=== PATIENT | male | born 1945 | race Caucasian/White ===

== ENCOUNTER 2016-08-14 18:35 | Inpatient (IN) | payer OTHER ==
[~2016-08-14] VITALS: Ht 182.9 cm; Wt 57.3 kg
[~2016-08-14 18:35] MED LIST: COLE1TAB5 PO; DORZ2SOL OPB; FURO20TA PO; LCTL45 PO; LSX20 PO; OMEP20CA9 PO; PROP10TA7 PO; SIMV10TA5 PO; SPR25 PO; SYN25 PO; XFX550 PO
[2016-08-14] MEDS ORDERED: SODIUM CHLORIDE 0.9% 1000ML 1,000 ML IV STA (18:55)
--- NOTE | 2016-08-14 19:46 | DIAGNOSTIC IMAGING REPORT ---
CHEST ONE VIEW PORTABLE CLINICAL HISTORY: Weakness COMPARISON STUDY: 09/29/2014 FINDINGS: The cardiac and mediastinal contours are normal. There is no evidence of focal pulmonary consolidation. There is no evidence of failure. No pleural effusions are visualized.[ IMPRESSION: No active disease in the chest. Electronically signed by: Tommy Hernandez M.D. 08/14/2016 7:45 PM Dictated Date/Time: 08/14/2016 7:45 PM
[2016-08-14 20:06] LABS: URINE APPEARANCE CLEAR (CLEAR); URINE BILIRUBIN NEG (NEG); URINE COLOR DK YELLOW; URINE NITRITE NEG (NEG); UROBILINOGEN NEG (NEG)
[2016-08-14 20:07] LABS: MEAN CORPUSCULAR HGB CONC 35.2 g/dl (32-36)
[2016-08-14 20:09] LABS: MANUAL MICROSCOPIC REQUIRED? NO; REVIEW REQ? NO
[2016-08-14 20:21] LABS: INR 1.3 (0.9-1.1); PARTIAL THROMBOPLASTIN RATIO 1.5; PROTHROMBIN TIME (PATIENT) 14.3 SECONDS (9.0-12.0)
--- NOTE | 2016-08-14 20:23 | DIAGNOSTIC IMAGING REPORT ---
CT HEAD WITHOUT CONTRAST (CT) CLINICAL HISTORY: Weakness DISORIENTATION COMPARISON STUDY: 09/28/2014 TECHNIQUE: Axial CT of the brain is performed from the vertex to the skull base. IV contrast was not administered for this examination. CT DOSE: 537.48 mGy.cm FINDINGS: No intra or extra-axial mass lesions are visualized. There is no CT evidence of acute cortical infarction. There is no evidence of midline shift. There is no acute hemorrhage. No calvarial fractures are visualized. There are minimal white matter hypodensities likely on a small vessel basis. There is no evidence of pathologic ventricular dilatation. There is no evidence of acute sinusitis IMPRESSION: No acute intracranial findings Electronically signed by: Tommy Hernandez M.D. 08/14/2016 8:21 PM Dictated Date/Time: 08/14/2016 8:20 PM
[2016-08-14 20:33] LABS: ACANTHOCYTES 1+; BASO % 1.3 %; COMPLETE YES; ECHINOCYTES 1+; EOS % 7.8 %; HEMATOCRIT 41.5 % (42-52); IG% 0.8 %; LYMPH % 13.7 %; LYMPH ABS # 1.09 K/uL (1.2-3.4); MEAN CELL VOLUME 87.2 fL (80-100); MEAN CORPUSCULAR HEMOGLOBIN 30.7 pg (25-34); MONO % 11.1 %; NEUT % 65.3 %; PLATELET COUNT 105 K/uL (130-400); PLT ESTIMATE DECREASED; RED BLOOD COUNT 4.76 M/uL (4.7-6.1); SCHISTOCYTES 1+; WHITE BLOOD COUNT 7.93 K/uL (4.8-10.8)
[2016-08-14] MEDS ORDERED: CRG40 PEG (20:49)
[2016-08-14 21:16] LABS: ALT/SGPT 30 U/L (12-78); AST/SGOT 28 U/L (15-37); BLOOD UREA NITROGEN 42 mg/dl (7-18); BUN/CREATININE RATIO 23.4 (10-20); CALCIUM 8.8 mg/dl (8.5-10.1); CARBON DIOXIDE 21 mmol/L (21-32); CHLORIDE 112 mmol/L (98-107); GLUCOSE 90 mg/dl (70-99); MAGNESIUM 2.3 mg/dl (1.8-2.4); SODIUM 144 mmol/L (136-145)
[2016-08-14 21:24] LABS: ALKALINE PHOSPHATASE 105 U/L (45-117); CKMB/CK RATIO 2.8 (0-3.0)
[2016-08-14] MEDS ORDERED: SODIUM CHLORIDE 0.9% 500ML 500 ML IV STA (22:14)
[2016-08-14] MEDS ORDERED: LACTULOSE SYRUP 20 GM/30 ML UDC PO STA (22:14)
[2016-08-14] MEDS ORDERED: ALUMINUM/MAGNESIUM/SIMETH (MAALOX MAX) 30 ML UDC PO PRN (23:30)
[2016-08-14] MEDS ORDERED: ONDANSETRON INJ 2 MG/ML 2 ML VIAL IV PRN (23:30)
[2016-08-14] MEDS ORDERED: MAGNESIUM HYDROXIDE SUSP 30 ML UDC PO PRN (23:30)
[2016-08-14] MEDS ORDERED: SIMV40TA4 PO (23:42)
[2016-08-14] MEDS ORDERED: LCTL30 PO (23:42)
[2016-08-15] MEDS ORDERED: SODIUM CHLORIDE 0.9% 1000ML 1,000 ML IV SCH
[2016-08-15] MEDS ORDERED: IV FLUIDS COMPLETED PRN (00:30)
--- NOTE | 2016-08-15 00:58 | EMERGENCY ROOM VISIT NOTE ---
History Report prepared by Adele: Richard Driscoll Under the Supervision of: Dr. Sai Bowens M.D. First contact with patient: 18:54 Chief Complaint: ALTERED MENTAL STATUS Stated Complaint: DISORIENTED,NOT TAKEN MEDS TODAY History of Present Illness The patient is a 71 year old male who presents to the Emergency Room with complaints of worsening alter mental status starting a last couple of days ago. The patient states that he has been nauseous and dry heaving for the last couple of days. The patient is accompanied by his daughter who states that he has not been himself starting yesterday. She states that she usually calls the patient three times a day. She reports that he is typically up at 715 but he was not answering the phone when she called. The patient's daughter reports that she called him around noon and 1615 yesterday, but he was not answering her calls. The patient's daughter states that she went to give him his lunch today at 1030, but he did not seem himself. She states that he has been unaware of time and has not been taking his medications. The patient's daughter reports that she does not believe he has eaten anything because he has not had dirty dishes in his sink. She states that he went on his tractor earlier tonight, but she was unaware of his location. His daughter reports that she had to call the police to find him. The patient states that he was unaware of the time when he went to ride on his tractor. She admits that he has been found unconscious two years ago with high ammonia levels. She also admits that he has non alcoholic cirrhosis of the liver and has been having varices done. The denies LOC, headache, fevers, chills, diaphoresis, visual changes, neck pain, chest pain, breathing difficulties, vomiting, abdominal pain, back pain, melena, hematochezia, urinary symptoms, numbness, weakness, lymphadenopathy, rash, or other complaints. Source of History: patient, family Onset: a couple of days ago Position: other (global) Quality: other (confusion) Timing: worsening Associated Symptoms: + nausea Review of Systems See HPI for pertinent positives and negatives. A total of ten systems were reviewed and were otherwise negative. Past Medical & Surgical Medical Problems: (1) Cirrhosis Of Liver Nos (2) Dehydration (3) Diverticulosis Colon (W/O Ment Of Hemorrhage) (4) Esophageal varices (5) Hepatic encephalopathy (6) Hypertension Nos (7) Hypothyroidism Nos Surgical Problems: (1) Cataract (2) History of hernia surgery Family History Cancer Unobtainable due to patient's condition Social History Smoking Status: Former Smoker Alcohol Use: none Marital Status: Housing Status: lives alone Occupation Status: employed Current/Historical Medications Scheduled Cholecalciferol (Vitamin D3), 2,000 UNITS PO DAILY Ferrous Sulfate (Ferrous Sulfate), 324 MG PO QPM Furosemide (Lasix), 20 MG PO QAM Lactulose (Lactulose), 20 GM PO DAILY Levothyroxine Sodium (Synthroid), 200 MCG PO QAM Nadolol (Nadolol), 40 MG PEG DAILY Rifaximin (Xifaxan), 550 MG PO BID Simvastatin (Zocor), 1 TAB PO HS Spironolactone (Spironolactone), 25 MG PO [id number] Allergies Coded Allergies: No Known Allergies (Verified , 02/08/10) Physical Exam Vital Signs Date Time Temp Pulse Resp B/P (MAP) Pulse Ox O2 Delivery O2 Flow Rate FiO2 08/15/16 00:28 72 16 104/59 99 Room Air 08/14/16 23:15 53 08/14/16 22:25 48 19 108/58 99 Room Air 08/14/16 20:49 57 17 108/58 100 Room Air 08/14/16 19:51 58 08/14/16 19:39 59 18 106/65 100 Room Air 08/14/16 19:38 99 Room Air 08/14/16 18:43 36.5 70 17 113/72 98 Room Air Physical Exam GENERAL: Awake, alert, well-appearing, in no distress HENT: Dry mucous membranes. Normocephalic, atraumatic. Oropharynx unremarkable. EYES: Normal conjunctiva. Sclera non-icteric. NECK: Supple. No nuchal rigidity. FROM. No JVD. RESPIRATORY: Clear to auscultation. CARDIAC: Regular rate, normal rhythm. Extremities warm and well perfused. Pulses equal. ABDOMEN: Reducible umbilical hernia. Liver palpable, 6cm below right costal margin. Soft, non-distended. No tenderness to palpation. No rebound or guarding. No masses. RECTAL: Deferred. MUSCULOSKELETAL: Chest examination reveals no tenderness. The back is symmetrical on inspection without obvious abnormality. There is no CVA tenderness to palpation. No joint edema. LOWER EXTREMITIES: Calves are equal size bilaterally and non-tender. No edema. No discoloration. NEURO: Normal sensorium. No sensory or motor deficits noted. SKIN: Chronic venous discoloration. Psoriasis. Skin Rash. No jaundice noted. Medical Decision & Procedures ER Provider Diagnostic Interpretation: Radiology results as stated below per my review and radiologist interpretation: CT HEAD WITHOUT CONTRAST (CT) CLINICAL HISTORY: Weakness DISORIENTATION COMPARISON STUDY: 09/28/2014 TECHNIQUE: Axial CT of the brain is performed from the vertex to the skull base. IV contrast was not administered for this examination. CT DOSE: 537.48 mGy.cm FINDINGS: No intra or extra-axial mass lesions are visualized. There is no CT evidence of acute cortical infarction. There is no evidence of midline shift. There is no acute hemorrhage. No calvarial fractures are visualized. There are minimal white matter hypodensities likely on a small vessel basis. There is no evidence of pathologic ventricular dilatation. There is no evidence of acute sinusitis IMPRESSION: No acute intracranial findings Electronically signed by: Tommy Hernandez M.D. 08/14/2016 8:21 PM Dictated Date/Time: 08/14/2016 8:20 PM CHEST ONE VIEW PORTABLE CLINICAL HISTORY: Weakness COMPARISON STUDY: 09/29/2014 FINDINGS: The cardiac and mediastinal contours are normal. There is no evidence of focal pulmonary consolidation. There is no evidence of failure. No pleural effusions are visualized.[ IMPRESSION: No active disease in the chest. Electronically signed by: Tommy Hernandez M.D. 08/14/2016 7:45 PM Dictated Date/Time: 08/14/2016 7:45 PM Laboratory Results 08/14/16 19:28 Red Blood Count 4.76, Mean Corpuscular Volume 87.2, Mean Corpuscular Hemoglobin 30.7, Mean Corpuscular Hemoglobin Concent 35.2, Neutrophils (%) (Auto) 65.3, Lymphocytes (%) (Auto) 13.7, Monocytes (%) (Auto) 11.1, Eosinophils (%) (Auto) 7.8, Basophils (%) (Auto) 1.3, Neutrophils # (Auto) 5.18, Lymphocytes # (Auto) 1.09, Monocytes # (Auto) 0.88, Eosinophils # (Auto) 0.62, Basophils # (Auto) 0.10 08/14/16 20:48 Test 08/14/16 19:20 08/14/16 19:28 08/14/16 20:48 Urine Color DK YELLOW Urine Appearance CLEAR (CLEAR) Urine pH 5.0 (4.5-7.5) Urine Specific [place] 1.020 (1.000-1.030) Urine Protein NEG (NEG) Urine Glucose (UA) NEG (NEG) Urine Ketones NEG (NEG) Urine Occult Blood NEG (NEG) Urine Nitrite NEG (NEG) Urine Bilirubin NEG (NEG) Urine Urobilinogen NEG (NEG) Urine Leukocyte Esterase NEG (NEG) White Blood Count 7.93 K/uL (4.8-10.8) Red Blood Count 4.76 M/uL (4.7-6.1) Hemoglobin 14.6 g/dL (14.0-18.0) Hematocrit 41.5 % (42-52) Mean Corpuscular Volume 87.2 fL (80-100) Mean Corpuscular Hemoglobin 30.7 pg (25-34) Mean Corpuscular Hemoglobin Concent 35.2 g/dl (32-36) Platelet Count 105 K/uL (130-400) Neutrophils (%) (Auto) 65.3 % Lymphocytes (%) (Auto) 13.7 % Monocytes (%) (Auto) 11.1 % Eosinophils (%) (Auto) 7.8 % Basophils (%) (Auto) 1.3 % Neutrophils # (Auto) 5.18 K/uL (1.4-6.5) Lymphocytes # (Auto) 1.09 K/uL (1.2-3.4) Monocytes # (Auto) 0.88 K/uL (0.11-0.59) Eosinophils # (Auto) 0.62 K/uL (0-0.5) Basophils # (Auto) 0.10 K/uL (0-0.2) RDW Standard Deviation 47.8 fL (36.4-46.3) RDW Coefficient of Variation 15.0 % (11.5-14.5) Immature Granulocyte % (Auto) 0.8 % Immature Granulocyte # (Auto) 0.06 K/uL (0.00-0.02) Platelet Estimate DECREASED Echinocytes 1+ Acanthocytes 1+ Schistocytes 1+ Prothrombin Time 14.3 SECONDS (9.0-12.0) Prothromb Time International Ratio 1.3 (0.9-1.1) Activated Partial Thromboplast Time 38.3 SECONDS (21.0-31.0) Partial Thromboplastin Ratio 1.5 Anion Gap 11.0 mmol/L (3-11) Est Creatinine Clear Calc Drug Dose 31.8 ml/min Estimated GFR () 43.2 Estimated GFR (Non- 37.3 BUN/Creatinine Ratio 23.4 (10-20) Calcium Level 8.8 mg/dl (8.5-10.1) Magnesium Level 2.3 mg/dl (1.8-2.4) Total Bilirubin 1.8 mg/dl (0.2-1) Direct Bilirubin 0.6 mg/dl (0-0.2) Aspartate Amino Transf (AST/SGOT) 28 U/L (15-37) Alanine Aminotransferase (ALT/SGPT) 30 U/L (12-78) Alkaline Phosphatase 105 U/L (45-117) Ammonia 67.0 umol/L (11-32) Total Creatine Kinase 54 U/L (39-308) Creatine Kinase MB 1.5 ng/ml (0.5-3.6) Creatine Kinase MB Ratio 2.8 (0-3.0) Troponin I < 0.015 ng/ml (0-0.045) Pro-B-Type Natriuretic Peptide 244 pg/ml (0-900) Total Protein 6.6 gm/dl (6.4-8.2) Albumin 3.3 gm/dl (3.4-5.0) Lipase 722 U/L (73-393) Thyroid Stimulating Hormone (TSH) 1.100 uIu/ml (0.300-4.500) Laboratory results reviewed by me Medications Administered Medications (Trade) Dose Ordered Sig/Elias Route Start Time Stop Time Status Last Admin Dose Admin Sodium Chloride 1,000 ml @ 125 mls/hr Q8H STAT IV 08/14/16 18:55 08/14/16 23:50 DC 08/14/16 20:25 125 MLS/HR Sodium Chloride 500 ml @ 999 mls/hr Q31M STAT IV 08/14/16 22:14 08/14/16 22:44 DC 08/14/16 22:24 999 MLS/HR Lactulose (Chronulac Syrup) 30 gm NOW STAT PO 08/14/16 22:14 08/14/16 22:15 DC 08/14/16 22:47 30 GM ECG Indication: altered mental status Rate (beats per minute): 57 Rhythm: sinus bradycardia Findings: no acute ischemic change, no ectopy ED Course Blood pressure screening: Patient was found to have normal blood pressure on screening and does not require follow-up. Medication Reconciliation: I attest that I have personally reviewed the patient' s current medication list 1855: Sodium chloride 1000 ml @ 125 mls/hr IV. 1858: The patient was evaluated in room C07. A complete history and physical exam was performed. 2213: Lactulose 30 gm PO, Sodium Chloride 500 ml @ 999 mls/hr. 2218: I reevaluated the patient. He is doing well. 2225: I discussed the patient's case with Dr. Fontana, [facility] Hospitalist. He understands the patient's condition and agrees to accept the patient. He will be further evaluated. Medical Decision Prior records/ancillary studies reviewed and summarized above. Nursing notes reviewed and agree them. Additional history obtained from family. The patient's history was concerning for altered mental status. Differential diagnosis: Etiologies such as hyperammonemia, dehydration, infection, hypoglycemia, electrolyte abnormalities, cardiac sources, intracerebral event, toxicologic, neurologic, as well as others were entertained. Physical examination: Patient appeared to be dehydrated. Mental status was relatively normal. ER treatment provided: IV Lock Normal saline hydration Oral lactulose On reassessment the patient felt better. Diagnostics interpretation by me: ECG: No ischemia. Normal. The labs revealed an unremarkable CBC. Chemistry panel revealed acute kidney injury. The patient's lipase is moderately elevated. He has a moderate elevation of his ammonia level as well. Cardiac markers unremarkable. LFTs revealed a mild elevation of his bilirubin function. His INR is slightly elevated at 1.3. Imaging studies: As above. It appears the patient has some dehydration with acute kidney injury as well as hyperammonemia. He is not currently taking lactulose. He was hydrated. Lactulose was initiated. I discussed further evaluation and management in the hospital. Family was definitely in agreement. The patient agreed for further management in the hospital as well. Consultation: A consultation was placed with the hospitalist. The case was discussed and diagnostics were reviewed. The patient was evaluated in the ER for further treatment. Consults Time Called: Consulting Physician: Mendy Villagomez Hospitalist Returned Call: I discussed the patient's case with Mendy Villagomez Hospitalist. He understands the patient's condition and agrees to accept the patient. He will be further evaluated. Impression Primary Impression: Metabolic encephalopathy Additional Impressions: Hyperammonemia Acute kidney injury Scribe Attestation The scribe's documentation has been prepared under my direction and personally reviewed by me in its entirety. I confirm that the note above accurately reflects all work, treatment, procedures, and medical decision making performed by me. Departure Information Dispostion Being Evaluated By Hospitalist (Dr. Fontana) Prescriptions Lactulose (Lactulose) 20 Gm/30 Ml Syrp 20 GM PO DAILY for 30 Days Prov: Viviana Fontana, 08/14/16 Simvastatin (ZOCOR) 40 Mg Tab 1 TAB PO HS for 30 Days, #30 TAB 5 Refills Prov: Viviana Fontana, 08/14/16 Referrals Gildardo Casiano D.O. (PCP) Patient Instructions My [facility] Problem Qualifiers
--- NOTE | 2016-08-15 01:24 | History and Physical ---
History & Physical Date & Time of Service: Aug 15, 2016 at 01:05 Chief Complaint: Disoriented,Not Taken Meds Today Primary Care Physician: Gildardo Casiano D.O. History of Present Illness Source: patient, family This is a 71 year old male with a PMH of MUNGUIA cirrhosis with complications including hepatic encephalopathy, ascites, esophageal varices presents with weakness, fatigue, confusion. As per his daughter, she states that he was riding his tractor today, working, etc. but he stayed out all day, did not eat or drink anything after breakfast - he seemed "off" and just did not realize what he was doing. He has had this episode a few years back when his ammonia level was high. He presented here, received some lactulose and IVFs and he is doing better. During my exam, no confusion, +weakness, denies fevers/chills, denies nausea/vomiting/diarrhea. Past Medical/Surgical History Medical Problems: (1) Cirrhosis Of Liver Nos Status: Chronic (2) Diverticulosis Colon (W/O Ment Of Hemorrhage) Status: Chronic (3) Esophageal varices Status: Chronic (4) Hepatic encephalopathy Status: Resolved (5) Hypertension Nos Status: Chronic (6) Hypothyroidism Nos Status: Chronic Surgical Problems: (1) Cataract Status: Resolved (2) History of hernia surgery Status: Resolved Family History Cancer Unobtainable due to patient's condition Social History Smoking Status: Former Smoker Marital Status: Occupational Status: employed Immunizations History of Influenza Vaccine: No History of Tetanus Vaccine?: 30 YRS AGO History of Pneumococcal: No History of Hepatitis B Vaccine: No Allergies Coded Allergies: No Known Allergies (Verified , 02/08/10) Home Medications Scheduled Cholecalciferol (Vitamin D3), 2,000 UNITS PO DAILY Ferrous Sulfate (Ferrous Sulfate), 324 MG PO QPM Furosemide (Lasix), 20 MG PO QAM Lactulose (Lactulose), 20 GM PO DAILY Levothyroxine Sodium (Synthroid), 200 MCG PO QAM Nadolol (Nadolol), 40 MG PEG DAILY Rifaximin (Xifaxan), 550 MG PO BID Simvastatin (Zocor), 1 TAB PO HS Spironolactone (Spironolactone), 25 MG PO BID17 Review of Systems Constitutional: + weakness, + fatigue, No fever, No chills, No sweats Respiratory: No cough, No sputum, No wheezing, No shortness of breath, No dyspnea on exertion, No dyspnea at rest, No hemoptysis Cardiovascular: No chest pain, No edema, No palpitations Abdomen: No pain, No nausea, No vomiting, No diarrhea, No constipation, No GI bleeding Musculoskeletal: No joint pain Genitourinary - Male: No hematuria, No dysuria, No urinary frequency, No urinary urgency, No urinary hesitancy, No urinary retention, No urinary incontinence Neurologic: + memory loss, + weakness, No paralysis, No numbness/tingling, No vertigo, No balance problems Psychiatric: No depression symptoms, No anhedonism, No anxiety, No insomnia, No substance abuse Endocrine: + fatigue, No excessive thirst Hematologic / Lymphatic: No abnormal bleeding/bruising Integumentary: No rash Allergic / Immunologic: No environmental allergies, No seasonal allergies Physical Exam Vital Signs Date Time Temp Pulse Resp B/P (MAP) Pulse Ox O2 Delivery O2 Flow Rate FiO2 08/15/16 00:28 72 16 104/59 99 Room Air 08/14/16 23:15 53 08/14/16 22:25 48 19 108/58 99 Room Air 08/14/16 20:49 57 17 108/58 100 Room Air 08/14/16 19:51 58 08/14/16 19:39 59 18 106/65 100 Room Air 08/14/16 19:38 99 Room Air 08/14/16 18:43 36.5 70 17 113/72 98 Room Air General Appearance: no apparent distress, + cachetic, + thin Head: normocephalic, atraumatic Eyes: normal inspection ENT: hearing grossly normal Respiratory/Chest: chest non-tender, lungs clear, normal breath sounds, no respiratory distress, no accessory muscle use Cardiovascular: regular rate, rhythm, no edema, no gallop, no murmur Abdomen/GI: normal bowel sounds, non tender, soft, + hepatomegaly Extremities/Musculoskelatal: no calf tenderness, normal capillary refill, no pedal edema Neurologic/Psych: no motor/sensory deficits, alert, normal mood/affect Diagnostics Laboratory Results Results Past 24 Hours Test 08/14/16 18:55 08/14/16 19:20 08/14/16 19:28 08/14/16 20:48 Range/Units Creatine Kinase MB Ratio 2.8 0-3.0 Urine Color DK YELLOW Urine Appearance CLEAR CLEAR Urine pH 5.0 4.5-7.5 Urine Specific [place] 1.020 1.000-1.030 Urine Protein NEG NEG Urine Glucose (UA) NEG NEG Urine Ketones NEG NEG Urine Occult Blood NEG NEG Urine Nitrite NEG NEG Urine Bilirubin NEG NEG Urine Urobilinogen NEG NEG Urine Leukocyte Esterase NEG NEG White Blood Count 7.93 4.8-10.8 K/uL Red Blood Count 4.76 4.7-6.1 M/uL Hemoglobin 14.6 14.0-18.0 g/dL Hematocrit 41.5 42-52 % Mean Corpuscular Volume 87.2 80-100 fL Mean Corpuscular Hemoglobin 30.7 25-34 pg Mean Corpuscular Hemoglobin Concent 35.2 32-36 g/dl Platelet Count 105 130-400 K/uL Neutrophils (%) (Auto) 65.3 % Lymphocytes (%) (Auto) 13.7 % Monocytes (%) (Auto) 11.1 % Eosinophils (%) (Auto) 7.8 % Basophils (%) (Auto) 1.3 % Neutrophils # (Auto) 5.18 1.4-6.5 K/uL Lymphocytes # (Auto) 1.09 1.2-3.4 K/uL Monocytes # (Auto) 0.88 0.11-0.59 K/uL Eosinophils # (Auto) 0.62 0-0.5 K/uL Basophils # (Auto) 0.10 0-0.2 K/uL RDW Standard Deviation 47.8 36.4-46.3 fL RDW Coefficient of Variation 15.0 11.5-14.5 % Immature Granulocyte % (Auto) 0.8 % Immature Granulocyte # (Auto) 0.06 0.00-0.02 K/uL Platelet Estimate DECREASED Echinocytes 1+ Acanthocytes 1+ Schistocytes 1+ Prothrombin Time 14.3 9.0-12.0 SECONDS Prothromb Time International Ratio 1.3 0.9-1.1 Activated Partial Thromboplast Time 38.3 21.0-31.0 SECONDS Partial Thromboplastin Ratio 1.5 Sodium Level 144 136-145 mmol/L Potassium Level 4.0 3.5-5.1 mmol/L Chloride Level 112 98-107 mmol/L Carbon Dioxide Level 21 21-32 mmol/L Anion Gap 11.0 3-11 mmol/L Blood Urea Nitrogen 42 7-18 mg/dl Creatinine 1.80 0.60-1.40 mg/dl Est Creatinine Clear Calc Drug Dose 31.8 ml/min Estimated GFR () 43.2 Estimated GFR (Non- 37.3 BUN/Creatinine Ratio 23.4 10-20 Random Glucose 90 70-99 mg/dl Calcium Level 8.8 8.5-10.1 mg/dl Magnesium Level 2.3 1.8-2.4 mg/dl Total Bilirubin 1.8 0.2-1 mg/dl Direct Bilirubin 0.6 0-0.2 mg/dl Aspartate Amino Transf (AST/SGOT) 28 15-37 U/L Alanine Aminotransferase (ALT/SGPT) 30 12-78 U/L Alkaline Phosphatase 105 45-117 U/L Ammonia 67.0 11-32 umol/L Total Creatine Kinase 54 39-308 U/L Creatine Kinase MB 1.5 0.5-3.6 ng/ml Troponin I < 0.015 0-0.045 ng/ml Pro-B-Type Natriuretic Peptide 244 0-900 pg/ml Total Protein 6.6 6.4-8.2 gm/dl Albumin 3.3 3.4-5.0 gm/dl Lipase 722 73-393 U/L Thyroid Stimulating Hormone (TSH) 1.100 0.300-4.500 uIu/ml Microbiology Results 08/14/16 Urine Culture, Received Pending Diagnostic Radiology CT HEAD WITHOUT CONTRAST (CT) CLINICAL HISTORY: Weakness DISORIENTATION COMPARISON STUDY: 09/28/2014 TECHNIQUE: Axial CT of the brain is performed from the vertex to the skull base. IV contrast was not administered for this examination. CT DOSE: 537.48 mGy.cm FINDINGS: No intra or extra-axial mass lesions are visualized. There is no CT evidence of acute cortical infarction. There is no evidence of midline shift. There is no acute hemorrhage. No calvarial fractures are visualized. There are minimal white matter hypodensities likely on a small vessel basis. There is no evidence of pathologic ventricular dilatation. There is no evidence of acute sinusitis IMPRESSION: No acute intracranial findings CHEST ONE VIEW PORTABLE CLINICAL HISTORY: Weakness COMPARISON STUDY: 09/29/2014 FINDINGS: The cardiac and mediastinal contours are normal. There is no evidence of focal pulmonary consolidation. There is no evidence of failure. No pleural effusions are visualized.[ IMPRESSION: No active disease in the chest. Normal EKG Impression Assessment and Plan This is a 71 year old male with a PMH of MUNGUIA cirrhosis with complications including hepatic encephalopathy, ascites, esophageal varices presents with weakness, fatigue, confusion. Metabolic Encephalopathy possibly secondary to dehydration decreased PO intake today, excessive sweating due to being outside in the heat for the majority of the day will hold Lasix/Aldactone received bolus in the ED; continue gentle hydration monitor for electrolyte abnormality Acute Kidney Injury as above, due to dehydration hold Lasix/Aldactone continue IVFs recheck creat in AM; avoid nephrotoxic agents when able Hepatic Encephalopathy? in the setting of MUNGUIA cirrhosis patient with MUNGUIA cirrhosis; follows with corporate learning consultant; next appoint on August 17 he takes Lactulose once daily; states he had 15 BMs with twice daily dosing ammonia level today is slightly high at ~ 70; will increase to twice daily for now, and possible once daily for discharge with outpatient f/u with hepatology for dose adjustments continue Rifaximin, Nadolol; hold Lasix/Aldactone DVT ppx no heparin due to esophageal varices SCDs DNR VTE Prophylaxis VTE Risk Assessment Done? Y/N: Yes Risk Level: Moderate
[2016-08-15 01:32] VITALS: BP 102/62; PULSE 50; TEMP 36.4; Ht 182.9 cm; Wt 57.3 kg
[2016-08-15 07:31] VITALS: BP 94/56; PULSE 58; TEMP 36.4; O2SAT 100
[2016-08-15 08:05] LABS: BUN/CREATININE RATIO 27.1 (10-20); CALCIUM 8.4 mg/dl (8.5-10.1); CREATININE 1.4 mg/dl (0.60-1.40); MAGNESIUM 2.4 mg/dl (1.8-2.4); POTASSIUM 3.8 mmol/L (3.5-5.1)
[2016-08-15 08:06] LABS: HEMATOCRIT 39.3 % (42-52); MEAN CELL VOLUME 88.9 fL (80-100); MEAN CORPUSCULAR HEMOGLOBIN 30.1 pg (25-34); MEAN CORPUSCULAR HGB CONC 33.8 g/dl (32-36); MEAN PLATELET VOLUME 12.4 fL (7.4-10.4); PLATELET COUNT 66 K/uL (130-400); PLT ESTIMATE DECREASED; RED BLOOD COUNT 4.42 M/uL (4.7-6.1); WHITE BLOOD COUNT 6.45 K/uL (4.8-10.8)
[2016-08-15] MEDS: LEVOTHYROXINE 200 MCG TAB PO SCH (08:07)
--- NOTE | 2016-08-15 08:59 | Progress Note ---
Medicine Progress Note Date & Time of Visit: Aug 15, 2016 at 08:49. Subjective patient seen resting in bed, comfortable states he feels fine overall oriented x 3, answers all questions appropriately had 5 BMs so far since admitted no melena/hematochezia, abdominal pain ,nausea, fever/chills denies increase in abdominal girth no other symptoms Objective Last 8 Hrs Date Time Temp Pulse Resp B/P (MAP) Pulse Ox O2 Delivery O2 Flow Rate FiO2 08/15/16 07:31 36.4 58 18 94/56 (69) 100 Room Air 08/15/16 05:15 Room Air 08/15/16 01:32 36.4 50 20 102/62 Room Air Physical Exam: General- oriented x 3, not in distress, speaks in sentences with no effort Head- atraumatic Eyes- EOMI, anicteric ENT- oropharynx clear Neck- supple, no JVD, no adenopathy, no thyromegaly Lungs- clear to auscultation bilaterally Heart- regular rhythm; no murmur, normal rate Abdomen- normal bowel sounds, moderate distention (chronic per patient), soft, nontender, Extremities- no pretibial edema, no calf tenderness; peripheral pulses intact Neuro- alert, oriented x 3; no gross focal deficits Skin- warm & dry Laboratory Results: Last 24 Hours Test 08/14/16 18:55 08/14/16 19:20 08/14/16 19:28 08/14/16 20:48 Creatine Kinase MB Ratio 2.8 Urine Color DK YELLOW Urine Appearance CLEAR Urine pH 5.0 Urine Specific [place] 1.020 Urine Protein NEG Urine Glucose (UA) NEG Urine Ketones NEG Urine Occult Blood NEG Urine Nitrite NEG Urine Bilirubin NEG Urine Urobilinogen NEG Urine Leukocyte Esterase NEG White Blood Count 7.93 K/uL Red Blood Count 4.76 M/uL Hemoglobin 14.6 g/dL Hematocrit 41.5 % Mean Corpuscular Volume 87.2 fL Mean Corpuscular Hemoglobin 30.7 pg Mean Corpuscular Hemoglobin Concent 35.2 g/dl Platelet Count 105 K/uL Neutrophils (%) (Auto) 65.3 % Lymphocytes (%) (Auto) 13.7 % Monocytes (%) (Auto) 11.1 % Eosinophils (%) (Auto) 7.8 % Basophils (%) (Auto) 1.3 % Neutrophils # (Auto) 5.18 K/uL Lymphocytes # (Auto) 1.09 K/uL Monocytes # (Auto) 0.88 K/uL Eosinophils # (Auto) 0.62 K/uL Basophils # (Auto) 0.10 K/uL RDW Standard Deviation 47.8 fL RDW Coefficient of Variation 15.0 % Immature Granulocyte % (Auto) 0.8 % Immature Granulocyte # (Auto) 0.06 K/uL Platelet Estimate DECREASED Echinocytes 1+ Acanthocytes 1+ Schistocytes 1+ Prothrombin Time 14.3 SECONDS Prothromb Time International Ratio 1.3 Activated Partial Thromboplast Time 38.3 SECONDS Partial Thromboplastin Ratio 1.5 Sodium Level 144 mmol/L Potassium Level 4.0 mmol/L Chloride Level 112 mmol/L Carbon Dioxide Level 21 mmol/L Anion Gap 11.0 mmol/L Blood Urea Nitrogen 42 mg/dl Creatinine 1.80 mg/dl Est Creatinine Clear Calc Drug Dose 31.8 ml/min Estimated GFR () 43.2 Estimated GFR (Non- 37.3 BUN/Creatinine Ratio 23.4 Random Glucose 90 mg/dl Calcium Level 8.8 mg/dl Magnesium Level 2.3 mg/dl Total Bilirubin 1.8 mg/dl Direct Bilirubin 0.6 mg/dl Aspartate Amino Transf (AST/SGOT) 28 U/L Alanine Aminotransferase (ALT/SGPT) 30 U/L Alkaline Phosphatase 105 U/L Ammonia 67.0 umol/L Total Creatine Kinase 54 U/L Creatine Kinase MB 1.5 ng/ml Troponin I < 0.015 ng/ml Pro-B-Type Natriuretic Peptide 244 pg/ml Total Protein 6.6 gm/dl Albumin 3.3 gm/dl Lipase 722 U/L Thyroid Stimulating Hormone (TSH) 1.100 uIu/ml Test 08/15/16 07:20 White Blood Count 6.45 K/uL Red Blood Count 4.42 M/uL Hemoglobin 13.3 g/dL Hematocrit 39.3 % Mean Corpuscular Volume 88.9 fL Mean Corpuscular Hemoglobin 30.1 pg Mean Corpuscular Hemoglobin Concent 33.8 g/dl RDW Standard Deviation 50.6 fL RDW Coefficient of Variation 15.4 % Platelet Count 66 K/uL Mean Platelet Volume 12.4 fL Platelet Estimate DECREASED Sodium Level 146 mmol/L Potassium Level 3.8 mmol/L Chloride Level 116 mmol/L Carbon Dioxide Level 18 mmol/L Anion Gap 12.0 mmol/L Blood Urea Nitrogen 38 mg/dl Creatinine 1.40 mg/dl Est Creatinine Clear Calc Drug Dose 39.8 ml/min Estimated GFR () 58.6 Estimated GFR (Non- 50.5 BUN/Creatinine Ratio 27.1 Random Glucose 91 mg/dl Calcium Level 8.4 mg/dl Magnesium Level 2.4 mg/dl Ammonia 95.0 umol/L Lipase 683 U/L Date/Time Source Procedure Growth Status 08/14/16 19:20 Urine , Clean Catch Urine Culture Pending Received Assessment & Plan This is a 71 year old male with a PMH of MUNGUIA cirrhosis with complications including hepatic encephalopathy, ascites, esophageal varices presents with weakness, fatigue, confusion. TOXIC METABOLIC ENCEPHALOPATHY - presented to ER as patient's family noticed that patient was somewhat confused , apparently rode tractor all day in the sun - likely from hyper-ammonemia, dehydration - NH4 increased from 67 to 95 clinically, oriented x 3 today - Lactulose increased from 20mg daily to 30mg BID Rifaximin continued - Lasix and Aldactone held for now was given IV NSS crea improved from 1.8 to 1.4 hold fluids for now encouraged fluid intake - GI consulted Acute Kidney Injury resolved secondary to dehydration - Lasix and Aldactone held for now was given IV NSS crea improved from 1.8 to 1.4 hold fluids for now encouraged fluid intake Hepatic Encephalopathy in the setting of MUNGUIA cirrhosis patient with MUNGUIA cirrhosis; 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 Casiano Current Inpatient Medications: Current Inpatient Medications Medications (Trade) Dose Ordered Sig/Elias Route Start Time Stop Time Status Last Admin Dose Admin Al Hydrox/Mg Hydrox/Simethicone (Maalox Max Susp) 15 ml Q4H PRN PO 08/14/16 23:30 09/13/16 23:29 Magnesium Hydroxide (Milk Of Magnesia Susp) 30 ml Q6H PRN PO 6/11/17 23:30 09/13/16 23:29 Ondansetron HCl (Zofran Inj) 4 mg Q6H PRN IV 08/14/16 23:30 09/13/16 23:29 Levothyroxine Sodium (Synthroid Tab) 200 mcg DAILYBB PO 08/15/16 06:30 09/14/16 06:59 08/15/16 08:07 200 MCG Rifaximin (Xifaxan Tab) 550 mg BID PO 08/15/16 09:00 09/14/16 08:59 Ferrous Sulfate (Feosol Tab) 325 mg QPM PO 08/15/16 21:00 09/14/16 20:59 Nadolol (Corgard Tab) 40 mg DAILY PO 08/15/16 09:00 09/14/16 08:59 Sodium Chloride 1,000 ml @ 80 mls/hr [id number] IV 08/15/16 00:00 09/14/16 00:00 08/15/16 00:00 80 MLS/HR Lactulose (Chronulac Syrup) 30 gm BID PO 08/15/16 09:00 09/14/16 08:59 Miscellaneous (Iv Fluids Completed) 1 ea PRN PRN N/A 08/15/16 00:30 08/15/17 00:29
[2016-08-15] MEDS: LACTULOSE SYRUP 30 GM/45 ML UDP PO SCH (09:00)
[2016-08-15] MEDS ORDERED: NADOLOL 40 MG TAB PEG SCH (09:00)
[2016-08-15] MEDS: NADOLOL 40 MG TAB PO SCH (09:00)
[2016-08-15 09:05] VITALS: BP 102/62; PULSE 57
[2016-08-15] MEDS: RIFAXIMIN TAB 550 MG TAB PO SCH ×2 (09:08→21:14)
[2016-08-15 15:25] VITALS: BP 109/65; PULSE 63; TEMP 36.4; O2SAT 100
--- NOTE | 2016-08-15 15:34 | Gastrointestinal Consultation ---
Gastrointestinal Consultation Date of Consultation: Aug 15, 2016 Attending Physician: Dr. Taylor Consulting Physician: Dr. Felicia Myers Reason for Consultation: Dehydration, hepatic encephalopathy History of Present Illness Patient is a 71 year old male patient of Dr Craft with a hx of Cirrhosis ( presumably MUNGUIA cirrhosis as he does not have a hx of increased alcohol intake) . He also carries a hx of varices, hepatic encephalopathy, ascites. He is followed by hepatology at [facility] in [place]. He has an appt there on Monday. He was brought to the ED yesterday for confusion. His daughter is in the room and she tells me that the pt had mild confusion for about 2 days. He is maintained on lactulose once daily and Xifaxin 550mg BID. The pt denies any fevers, chills, sweats, melena, hematochezia, abdominal pain, nausea or vomiting. He tells me that he doesn't recall being confused but understands that his family thinks he was mildly confused. Today, he completely oriented to person, place, time and able to give details about his medical hx. His daughter tells me that she thinks his mentation is "back to normal," today compared to yesterday. Past Medical/Surgical History Medical Problems: (1) Acute kidney injury Status: Acute (2) Hyperammonemia Status: Acute (3) Metabolic encephalopathy Status: Acute Past Medical History: 1. Cirrhosis 2. Diverticulosis 3. Esophageal varices 4. Prior hepatic encephalopathy 5. HTN 6. Hypothyroidism Past Surgical History: 1. Caytaracts 2. Rt inguinal hernia repair Family History Cancer Unobtainable due to patient's condition Social History Smoking Status: Never Smoker Alcohol Use: none Marital Status: Housing Status: lives alone Occupation Status: employed Allergies Coded Allergies: No Known Allergies (Verified , 02/08/10) Current Medications Home Meds and Scripts Medications Dose Route/Sig Max Daily Dose Days Date Category Lactulose 20 Gm/30 Ml Syrp 20 Gm PO DAILY 30 08/14/16 Rx Zocor (Simvastatin) 40 Mg Tab 1 Tab PO HS 30 08/14/16 Rx Nadolol 40 Mg Tab 40 Mg PEG DAILY 08/14/16 Reported Vitamin D3 (Cholecalciferol) 1,000 Unit Tab 2,000 Units PO DAILY 08/14/16 Reported Ferrous Sulfate 324 Mg Tab 324 Mg PO QPM 08/14/16 Reported Synthroid (Levothyroxine Sodium) 200 Mcg Tab 200 Mcg PO QAM 08/14/16 Reported Spironolactone 25 Mg Tab 25 Mg PO BID17 10/06/14 Rx Xifaxan (Rifaximin) 550 Mg Tab 550 Mg PO BID 10/06/14 Rx Lasix (Furosemide) 20 Mg Tab 20 Mg PO QAM 09/28/14 Reported Review of Systems Constitutional: No fever, No chills, No sweats, No weight loss, No weakness Eyes: No eye pain, No redness ENT: No sore throat, No trouble swallowing, No pain on swallowing Respiratory: No cough, No wheezing, No shortness of breath, No dyspnea on exertion Cardiac: No chest pain, No edema, No palpitations Abdomen: + see HPI Neuro: + problem reported (confusion), No memory loss, No weakness, No numbness /tingling, No vertigo, No balance problems Psych: No depression symptoms, No anxiety, No insomnia Heme: No abnormal bleeding/bruising, No night sweats Endo: No excessive thirst, No excessive urination Skin: No rash, No itch, No new/changing skin lesions, No jaundice Physical Exam Date Time Temp Pulse Resp B/P (MAP) Pulse Ox O2 Delivery O2 Flow Rate FiO2 08/15/16 09:05 57 102/62 (75) 08/15/16 07:40 Room Air 08/15/16 07:31 36.4 58 18 94/56 (69) 100 Room Air 08/15/16 05:15 Room Air 08/15/16 01:32 36.4 50 20 102/62 Room Air 08/15/16 00:28 72 16 104/59 99 Room Air 08/14/16 23:15 53 08/14/16 22:25 48 19 108/58 99 Room Air 08/14/16 20:49 57 17 108/58 100 Room Air 08/14/16 19:51 58 08/14/16 19:39 59 18 106/65 100 Room Air 08/14/16 19:38 99 Room Air 08/14/16 18:43 36.5 70 17 113/72 98 Room Air General Appearance: no apparent distress Eyes: normal inspection, EOMI Neck: supple, no adenopathy, thyroid normal Respiratory/Chest: chest non-tender, lungs clear, normal breath sounds, no accessory muscle use Cardiovascular: regular rate, rhythm, no JVD, no murmur Abdomen: normal bowel sounds, non tender, soft, no organomegaly, + pertinent finding (minimal ascites) Extremities: normal inspection, no pedal edema, normal capillary refill Neurologic/Psych: alert, normal mood/affect, oriented x 3 Skin: normal color, no jaundice, warm/dry, no rash Laboratory Results Last 24 Hours Test 08/14/16 18:55 08/14/16 19:20 08/14/16 19:28 08/14/16 20:48 Creatine Kinase MB Ratio 2.8 Urine Color DK YELLOW Urine Appearance CLEAR Urine pH 5.0 Urine Specific [place] 1.020 Urine Protein NEG Urine Glucose (UA) NEG Urine Ketones NEG Urine Occult Blood NEG Urine Nitrite NEG Urine Bilirubin NEG Urine Urobilinogen NEG Urine Leukocyte Esterase NEG White Blood Count 7.93 K/uL Red Blood Count 4.76 M/uL Hemoglobin 14.6 g/dL Hematocrit 41.5 % Mean Corpuscular Volume 87.2 fL Mean Corpuscular Hemoglobin 30.7 pg Mean Corpuscular Hemoglobin Concent 35.2 g/dl Platelet Count 105 K/uL Neutrophils (%) (Auto) 65.3 % Lymphocytes (%) (Auto) 13.7 % Monocytes (%) (Auto) 11.1 % Eosinophils (%) (Auto) 7.8 % Basophils (%) (Auto) 1.3 % Neutrophils # (Auto) 5.18 K/uL Lymphocytes # (Auto) 1.09 K/uL Monocytes # (Auto) 0.88 K/uL Eosinophils # (Auto) 0.62 K/uL Basophils # (Auto) 0.10 K/uL RDW Standard Deviation 47.8 fL RDW Coefficient of Variation 15.0 % Immature Granulocyte % (Auto) 0.8 % Immature Granulocyte # (Auto) 0.06 K/uL Platelet Estimate DECREASED Echinocytes 1+ Acanthocytes 1+ Schistocytes 1+ Prothrombin Time 14.3 SECONDS Prothromb Time International Ratio 1.3 Activated Partial Thromboplast Time 38.3 SECONDS Partial Thromboplastin Ratio 1.5 Sodium Level 144 mmol/L Potassium Level 4.0 mmol/L Chloride Level 112 mmol/L Carbon Dioxide Level 21 mmol/L Anion Gap 11.0 mmol/L Blood Urea Nitrogen 42 mg/dl Creatinine 1.80 mg/dl Est Creatinine Clear Calc Drug Dose 31.8 ml/min Estimated GFR () 43.2 Estimated GFR (Non- 37.3 BUN/Creatinine Ratio 23.4 Random Glucose 90 mg/dl Calcium Level 8.8 mg/dl Magnesium Level 2.3 mg/dl Total Bilirubin 1.8 mg/dl Direct Bilirubin 0.6 mg/dl Aspartate Amino Transf (AST/SGOT) 28 U/L Alanine Aminotransferase (ALT/SGPT) 30 U/L Alkaline Phosphatase 105 U/L Ammonia 67.0 umol/L Total Creatine Kinase 54 U/L Creatine Kinase MB 1.5 ng/ml Troponin I < 0.015 ng/ml Pro-B-Type Natriuretic Peptide 244 pg/ml Total Protein 6.6 gm/dl Albumin 3.3 gm/dl Lipase 722 U/L Thyroid Stimulating Hormone (TSH) 1.100 uIu/ml Test 08/15/16 07:20 White Blood Count 6.45 K/uL Red Blood Count 4.42 M/uL Hemoglobin 13.3 g/dL Hematocrit 39.3 % Mean Corpuscular Volume 88.9 fL Mean Corpuscular Hemoglobin 30.1 pg Mean Corpuscular Hemoglobin Concent 33.8 g/dl RDW Standard Deviation 50.6 fL RDW Coefficient of Variation 15.4 % Platelet Count 66 K/uL Mean Platelet Volume 12.4 fL Platelet Estimate DECREASED Sodium Level 146 mmol/L Potassium Level 3.8 mmol/L Chloride Level 116 mmol/L Carbon Dioxide Level 18 mmol/L Anion Gap 12.0 mmol/L Blood Urea Nitrogen 38 mg/dl Creatinine 1.40 mg/dl Est Creatinine Clear Calc Drug Dose 39.8 ml/min Estimated GFR () 58.6 Estimated GFR (Non- 50.5 BUN/Creatinine Ratio 27.1 Random Glucose 91 mg/dl Calcium Level 8.4 mg/dl Magnesium Level 2.4 mg/dl Ammonia 95.0 umol/L Lipase 683 U/L Impression Patient is a 71 year old male with MUNGUIA cirrhosis who is admitted with mild hepatic encephalopathy that appears to have cleared. The trigger for this episode was most likely dehydration. Plan 1. Titrate lactulose, increasing to 2-3 times/day if mild confusion. Seek ED care if marked confusion. 2. Continue all OP meds. 3. 2 gram NA diet. 4. GI will sign off. Pt to f/u with hepatology at the [facility] in [place]. I saw and evalauted the patient. He presented with an excerbation of HE and is now improved PE: nad / no asterixis Impression: Patient admitted with HE recovered with increased Lactulose and use of rifaximin Recomendation: advance diet as tolerated consder early d/c
[2016-08-15 16:41] LABS: BUN/CREATININE RATIO 21.1 (10-20); CALCIUM 8.3 mg/dl (8.5-10.1); CREATININE 1.7 mg/dl (0.60-1.40); POTASSIUM 3.7 mmol/L (3.5-5.1)
[2016-08-15] MEDS: SODIUM CHLORIDE 0.9% 1000ML 1,000 ML IV SCH (18:51)
[2016-08-15] MEDS: LACTULOSE SYRUP 20 GM/30 ML UDC PO SCH (19:33)
[2016-08-15] MEDS ORDERED: FERROUS SULFATE 325 MG TAB PO SCH (21:00)
[2016-08-15 23:39] VITALS: BP 104/68; PULSE 55; TEMP 36.7; O2SAT 99
[2016-08-16 05:29] LABS: HEMATOCRIT 37.1 % (42-52); MEAN CELL VOLUME 89.6 fL (80-100); MEAN CORPUSCULAR HEMOGLOBIN 30.2 pg (25-34); MEAN CORPUSCULAR HGB CONC 33.7 g/dl (32-36); RED BLOOD COUNT 4.14 M/uL (4.7-6.1)
[2016-08-16 05:30] LABS: BASO % 0.8 %; BASO ABS # 0.05 K/uL (0-0.2); COMPLETE YES; EOS % 6.4 %; IG% 0.5 %; LYMPH % 10.5 %; LYMPH ABS # 0.69 K/uL (1.2-3.4); MEAN PLATELET VOLUME 10.9 fL (7.4-10.4); MONO % 14.5 %; NEUT % 67.3 %; PLATELET COUNT 55 K/uL (130-400)
[2016-08-16 05:51] LABS: BUN/CREATININE RATIO 22.3 (10-20); CALCIUM 7.7 mg/dl (8.5-10.1); CREATININE 1.4 mg/dl (0.60-1.40)
[2016-08-16] MEDS: LEVOTHYROXINE 200 MCG TAB PO SCH (06:11)
[2016-08-16] MEDS: SODIUM CHLORIDE 0.9% 1000ML 1,000 ML IV SCH (07:05)
[2016-08-16 07:09] VITALS: BP 93/58; PULSE 57; TEMP 36.4; O2SAT 98
[2016-08-16 08:00] VITALS: O2SAT 98
[2016-08-16] MEDS: NADOLOL 40 MG TAB PO SCH (08:32)
[2016-08-16] MEDS: LACTULOSE SYRUP 20 GM/30 ML UDC PO SCH (08:33)
[2016-08-16] MEDS: RIFAXIMIN TAB 550 MG TAB PO SCH (08:33)
--- NOTE | 2016-08-16 10:55 | Progress Note ---
Medicine Progress Note Date & Time of Visit: Aug 16, 2016 at 10:42. Subjective patient seen resting in bed, comfortable oriented x 3 daughter at bedside, agrees he looks better states he feels fine overall had 3 bms last night, no confusion/dizziness/weakness states he is ready and would like to be discharged today no other symptoms Objective Last 8 Hrs Date Time Temp Pulse Resp B/P (MAP) Pulse Ox O2 Delivery O2 Flow Rate FiO2 08/16/16 08:00 98 Room Air 08/16/16 07:09 36.4 57 18 93/58 (70) 98 Room Air Physical Exam: General- oriented x 3, not in distress Eyes- anicteric Neck- no JVD Lungs- clear breath sounds bilaterally, no rales/wheezes Heart- regular rhythm; no murmur, normal rate Abdomen- normal bowel sounds, moderate distention (chronic per patient), soft, nontender Extremities- no pretibial edema, no calf tenderness; peripheral pulses intact Neuro- alert, oriented x 3; no gross focal deficits Skin- warm & dry Laboratory Results: Last 24 Hours Test 08/15/16 15:50 08/16/16 05:15 Sodium Level 145 mmol/L 144 mmol/L Potassium Level 3.7 mmol/L 4.0 mmol/L Chloride Level 113 mmol/L 116 mmol/L Carbon Dioxide Level 20 mmol/L 18 mmol/L Anion Gap 12.0 mmol/L 10.0 mmol/L Blood Urea Nitrogen 36 mg/dl 31 mg/dl Creatinine 1.70 mg/dl 1.40 mg/dl Est Creatinine Clear Calc Drug Dose 32.8 ml/min 39.8 ml/min Estimated GFR () 46.3 58.6 Estimated GFR (Non- 40.0 50.5 BUN/Creatinine Ratio 21.1 22.3 Random Glucose 92 mg/dl 84 mg/dl Calcium Level 8.3 mg/dl 7.7 mg/dl White Blood Count 6.60 K/uL Red Blood Count 4.14 M/uL Hemoglobin 12.5 g/dL Hematocrit 37.1 % Mean Corpuscular Volume 89.6 fL Mean Corpuscular Hemoglobin 30.2 pg Mean Corpuscular Hemoglobin Concent 33.7 g/dl Platelet Count 55 K/uL Mean Platelet Volume 10.9 fL Neutrophils (%) (Auto) 67.3 % Lymphocytes (%) (Auto) 10.5 % Monocytes (%) (Auto) 14.5 % Eosinophils (%) (Auto) 6.4 % Basophils (%) (Auto) 0.8 % Neutrophils # (Auto) 4.45 K/uL Lymphocytes # (Auto) 0.69 K/uL Monocytes # (Auto) 0.96 K/uL Eosinophils # (Auto) 0.42 K/uL Basophils # (Auto) 0.05 K/uL RDW Standard Deviation 50.1 fL RDW Coefficient of Variation 15.2 % Immature Granulocyte % (Auto) 0.5 % Immature Granulocyte # (Auto) 0.03 K/uL Ammonia 62.0 umol/L Assessment & Plan This is a 71 year old male with a PMH of MUNGUIA cirrhosis with complications including hepatic encephalopathy, ascites, esophageal varices presents with weakness, fatigue, confusion. TOXIC METABOLIC ENCEPHALOPATHY - presented to ER as patient's family noticed that patient was somewhat confused , apparently rode tractor all day in the sun - likely from hyper-ammonemia, dehydration - given additional lactulose, Rifaximin continued gentle IV fluids ammonia decreased from 90 to 60 improved clinically, oriented x 3 - GI consulted- Dr. Myers recommend to give additional lactulose up to TID if with confusion - follow up with GI in [facility] Acute Kidney Injury resolved - secondary to dehydration - Lasix and Aldactone held was given IV NSS crea improved from 1.8 to 1.4 - encourage to maintain adequate daily fluid intake Hepatic Encephalopathy in the setting of MUNGUIA cirrhosis patient admits he missed dose of Lactulose prior to admission no symptoms/ signs of active GI bleed management per #1 Thrombocytopenia Chronic Plt level similar to previous admission no signs of bleeding monitor Mild Lipase Elevation no abdominal pain monitor DVT ppx no heparin due to esophageal varices SCDs given Disposition d/c home follow up with Hepatology at [facility] (appointment 08/17/16) follow up with PCP as scheduled Current Inpatient Medications: Current Inpatient Medications Medications (Trade) Dose Ordered Sig/Elias Route Start Time Stop Time Status Last Admin Dose Admin Al Hydrox/Mg Hydrox/Simethicone (Maalox Max Susp) 15 ml Q4H PRN PO 08/14/16 23:30 09/13/16 23:29 Magnesium Hydroxide (Milk Of Magnesia Susp) 30 ml Q6H PRN PO 08/14/16 23:30 09/13/16 23:29 Ondansetron HCl (Zofran Inj) 4 mg Q6H PRN IV 08/14/16 23:30 09/13/16 23:29 Levothyroxine Sodium (Synthroid Tab) 200 mcg DAILYBB PO 08/15/16 06:30 09/14/16 06:59 08/16/16 06:11 200 MCG Rifaximin (Xifaxan Tab) 550 mg BID PO 08/15/16 09:00 09/14/16 08:59 08/16/16 08:33 550 MG Ferrous Sulfate (Feosol Tab) 325 mg QPM PO 08/15/16 21:00 09/14/16 20:59 08/15/16 21:14 325 MG Nadolol (Corgard Tab) 40 mg DAILY PO 08/15/16 09:00 09/14/16 08:59 08/16/16 08:32 40 MG Miscellaneous (Iv Fluids Completed) 1 ea PRN PRN N/A 08/15/16 00:30 08/15/17 00:29 Lactulose (Chronulac Syrup) 20 gm DAILY PO 08/15/16 20:00 09/14/16 08:59 08/16/16 08:33 20 GM Sodium Chloride 1,000 ml @ 75 mls/hr [id number] IV 08/15/16 17:45 09/14/16 17:44 08/15/16 18:51 75 MLS/HR
--- NOTE | 2016-08-16 11:02 | Discharge Instructions ---
Discharge Instructions Date of Service Aug 16, 2016. Admission Reason for Admission: Dehydration,Hepatic Encephalopathy Discharge Discharge Diagnosis / Problem: DEHYDRATION, HEPATIC ENCEPHALOPATHY Discharge Goals Goal(s): Diagnostic testing, Therapeutic intervention Activity Recommendations Activity Limitations: as noted below (INCREASE ACTIVITY GRADUALLY TOLERATED) Driving or Machine Use: NO DRIVING UNTIL RE-EVALUATED BY PHYSICIAN . Instructions / Follow-Up Instructions / Follow-Up RESUME TAKING LASIX AND ALDACTONE TOMORROW. IF WITH MILD SIGNS OF CONFUSION, MAY GIVE ADDITIONAL DOSE OF LACTULOSE, AND CALL PRIMARY CARE PHYSICIAN/[facility]. IF WITH MARKED CONFUSION, RETURN TO ER IMMEDIATELY. ALSO CALL PRIMARY CARE PHYSICIAN/[facility] IMMEDIATELY IF WITH WEAKNESS, POOR ORAL INTAKE, FEVER/CHILLS, INCREASE IN ABDOMINAL GIRTH, YELLOWING OF EYES OR SKIN. FOLLOW UP WITH [facility] TOMORROW SCHEDULED. FOLLOW UP WITH PRIMARY CARE PHYSICIAN SCHEDULED. Current Hospital Diet Patient's current hospital diet: Regular Diet Discharge Diet Recommended Diet: Low Sodium Diet (2gm Na) Pending Studies Studies pending at discharge: no Medical Emergencies . Who to Call and When: Medical Emergencies: If at any time you feel your situation is an emergency, please call 911 immediately. . Non-Emergent Contact Non-Emergency issues call your: Primary Care Provider, Specialist ([facility] ) Call Non-Emergent contact if: you have a fever, you have any medication questions . Past History Medical & Surgical History: (1) Dehydration (2) Hyperammonemia (3) Metabolic encephalopathy (4) Acute kidney injury (5) Cirrhosis Of Liver Nos (6) Diverticulosis Colon (W/O Ment Of Hemorrhage) (7) Hypertension Nos (8) Hypothyroidism Nos (9) Esophageal varices (10) Encephalopathy (11) Hepatic encephalopathy . "Provider Documentation" section prepared by Juan Taylor. . VTE Core Measure Inpt VTE Proph given/why not?: SCD's
--- NOTE | 2016-08-16 11:07 | Discharge Summary ---
Discharge Summary Date of Service Aug 16, 2016. Discharge Summary Admission Date: Aug 14, 2016 at 23:58 Discharge Date: Aug 16, 2016 Discharge Disposition: Home Principal Diagnosis: TOXIC METABOLIC ENCEPHALOPATHY - likely from hyper-ammonemia, dehydration Secondary Diagnoses/Problems: Please refer to hospital course below. Procedures: CT HEAD WITHOUT CONTRAST (CT) CLINICAL HISTORY: Weakness DISORIENTATION COMPARISON STUDY: 09/28/2014 TECHNIQUE: Axial CT of the brain is performed from the vertex to the skull base. IV contrast was not administered for this examination. CT DOSE: 537.48 mGy.cm FINDINGS: No intra or extra-axial mass lesions are visualized. There is no CT evidence of acute cortical infarction. There is no evidence of midline shift. There is no acute hemorrhage. No calvarial fractures are visualized. There are minimal white matter hypodensities likely on a small vessel basis. There is no evidence of pathologic ventricular dilatation. There is no evidence of acute sinusitis IMPRESSION: No acute intracranial findings CHEST ONE VIEW PORTABLE CLINICAL HISTORY: Weakness COMPARISON STUDY: 09/29/2014 FINDINGS: The cardiac and mediastinal contours are normal. There is no evidence of focal pulmonary consolidation. There is no evidence of failure. No pleural effusions are visualized.[ IMPRESSION: No active disease in the chest. Consultations: Picker Feeder Dr. Myers Pending Studies/Follow-Up: Please refer to hospital course below. Medication Reconciliation Continued Medications: Cholecalciferol (Vitamin D3) 1,000 Unit Tab 2000 UNITS PO DAILY Ferrous Sulfate (Ferrous Sulfate) 324 Mg Tab 324 MG PO QPM Furosemide (Lasix) 20 Mg Tab 20 MG PO QAM Lactulose (Lactulose) 20 Gm/30 Ml Syrp 20 GM PO DAILY for 30 Days Levothyroxine Sodium (Synthroid) 200 Mcg Tab 200 MCG PO QAM Nadolol (Nadolol) 40 Mg Tab 40 MG PEG DAILY Rifaximin (Xifaxan) 550 Mg Tab 550 MG PO BID, #60 TAB Simvastatin (Zocor) 40 Mg Tab 1 TAB PO HS for 30 Days, #30 TAB 5 Refills Spironolactone (Spironolactone) 25 Mg Tab 25 MG PO BID17, #60 TAB Admission Information HPI (per Admitting provider): This is a 71 year old male with a PMH of MUNGUIA cirrhosis with complications including hepatic encephalopathy, ascites, esophageal varices presents with weakness, fatigue, confusion. As per his daughter, she states that he was riding his tractor today, working, etc. but he stayed out all day, did not eat or drink anything after breakfast - he seemed "off" and just did not realize what he was doing. He has had this episode a few years back when his ammonia level was high. He presented here, received some lactulose and IVFs and he is doing better. During my exam, no confusion, +weakness, denies fevers/chills, denies nausea/vomiting/diarrhea. Physical Exam (per Admitting): General Appearance: no apparent distress, + cachetic, + thin Head: normocephalic, atraumatic Eyes: normal inspection ENT: hearing grossly normal Respiratory/Chest: chest non-tender, lungs clear, normal breath sounds, no respiratory distress, no accessory muscle use Cardiovascular: regular rate, rhythm, no edema, no gallop, no murmur Abdomen/GI: normal bowel sounds, non tender, soft, + hepatomegaly Extremities/Musculoskelatal: no calf tenderness, normal capillary refill, no pedal edema Neurologic/Psych: no motor/sensory deficits, alert, normal mood/affect Hospital Course This is a 71 year old male with a PMH of MUNGUIA cirrhosis with complications including hepatic encephalopathy, ascites, esophageal varices presents with weakness, fatigue, confusion. TOXIC METABOLIC ENCEPHALOPATHY - presented to ER as patient's family noticed that patient was somewhat confused , apparently rode tractor all day in the sun - likely from hyper-ammonemia, dehydration - CT head: no acute process - given additional lactulose, Rifaximin continued gentle IV fluids ammonia decreased from 90 to 60 no signs/symptoms of infection, GI bleed improved clinically, oriented x 3 - GI consulted- Dr. Myers recommend to give additional lactulose up to TID if with confusion - follow up with GI in [facility] tomorrow as scheduled Acute Kidney Injury resolved - secondary to dehydration - Lasix and Aldactone held was given IV NSS crea improved from 1.8 to 1.4 - encourage to maintain adequate daily fluid intake Hepatic Encephalopathy in the setting of MUNGUIA cirrhosis patient admits he missed dose of Lactulose prior to admission no symptoms/ signs of active GI bleed management per #1 Thrombocytopenia Chronic Plt level similar to previous admission no signs of bleeding monitor Mild Lipase Elevation no abdominal pain monitor DVT ppx no heparin due to esophageal varices SCDs given Disposition d/c home follow up with Hepatology at [facility] (appointment 08/17/16) follow up with PCP as scheduled Total time spent on discharge = 35 minutes This includes examination of the patient, discharge planning, medication reconciliation, and communication with other providers. Discharge Instructions Discharge Instructions Date of Service Aug 16, 2016. Admission Reason for Admission: Dehydration,Hepatic Encephalopathy Discharge Discharge Diagnosis / Problem: DEHYDRATION, HEPATIC ENCEPHALOPATHY Discharge Goals Goal(s): Diagnostic testing, Therapeutic intervention Activity Recommendations Activity Limitations: as noted below (INCREASE ACTIVITY GRADUALLY TOLERATED) Driving or Machine Use: NO DRIVING UNTIL RE-EVALUATED BY PHYSICIAN . Instructions / Follow-Up Instructions / Follow-Up RESUME TAKING LASIX AND ALDACTONE TOMORROW. IF WITH MILD SIGNS OF CONFUSION, MAY GIVE ADDITIONAL DOSE OF LACTULOSE, AND CALL PRIMARY CARE PHYSICIAN/BODY AND FENDER WORKER. IF WITH MARKED CONFUSION, RETURN TO ER IMMEDIATELY. ALSO CALL PRIMARY CARE PHYSICIAN/BODY AND FENDER WORKER IMMEDIATELY IF WITH WEAKNESS, POOR ORAL INTAKE, FEVER/CHILLS, INCREASE IN ABDOMINAL GIRTH, YELLOWING OF EYES OR SKIN. FOLLOW UP WITH BODY AND FENDER WORKER TOMORROW SCHEDULED. FOLLOW UP WITH PRIMARY CARE PHYSICIAN SCHEDULED. Current Hospital Diet Patient's current hospital diet: Regular Diet Discharge Diet Recommended Diet: Low Sodium Diet (2gm Na) Pending Studies Studies pending at discharge: no Medical Emergencies . Who to Call and When: Medical Emergencies: If at any time you feel your situation is an emergency, please call 911 immediately. . Non-Emergent Contact Non-Emergency issues call your: Primary Care Provider, Specialist (BODY AND FENDER WORKER ) Call Non-Emergent contact if: you have a fever, you have any medication questions . Past History Medical & Surgical History: (1) Dehydration (2) Hyperammonemia (3) Metabolic encephalopathy (4) Acute kidney injury (5) Cirrhosis Of Liver Nos (6) Diverticulosis Colon (W/O Ment Of Hemorrhage) (7) Hypertension Nos (8) Hypothyroidism Nos (9) Esophageal varices (10) Encephalopathy (11) Hepatic encephalopathy . "Provider Documentation" section prepared by Juan Taylor. . VTE Core Measure Inpt VTE Proph given/why not?: SCD's
[2016-08-16 11:22] VITALS: BP 93/58; PULSE 57; TEMP 36.4; O2SAT 98
[2016-09-05] MEDS ORDERED: MAGN1TAB19 PO (13:33)
[2016-09-20] MEDS ORDERED: LSX20 PO (11:44)
[2016-09-20] MEDS ORDERED: SPR25 PO (11:44)
[2016-11-25] MEDS ORDERED: RIFA550T2 PO (10:37)
[2016-11-25] MEDS ORDERED: SIMV40TA2 PO (10:37)
[2016-11-25] MEDS ORDERED: FURO-85 PO (11:45)
== END 2016-08-16 11:30 | disposition home or self-care (01) | DRG 441 ==
LOC: C.EDB 18:37 → C.MS2W 23:58
PROVIDERS: ADMIT Family Medicine; ATTEND Internal Medicine
DX: K72.90 Hepatic failure, unspecified without coma (principal); G93.41 Metabolic encephalopathy; N17.9 Acute kidney failure, unspecified; I85.10 Secondary esophageal varices without bleeding; R18.8 Other ascites; R64 Cachexia; Z68.1 Body mass index [BMI] 19.9 or less, adult; E86.0 Dehydration; K74.60 Unspecified cirrhosis of liver; K75.81 Nonalcoholic steatohepatitis (NASH); D69.59 Other secondary thrombocytopenia; I10 Essential (primary) hypertension; E03.9 Hypothyroidism, unspecified; Z79.899 Other long term (current) drug therapy; Z66 Do not resuscitate; Z87.891 Personal history of nicotine dependence

== ENCOUNTER 2016-09-01 09:30 | Inpatient (IN) | payer OTHER ==
[2016-09-01] VITALS (7 sets, daily range): BP systolic 92–110; BP diastolic 52–68; PULSE 41–53; TEMP 35.5–36.6; O2SAT 96–100; Ht 182.9 cm; Wt 61.0 kg
[~2016-09-01] VITALS: Ht 182.9 cm; Wt 61.0 kg
[~2016-09-01 09:30] MED LIST changes: -COLE1TAB5 PO; +CRG40 PEG; -DORZ2SOL OPB; +LCTL30 PO; -LCTL45 PO; -LSX20 PO; -OMEP20CA9 PO; -PROP10TA7 PO; -SIMV10TA5 PO; +SIMV40TA4 PO; -SYN25 PO
[2016-09-01] MEDS ORDERED: LACTULOSE SYRUP 20 GM/30 ML UDC PO STA (09:38)
[2016-09-01] MEDS ORDERED: SODIUM CHLORIDE 0.9% 1000ML 1,000 ML IV STA ×2 (09:38→10:45)
[2016-09-01 10:12] LABS: HEMATOCRIT 36.2 % (42-52); MEAN CELL VOLUME 86.8 fL (80-100); MEAN CORPUSCULAR HGB CONC 34.5 g/dl (32-36); RED BLOOD COUNT 4.17 M/uL (4.7-6.1); WHITE BLOOD COUNT 6.42 K/uL (4.8-10.8)
[2016-09-01 10:15] LABS: VEN BLOOD GAS BASE EXCESS -7.5 mmol/L; VENOUS BLOOD GAS PCO2 23 mmHg (38.0-50.0); VENOUS BLOOD GAS PO2 29 mmHg
[2016-09-01 10:16] LABS: VEN BLD GAS O2 SATURATION < 60.0 %
[2016-09-01 10:18] LABS: MEAN PLATELET VOLUME 11.7 fL (7.4-10.4); PLATELET COUNT 76 K/uL (130-400)
[2016-09-01 10:27] LABS: INR 1.3 (0.9-1.1); PARTIAL THROMBOPLASTIN RATIO 1.5; PROTHROMBIN TIME (PATIENT) 14.5 SECONDS (9.0-12.0)
[2016-09-01] MEDS ORDERED: NADO20TA PO (10:37)
[2016-09-01] MEDS ORDERED: SPIR25TA PO (10:37)
[2016-09-01 10:43] LABS: ALKALINE PHOSPHATASE 104 U/L (45-117); ALT/SGPT 33 U/L (12-78); AST/SGOT 24 U/L (15-37); BLOOD UREA NITROGEN 81 mg/dl (7-18); BUN/CREATININE RATIO 10.8 (10-20); CALCIUM 8.7 mg/dl (8.5-10.1); CARBON DIOXIDE 15 mmol/L (21-32); CHLORIDE 115 mmol/L (98-107); CKMB/CK RATIO 4.3 (0-3.0); GLUCOSE 91 mg/dl (70-99); MAGNESIUM 2.2 mg/dl (1.8-2.4); PHOSPHORUS 4.8 mg/dl (2.5-4.9); POTASSIUM 4.7 mmol/L (3.5-5.1); SODIUM 143 mmol/L (136-145)
--- NOTE | 2016-09-01 10:50 | DIAGNOSTIC IMAGING REPORT ---
CT SCAN OF THE BRAIN WITHOUT IV CONTRAST CLINICAL HISTORY: Weakness. Change in mental status. COMPARISON STUDY: CT of the brain dated 09/28/2014. TECHNIQUE: Unenhanced axial CT scan of the brain is performed from the vertex to the skull base. CT DOSE: 537.48 mGy.cm FINDINGS: Brain parenchyma: There are age-related involutional changes noting mild subcortical and periventricular microangiopathic change. There is no hemorrhage, mass effect, or evidence of acute territorial ischemia by CT criteria. Vazquez-white matter is preserved. No extra-axial fluid collection is seen. Ventricles, sulci, cisterns: Prominent secondary to involutional change. Intracranial vasculature: There is atherosclerotic calcification of the cavernous carotid and vertebral arteries. Calvarium: Unremarkable. Sinuses and mastoids: The visualized paranasal sinuses are clear. The mastoid air cells are well pneumatized. Orbits: The bony orbits are grossly intact. IMPRESSION: There is no hemorrhage, mass effect, or evidence of acute territorial ischemia by CT criteria. Electronically signed by: Justin German M.D. 09/01/2016 10:49 AM Dictated Date/Time: 09/01/2016 10:45 AM
--- NOTE | 2016-09-01 10:59 | DIAGNOSTIC IMAGING REPORT ---
CHEST ONE VIEW PORTABLE CLINICAL HISTORY: EVALUATE ALTERED MENTAL STATUS/WEAKNESS COMPARISON STUDY: 08/14/2016 FINDINGS: The bones soft tissues and hemidiaphragms are normal. The cardiomediastinal silhouette is normal. The lungs are clear. The pulmonary vasculature is normal. IMPRESSION: Negative chest. Electronically signed by: Matt Trejo M.D. 09/01/2016 10:57 AM Dictated Date/Time: 09/01/2016 10:56 AM
[2016-09-01 11:08] LABS: BASO % 0.3 %; BASO ABS # 0.02 K/uL (0-0.2); COMPLETE YES; ECHINOCYTES 1+; EOS % 6.9 %; IG% 0.3 %; LYMPH % 14.6 %; LYMPH ABS # 0.94 K/uL (1.2-3.4); MONO % 7.3 %; NEUT % 70.6 %; OVALOCYTES 1+
[2016-09-01] MEDS ORDERED: ACETAMINOPHEN 325 MG TAB PO PRN (11:30)
[2016-09-01] MEDS ORDERED: ONDANSETRON INJ 2 MG/ML 2 ML VIAL IV PRN (11:30)
--- NOTE | 2016-09-01 11:38 | Gastrointestinal Consultation ---
Gastrointestinal Consultation Date of Consultation: Sep 01, 2016 Attending Physician: Jessica Consulting Physician: Mayra Reason for Consultation: cirrhosis, hepatic encephalopathy History of Present Illness Patient is a 71 year old male w/ PMH significant for MUNGUIA Cirrhosis decompensated varices, hepatic encephalopathy and ascites and others listed below who presented through the ED for evaluation of AMS. Pt was seen and evaluated in B7. His daughter is at bedside and aiding in history. He does not follow with our group as [facility] [place] He was recently admitted to [facility] and discharged on 08/16/16 for hepatic encephalopathy. He had followed up after discharge with his guest services director who maintained his dosing of outpatient diuretics but decreased his nadolol as he was bradycardiac i the office. EGD on 08/26/16 at which time he was encouraged to follow up in 1 week for a repeat EGD for banding. His daughter tells me she does not see him daily but calls him 6-7 times a day to check up. On Monday she began to note change in his baseline mentation. She became quite concerned today and took him here for evaluation. He is a poor historian but denies any fever, chills, chest pain, SOB, abdominal pain, black/ bloody stools. He is not sure if he has been taking his lactulose. He is oriented to himself. No history of SBP per daughter. On arrival VSS with a pulse of 45. WBC 6, H&H 12.5/36.2, PLT 76, INR 1.3, BUN 81, WATCH ASSEMBLY INSTRUCTOR 7.5, GFR 6, TB 1.2, DB 0.5, AST 24, ALT 33, ALKP 104, NH3 203 Chest XR 09/01/16: The bones soft tissues and hemidiaphragms are normal. The cardiomediastinal silhouette is normal. The lungs are clear. The pulmonary vasculature is normal. Head CT 09/01/16: There is no hemorrhage, mass effect, or evidence of acute territorial ischemia by CT criteria. Past Medical/Surgical History Medical Problems: (1) Acute kidney injury Status: Acute (2) Hyperammonemia Status: Acute (3) Metabolic encephalopathy Status: Acute Past Medical History: Cirrhosis, Diverticulosis, Esophageal varices, hepatic encephalopathy, HTN, Hypothyroidism Past Surgical History: EGD, cataracts, inguinal hernia repair Family History Cancer Unobtainable due to patient's condition Social History Smoking Status: Former Smoker Alcohol Use: none Marital Status: Housing Status: lives alone Occupation Status: employed Allergies Coded Allergies: No Known Allergies (Verified , 09/01/16) Current Medications Home Meds and Scripts Medications Dose Route/Sig Max Daily Dose Days Date Category Zocor (Simvastatin) 40 Mg Tab 40 Mg PO QPM 09/01/16 Reported Aldactone (Spironolactone) 25 Mg Tab 25 Mg PO HS 09/01/16 Reported Xifaxan (Rifaximin) 550 Mg Tab 550 Mg PO BID 09/01/16 Reported Corgard (Nadolol) 20 Mg Tab 20 Mg PO QAM 09/01/16 Reported Lactulose 20 Gm/30 Ml Syrp 20 Gm PO DAILY 30 08/14/16 Rx Vitamin D3 (Cholecalciferol) 1,000 Unit Tab 2,000 Units PO DAILY 08/14/16 Reported Ferrous Sulfate 324 Mg Tab 324 Mg PO QPM 08/14/16 Reported Synthroid (Levothyroxine Sodium) 200 Mcg Tab 200 Mcg PO QAM 08/14/16 Reported Lasix (Furosemide) 20 Mg Tab 20 Mg PO QAM 09/28/14 Reported Review of Systems Constitutional: No fever, No chills Respiratory: No shortness of breath Cardiac: No chest pain Abdomen: No pain Physical Exam Date Time Temp Pulse Resp B/P (MAP) Pulse Ox O2 Delivery O2 Flow Rate FiO2 09/01/16 10:44 44 14 98/58 100 Room Air 09/01/16 09:47 36.5 45 17 117/73 100 Room Air 09/01/16 09:45 97 Room Air 09/01/16 09:37 47 General Appearance: no apparent distress (he is sitting upright in bed, daughter at bedside), + thin (appears chronically ill) Eyes: PERRL ENT: hearing grossly normal Neck: supple Respiratory/Chest: lungs clear, no respiratory distress, no accessory muscle use Cardiovascular: regular rate, rhythm, no murmur Abdomen: normal bowel sounds, non tender, no organomegaly, + distended (non- tense ascites) Neurologic/Psych: alert, + pertinent finding (oriented to self) Skin: normal color, warm/dry, no rash, + pertinent finding (psoriasis like plaques on bilateral shins) Laboratory Results Last 24 Hours Test 09/01/16 10:00 09/01/16 10:24 White Blood Count 6.42 K/uL Red Blood Count 4.17 M/uL Hemoglobin 12.5 g/dL Hematocrit 36.2 % Mean Corpuscular Volume 86.8 fL Mean Corpuscular Hemoglobin 30.0 pg Mean Corpuscular Hemoglobin Concent 34.5 g/dl Platelet Count 76 K/uL Mean Platelet Volume 11.7 fL Neutrophils (%) (Auto) 70.6 % Lymphocytes (%) (Auto) 14.6 % Monocytes (%) (Auto) 7.3 % Eosinophils (%) (Auto) 6.9 % Basophils (%) (Auto) 0.3 % Neutrophils # (Auto) 4.53 K/uL Lymphocytes # (Auto) 0.94 K/uL Monocytes # (Auto) 0.47 K/uL Eosinophils # (Auto) 0.44 K/uL Basophils # (Auto) 0.02 K/uL RDW Standard Deviation 51.4 fL RDW Coefficient of Variation 16.3 % Immature Granulocyte % (Auto) 0.3 % Immature Granulocyte # (Auto) 0.02 K/uL Ovalocytes 1+ Echinocytes 1+ Prothrombin Time 14.5 SECONDS Prothromb Time International Ratio 1.3 Activated Partial Thromboplast Time 39.9 SECONDS Partial Thromboplastin Ratio 1.5 Venous Blood pH 7.44 Venous Blood Partial Pressure CO2 23 mmHg Venous Blood Partial Pressure O2 29 mmHg Venous Blood HCO3 15 mmol/L Venous Blood Oxygen Saturation < 60.0 % Venous Blood Base Excess -7.5 mmol/L Sodium Level 143 mmol/L Potassium Level 4.7 mmol/L Chloride Level 115 mmol/L Carbon Dioxide Level 15 mmol/L Anion Gap 13.0 mmol/L Blood Urea Nitrogen 81 mg/dl Creatinine 7.50 mg/dl Est Creatinine Clear Calc Drug Dose 8.8 ml/min Estimated GFR () 7.7 Estimated GFR (Non- 6.6 BUN/Creatinine Ratio 10.8 Random Glucose 91 mg/dl Calcium Level 8.7 mg/dl Phosphorus Level 4.8 mg/dl Magnesium Level 2.2 mg/dl Total Bilirubin 1.2 mg/dl Direct Bilirubin 0.5 mg/dl Aspartate Amino Transf (AST/SGOT) 24 U/L Alanine Aminotransferase (ALT/SGPT) 33 U/L Alkaline Phosphatase 104 U/L Ammonia 203.0 umol/L Total Creatine Kinase 44 U/L Creatine Kinase MB 1.9 ng/ml Creatine Kinase MB Ratio 4.3 Troponin I < 0.015 ng/ml Total Protein 6.1 gm/dl Albumin 2.9 gm/dl Lipase 563 U/L Thyroid Stimulating Hormone (TSH) 1.880 uIu/ml Bedside Glucose 81 mg/dl Impression Patient is a 71 year old male with decompensated MUNGUIA cirrhosis who presented with AMS changes found to be in acute renal failure with BUN 81 WATCH ASSEMBLY INSTRUCTOR 7.5 and encephalopathic with NH3 of 203. Only recent medication change has been a decrease in nadolol for bradycardia. He is unsure if he is taking his medications as prescribed as an outpatient. Source of hepatic encephalopathy unknown - SBP vs dehydration vs noncompliance. Will need to rule out SBP if ascites is present. Clinical concern for HRS. Plan NPO ABD US for ascites Will need diagnostic paracentesis to rule out SBP if fluid present Lactulose enema TID Switch to PO lactulose when Mr. Perdue is less lethargic Hold all diuretics Urine NA to rule out HRS Will likely need to be started on albumin, midodrine and octreotide Please consult nephrology MELD labs daily MELD 23 ATTESTATION: I have performed a history and physical examination of this patient and reviewed the electronic record. Specifically, on physical examination patient is somnolent and minimally responsive at present. I have discussed the case with LEILA Mabry. The above note reflects my findings, conclusions, and recommendations. Mick Nunez MD
[2016-09-01] MEDS: SODIUM CHLORIDE 0.9% 1000ML 1,000 ML IV SCH ×2 (11:45→19:56)
--- NOTE | 2016-09-01 11:56 | Progress Note ---
Progress Note Date of Service Sep 01, 2016. Progress Note ATTENDING ADDENDUM care coordinated with LEILA Lopez please refer to her notes for full details, I agree with her notes patient seen and examined, records reviewed by myself as well on exam, patient seen with daughter at bedside lethargic, opens eyes to sternal rub, says "ok, ok" no other symptoms VS noted and reviewed lethargic, not in distress bradycardic, regular rhythm, no murmurs clear breath sounds bilaterally non distended, soft, nontender no bipedal edema, (+) psoriatic rash on bilateral loomis- does not look infected no neuro deficits Crea 7.5 ammonia 203 EKG: sinus pablo ASSESSMENT/PLAN> 71 year old male with MUNGUIA cirrhosis, [facility] [place] presenting with confusion and lethargy. HEPATIC ENCEPHALOPATHY MUNGUIA CIRRHOSIS -- noted to be somewhat confused on Monday daughter suspects because of confusion, patient was not able to take his medications properly like he normally would no signs of recent illness, GI bleed per daughter -- Lactulose enema NPO for now GI consulted ACUTE RENAL FAILURE ON CKD 3 -- likely Pre Renal r/o Hepato renal syndrome -- check Urine Na, Renal US -- hold Lasix, Aldactone -- IV NSS, albumin q6h discussed with Dr. Lyles PSORIASIS -- left lower leg plaque beginning to open, does not look infected -- will consult wound care other diagnoses and plan of care as per LEILA Taylor MD
[2016-09-01 12:07] LABS: MANUAL MICROSCOPIC REQUIRED? NO; REVIEW REQ? NO; URINE APPEARANCE CLEAR (CLEAR); URINE BILIRUBIN NEG (NEG); URINE COLOR DK YELLOW; URINE EPITHELIAL CELL AUTO 0-5 /lpf (0-5); URINE NITRITE NEG (NEG); URINE SPECIFIC GRAVITY 1.015 (1.000-1.030); UROBILINOGEN NEG (NEG)
[2016-09-01 12:26] LABS: LYME DISEASE AB IGG NEG (NEG); LYME DISEASE AB IGM NEG (NEG)
[2016-09-01 12:35] LABS: BENZODIAZEPINE, URINE NEG (NEG); COCAINE,URINE NEG (NEG); PHENCYCLIDINE, URINE NEG (NEG)
[2016-09-01] MEDS ORDERED: LACTULOSE 200GM/700ML WTR ENEMA PR SCH (13:00)
[2016-09-01] MEDS: LACTULOSE SYRUP 200 GM, WATER, STERILE IRRIG 700 ML, BARCODE IDENTIFIER 1 EA PR SCH ×2 (13:16)
[2016-09-01] MEDS: UNIT DOSE COMPOUND PO SCH (13:16)
[2016-09-01] MEDS: CEFTRIAXONE SOD INJ 2,000 MG in DEXTROSE 5% 50ML 50 ML IV SCH (13:16)
[2016-09-01] MEDS: ALBUMIN HUMAN 25% 12.5 GM/50 ML VIAL IV SCH ×2 (13:26→19:38)
--- NOTE | 2016-09-01 14:02 | History and Physical ---
History & Physical Date & Time of Service: Sep 01, 2016 ~ 11:15 Chief Complaint: Altered Mental Status Primary Care Physician: Gildardo Casiano D.O. History of Present Illness Patient seen with Dr. Taylor 71 year old male who presents to the ER with altered mental status. Patient was recently admitted to [facility] 08/14 - 08/16 for hepatic encephalopathy. Patient has history of MUNGUIA and follows with hepatology with the [facility] in [place]. Daughter is at the bedside who provides information. She reports that the patient had an appointment with hepatology immediately following his last hospital stay. She reports no medication changes were made. He was recently seen there again about 1 week ago fir an EGD. She reports no banding was required of his varices. She does reports that he was bradycardic and his Nadolol dose was decreased. She notes mild confusion that started a few days ago. Yesterday she reports patient had returned to his baseline and was actually cutting his grass. Today she called the patient and he did not answer the phone. When she went to check on him he was severely confused and lethargic. She is unsure if he has been taking his medications properly. In the ER, patient remains extremely lethargic, only minimally responsive to sternal rub. Creat is found to be 7.5 (was 1.4 on 08/16) . Ammonia level is 203. He is afebrile without leukocytosis. He is also bradycardic, other vitals are stable. He was ordered lactulose however he is took lethargic to take PO. Past Medical/Surgical History Medical Problems: (1) Cirrhosis Of Liver Nos Status: Chronic (2) Diverticulosis Colon (W/O Ment Of Hemorrhage) Status: Chronic (3) Esophageal varices Status: Chronic (4) HLD (hyperlipidemia) Status: Chronic (5) Hypertension Nos Status: Chronic (6) Hypothyroidism Nos Status: Chronic Surgical Problems: (1) Cataract Status: Resolved (2) History of hernia surgery Status: Resolved Family History Unobtainable due to patient's condition Social History Smoking Status: Former Smoker Alcohol Use: none Housing status: lives alone Allergies Coded Allergies: No Known Allergies (Verified , 09/01/16) Home Medications Scheduled Cholecalciferol (Vitamin D3), 2,000 UNITS PO DAILY Ferrous Sulfate (Ferrous Sulfate), 324 MG PO QPM Furosemide (Lasix), 20 MG PO QAM Lactulose (Lactulose), 20 GM PO DAILY Levothyroxine Sodium (Synthroid), 200 MCG PO QAM Nadolol (Corgard), 20 MG PO QAM Rifaximin (Xifaxan), 550 MG PO BID Simvastatin (Zocor), 40 MG PO QPM Spironolactone (Aldactone), 25 MG PO HS Review of Systems per daughter: Constitutional- no fever; no weight loss Eyes- no acute visual changes ENT- no sinus drainage; no pharyngitis Pulmonary- no cough, no wheezing, no shortness of breath Cardiac- no chest pain, no palpitations, no orthopnea, no dependent edema GI- no nausea, no vomiting, no diarrhea, no melena, no hematochezia - no dysuria, no hematuria Musculoskeletal- no arthralgias, no myalgias Derm- no rashes, no new skin lesions, no changing skin lesions Hematologic- no unusual bruising, no unusual bleeding Lymphatics- no adenopathy Endocrine- no polyuria or polydipsia; no heat or cold intolerance Neuro- (+) as noted above Psych- no anxiety, no depression Physical Exam Vital Signs Date Time Temp Pulse Resp B/P (MAP) Pulse Ox O2 Delivery O2 Flow Rate FiO2 09/01/16 10:44 44 14 98/58 100 Room Air 09/01/16 09:47 36.5 45 17 117/73 100 Room Air 09/01/16 09:45 97 Room Air 09/01/16 09:37 47 General Appearance: no apparent distress, + pertinent finding (lethargic) Head: normocephalic, atraumatic Eyes: normal inspection, sclerae normal ENT: + pertinent finding (dry oral mucosa) Neck: no adenopathy, thyroid normal, no JVD, trachea midline Respiratory/Chest: lungs clear, normal breath sounds, no respiratory distress, no accessory muscle use Cardiovascular: regular rate, rhythm, no edema, no JVD, no murmur Abdomen/GI: normal bowel sounds, non tender, soft, no organomegaly Back: normal inspection Extremities/Musculoskelatal: normal inspection, no calf tenderness, no pedal edema Neurologic/Psych: + pertinent finding (very lethargic, tries to move extremities) Skin: normal color, warm/dry, no rash Lymphatic: no adenopathy please refer to Dr. Taylor's note for physical exam Diagnostics Laboratory Results Results Past 24 Hours Test 09/01/16 10:00 09/01/16 10:24 Range/Units White Blood Count 6.42 4.8-10.8 K/uL Red Blood Count 4.17 4.7-6.1 M/uL Hemoglobin 12.5 14.0-18.0 g/dL Hematocrit 36.2 42-52 % Mean Corpuscular Volume 86.8 80-100 fL Mean Corpuscular Hemoglobin 30.0 25-34 pg Mean Corpuscular Hemoglobin Concent 34.5 32-36 g/dl Platelet Count 76 130-400 K/uL Mean Platelet Volume 11.7 7.4-10.4 fL Neutrophils (%) (Auto) 70.6 % Lymphocytes (%) (Auto) 14.6 % Monocytes (%) (Auto) 7.3 % Eosinophils (%) (Auto) 6.9 % Basophils (%) (Auto) 0.3 % Neutrophils # (Auto) 4.53 1.4-6.5 K/uL Lymphocytes # (Auto) 0.94 1.2-3.4 K/uL Monocytes # (Auto) 0.47 0.11-0.59 K/uL Eosinophils # (Auto) 0.44 0-0.5 K/uL Basophils # (Auto) 0.02 0-0.2 K/uL RDW Standard Deviation 51.4 36.4-46.3 fL RDW Coefficient of Variation 16.3 11.5-14.5 % Immature Granulocyte % (Auto) 0.3 % Immature Granulocyte # (Auto) 0.02 0.00-0.02 K/uL Ovalocytes 1+ Echinocytes 1+ Prothrombin Time 14.5 9.0-12.0 SECONDS Prothromb Time International Ratio 1.3 0.9-1.1 Activated Partial Thromboplast Time 39.9 21.0-31.0 SECONDS Partial Thromboplastin Ratio 1.5 Venous Blood pH 7.44 7.36-7.41 Venous Blood Partial Pressure CO2 23 38.0-50.0 mmHg Venous Blood Partial Pressure O2 29 mmHg Venous Blood HCO3 15 mmol/L Venous Blood Oxygen Saturation < 60.0 % Venous Blood Base Excess -7.5 mmol/L Sodium Level 143 136-145 mmol/L Potassium Level 4.7 3.5-5.1 mmol/L Chloride Level 115 98-107 mmol/L Carbon Dioxide Level 15 21-32 mmol/L Anion Gap 13.0 3-11 mmol/L Blood Urea Nitrogen 81 7-18 mg/dl Creatinine 7.50 0.60-1.40 mg/dl Est Creatinine Clear Calc Drug Dose 8.8 ml/min Estimated GFR () 7.7 Estimated GFR (Non- 6.6 BUN/Creatinine Ratio 10.8 10-20 Random Glucose 91 70-99 mg/dl Calcium Level 8.7 8.5-10.1 mg/dl Phosphorus Level 4.8 2.5-4.9 mg/dl Magnesium Level 2.2 1.8-2.4 mg/dl Total Bilirubin 1.2 0.2-1 mg/dl Direct Bilirubin 0.5 0-0.2 mg/dl Aspartate Amino Transf (AST/SGOT) 24 15-37 U/L Alanine Aminotransferase (ALT/SGPT) 33 12-78 U/L Alkaline Phosphatase 104 45-117 U/L Ammonia 203.0 11-32 umol/L Total Creatine Kinase 44 39-308 U/L Creatine Kinase MB 1.9 0.5-3.6 ng/ml Creatine Kinase MB Ratio 4.3 0-3.0 Troponin I < 0.015 0-0.045 ng/ml Total Protein 6.1 6.4-8.2 gm/dl Albumin 2.9 3.4-5.0 gm/dl Lipase 563 73-393 U/L Thyroid Stimulating Hormone (TSH) 1.880 0.300-4.500 uIu/ml Bedside Glucose 81 70-99 mg/dl Microbiology Results 09/01/16 Blood Culture, Received Pending 09/01/16 Blood Culture, Received Pending Diagnostic Radiology HEAD CT IMPRESSION: There is no hemorrhage, mass effect, or evidence of acute territorial ischemia by CT criteria. CXR IMPRESSION: Negative chest. Impression Assessment and Plan HEPATIC ENCEPHALOPATHY, MUNGUIA - admit to tele - patient presenting with worsening mental status x 4 days; had recent admission for hepatic encephalopathy 08/14 - 08/16, follows with [facility]ology in [place], no medication changes made and had a recent EGD and per daughter's report varices were not banded - daughter unsure if patient has been taking medicines as prescribed - altered mental status likely combination of hepatic encephalopathy and uremia from FARRUKH - due to inability to take PO will need lactulose enemas - no leukocytosis or fever but will start empiric Rocephin for SBP - check abd US for ascites - case discussed with LEILA Mabry FARRUKH ON AKD STAGE III - likely prerenal - presenting with creat 7.5 (1.4 on 08/16) - Dr. Taylor discussed with Dr. Lyles - NSS @ 125ml/hr, albumin 25gm q6h - renal US, urine random sodium BRADYCARDIA - likely due to inability to metabolize Nadolol with FARRUKH - BP stable - hold beta gino - check echo and Lyme titer THROMBOCYTOPENIA - due to underlying liver disease - no signs of bleeding, platelets at baseline CODE STATUS - Patient is a DNR as per Dr. Taylor's discussion with patient's daughter DVT PROPHYLAXIS - SCDs due to thrombocytopenia DISPO - In my clinical judgment this beneficiary meets acute admission criteria, established by [facility], that includes being hospitalized through two midnights. VTE Prophylaxis VTE Risk Assessment Done? Y/N: Yes Risk Level: Moderate Given or contraindicated: Contraindicated (thrombocytopenia)
--- NOTE | 2016-09-01 14:10 | EMERGENCY ROOM VISIT NOTE ---
History Report prepared by Adele: Litzy Peralta Under the Supervision of: Dr. Mick Pepper D.O. First contact with patient: 09:31 Stated Complaint: AMS History of Present Illness The patient is a 71 year old male who presents to the Emergency Room with complaints of an episode of altered mental status starting this morning. Per EMS , the patient's sent him here because he wasn't acting normally. They state that the patient's reported that he was mowing the grass yesterday and thinks that maybe he overdid it. EMS notes that he did not have a fever. The patient denies any pain, melena, hematochezia, hitting his head recently, shortness of breath, and abdominal pain. Source of History: patient, EMS Onset: this morning Position: other (global) Quality: other (global) Timing: other (episode) Associated Symptoms: No SOB, No abdominal pain, No melena, No hematochezia Note: The patient denies any pain and hitting his head recently. Review of Systems See HPI for pertinent positives & negatives. A total of 10 systems reviewed and were otherwise negative. Past Medical & Surgical Medical Problems: (1) Cirrhosis Of Liver Nos (2) Diverticulosis Colon (W/O Ment Of Hemorrhage) (3) Esophageal varices (4) HLD (hyperlipidemia) (5) Hypertension Nos (6) Hypothyroidism Nos Surgical Problems: (1) Cataract (2) History of hernia surgery Family History Cancer Unobtainable due to patient's condition Social History Smoking Status: Never Smoker Alcohol Use: none Marital Status: Housing Status: lives with significant other Occupation Status: employed Current/Historical Medications Scheduled Cholecalciferol (Vitamin D3), 2,000 UNITS PO DAILY Ferrous Sulfate (Ferrous Sulfate), 324 MG PO QPM Furosemide (Lasix), 20 MG PO QAM Lactulose (Lactulose), 20 GM PO DAILY Levothyroxine Sodium (Synthroid), 200 MCG PO QAM Nadolol (Corgard), 20 MG PO QAM Rifaximin (Xifaxan), 550 MG PO BID Simvastatin (Zocor), 40 MG PO QPM Spironolactone (Aldactone), 25 MG PO HS Allergies Coded Allergies: No Known Allergies (Verified , 09/01/16) Physical Exam Vital Signs Date Time Temp Pulse Resp B/P (MAP) Pulse Ox O2 Delivery O2 Flow Rate FiO2 09/01/16 11:15 49 14 100 09/01/16 11:10 48 14 100 09/01/16 11:05 46 14 100 09/01/16 11:01 114/66 09/01/16 11:00 45 17 100 09/01/16 10:44 44 14 98/58 100 Room Air 09/01/16 09:47 36.5 45 17 117/73 100 Room Air 09/01/16 09:45 97 Room Air 09/01/16 09:37 47 Physical Exam GENERAL: Patient is awake, listless appearing, and slow to answer questions. Follows commands intermittently. EYES: The conjunctivae are pale. The pupils are equal, round, and reactive. EARS, NOSE, MOUTH AND THROAT: The nose is without any evidence of any deformity. Mucous membranes are dry, tongue is midline NECK: The neck is nontender and supple. RESPIRATORY: Normal respiratory effort is noted there is no evidence of wheezing rhonchi or rales CARDIOVASCULAR: Regular rate and rhythm noted there no murmurs rubs or gallops normal S1 normal S2 GASTROINTESTINAL: The abdomen is soft and mildly distended with significant ascites appreciated. No tenderness, guarding, or rigidity. Bowel sounds are present in all quadrants. Abdomen is nontender MUSCULOSKELETAL/EXTREMITIES: There is no evidence of gross deformity full range of motion is noted in the hips and shoulders SKIN: There is no obvious evidence of any rash. There are no petechiae, pallor or cyanosis noted. Pedal edema bilaterally. NEUROLOGIC: Patient is awake alert and oriented to person, buit not place, time or situation. strength is symmetric patellar reflexes are 2+ bilaterally, muscles appear rigid. Medical Decision & Procedures ER Provider Diagnostic Interpretation: Radiology results as stated below per my review and radiologist interpretation: CT SCAN OF THE BRAIN WITHOUT IV CONTRAST CLINICAL HISTORY: Weakness. Change in mental status. COMPARISON STUDY: CT of the brain dated 09/28/2014. TECHNIQUE: Unenhanced axial CT scan of the brain is performed from the vertex to the skull base. CT DOSE: 537.48 mGy.cm FINDINGS: Brain parenchyma: There are age-related involutional changes noting mild subcortical and periventricular microangiopathic change. There is no hemorrhage, mass effect, or evidence of acute territorial ischemia by CT criteria. Vazquez-white matter is preserved. No extra-axial fluid collection is seen. Ventricles, sulci, cisterns: Prominent secondary to involutional change. Intracranial vasculature: There is atherosclerotic calcification of the cavernous carotid and vertebral arteries. Calvarium: Unremarkable. Sinuses and mastoids: The visualized paranasal sinuses are clear. The mastoid air cells are well pneumatized. Orbits: The bony orbits are grossly intact. IMPRESSION: There is no hemorrhage, mass effect, or evidence of acute territorial ischemia by CT criteria. Electronically signed by: Justin German M.D. 09/01/2016 10:49 AM Dictated Date/Time: 09/01/2016 10:45 AM CHEST ONE VIEW PORTABLE CLINICAL HISTORY: EVALUATE ALTERED MENTAL STATUS/WEAKNESS COMPARISON STUDY: 08/14/2016 FINDINGS: The bones soft tissues and hemidiaphragms are normal. The cardiomediastinal silhouette is normal. The lungs are clear. The pulmonary vasculature is normal. IMPRESSION: Negative chest. Electronically signed by: Matt Trejo M.D. 09/01/2016 10:57 AM Dictated Date/Time: 09/01/2016 10:56 AM Laboratory Results 09/01/16 10:00 Red Blood Count 4.17, Mean Corpuscular Volume 86.8, Mean Corpuscular Hemoglobin 30.0, Mean Corpuscular Hemoglobin Concent 34.5, Mean Platelet Volume 11.7, Neutrophils (%) (Auto) 70.6, Lymphocytes (%) (Auto) 14.6, Monocytes (%) (Auto) 7.3, Eosinophils (%) (Auto) 6.9, Basophils (%) (Auto) 0.3, Neutrophils # (Auto) 4.53, Lymphocytes # (Auto) 0.94, Monocytes # (Auto) 0.47, Eosinophils # (Auto) 0.44, Basophils # (Auto) 0.02 09/01/16 10:00 Test 09/01/16 10:00 09/01/16 10:24 White Blood Count 6.42 K/uL (4.8-10.8) Red Blood Count 4.17 M/uL (4.7-6.1) Hemoglobin 12.5 g/dL (14.0-18.0) Hematocrit 36.2 % (42-52) Mean Corpuscular Volume 86.8 fL (80-100) Mean Corpuscular Hemoglobin 30.0 pg (25-34) Mean Corpuscular Hemoglobin Concent 34.5 g/dl (32-36) Platelet Count 76 K/uL (130-400) Mean Platelet Volume 11.7 fL (7.4-10.4) Neutrophils (%) (Auto) 70.6 % Lymphocytes (%) (Auto) 14.6 % Monocytes (%) (Auto) 7.3 % Eosinophils (%) (Auto) 6.9 % Basophils (%) (Auto) 0.3 % Neutrophils # (Auto) 4.53 K/uL (1.4-6.5) Lymphocytes # (Auto) 0.94 K/uL (1.2-3.4) Monocytes # (Auto) 0.47 K/uL (0.11-0.59) Eosinophils # (Auto) 0.44 K/uL (0-0.5) Basophils # (Auto) 0.02 K/uL (0-0.2) RDW Standard Deviation 51.4 fL (36.4-46.3) RDW Coefficient of Variation 16.3 % (11.5-14.5) Immature Granulocyte % (Auto) 0.3 % Immature Granulocyte # (Auto) 0.02 K/uL (0.00-0.02) Ovalocytes 1+ Echinocytes 1+ Prothrombin Time 14.5 SECONDS (9.0-12.0) Prothromb Time International Ratio 1.3 (0.9-1.1) Activated Partial Thromboplast Time 39.9 SECONDS (21.0-31.0) Partial Thromboplastin Ratio 1.5 Venous Blood pH 7.44 (7.36-7.41) Venous Blood Partial Pressure CO2 23 mmHg (38.0-50.0) Venous Blood Partial Pressure O2 29 mmHg Venous Blood HCO3 15 mmol/L Venous Blood Oxygen Saturation < 60.0 % Venous Blood Base Excess -7.5 mmol/L Anion Gap 13.0 mmol/L (3-11) Est Creatinine Clear Calc Drug Dose 8.8 ml/min Estimated GFR () 7.7 Estimated GFR (Non- 6.6 BUN/Creatinine Ratio 10.8 (10-20) Calcium Level 8.7 mg/dl (8.5-10.1) Phosphorus Level 4.8 mg/dl (2.5-4.9) Magnesium Level 2.2 mg/dl (1.8-2.4) Total Bilirubin 1.2 mg/dl (0.2-1) Direct Bilirubin 0.5 mg/dl (0-0.2) Aspartate Amino Transf (AST/SGOT) 24 U/L (15-37) Alanine Aminotransferase (ALT/SGPT) 33 U/L (12-78) Alkaline Phosphatase 104 U/L (45-117) Ammonia 203.0 umol/L (11-32) Total Creatine Kinase 44 U/L (39-308) Creatine Kinase MB 1.9 ng/ml (0.5-3.6) Creatine Kinase MB Ratio 4.3 (0-3.0) Troponin I < 0.015 ng/ml (0-0.045) Total Protein 6.1 gm/dl (6.4-8.2) Albumin 2.9 gm/dl (3.4-5.0) Lipase 563 U/L (73-393) Thyroid Stimulating Hormone (TSH) 1.880 uIu/ml (0.300-4.500) Lyme Disease IgG Antibody NEG (NEG) Lyme Disease IgM Antibody NEG (NEG) Bedside Glucose 81 mg/dl (70-99) Laboratory results per my review. Medications Administered Medications (Trade) Dose Ordered Sig/Elias Route Start Time Stop Time Status Last Admin Dose Admin Sodium Chloride 1,000 ml @ 999 mls/hr Q1H1M STAT IV 09/01/16 09:38 09/01/16 10:38 DC 09/01/16 10:46 999 MLS/HR Sodium Chloride 1,000 ml @ 999 mls/hr Q1H1M STAT IV 09/01/16 10:45 09/01/16 11:45 DC 09/01/16 10:47 999 MLS/HR ECG Indication: altered mental status Rate (beats per minute): 45 Rhythm: sinus bradycardia Findings: no acute ischemic change, no ectopy Comparison ECG Date: August 14, 2016 Change: no significant change ED Course 0931: The patient was evaluated in room B7. A complete history and physical examination were performed. 0938: Ordered Lactulose 30 gm PO, NSS 1000 ml @ 999 mls/hr IV. 1045: Ordered NSS 1000 ml @ 999 mls/hr IV. 1102: I discussed the patient's case with Dr. Lopez. The patient will be evaluated for further management. 1104: I revaluated the patient and he resting comfortably. Medical Decision Medication Reconciliation: I attest that I have personally reviewed the patient' s current medications list. Blood pressure screening: Patient was found to have normal blood pressure on screening and does not require follow-up. Differential diagnosis: Etiologies such as metabolic, infection, hypoglycemia, electrolyte abnormalities , cardiac sources, intracerebral event, toxicologic, neurologic, as well as others were entertained. The patient is a 71-year-old male who presented to emergency department for evaluation of altered mental status as well as dehydration. The patient presented to the emergency department for similar complaints earlier in the month. The patient was very confused and was found have a very elevated ammonia level as well as renal failure on laboratory studies. The patient was treated with IV fluids. Oral lactulose was ordered however he was unable to take medication at this time. I discussed the patient's laboratory and radiographic studies with him as well as his family member. I also discussed his case with the on-call [facility] hospitalist group. They've agreed to evaluate the patient in emergency apartment for further management and disposition. Consults Time Called: [phone] Consulting Physician: Dr. Lopez Returned Call: [phone] I discussed the patient's case with Dr. Lopez. The patient will be evaluated for further management. Impression Primary Impression: Acute renal failure Additional Impressions: Altered mental status Hepatic encephalopathy Scribe Attestation The scribe's documentation has been prepared under my direction and personally reviewed by me in its entirety. I confirm that the note above accurately reflects all work, treatment, procedures, and medical decision making performed by me. Departure Information Dispostion Being Evaluated By Hospitalist Referrals Gildardo Casiano D.O. (PCP) Problem Qualifiers Primary Impression: Acute renal failure Acute renal failure type: unspecified Qualified Codes: N17.9 - Acute kidney failure, unspecified Additional Impressions: Altered mental status Altered mental status type: unspecified Qualified Codes: R41.82 - Altered mental status, unspecified
--- NOTE | 2016-09-01 15:22 | DIAGNOSTIC IMAGING REPORT ---
RENAL ULTRASOUND HISTORY: Renal insufficiency RAFA COMPARISON: None FINDINGS: Right kidney: Maximum dimension 11.7 cm. 2 cm exophytic cyst laterally. Mild hydronephrosis. Normal corticomedullary differentiation and cortical thickness. Left kidney: Maximum dimension 11.6 cm. 1.7 cm renal cortical cyst. No evidence for hydronephrosis. Normal corticomedullary differentiation and cortical thickness. Bladder: Poorly seen due to Amaro catheter position. Small amount of abdominal and pelvic ascites. IMPRESSION: Mild hydronephrosis right kidney. 2. Small bilateral renal cysts. 3. Otherwise negative study Electronically signed by: Matt Trejo M.D. 09/01/2016 3:21 PM Dictated Date/Time: 09/01/2016 3:18 PM
--- NOTE | 2016-09-01 15:22 | DIAGNOSTIC IMAGING REPORT ---
ULTRASOUND ASCITES CHECK CLINICAL HISTORY: Abdominal ascites. COMPARISON STUDY: Abdominal CT dated 10/02/2014. FINDINGS: Real-time grayscale sonography of all 4 quadrants of the abdomen was performed to assess for abdominal ascites. There is a moderate volume of abdominal ascites. The largest pocket is seen in the left lower quadrant. Cirrhotic liver morphology is incidentally noted. IMPRESSION: Moderate volume of abdominopelvic ascites. Electronically signed by: Justin German M.D. 09/01/2016 3:20 PM Dictated Date/Time: 09/01/2016 3:19 PM
--- NOTE | 2016-09-01 15:29 | Nephrology Consultation ---
Nephrology Consultation Date of Consultation: Sep 01, 2016. 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 pt started to become more confused on monday and continued to worsen throughout the week. pt is lethargic and minimally responsive. just came back from ultrasound. on iv fluids and albumin and lactulose. has ventura catheter in place and has about 500cc of dark urine. creatinine was elevated at 7.5 and ammonia levels were above 200. question if he was taking his medications appropriately or not. Past Medical/Surgical History Medical Problems: (1) Acute kidney injury Status: Acute (2) Acute renal failure Status: Acute (3) Altered mental status Status: Acute (4) Hepatic encephalopathy Status: Acute (5) Hyperammonemia Status: Acute (6) Metabolic encephalopathy Status: Acute Cirrhosis/MUNGUIA hypertension esophageal varices hyperlipidemia cataract surgery hernia repair ckd stage 3 with baseline creatinine of 1.4 Family History Unobtainable due to patient's condition Social History Smoking Status: Former Smoker Alcohol Use: none Drug Use: none Housing Status: lives alone daughter calls him several times a day Allergies Coded Allergies: No Known Allergies (Verified , 09/01/16) Medications Current Inpatient Medications Medications (Trade) Dose Ordered Sig/Elisa Route Start Time Stop Time Status Last Admin Dose Admin Acetaminophen (Tylenol Tab) 650 mg Q4H PRN PO 09/01/16 11:30 10/01/16 11:29 Ondansetron HCl (Zofran Inj) 4 mg Q6H PRN IV 09/01/16 11:30 10/01/16 11:29 Sodium Chloride 1,000 ml @ 125 mls/hr Q8H IV 09/01/16 11:45 10/01/16 11:44 09/01/16 11:45 125 MLS/HR Albumin Human (Albumin 25%) 25 gm Q6H IV 09/01/16 13:00 09/04/16 12:59 09/01/16 13:26 25 GM Ceftriaxone Sodium 2000 mg/ Dextrose 70 ml @ 100 mls/hr Q24H IV 09/01/16 13:00 09/11/16 12:59 09/01/16 13:16 100 MLS/HR Lactulose/Sterile Water/Barcode TID IL 09/01/16 13:00 10/01/16 12:59 09/01/16 13:16 200 GM Miscellaneous (Unit Dose Compound) 1 ea TID PO 09/01/16 13:00 10/01/16 12:59 09/01/16 13:16 1 EA Home Meds and Scripts Medications Dose Route/Sig Max Daily Dose Days Date Category Zocor (Simvastatin) 40 Mg Tab 40 Mg PO QPM 09/01/16 Reported Aldactone (Spironolactone) 25 Mg Tab 25 Mg PO HS 09/01/16 Reported Xifaxan (Rifaximin) 550 Mg Tab 550 Mg PO BID 09/01/16 Reported Corgard (Nadolol) 20 Mg Tab 20 Mg PO QAM 09/01/16 Reported Lactulose 20 Gm/30 Ml Syrp 20 Gm PO DAILY 30 08/14/16 Rx Vitamin D3 (Cholecalciferol) 1,000 Unit Tab 2,000 Units PO DAILY 08/14/16 Reported Ferrous Sulfate 324 Mg Tab 324 Mg PO QPM 08/14/16 Reported Synthroid (Levothyroxine Sodium) 200 Mcg Tab 200 Mcg PO QAM 08/14/16 Reported Lasix (Furosemide) 20 Mg Tab 20 Mg PO QAM 09/28/14 Reported Review of Systems review of systems unable to obtain secondary to obtunded state Physical Exam Date Time Temp Pulse Resp B/P (MAP) Pulse Ox O2 Delivery O2 Flow Rate FiO2 09/01/16 12:29 36.0 44 24 108/67 (81) 100 Room Air 09/01/16 12:04 36.5 48 23 108/61 100 09/01/16 11:55 48 23 100 09/01/16 11:50 49 23 100 09/01/16 11:49 100 Room Air 09/01/16 11:45 53 19 100 09/01/16 11:32 108/61 09/01/16 11:30 48 15 100 09/01/16 11:25 48 21 100 09/01/16 11:20 51 14 100 09/01/16 11:15 49 14 100 09/01/16 11:10 48 14 100 09/01/16 11:05 46 14 100 09/01/16 11:01 114/66 09/01/16 11:00 45 17 100 09/01/16 10:44 44 14 98/58 100 Room Air 09/01/16 09:47 36.5 45 17 117/73 100 Room Air 09/01/16 09:45 97 Room Air 09/01/16 09:37 47 24-Hour Column 09/02/16 08:00 Intake Total 510 ml Output Total 450 ml Balance 60 ml General Appearance: + pertinent finding (obtunded and difficult to arouse) Eyes: + pertinent finding (no scleral icterus) ENT: + pertinent finding (mmm) Neck: supple Respiratory/Chest: lungs clear Cardiovascular: + bradycardia Abdomen: normal bowel sounds, soft Extremities: normal inspection, no pedal edema Neurologic/Psych: + pertinent finding (obtunded, difficult to arouse) Skin: + jaundice Diagnostics Last 24 Hours Test 09/01/16 10:00 09/01/16 10:24 09/01/16 11:40 09/01/16 14:52 White Blood Count 6.42 K/uL Red Blood Count 4.17 M/uL Hemoglobin 12.5 g/dL Hematocrit 36.2 % Mean Corpuscular Volume 86.8 fL Mean Corpuscular Hemoglobin 30.0 pg Mean Corpuscular Hemoglobin Concent 34.5 g/dl Platelet Count 76 K/uL Mean Platelet Volume 11.7 fL Neutrophils (%) (Auto) 70.6 % Lymphocytes (%) (Auto) 14.6 % Monocytes (%) (Auto) 7.3 % Eosinophils (%) (Auto) 6.9 % Basophils (%) (Auto) 0.3 % Neutrophils # (Auto) 4.53 K/uL Lymphocytes # (Auto) 0.94 K/uL Monocytes # (Auto) 0.47 K/uL Eosinophils # (Auto) 0.44 K/uL Basophils # (Auto) 0.02 K/uL RDW Standard Deviation 51.4 fL RDW Coefficient of Variation 16.3 % Immature Granulocyte % (Auto) 0.3 % Immature Granulocyte # (Auto) 0.02 K/uL Ovalocytes 1+ Echinocytes 1+ Prothrombin Time 14.5 SECONDS Prothromb Time International Ratio 1.3 Activated Partial Thromboplast Time 39.9 SECONDS Partial Thromboplastin Ratio 1.5 Venous Blood pH 7.44 Venous Blood Partial Pressure CO2 23 mmHg Venous Blood Partial Pressure O2 29 mmHg Venous Blood HCO3 15 mmol/L Venous Blood Oxygen Saturation < 60.0 % Venous Blood Base Excess -7.5 mmol/L Sodium Level 143 mmol/L Potassium Level 4.7 mmol/L Chloride Level 115 mmol/L Carbon Dioxide Level 15 mmol/L Anion Gap 13.0 mmol/L Blood Urea Nitrogen 81 mg/dl Creatinine 7.50 mg/dl Est Creatinine Clear Calc Drug Dose 8.8 ml/min Estimated GFR () 7.7 Estimated GFR (Non- 6.6 BUN/Creatinine Ratio 10.8 Random Glucose 91 mg/dl Calcium Level 8.7 mg/dl Phosphorus Level 4.8 mg/dl Magnesium Level 2.2 mg/dl Total Bilirubin 1.2 mg/dl Direct Bilirubin 0.5 mg/dl Aspartate Amino Transf (AST/SGOT) 24 U/L Alanine Aminotransferase (ALT/SGPT) 33 U/L Alkaline Phosphatase 104 U/L Ammonia 203.0 umol/L Total Creatine Kinase 44 U/L Creatine Kinase MB 1.9 ng/ml Creatine Kinase MB Ratio 4.3 Troponin I < 0.015 ng/ml Total Protein 6.1 gm/dl Albumin 2.9 gm/dl Lipase 563 U/L Thyroid Stimulating Hormone (TSH) 1.880 uIu/ml Lyme Disease IgG Antibody NEG Lyme Disease IgM Antibody NEG Bedside Glucose 81 mg/dl Urine Color DK YELLOW Urine Appearance CLEAR Urine pH 5.0 Urine Specific [place] 1.015 Urine Protein NEG Urine Glucose (UA) NEG Urine Ketones NEG Urine Occult Blood 1+ Urine Nitrite NEG Urine Bilirubin NEG Urine Urobilinogen NEG Urine Leukocyte Esterase NEG Urine WBC (Auto) 1-5 /hpf Urine RBC (Auto) 10-30 /hpf Urine Hyaline Casts (Auto) 1-5 /lpf Urine Epithelial Cells (Auto) 0-5 /lpf Urine Bacteria (Auto) NEG Urine Random Sodium 58 mEq/L Urine Opiates Screen NEG Urine Methadone, Qualitative NEG Urine Barbiturates NEG Urine Phencyclidine (PCP) Level NEG Ur Amphetamine/Methamphetamine NEG MDMA (Ecstasy) Screen NEG Urine Benzodiazepines Screen NEG Urine Cocaine Metabolite NEG Urine Marijuana (THC) NEG Assessment & Plan FARRUKH-pt with underlying munguia/cirrhosis who appears significantly volume depleted. currently on albumin and iv fluids and pt is urinating. would like to repeat bmp again later tonight. may have element of hepatorenal syndrome as well although by clinical exam appears more volume depleted. renal us is pending. random urine sodium is elevated. metabolic acidosis-holding on bicarb drip for now since appears to have acidosis from the renal failure and should improve with hydration and improvement in kidney function. hyperammonemia-appreciate GI input, on lactulose. if does not clinically improve, may need dialysis. currently on albumin and iv fluids and following labs. if does not improve, will add octreotide and midodrine as well.
[2016-09-01 17:30] LABS: BUN/CREATININE RATIO 11.9 (10-20); CALCIUM 8.7 mg/dl (8.5-10.1); CREATININE 6.4 mg/dl (0.60-1.40); POTASSIUM 4.4 mmol/L (3.5-5.1)
[2016-09-02] MEDS: ALBUMIN HUMAN 25% 12.5 GM/50 ML VIAL IV SCH ×4 (01:06→20:01)
[2016-09-02] MEDS: SODIUM BICARBONATE 8.4% INJ 150 MEQ in DEXTROSE 5% 1000ML 1,000 ML IV SCH ×3 (01:10→20:01)
[2016-09-02 03:54] VITALS: BP 94/48; PULSE 46; TEMP 36.1; O2SAT 100
[2016-09-02 05:28] LABS: HEMATOCRIT 35.5 % (42-52); MEAN CORPUSCULAR HEMOGLOBIN 29.8 pg (25-34); MEAN CORPUSCULAR HGB CONC 33.5 g/dl (32-36); RED BLOOD COUNT 3.99 M/uL (4.7-6.1); WHITE BLOOD COUNT 5.09 K/uL (4.8-10.8)
[2016-09-02 05:34] LABS: MEAN PLATELET VOLUME 10.7 fL (7.4-10.4); PLATELET COUNT 46 K/uL (130-400)
[2016-09-02 06:38] LABS: ALB/GLOB RATIO 1.2 (0.9-2); BUN/CREATININE RATIO 15.2 (10-20); CALCIUM 8.7 mg/dl (8.5-10.1); CREATININE 4.2 mg/dl (0.60-1.40); POTASSIUM 3.7 mmol/L (3.5-5.1)
[2016-09-02 07:32] VITALS: BP 109/62; PULSE 44; TEMP 36.7; O2SAT 100
--- NOTE | 2016-09-02 08:27 | Nephrology Progress Note ---
Nephrology Progress Note Date of Service: Sep 02, 2016. Subjective 71 yo male with hx of wen who presented with volume depletion/farrukh/acidosis/ hyperammonia/confusion. This morning, pt urinating much better and is much more awake and conversant. able to tell me about his day from monday and that he mowed the lawn and had sherbert on monday. pt is hungry this morning. no sob. Objective Date Time Temp Pulse Resp B/P (MAP) Pulse Ox O2 Delivery O2 Flow Rate FiO2 09/02/16 07:32 36.7 44 20 109/62 (78) 100 09/02/16 04:00 Room Air 09/02/16 03:54 36.1 46 16 94/48 (63) 100 Room Air 09/01/16 23:59 Room Air 09/01/16 23:05 36.5 53 18 107/65 (79) 100 Room Air 09/01/16 19:45 35.5 48 14 110/68 (82) 99 Room Air 09/01/16 19:45 99 Room Air 09/01/16 19:02 36.4 50 16 110/64 (79) 100 Room Air 09/01/16 16:00 Room Air 09/01/16 16:00 36.6 41 18 96/52 (67) 96 Room Air 09/01/16 15:28 36.3 41 16 92/52 (65) 100 Room Air 09/01/16 12:29 36.0 44 24 108/67 (81) 100 Room Air 09/01/16 12:04 36.5 48 23 108/61 100 09/01/16 11:55 48 23 100 09/01/16 11:50 49 23 100 09/01/16 11:49 100 Room Air 09/01/16 11:45 53 19 100 09/01/16 11:32 108/61 09/01/16 11:30 48 15 100 09/01/16 11:25 48 21 100 09/01/16 11:20 51 14 100 09/01/16 11:15 49 14 100 09/01/16 11:10 48 14 100 09/01/16 11:05 46 14 100 09/01/16 11:01 114/66 09/01/16 11:00 45 17 100 09/01/16 10:44 44 14 98/58 100 Room Air 09/01/16 09:47 36.5 45 17 117/73 100 Room Air 09/01/16 09:45 97 Room Air 09/01/16 09:37 47 Physical Exam: General-aaox3, cachectic Eyes-no scleral icterus ENT-mm dry Neck-supple Lungs-cta Heart-bradycardia Abdomen-bs+/+umbilical hernia Extremities-no c/c/e Neuro-nonfocal Current Inpatient Medications Medications (Trade) Dose Ordered Sig/Elias Route Start Time Stop Time Status Last Admin Dose Admin Acetaminophen (Tylenol Tab) 650 mg Q4H PRN PO 09/01/16 11:30 10/01/16 11:29 Ondansetron HCl (Zofran Inj) 4 mg Q6H PRN IV 09/01/16 11:30 10/01/16 11:29 Albumin Human (Albumin 25%) 25 gm Q6H IV 09/01/16 13:00 09/04/16 12:59 09/02/16 01:06 25 GM Ceftriaxone Sodium 2000 mg/ Dextrose 70 ml @ 100 mls/hr Q24H IV 09/01/16 13:00 09/11/16 12:59 09/01/16 13:16 100 MLS/HR Lactulose/Sterile Water/Barcode TID DE 09/01/16 13:00 10/01/16 12:59 09/01/16 13:16 200 GM Miscellaneous (Unit Dose Compound) 1 ea TID PO 09/01/16 13:00 10/01/16 12:59 09/01/16 13:16 1 EA Sodium Bicarbonate 150 meq/Dextrose 1,150 ml @ 125 mls/hr Q9H12M IV 09/02/16 00:35 10/02/16 00:34 09/02/16 01:10 125 MLS/HR Last 24 Hours Test 09/01/16 10:00 09/01/16 10:24 09/01/16 11:40 09/01/16 15:58 White Blood Count 6.42 K/uL Red Blood Count 4.17 M/uL Hemoglobin 12.5 g/dL Hematocrit 36.2 % Mean Corpuscular Volume 86.8 fL Mean Corpuscular Hemoglobin 30.0 pg Mean Corpuscular Hemoglobin Concent 34.5 g/dl Platelet Count 76 K/uL Mean Platelet Volume 11.7 fL Neutrophils (%) (Auto) 70.6 % Lymphocytes (%) (Auto) 14.6 % Monocytes (%) (Auto) 7.3 % Eosinophils (%) (Auto) 6.9 % Basophils (%) (Auto) 0.3 % Neutrophils # (Auto) 4.53 K/uL Lymphocytes # (Auto) 0.94 K/uL Monocytes # (Auto) 0.47 K/uL Eosinophils # (Auto) 0.44 K/uL Basophils # (Auto) 0.02 K/uL RDW Standard Deviation 51.4 fL RDW Coefficient of Variation 16.3 % Immature Granulocyte % (Auto) 0.3 % Immature Granulocyte # (Auto) 0.02 K/uL Ovalocytes 1+ Echinocytes 1+ Prothrombin Time 14.5 SECONDS Prothromb Time International Ratio 1.3 Activated Partial Thromboplast Time 39.9 SECONDS Partial Thromboplastin Ratio 1.5 Venous Blood pH 7.44 Venous Blood Partial Pressure CO2 23 mmHg Venous Blood Partial Pressure O2 29 mmHg Venous Blood HCO3 15 mmol/L Venous Blood Oxygen Saturation < 60.0 % Venous Blood Base Excess -7.5 mmol/L Sodium Level 143 mmol/L 145 mmol/L Potassium Level 4.7 mmol/L 4.4 mmol/L Chloride Level 115 mmol/L 118 mmol/L Carbon Dioxide Level 15 mmol/L 13 mmol/L Anion Gap 13.0 mmol/L 14.0 mmol/L Blood Urea Nitrogen 81 mg/dl 76 mg/dl Creatinine 7.50 mg/dl 6.40 mg/dl Est Creatinine Clear Calc Drug Dose 8.8 ml/min 10.3 ml/min Estimated GFR () 7.7 9.3 Estimated GFR (Non- 6.6 8.0 BUN/Creatinine Ratio 10.8 11.9 Random Glucose 91 mg/dl 93 mg/dl Calcium Level 8.7 mg/dl 8.7 mg/dl Phosphorus Level 4.8 mg/dl Magnesium Level 2.2 mg/dl Total Bilirubin 1.2 mg/dl Direct Bilirubin 0.5 mg/dl Aspartate Amino Transf (AST/SGOT) 24 U/L Alanine Aminotransferase (ALT/SGPT) 33 U/L Alkaline Phosphatase 104 U/L Ammonia 203.0 umol/L Total Creatine Kinase 44 U/L Creatine Kinase MB 1.9 ng/ml Creatine Kinase MB Ratio 4.3 Troponin I < 0.015 ng/ml Total Protein 6.1 gm/dl Albumin 2.9 gm/dl Lipase 563 U/L Thyroid Stimulating Hormone (TSH) 1.880 uIu/ml Lyme Disease IgG Antibody NEG Lyme Disease IgM Antibody NEG Bedside Glucose 81 mg/dl Urine Color DK YELLOW Urine Appearance CLEAR Urine pH 5.0 Urine Specific [place] 1.015 Urine Protein NEG Urine Glucose (UA) NEG Urine Ketones NEG Urine Occult Blood 1+ Urine Nitrite NEG Urine Bilirubin NEG Urine Urobilinogen NEG Urine Leukocyte Esterase NEG Urine WBC (Auto) 1-5 /hpf Urine RBC (Auto) 10-30 /hpf Urine Hyaline Casts (Auto) 1-5 /lpf Urine Epithelial Cells (Auto) 0-5 /lpf Urine Bacteria (Auto) NEG Urine Random Sodium 58 mEq/L Urine Opiates Screen NEG Urine Methadone, Qualitative NEG Urine Barbiturates NEG Urine Phencyclidine (PCP) Level NEG Ur Amphetamine/Methamphetamine NEG MDMA (Ecstasy) Screen NEG Urine Benzodiazepines Screen NEG Urine Cocaine Metabolite NEG Urine Marijuana (THC) NEG Test 09/02/16 05:12 White Blood Count 5.09 K/uL Red Blood Count 3.99 M/uL Hemoglobin 11.9 g/dL Hematocrit 35.5 % Mean Corpuscular Volume 89.0 fL Mean Corpuscular Hemoglobin 29.8 pg Mean Corpuscular Hemoglobin Concent 33.5 g/dl RDW Standard Deviation 53.7 fL RDW Coefficient of Variation 16.5 % Platelet Count 46 K/uL Mean Platelet Volume 10.7 fL Sodium Level 148 mmol/L Potassium Level 3.7 mmol/L Chloride Level 121 mmol/L Carbon Dioxide Level 16 mmol/L Anion Gap 11.0 mmol/L Blood Urea Nitrogen 64 mg/dl Creatinine 4.20 mg/dl Est Creatinine Clear Calc Drug Dose 14.1 ml/min Estimated GFR () 15.5 Estimated GFR (Non- 13.4 BUN/Creatinine Ratio 15.2 Random Glucose 103 mg/dl Calcium Level 8.7 mg/dl Total Bilirubin 1.1 mg/dl Aspartate Amino Transf (AST/SGOT) 16 U/L Alanine Aminotransferase (ALT/SGPT) 24 U/L Alkaline Phosphatase 69 U/L Ammonia 49.0 umol/L Total Protein 5.4 gm/dl Albumin 3.0 gm/dl Globulin 2.4 gm/dl Albumin/Globulin Ratio 1.2 Date/Time Source Procedure Growth Status 09/01/16 10:00 Blood Blood Culture Pending Received 09/01/16 09:48 Blood Blood Culture Pending Received Assessment & Plan FARRUKH-pt with underlying wen/cirrhosis who presented significantly volume depleted. currently on albumin and iv fluids and pt is urinating much better. creatinine has improved and will continue iv fluids and albumin. metabolic acidosis-currently on d5w with 150 of bicarb and bicarb will slowly trend up. unfortunately now with hypernatremia developing however feel he would still benefit from bicarb. will plan to switch to 1/2ns tomorrow. hypokalemia-expect potassium levels to trend down as bicarb improves. if able to swallow, will give 40meq of kdur today. bradycardia-pt continues to have low heart rate.had similar issues last admission and meds were adjusted. perhaps may improve as kidney function improves since there was a possibility of noncompliance with medications at home. may benefit from cardiology evaluation.
[2016-09-02] MEDS: UNIT DOSE COMPOUND PO SCH (08:48)
[2016-09-02] MEDS: LACTULOSE SYRUP 200 GM, WATER, STERILE IRRIG 700 ML, BARCODE IDENTIFIER 1 EA PR SCH ×2 (08:48)
--- NOTE | 2016-09-02 09:56 | ECHOCARDIOGRAM REPORT ---
*NOTICE TO RECEIVING DEMOCRAT AGENCY This information is strictly Confidential and protected under [place] law. [place] law prohibits you from making any further disclosure of this information unless further disclosure is expressly permitted by the written consent of the person to whom it pertains or is authorized by law. A general authorization for the release of medical or other information is not sufficient for this purpose. Hospital accepts no responsibility if the information is made available to any other person, INCLUDING THE PATIENT. Interpretation Summary * Name: JOSE CRUZ Study Date: 09/02/2016 06:50 AM BP: 109/62 mmHg * Patient Location: C.2T\S\E220\S\1 HR: 44 * : 1945 (M/d/yyyy) Gender: Male Height: 72 in * Age: 71 yrs Ethnicity: CA Weight: 149 lb * Ordering Physician: Ryann Lopez * Referring Physician: Self, Referred * Performed By: Carmen Jerez RDCS * * Reason For Study: BRADYCARDIA * BSA: 1.9 m2 * -- Conclusions -- * The left ventricular cavity is small. * There is normal left ventricular wall thickness. * Ejection Fraction = >70 %. * The right ventricular systolic function is normal. * The left atrial size is normal. * Right atrial size is normal. * No significant valvular pathology. Procedure Details * A complete two-dimensional transthoracic echocardiogram was performed (2D, M-mode, Doppler and color flow Doppler). Left Ventricle * The left ventricular cavity is small. * There is normal left ventricular wall thickness. * Ejection Fraction = >70 %. * Left ventricular systolic function is normal. * The left ventricular wall motion is normal. Right Ventricle * The right ventricle is normal size. * The right ventricular systolic function is normal. Atria * The left atrial size is normal. * Right atrial size is normal. * No ASD detected; PFO is not assessed. Mitral Valve * The mitral valve leaflets appear thickened, but open well. * There is trace mitral regurgitation. Tricuspid Valve * Tricuspid leaflets are thickened. * Significant tricuspid regurgitation is absent. Aortic Valve * Aortic valve sclerosis mild, without significant aortic valvular stenosis. * There is no significant aortic regurgitation. Pulmonic Valve * The pulmonic valve is not well visualized. Great Vessels * The aortic root and proximal ascending aorta are normal sized. Pericardium/Pleural * There is no pericardial effusion. MMode 2D Measurements and Calculations IVSd 1.1 cm IVSs 1.4 cm LVIDd 4.0 cm LVIDs 2.3 cm LVPWd 1.1 cm LVPWs 1.6 cm IVS/LVPW 1.0 FS 43.2 % EDV(Teich) 68.6 ml ESV(Teich) 17.2 ml EF(Teich) 74.9 % EDV(cubed) 62.4 ml ESV(cubed) 11.5 ml EF(cubed) 81.6 % % IVS thick 29.3 % % LVPW thick 46.1 % LV mass(C)d 144.5 grams LV mass(C)dI 76.9 grams/m\S\2 LV mass(C)s 114.4 grams LV mass(C)sI 60.9 grams/m\S\2 SV(Teich) 51.4 ml SI(Teich) 27.3 ml/m\S\2 SV(cubed) 51.0 ml SI(cubed) 27.1 ml/m\S\2 Ao root diam 3.2 cm Ao root area 7.8 cm\S\2 LA dimension 3.9 cm LA/Ao 1.2 LVAd ap4 34.0 cm\S\2 LVLd ap4 9.3 cm EDV(MOD-sp4) 103.0 ml LVAs ap4 15.7 cm\S\2 LVLs ap4 7.2 cm ESV(MOD-sp4) 31.3 ml EF(MOD-sp4) 69.6 % LVAd ap2 31.9 cm\S\2 LVLd ap2 9.6 cm EDV(MOD-sp2) 90.4 ml LVAs ap2 14.0 cm\S\2 LVLs ap2 6.9 cm ESV(MOD-sp2) 26.3 ml EF(MOD-sp2) 70.9 % SV(MOD-sp4) 71.7 ml SI(MOD-sp4) 38.1 ml/m\S\2 SV(MOD-sp2) 64.1 ml SI(MOD-sp2) 34.1 ml/m\S\2 Doppler Measurements and Calculations MV E max mehul 98.5 cm/sec MV A max mehul 57.2 cm/sec MV E/A 1.7 MV dec time 0.31 sec Ao V2 max 117.3 cm/sec Ao max PG 5.5 mmHg Ao max PG (full) 2.3 mmHg LV V1 max PG 3.2 mmHg LV V1 max 88.8 cm/sec TR max mehul 207.7 cm/sec
--- NOTE | 2016-09-02 10:00 | Clinical Documentation Query ---
CLINICAL DOCUMENTATION QUERY Dr. VANEGAS, In your clinical opinion is this patient being managed for: ( x ) Metabolic encephalopathy in addition to acute hepatic encephalopathy in the setting of FARRUKH ( ) Other explanation of clinical findings (Please Explain) ( ) Unable to determine (Please Define) ( ) Need to Discuss ( ) Not Agree The medical record reflects the following clinical findings, treatment, and risk factors. Clinical Indicators: 71 yo male presenting with altered mental status. Cr 7.50 upon arrival in ER. Comparative result of 1.40 16 days earlier. Nephrology progress note on 09/02 indicates pt now more awake and conversant. Treatment: IV fluids, nephrology and GI consults, 1:1 sitter, tele, lactulose, IV bicarb, IV albumin, IV rocephin, serial PRP's Risk Factors:FARRUKH, metabolic acidosis, dehydration Please clarify and document your clinical opinion in the progress notes and discharge summary. Terms such as "probable", "suspected", "likely", "questionable", "possible", or "still to be ruled out" are acceptable. IF IN AGREEMENT, YOU MUST DOCUMENT ABOVE DIAGNOSTIC STATEMENT IN DAILY PROGRESS NOTES AND DISCHARGE SUMMARY. This document is not part of the patient's record. Thank You, Lashae Eid, RN [phone]
--- NOTE | 2016-09-02 10:04 | Gastroenterology Progress Note ---
Progress Note Date of Service: Sep 02, 2016 Subjective Pt evaluation today including: conversation w/ patient, physical exam, chart review, lab review Pt was seen and evaluated this AM. No acute events overnight. 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 Was started on lactulose enemas, IV fluids and albumin. This morning labs greatly improved. NH3 49 BUN 64 PROTECTION ENGINEER 4.2. Pt is mentating well. He is alert and oriented and is providing an accurate history. He tells me he thinks he takes his medications as prescribed, however, he cannot recall any events of Monday or . He denies any fever, chills, chest pain, SOB, abdominal pain, black/bloody stools. 09/01/16: There is a moderate volume of abdominal ascites. The largest pocket is seen in the left lower quadrant. Cirrhotic liver morphology is incidentally noted. Review of Systems Constitutional: No fever, No chills Respiratory: No cough Cardiac: No chest pain Abdomen: No pain, No nausea, No vomiting, No diarrhea, No constipation, No GI bleeding Medications Current Inpatient Medications Medications (Trade) Dose Ordered Sig/Elias Route Start Time Stop Time Status Last Admin Dose Admin Acetaminophen (Tylenol Tab) 650 mg Q4H PRN PO 09/01/16 11:30 10/01/16 11:29 Ondansetron HCl (Zofran Inj) 4 mg Q6H PRN IV 09/01/16 11:30 10/01/16 11:29 Albumin Human (Albumin 25%) 25 gm Q6H IV 09/01/16 13:00 09/04/16 12:59 09/02/16 08:47 25 GM Ceftriaxone Sodium 2000 mg/ Dextrose 70 ml @ 100 mls/hr Q24H IV 09/01/16 13:00 09/11/16 12:59 09/01/16 13:16 100 MLS/HR Lactulose/Sterile Water/Barcode TID [place] 09/01/16 13:00 10/01/16 12:59 09/02/16 08:48 200 GM Miscellaneous (Unit Dose Compound) 1 ea TID PO 09/01/16 13:00 10/01/16 12:59 09/02/16 08:48 1 EA Sodium Bicarbonate 150 meq/Dextrose 1,150 ml @ 125 mls/hr Q9H12M IV 09/02/16 00:35 10/02/16 00:34 09/02/16 01:10 125 MLS/HR Objective Vital Signs Date Time Temp Pulse Resp B/P (MAP) Pulse Ox O2 Delivery O2 Flow Rate FiO2 09/02/16 07:32 36.7 44 20 109/62 (78) 100 09/02/16 04:00 Room Air 09/02/16 03:54 36.1 46 16 94/48 (63) 100 Room Air 09/01/16 23:59 Room Air 09/01/16 23:05 36.5 53 18 107/65 (79) 100 Room Air 09/01/16 19:45 35.5 48 14 110/68 (82) 99 Room Air 09/01/16 19:45 99 Room Air 09/01/16 19:02 36.4 50 16 110/64 (79) 100 Room Air 09/01/16 16:00 Room Air 09/01/16 16:00 36.6 41 18 96/52 (67) 96 Room Air 09/01/16 15:28 36.3 41 16 92/52 (65) 100 Room Air 09/01/16 12:29 36.0 44 24 108/67 (81) 100 Room Air 09/01/16 12:04 36.5 48 23 108/61 100 09/01/16 11:55 48 23 100 09/01/16 11:50 49 23 100 09/01/16 11:49 100 Room Air 09/01/16 11:45 53 19 100 09/01/16 11:32 108/61 09/01/16 11:30 48 15 100 09/01/16 11:25 48 21 100 09/01/16 11:20 51 14 100 09/01/16 11:15 49 14 100 09/01/16 11:10 48 14 100 09/01/16 11:05 46 14 100 09/01/16 11:01 114/66 09/01/16 11:00 45 17 100 09/01/16 10:44 44 14 98/58 100 Room Air Physical Exam General Appearance: no apparent distress Eyes: PERRL ENT: hearing grossly normal Neck: supple Respiratory/Chest: lungs clear, normal breath sounds Cardiovascular: regular rate, rhythm Abdomen: normal bowel sounds, non tender, soft Neurologic/Psych: alert, normal mood/affect, oriented x 3 Skin: normal color Laboratory Results Last 24 Hours Test 09/01/16 10:00 09/01/16 10:24 09/01/16 11:40 09/01/16 15:58 White Blood Count 6.42 K/uL Red Blood Count 4.17 M/uL Hemoglobin 12.5 g/dL Hematocrit 36.2 % Mean Corpuscular Volume 86.8 fL Mean Corpuscular Hemoglobin 30.0 pg Mean Corpuscular Hemoglobin Concent 34.5 g/dl Platelet Count 76 K/uL Mean Platelet Volume 11.7 fL Neutrophils (%) (Auto) 70.6 % Lymphocytes (%) (Auto) 14.6 % Monocytes (%) (Auto) 7.3 % Eosinophils (%) (Auto) 6.9 % Basophils (%) (Auto) 0.3 % Neutrophils # (Auto) 4.53 K/uL Lymphocytes # (Auto) 0.94 K/uL Monocytes # (Auto) 0.47 K/uL Eosinophils # (Auto) 0.44 K/uL Basophils # (Auto) 0.02 K/uL RDW Standard Deviation 51.4 fL RDW Coefficient of Variation 16.3 % Immature Granulocyte % (Auto) 0.3 % Immature Granulocyte # (Auto) 0.02 K/uL Ovalocytes 1+ Echinocytes 1+ Prothrombin Time 14.5 SECONDS Prothromb Time International Ratio 1.3 Activated Partial Thromboplast Time 39.9 SECONDS Partial Thromboplastin Ratio 1.5 Venous Blood pH 7.44 Venous Blood Partial Pressure CO2 23 mmHg Venous Blood Partial Pressure O2 29 mmHg Venous Blood HCO3 15 mmol/L Venous Blood Oxygen Saturation < 60.0 % Venous Blood Base Excess -7.5 mmol/L Sodium Level 143 mmol/L 145 mmol/L Potassium Level 4.7 mmol/L 4.4 mmol/L Chloride Level 115 mmol/L 118 mmol/L Carbon Dioxide Level 15 mmol/L 13 mmol/L Anion Gap 13.0 mmol/L 14.0 mmol/L Blood Urea Nitrogen 81 mg/dl 76 mg/dl Creatinine 7.50 mg/dl 6.40 mg/dl Est Creatinine Clear Calc Drug Dose 8.8 ml/min 10.3 ml/min Estimated GFR () 7.7 9.3 Estimated GFR (Non- 6.6 8.0 BUN/Creatinine Ratio 10.8 11.9 Random Glucose 91 mg/dl 93 mg/dl Calcium Level 8.7 mg/dl 8.7 mg/dl Phosphorus Level 4.8 mg/dl Magnesium Level 2.2 mg/dl Total Bilirubin 1.2 mg/dl Direct Bilirubin 0.5 mg/dl Aspartate Amino Transf (AST/SGOT) 24 U/L Alanine Aminotransferase (ALT/SGPT) 33 U/L Alkaline Phosphatase 104 U/L Ammonia 203.0 umol/L Total Creatine Kinase 44 U/L Creatine Kinase MB 1.9 ng/ml Creatine Kinase MB Ratio 4.3 Troponin I < 0.015 ng/ml Total Protein 6.1 gm/dl Albumin 2.9 gm/dl Lipase 563 U/L Thyroid Stimulating Hormone (TSH) 1.880 uIu/ml Lyme Disease IgG Antibody NEG Lyme Disease IgM Antibody NEG Bedside Glucose 81 mg/dl Urine Color DK YELLOW Urine Appearance CLEAR Urine pH 5.0 Urine Specific [place] 1.015 Urine Protein NEG Urine Glucose (UA) NEG Urine Ketones NEG Urine Occult Blood 1+ Urine Nitrite NEG Urine Bilirubin NEG Urine Urobilinogen NEG Urine Leukocyte Esterase NEG Urine WBC (Auto) 1-5 /hpf Urine RBC (Auto) 10-30 /hpf Urine Hyaline Casts (Auto) 1-5 /lpf Urine Epithelial Cells (Auto) 0-5 /lpf Urine Bacteria (Auto) NEG Urine Random Sodium 58 mEq/L Urine Opiates Screen NEG Urine Methadone, Qualitative NEG Urine Barbiturates NEG Urine Phencyclidine (PCP) Level NEG Ur Amphetamine/Methamphetamine NEG MDMA (Ecstasy) Screen NEG Urine Benzodiazepines Screen NEG Urine Cocaine Metabolite NEG Urine Marijuana (THC) NEG Test 09/02/16 05:12 White Blood Count 5.09 K/uL Red Blood Count 3.99 M/uL Hemoglobin 11.9 g/dL Hematocrit 35.5 % Mean Corpuscular Volume 89.0 fL Mean Corpuscular Hemoglobin 29.8 pg Mean Corpuscular Hemoglobin Concent 33.5 g/dl RDW Standard Deviation 53.7 fL RDW Coefficient of Variation 16.5 % Platelet Count 46 K/uL Mean Platelet Volume 10.7 fL Sodium Level 148 mmol/L Potassium Level 3.7 mmol/L Chloride Level 121 mmol/L Carbon Dioxide Level 16 mmol/L Anion Gap 11.0 mmol/L Blood Urea Nitrogen 64 mg/dl Creatinine 4.20 mg/dl Est Creatinine Clear Calc Drug Dose 14.1 ml/min Estimated GFR () 15.5 Estimated GFR (Non- 13.4 BUN/Creatinine Ratio 15.2 Random Glucose 103 mg/dl Calcium Level 8.7 mg/dl Total Bilirubin 1.1 mg/dl Aspartate Amino Transf (AST/SGOT) 16 U/L Alanine Aminotransferase (ALT/SGPT) 24 U/L Alkaline Phosphatase 69 U/L Ammonia 49.0 umol/L Total Protein 5.4 gm/dl Albumin 3.0 gm/dl Globulin 2.4 gm/dl Albumin/Globulin Ratio 1.2 Assessment and Plan Patient is a 71 year old male with decompensated MUNGUIA cirrhosis who presented with AMS changes found to be in acute renal failure with BUN 81 PROTECTION ENGINEER 7.5 and encephalopathic with NH3 of 203. Started on lactulose enemas, IVF and albumin with much clinical improvement. Source of hepatic encephalopathy unknown - SBP vs dehydration vs noncompliance. Will need to rule out SBP if ascites is present. He is currently not agreeable to a paracentesis. 2g NA diet + ascites ?SBP not agreeable to paracentesis Continue Rocephin for 5 total days PO Lactulose TID Titrate to BM 3-4 stools daily Xifaxan 550 BID Hold all diuretics Appreciate nephrology input Continue albumin and IVF MELD labs daily MELD 23 Please call with any questions or concerns. ATTESTATION: I have performed a history and physical examination of this patient and reviewed the electronic record. Specifically, on physical examination patient is much improved without overt signs of encephalopathy. I have discussed the case with LEILA Mabry. The above note reflects my findings, conclusions, and recommendations. Mick Nunez MD
[2016-09-02 11:24] VITALS: BP 117/65; PULSE 45; TEMP 36.3; O2SAT 100
[2016-09-02] MEDS: CEFTRIAXONE SOD INJ 2,000 MG in DEXTROSE 5% 50ML 50 ML IV SCH (12:55)
[2016-09-02 15:32] VITALS: BP 106/63; PULSE 46; TEMP 36.3; O2SAT 100
[2016-09-02 18:50] VITALS: BP 108/63; PULSE 52; TEMP 36.3; O2SAT 100
--- NOTE | 2016-09-02 19:38 | Progress Note ---
Internal Med Progress Note Date of Service: Sep 02, 2016. Provider Documentation: SUBJECTIVE: awake and alert today ambulated in brady way earlier no confusion no fever or chills OBJECTIVE: Vital Signs-as noted below Exam: General-chronically ill appearing , bitemporal wasting noted Eyes-sclera mildly icteric Neck-no JVD Lungs-diminished Heart-regular , bradycardic Abdomen-distended , + ascites Extremities-+ 1-2 bilat lower ext edema Neuro-no focal neurological deficit Lab data as noted below. ASSESSMENT & PLAN: HEPATIC ENCEPHALOPATHY, MUNGUIA - - patient presented with worsening mental status x 4 days; had recent admission for hepatic encephalopathy 08/14 - 08/16, [facility] [place] , no medication changes made and had a recent EGD and per daughter's report varices were not banded - altered mental status likely combination of hepatic encephalopathy and uremia from FARRUKH ; Ammonia level > 200 - pt ordered for lactulose enema -mental status improved today , awake and alert Ammonia level improved to 49 pt started on empiric Abx with Rocephin for possible SBP cont Rifaximin - abd US shows moderate ascites ; pt refused to have paracentesis done appreciate GI input form LEILA Mabry FARRUKH ON AKD STAGE III - likely prerenal - presenting with creat 7.5 (1.4 on 08/16) improved to ~ 4 hco3 gtt ordered for [employer] improved with IV fluid and albumin 25gm q6h - appreciate input form Nephrology Oncu -cont to hold Lasix -follow PRP closely BRADYCARDIA - likely due to inability to metabolize Nadolol with FARRUKH - BP stable - cont to hold beta gino - monitor in tele -pt remains asymptomatic THROMBOCYTOPENIA - due to underlying liver disease - no signs of bleeding, platelets at baseline avoid antiplatelets CODE STATUS - Patient is a DNR DVT PROPHYLAXIS - SCDs due to thrombocytopenia DISPOSITION PT/OT eval requested pt may benefit form rehab Vital Signs: Date Time Temp Pulse Resp B/P (MAP) Pulse Ox O2 Delivery O2 Flow Rate FiO2 09/02/16 18:50 36.3 52 18 108/63 (78) 100 Room Air 09/02/16 16:06 Room Air 09/02/16 15:32 36.3 46 22 106/63 (77) 100 Room Air 09/02/16 12:02 Room Air 09/02/16 11:24 36.3 45 18 117/65 (82) 100 09/02/16 08:00 Room Air 09/02/16 07:32 36.7 44 20 109/62 (78) 100 09/02/16 04:00 Room Air 09/02/16 03:54 36.1 46 16 94/48 (63) 100 Room Air 09/01/16 23:59 Room Air 09/01/16 23:05 36.5 53 18 107/65 (79) 100 Room Air 09/01/16 19:45 35.5 48 14 110/68 (82) 99 Room Air 09/01/16 19:45 99 Room Air Lab Results: Results Past 24 Hours Test 09/02/16 05:12 Range/Units White Blood Count 5.09 4.8-10.8 K/uL Red Blood Count 3.99 4.7-6.1 M/uL Hemoglobin 11.9 14.0-18.0 g/dL Hematocrit 35.5 42-52 % Mean Corpuscular Volume 89.0 80-100 fL Mean Corpuscular Hemoglobin 29.8 25-34 pg Mean Corpuscular Hemoglobin Concent 33.5 32-36 g/dl RDW Standard Deviation 53.7 36.4-46.3 fL RDW Coefficient of Variation 16.5 11.5-14.5 % Platelet Count 46 130-400 K/uL Mean Platelet Volume 10.7 7.4-10.4 fL Sodium Level 148 136-145 mmol/L Potassium Level 3.7 3.5-5.1 mmol/L Chloride Level 121 98-107 mmol/L Carbon Dioxide Level 16 21-32 mmol/L Anion Gap 11.0 3-11 mmol/L Blood Urea Nitrogen 64 7-18 mg/dl Creatinine 4.20 0.60-1.40 mg/dl Est Creatinine Clear Calc Drug Dose 14.1 ml/min Estimated GFR () 15.5 Estimated GFR (Non- 13.4 BUN/Creatinine Ratio 15.2 10-20 Random Glucose 103 70-99 mg/dl Calcium Level 8.7 8.5-10.1 mg/dl Total Bilirubin 1.1 0.2-1 mg/dl Aspartate Amino Transf (AST/SGOT) 16 15-37 U/L Alanine Aminotransferase (ALT/SGPT) 24 12-78 U/L Alkaline Phosphatase 69 45-117 U/L Ammonia 49.0 11-32 umol/L Total Protein 5.4 6.4-8.2 gm/dl Albumin 3.0 3.4-5.0 gm/dl Globulin 2.4 2.5-4.0 gm/dl Albumin/Globulin Ratio 1.2 0.9-2
[2016-09-02] MEDS: RIFAXIMIN TAB 550 MG TAB PO SCH (20:02)
[2016-09-02] MEDS: LACTULOSE SYRUP 30 GM/45 ML UDP PO SCH ×2 (20:02→20:54)
[2016-09-03] VITALS (9 sets, daily range): BP systolic 95–127; BP diastolic 50–71; PULSE 50–60; TEMP 36.3–36.6; O2SAT 98–100
[2016-09-03] MEDS: ALBUMIN HUMAN 25% 12.5 GM/50 ML VIAL IV SCH ×4 (01:12→19:38)
[2016-09-03 05:46] LABS: HEMATOCRIT 30.3 % (42-52); MEAN CELL VOLUME 87.3 fL (80-100); MEAN CORPUSCULAR HEMOGLOBIN 30.8 pg (25-34); MEAN CORPUSCULAR HGB CONC 35.3 g/dl (32-36); RED BLOOD COUNT 3.47 M/uL (4.7-6.1); WHITE BLOOD COUNT 4.41 K/uL (4.8-10.8)
[2016-09-03 05:53] LABS: PLATELET COUNT 52 K/uL (130-400)
[2016-09-03 06:31] LABS: BUN/CREATININE RATIO 22.2 (10-20); CALCIUM 8.3 mg/dl (8.5-10.1); CREATININE 1.9 mg/dl (0.60-1.40); MAGNESIUM 1.8 mg/dl (1.8-2.4); POTASSIUM 3.1 mmol/L (3.5-5.1)
[2016-09-03] MEDS: SODIUM BICARBONATE 8.4% INJ 150 MEQ in DEXTROSE 5% 1000ML 1,000 ML IV SCH (06:33)
[2016-09-03] MEDS ORDERED: POTASSIUM CHLORIDE 10 MEQ TABCR PO STA (07:23)
[2016-09-03] MEDS: LACTULOSE SYRUP 30 GM/45 ML UDP PO SCH ×3 (07:45→19:37)
[2016-09-03] MEDS: RIFAXIMIN TAB 550 MG TAB PO SCH ×2 (07:45→19:39)
[2016-09-03] MEDS: CEFTRIAXONE SOD INJ 2,000 MG in DEXTROSE 5% 50ML 50 ML IV SCH (13:11)
[2016-09-03] MEDS: D5W AND 1/2NSS 1,000 ML IV SCH ×2 (13:13→19:48)
--- NOTE | 2016-09-03 17:17 | Progress Note ---
Internal Med Progress Note Date of Service: Sep 03, 2016. Provider Documentation: SUBJECTIVE: awake and alert denies of any SOB or discomfort appetite has improved no fever or chills OBJECTIVE: Vital Signs-as noted below Exam: General-chronically ill appearing , cachectic bitemporal wasting noted Eyes-sclera mildly icteric Neck-no JVD Lungs-diminished Heart-regular , bradycardic Abdomen-distended , + ascites Extremities-+ 1-2 bilat lower ext edema Neuro-no focal neurological deficit Lab data as noted below. ASSESSMENT & PLAN: HEPATIC ENCEPHALOPATHY, MUNGUIA - patient presented with worsening mental status x 4 days; had recent admission for hepatic encephalopathy 08/14 - 08/16, follows with [facility] in [place] , no medication changes made and had a recent EGD and per daughter's report varices were not banded - altered mental status likely due to metabolic encephalopathy ; due to uremia from FARRUKH ; Ammonia level > 200 -mental status improved awake and alert Ammonia level improved to 49 -> 25 hold Lactulose for continued diarrhea cont on empiric Abx with Rocephin for possible SBP cont Rifaximin - abd US shows moderate ascites ; pt refused to have paracentesis done appreciate GI input form LEILA Mabry FARRUKH ON AKD STAGE III - likely prerenal - presenting with creat 7.5 (1.4 on 08/16) improved to ~ 4 -> 1.9 hco3 gtt D/john after correction of acidemia - appreciate input form Nephrology Oncu -cont to hold Lasix -follow PRP closely BRADYCARDIA HR remains in low 50-40;s pt denies of any symptom of dizzy spell or weakness - likely due to inability to metabolize Nadolol with FARRUKH - BP stable - cont to hold beta gino - monitor in tele -pt remains asymptomatic THROMBOCYTOPENIA - due to underlying liver disease - no signs of bleeding, platelets at baseline avoid antiplatelets CODE STATUS - Patient is a DNR DVT PROPHYLAXIS - SCDs due to thrombocytopenia DISPOSITION PT/OT eval requested d/w pt does not want to go to rehab wants to return home with home health visiting nurse worried the service may not be approved by [facility] social service consulted for discharge planning Vital Signs: Date Time Temp Pulse Resp B/P (MAP) Pulse Ox O2 Delivery O2 Flow Rate FiO2 09/03/16 16:00 Room Air 09/03/16 15:34 36.3 52 20 108/66 (80) 100 Room Air 09/03/16 12:00 36.3 51 18 95/60 (72) 100 Room Air 09/03/16 12:00 Room Air 09/03/16 08:00 Room Air 09/03/16 07:38 36.5 50 18 101/66 (78) 100 Room Air 09/03/16 04:00 Room Air 09/03/16 03:50 36.3 54 20 99/56 (70) 100 Room Air 09/03/16 01:23 52 102/63 (76) 09/03/16 01:13 105/50 (68) 09/03/16 00:11 36.3 59 18 109/65 (80) 100 Room Air 09/02/16 23:59 Room Air 09/02/16 20:00 Room Air 09/02/16 18:50 36.3 52 18 108/63 (78) 100 Room Air Lab Results: Results Past 24 Hours Test 09/03/16 05:31 Range/Units White Blood Count 4.41 4.8-10.8 K/uL Red Blood Count 3.47 4.7-6.1 M/uL Hemoglobin 10.7 14.0-18.0 g/dL Hematocrit 30.3 42-52 % Mean Corpuscular Volume 87.3 80-100 fL Mean Corpuscular Hemoglobin 30.8 25-34 pg Mean Corpuscular Hemoglobin Concent 35.3 32-36 g/dl RDW Standard Deviation 51.3 36.4-46.3 fL RDW Coefficient of Variation 16.1 11.5-14.5 % Platelet Count 52 130-400 K/uL Mean Platelet Volume 11.0 7.4-10.4 fL Sodium Level 147 136-145 mmol/L Potassium Level 3.1 3.5-5.1 mmol/L Chloride Level 115 98-107 mmol/L Carbon Dioxide Level 27 21-32 mmol/L Anion Gap 5.0 3-11 mmol/L Blood Urea Nitrogen 42 7-18 mg/dl Creatinine 1.90 0.60-1.40 mg/dl Est Creatinine Clear Calc Drug Dose 31.2 ml/min Estimated GFR () 40.5 Estimated GFR (Non- 34.9 BUN/Creatinine Ratio 22.2 10-20 Random Glucose 99 70-99 mg/dl Calcium Level 8.3 8.5-10.1 mg/dl Magnesium Level 1.8 1.8-2.4 mg/dl Total Bilirubin 0.9 0.2-1 mg/dl Direct Bilirubin 0.4 0-0.2 mg/dl Aspartate Amino Transf (AST/SGOT) 41 15-37 U/L Alanine Aminotransferase (ALT/SGPT) 33 12-78 U/L Alkaline Phosphatase 69 45-117 U/L Ammonia 25.0 11-32 umol/L Total Protein 5.3 6.4-8.2 gm/dl Albumin 3.1 3.4-5.0 gm/dl
[2016-09-04] VITALS (9 sets, daily range): BP systolic 92–107; BP diastolic 55–65; PULSE 53–87; TEMP 36.4–36.6; O2SAT 97–100
[2016-09-04] MEDS: ALBUMIN HUMAN 25% 12.5 GM/50 ML VIAL IV SCH ×2 (01:38→07:49)
[2016-09-04] MEDS ORDERED: POTASSIUM CHLORIDE 20 MEQ TABCR PO STA (03:49)
[2016-09-04] MEDS ORDERED: DIGOXIN IV 250 MCG in SYRINGE 9 ML IV ONE (04:00)
[2016-09-04 04:42] LABS: BUN/CREATININE RATIO 26.5 (10-20); CALCIUM 7.8 mg/dl (8.5-10.1); CREATININE 1.2 mg/dl (0.60-1.40); MAGNESIUM 1.5 mg/dl (1.8-2.4); POTASSIUM 3.1 mmol/L (3.5-5.1)
[2016-09-04] MEDS: D5W AND 1/2NSS 1,000 ML IV SCH (05:01)
[2016-09-04] MEDS ORDERED: NADOLOL 40 MG TAB PO ONE (05:15)
[2016-09-04 05:17] LABS: HEMATOCRIT 29.9 % (42-52); MEAN CELL VOLUME 90.3 fL (80-100); MEAN CORPUSCULAR HEMOGLOBIN 30.2 pg (25-34); MEAN CORPUSCULAR HGB CONC 33.4 g/dl (32-36); PLATELET COUNT 56 K/uL (130-400); RED BLOOD COUNT 3.31 M/uL (4.7-6.1); WHITE BLOOD COUNT 4.22 K/uL (4.8-10.8)
--- NOTE | 2016-09-04 05:17 | Progress Note ---
Internal Med Progress Note Date of Service: Sep 04, 2016. Provider Documentation: Made aware by RN of CR 180s, SBP 90s. SVT on the monitor. unresponsive to vagal maneuvers CR 120s after 1 dose digoxin K 3.1, Mg 1.5 AP SVT multifactorial : abn electrolytes ? BB withdrawal replace lytes resume Nadolol (kidney function now improved) Will relay developments to AM provider. Vital Signs: Date Time Temp Pulse Resp B/P (MAP) Pulse Ox O2 Delivery O2 Flow Rate FiO2 09/04/16 07:59 Room Air 09/04/16 07:19 36.4 57 18 100/63 (75) 97 Room Air 09/04/16 06:23 96/62 (73) 09/04/16 04:25 92/56 (68) 09/04/16 04:08 155 09/04/16 04:00 Room Air 09/04/16 03:29 36.6 87 18 94/57 (69) 98 Room Air 09/04/16 00:00 Room Air 09/03/16 23:47 36.6 60 16 98/52 (67) 98 Room Air 09/03/16 20:00 Room Air 09/03/16 18:46 36.4 54 18 127/71 (89) 100 Room Air 09/03/16 16:00 Room Air 09/03/16 15:34 36.3 52 20 108/66 (80) 100 Room Air 09/03/16 12:00 36.3 51 18 95/60 (72) 100 Room Air 09/03/16 12:00 Room Air Lab Results: Results Past 24 Hours Test 09/04/16 04:10 Range/Units White Blood Count 4.22 4.8-10.8 K/uL Red Blood Count 3.31 4.7-6.1 M/uL Hemoglobin 10.0 14.0-18.0 g/dL Hematocrit 29.9 42-52 % Mean Corpuscular Volume 90.3 80-100 fL Mean Corpuscular Hemoglobin 30.2 25-34 pg Mean Corpuscular Hemoglobin Concent 33.4 32-36 g/dl Platelet Count 56 130-400 K/uL Mean Platelet Volume 12.0 7.4-10.4 fL Neutrophils (%) (Auto) 65.2 % Lymphocytes (%) (Auto) 14.2 % Monocytes (%) (Auto) 13.0 % Eosinophils (%) (Auto) 6.2 % Basophils (%) (Auto) 0.9 % Neutrophils # (Auto) 2.75 1.4-6.5 K/uL Lymphocytes # (Auto) 0.60 1.2-3.4 K/uL Monocytes # (Auto) 0.55 0.11-0.59 K/uL Eosinophils # (Auto) 0.26 0-0.5 K/uL Basophils # (Auto) 0.04 0-0.2 K/uL RDW Standard Deviation 54.1 36.4-46.3 fL RDW Coefficient of Variation 16.3 11.5-14.5 % Immature Granulocyte % (Auto) 0.5 % Immature Granulocyte # (Auto) 0.02 0.00-0.02 K/uL Platelet Estimate DECREASED Ovalocytes 1+ Sodium Level 144 136-145 mmol/L Potassium Level 3.1 3.5-5.1 mmol/L Chloride Level 112 98-107 mmol/L Carbon Dioxide Level 24 21-32 mmol/L Anion Gap 8.0 3-11 mmol/L Blood Urea Nitrogen 32 7-18 mg/dl Creatinine 1.20 0.60-1.40 mg/dl Est Creatinine Clear Calc Drug Dose 49.4 ml/min Estimated GFR () 70.6 Estimated GFR (Non- 60.9 BUN/Creatinine Ratio 26.5 10-20 Random Glucose 92 70-99 mg/dl Lactic Acid Level 1.5 0.4-2.0 mmol/L Calcium Level 7.8 8.5-10.1 mg/dl Magnesium Level 1.5 1.8-2.4 mg/dl Ammonia 40.0 11-32 umol/L
[2016-09-04 05:18] LABS: BASO % 0.9 %; BASO ABS # 0.04 K/uL (0-0.2); COMPLETE YES; EOS % 6.2 %; IG% 0.5 %; LYMPH % 14.2 %; NEUT % 65.2 %; OVALOCYTES 1+; PLT ESTIMATE DECREASED
[2016-09-04] MEDS ORDERED: POTASSIUM CHLORIDE 10 MEQ TABCR PO ONE (06:00)
[2016-09-04] MEDS: MAGNESIUM SULFATE 1GM / D5W 1 GM in PREMIXED IN D5W 100 ML IV SCH ×2 (06:01→07:49)
[2016-09-04] MEDS: RIFAXIMIN TAB 550 MG TAB PO SCH ×2 (07:51→19:58)
[2016-09-04] MEDS: LACTULOSE SYRUP 30 GM/45 ML UDP PO SCH ×2 (07:51→13:33)
--- NOTE | 2016-09-04 10:55 | Nephrology Progress Note ---
Nephrology Progress Note Date of Service: Sep 04, 2016. Subjective 71 yo male with hx of wen who presented with volume depletion/farrukh/acidosis/ hyperammonia/confusion. pt overall doing much better. oob to chair. eating and drinking well. interested in going home. potassium and mag were low this morning and repleted prn. son in law visiting him. answered their questions. Objective Date Time Temp Pulse Resp B/P (MAP) Pulse Ox O2 Delivery O2 Flow Rate FiO2 09/04/16 07:59 Room Air 09/04/16 07:19 36.4 57 18 100/63 (75) 97 Room Air 09/04/16 06:23 96/62 (73) 09/04/16 04:25 92/56 (68) 09/04/16 04:08 155 09/04/16 04:00 Room Air 09/04/16 03:29 36.6 87 18 94/57 (69) 98 Room Air 09/04/16 00:00 Room Air 09/03/16 23:47 36.6 60 16 98/52 (67) 98 Room Air 09/03/16 20:00 Room Air 09/03/16 18:46 36.4 54 18 127/71 (89) 100 Room Air 09/03/16 16:00 Room Air 09/03/16 15:34 36.3 52 20 108/66 (80) 100 Room Air 09/03/16 12:00 36.3 51 18 95/60 (72) 100 Room Air 09/03/16 12:00 Room Air Physical Exam: General-aaox3, cachectic Eyes-no scleral icterus ENT-mmm Neck-supple Lungs-clear Heart-bradycardia Abdomen-bs+/+umbilical hernia/+mildly distended Extremities-no c/c, +1 edema Neuro-nonfocal Current Inpatient Medications Medications (Trade) Dose Ordered Sig/Elias Route Start Time Stop Time Status Last Admin Dose Admin Acetaminophen (Tylenol Tab) 650 mg Q4H PRN PO 09/01/16 11:30 10/01/16 11:29 Ondansetron HCl (Zofran Inj) 4 mg Q6H PRN IV 09/01/16 11:30 10/01/16 11:29 Albumin Human (Albumin 25%) 25 gm Q6H IV 09/01/16 13:00 09/04/16 12:59 09/04/16 07:49 25 GM Ceftriaxone Sodium 2000 mg/ Dextrose 70 ml @ 100 mls/hr Q24H IV 09/01/16 13:00 09/11/16 12:59 09/03/16 13:11 100 MLS/HR Lactulose (Chronulac Syrup) 30 gm TID PO 09/02/16 14:00 10/02/16 13:59 09/04/16 07:51 30 GM Rifaximin (Xifaxan Tab) 550 mg BID PO 09/02/16 21:00 10/02/16 20:59 09/04/16 07:51 550 MG Dextrose/Sodium Chloride 1,000 ml @ 125 mls/hr Q8H IV 09/03/16 13:00 10/03/16 12:59 09/04/16 05:01 125 MLS/HR Nadolol (Corgard Tab) 20 mg QAM PO 09/05/16 09:00 10/05/16 08:59 Last 24 Hours Test 09/04/16 04:10 White Blood Count 4.22 K/uL Red Blood Count 3.31 M/uL Hemoglobin 10.0 g/dL Hematocrit 29.9 % Mean Corpuscular Volume 90.3 fL Mean Corpuscular Hemoglobin 30.2 pg Mean Corpuscular Hemoglobin Concent 33.4 g/dl Platelet Count 56 K/uL Mean Platelet Volume 12.0 fL Neutrophils (%) (Auto) 65.2 % Lymphocytes (%) (Auto) 14.2 % Monocytes (%) (Auto) 13.0 % Eosinophils (%) (Auto) 6.2 % Basophils (%) (Auto) 0.9 % Neutrophils # (Auto) 2.75 K/uL Lymphocytes # (Auto) 0.60 K/uL Monocytes # (Auto) 0.55 K/uL Eosinophils # (Auto) 0.26 K/uL Basophils # (Auto) 0.04 K/uL RDW Standard Deviation 54.1 fL RDW Coefficient of Variation 16.3 % Immature Granulocyte % (Auto) 0.5 % Immature Granulocyte # (Auto) 0.02 K/uL Platelet Estimate DECREASED Ovalocytes 1+ Sodium Level 144 mmol/L Potassium Level 3.1 mmol/L Chloride Level 112 mmol/L Carbon Dioxide Level 24 mmol/L Anion Gap 8.0 mmol/L Blood Urea Nitrogen 32 mg/dl Creatinine 1.20 mg/dl Est Creatinine Clear Calc Drug Dose 49.4 ml/min Estimated GFR () 70.6 Estimated GFR (Non- 60.9 BUN/Creatinine Ratio 26.5 Random Glucose 92 mg/dl Lactic Acid Level 1.5 mmol/L Calcium Level 7.8 mg/dl Magnesium Level 1.5 mg/dl Ammonia 40.0 umol/L Assessment & Plan FARRUKH-pt with underlying wen/cirrhosis who presented significantly volume depleted. on albumin and iv fluids. will stop both and remove ventura catheter as well. pt doing much better. metabolic acidosis-corrected with bicarb drip and then switched to 1/2ns yesterday secondary to the hypernatremia. bicarb good. hypokalemia-repleting prn hypomag-repleting prn hypernatremia-sodium levels improved with 1/2ns. encourage free water.
[2016-09-04] MEDS: CEFTRIAXONE SOD INJ 2,000 MG in DEXTROSE 5% 50ML 50 ML IV SCH (13:27)
[2016-09-04] MEDS ORDERED: NURSING VERBAL MED ORDER ONE (14:15)
--- NOTE | 2016-09-04 17:38 | Discharge Instructions ---
Discharge Instructions Date of Service Sep 04, 2016. Admission Reason for Admission: Altered Mental Status Discharge Discharge Diagnosis / Problem: CONFUSION /HEPATIC ENCEPHALOPAHTY /ACUTE RENAL FAILURE Discharge Goals Goal(s): Decrease discomfort, Diagnostic testing, Therapeutic intervention Activity Recommendations Activity Limitations: as noted below ( TOLERATED ) . Instructions / Follow-Up Instructions / Follow-Up FOLLOW UP WITH PHYSICIAN IN [facility] IN A WEEK BASIC METABOLIC PANEL IN A WEEK WITH PHYSICIAN VISIT PLEASE DO NOT SKIP /STOP TAKING ANY MEDICATION WITH OUT DISCUSSING WITH YOUR PHYSICIAN DO NOT TAKE ASPIRIN , ADVIL , MOTRIN , ALEVE , IBUPROFEN -NO NSAID'S WILL CAUSE WORSENING OF YOUR KIDNEY FUNCTION LAB WORK : BASIC METABOLIC PANEL IN A WEEK Current Hospital Diet Patient's current hospital diet: Low Sodium Diet (2gm Na) Discharge Diet Recommended Diet: Low Sodium Diet (2gm Na) Pending Studies Studies pending at discharge: yes List of pending studies: LAB WORK : BASIC METABOLIC PANEL IN A WEEK Medical Emergencies . Who to Call and When: Medical Emergencies: If at any time you feel your situation is an emergency, please call 911 immediately. . Non-Emergent Contact Non-Emergency issues call your: Primary Care Provider . . "Provider Documentation" section prepared by Hilda Akhtar. . VTE Core Measure Inpt VTE Proph given/why not?: Contraindicated (thrombocytopenia)
--- NOTE | 2016-09-04 17:47 | Progress Note ---
Internal Med Progress Note Date of Service: Sep 04, 2016. Provider Documentation: SUBJECTIVE: awake and alert denies of any SOB or discomfort developed episode of SVT last night , pt remembers of having palpitation briefly HR improved to 80' s after home medication -Beta gino -Nadolol restarted feels like his baseline eager to be discharged home tomorrow did well with PT does not need SNF wants to have home health visiting nurse concerned regarding coverage from [place] for home health pt is assured -Social service will contact [place] to make appropriate referral no fever or chills noted OBJECTIVE: Vital Signs-as noted below Exam: General-chronically ill appearing , cachectic bitemporal wasting noted Eyes-sclera mildly icteric Neck-no JVD Lungs-diminished Heart-regular , bradycardic Abdomen-distended , + ascites Extremities-+ 1-2 bilat lower ext edema Neuro-no focal neurological deficit Lab data as noted below. ASSESSMENT & PLAN: HEPATIC ENCEPHALOPATHY, MUNGUIA resolved ,awake and alert now , function status at baseline - patient presented with worsening mental status x 4 days; had recent admission for hepatic encephalopathy 08/14 - 08/16, follows with [facility] hepatology in [place] , no medication changes made and had a recent EGD and per daughter's report varices were not banded - altered mental status likely due to metabolic encephalopathy ; due to uremia from FARRUKH ; Ammonia level > 200 -mental status improved awake and alert Ammonia level improved to 49 -> 25 Lactulose dose reduced out pt regimen on empiric Abx with Rocephin for possible SBP cont Rifaximin no evidence of sepsis on discharge Rocephin can be d/c pt should cont with Rifaximin follows with GI at [facility] - abd US shows moderate ascites ; pt refused to have paracentesis done [facility] consulted appreciate GI input form LEILA Mabry FARRUKH ON AKD STAGE III resolved with IVF - likely prerenal - presenting with creat 7.5 (1.4 on 08/16) improved to ~ 4 -> 1.9 -> 1.2 - appreciate input form Nephrology Onccarolina -IVF D.john diuretics for chronic liver disease can be resumed on discharge ( Lasix / Aldactone ) -follow [facility] in out pt physician visit at [facility] SVT : was bradycardic earlier -due o Uremia - likely due to inability to metabolize Nadolol with FARRUKH HR was in low 50-40;s Beta gino was kept on hold developed paroxysmal SVT last night not responding to vagal stimulus -as per suction plate carrier cleaner Physician given X1 dose IV Digoxin Nadolol resumed HR remains stable in 80's - monitor in tele -pt remains asymptomatic THROMBOCYTOPENIA - due to underlying liver disease - no signs of bleeding, platelets at baseline avoid antiplatelets pt is asked to avoid NSAID"s CODE STATUS - Patient is a DNR DVT PROPHYLAXIS - SCDs due to thrombocytopenia DISPOSITION PT/OT eval requested appreciate input -ambulated well -discharged form PT/OT pt melissa like to have home health visiting nurse worried the service may not be approved by [place] social service consulted for discharge planning possible discharge home tomorrow 08/06/16 Vital Signs: Date Time Temp Pulse Resp B/P (MAP) Pulse Ox O2 Delivery O2 Flow Rate FiO2 09/04/16 16:00 Room Air 09/04/16 15:35 36.5 58 107/65 (79) 100 Room Air 09/04/16 12:00 Room Air 09/04/16 11:27 36.4 53 18 96/58 (71) 100 Room Air 09/04/16 07:59 Room Air 09/04/16 07:19 36.4 57 18 100/63 (75) 97 Room Air 09/04/16 06:23 96/62 (73) 09/04/16 04:25 92/56 (68) 09/04/16 04:08 155 09/04/16 04:00 Room Air 09/04/16 03:29 36.6 87 18 94/57 (69) 98 Room Air 09/04/16 00:00 Room Air 09/03/16 23:47 36.6 60 16 98/52 (67) 98 Room Air 09/03/16 20:00 Room Air 09/03/16 18:46 36.4 54 18 127/71 (89) 100 Room Air Lab Results: Results Past 24 Hours Test 09/04/16 04:10 Range/Units White Blood Count 4.22 4.8-10.8 K/uL Red Blood Count 3.31 4.7-6.1 M/uL Hemoglobin 10.0 14.0-18.0 g/dL Hematocrit 29.9 42-52 % Mean Corpuscular Volume 90.3 80-100 fL Mean Corpuscular Hemoglobin 30.2 25-34 pg Mean Corpuscular Hemoglobin Concent 33.4 32-36 g/dl Platelet Count 56 130-400 K/uL Mean Platelet Volume 12.0 7.4-10.4 fL Neutrophils (%) (Auto) 65.2 % Lymphocytes (%) (Auto) 14.2 % Monocytes (%) (Auto) 13.0 % Eosinophils (%) (Auto) 6.2 % Basophils (%) (Auto) 0.9 % Neutrophils # (Auto) 2.75 1.4-6.5 K/uL Lymphocytes # (Auto) 0.60 1.2-3.4 K/uL Monocytes # (Auto) 0.55 0.11-0.59 K/uL Eosinophils # (Auto) 0.26 0-0.5 K/uL Basophils # (Auto) 0.04 0-0.2 K/uL RDW Standard Deviation 54.1 36.4-46.3 fL RDW Coefficient of Variation 16.3 11.5-14.5 % Immature Granulocyte % (Auto) 0.5 % Immature Granulocyte # (Auto) 0.02 0.00-0.02 K/uL Platelet Estimate DECREASED Ovalocytes 1+ Sodium Level 144 136-145 mmol/L Potassium Level 3.1 3.5-5.1 mmol/L Chloride Level 112 98-107 mmol/L Carbon Dioxide Level 24 21-32 mmol/L Anion Gap 8.0 3-11 mmol/L Blood Urea Nitrogen 32 7-18 mg/dl Creatinine 1.20 0.60-1.40 mg/dl Est Creatinine Clear Calc Drug Dose 49.4 ml/min Estimated GFR () 70.6 Estimated GFR (Non- 60.9 BUN/Creatinine Ratio 26.5 10-20 Random Glucose 92 70-99 mg/dl Lactic Acid Level 1.5 0.4-2.0 mmol/L Calcium Level 7.8 8.5-10.1 mg/dl Magnesium Level 1.5 1.8-2.4 mg/dl Ammonia 40.0 11-32 umol/L
[2016-09-05] VITALS (8 sets, daily range): BP systolic 97–119; BP diastolic 60–70; PULSE 60–67; TEMP 36.4–36.8; O2SAT 96–100
[2016-09-05 06:21] LABS: BUN/CREATININE RATIO 28.6 (10-20); CALCIUM 8.3 mg/dl (8.5-10.1); CREATININE 1.1 mg/dl (0.60-1.40); MAGNESIUM 1.6 mg/dl (1.8-2.4); POTASSIUM 4.1 mmol/L (3.5-5.1)
--- NOTE | 2016-09-05 07:53 | Nephrology Progress Note ---
Nephrology Progress Note Date of Service: Sep 05, 2016. Subjective 71 yo male with hx of wen who presented with volume depletion/farrukh/acidosis/ hyperammonia/confusion. pt urinating on his own. feels good. appetite is good. Objective Date Time Temp Pulse Resp B/P (MAP) Pulse Ox O2 Delivery O2 Flow Rate FiO2 09/05/16 04:20 96 Room Air 09/05/16 04:12 36.8 67 18 98/60 (73) 96 Room Air 09/05/16 00:19 36.6 62 16 102/63 (76) 98 Room Air 09/05/16 00:15 98 Room Air 09/04/16 20:15 99 Room Air 09/04/16 19:23 36.4 64 20 106/65 (79) 99 Room Air 09/04/16 16:00 Room Air 09/04/16 15:35 36.5 58 107/65 (79) 100 Room Air 09/04/16 12:00 Room Air 09/04/16 11:27 36.4 53 18 96/58 (71) 100 Room Air 09/04/16 07:59 Room Air Physical Exam: General-aaox3, cachectic Eyes-no scleral icterus ENT-mmm Neck-supple Lungs-clear Heart-rrr Abdomen-bs+/+umbilical hernia/+mildly distended Extremities-no c/c/edema Neuro-nonfocal Current Inpatient Medications Medications (Trade) Dose Ordered Sig/Elias Route Start Time Stop Time Status Last Admin Dose Admin Acetaminophen (Tylenol Tab) 650 mg Q4H PRN PO 09/01/16 11:30 10/01/16 11:29 Ondansetron HCl (Zofran Inj) 4 mg Q6H PRN IV 09/01/16 11:30 10/01/16 11:29 Ceftriaxone Sodium 2000 mg/ Dextrose 70 ml @ 100 mls/hr Q24H IV 09/01/16 13:00 09/11/16 12:59 09/04/16 13:27 100 MLS/HR Rifaximin (Xifaxan Tab) 550 mg BID PO 09/02/16 21:00 10/02/16 20:59 09/04/16 19:58 550 MG Nadolol (Corgard Tab) 20 mg QAM PO 09/05/16 09:00 10/05/16 08:59 Lactulose (Chronulac Syrup) 30 gm DAILY PO 09/05/16 09:00 10/05/16 08:59 Magnesium Sulfate 1 gm/Prmx 100 ml @ 100 mls/hr Q1H IV 09/05/16 08:00 09/05/16 09:59 Last 24 Hours Test 09/05/16 05:16 Sodium Level 142 mmol/L Potassium Level 4.1 mmol/L Chloride Level 111 mmol/L Carbon Dioxide Level 24 mmol/L Anion Gap 7.0 mmol/L Blood Urea Nitrogen 32 mg/dl Creatinine 1.10 mg/dl Est Creatinine Clear Calc Drug Dose 53.9 ml/min Estimated GFR () 78.4 Estimated GFR (Non- 67.7 BUN/Creatinine Ratio 28.6 Random Glucose 83 mg/dl Calcium Level 8.3 mg/dl Magnesium Level 1.6 mg/dl Assessment & Plan FARRUKH-pt with underlying wen/cirrhosis who presented significantly volume depleted. improved back to baseline. hypomag-repleting prn. giving 2 grams now of magnesium with hx of svt during this admission. pulse better on the nadolol. will give mag 400mg po bid as well. Volume-pt was on lasix 20 and spironolactone 25 as outpt. unclear if he was taking the medications appropriately. was volume depleted on admission. resume outpt diuretics upon discharge but will need outpt bmp and mag on monday and monday and monday to follow levels closely if possible. .
[2016-09-05] MEDS: RIFAXIMIN TAB 550 MG TAB PO SCH (08:05)
[2016-09-05] MEDS: MAGNESIUM SULFATE 1GM / D5W 1 GM in PREMIXED IN D5W 100 ML IV SCH ×2 (08:14→09:17)
[2016-09-05] MEDS ORDERED: MAGNESIUM SULFATE 1GM / D5W 1 GM in PREMIXED IN D5W 100 ML IV SCH (08:30)
[2016-09-05] MEDS ORDERED: NADOLOL 40 MG TAB PO SCH (09:00)
[2016-09-05] MEDS ORDERED: MAGNESIUM OXIDE 400 MG TAB PO SCH (09:00)
[2016-09-05] MEDS ORDERED: LACTULOSE SYRUP 30 GM/45 ML UDP PO SCH (09:00)
--- NOTE | 2016-09-05 11:10 | Progress Note ---
Medicine Progress Note Date & Time of Visit: Sep 05, 2016 at 10:46. Subjective Pt was seen and examined Sitting in bed comfortable with daughter at bed side Pt said that he feels fine He said that he is back to baseline He denies any chest pain, palpitation, dizziness and SOB Objective Last 8 Hrs Date Time Temp Pulse Resp B/P (MAP) Pulse Ox O2 Delivery O2 Flow Rate FiO2 09/05/16 08:07 65 111/70 (84) 09/05/16 08:00 Room Air 09/05/16 07:03 36.4 62 20 97/63 (74) 100 Room Air 09/05/16 04:20 96 Room Air 09/05/16 04:12 36.8 67 18 98/60 (73) 96 Room Air Physical Exam: General-No acute distress Head- atraumatic Eyes- PERRL, EOMI ENT- oropharynx clear Neck- supple, no JVD Lungs- No wheezing, No crackles, poor air entry Heart- regular rhythm Abdomen- normal bowel sounds, distended, ascites Extremities- no pretibial edema, no calf tenderness Neuro- alert, oriented x 3; PERRL, EOMI; no facial palsy Skin- warm & dry Laboratory Results: Last 24 Hours Test 09/05/16 05:16 Sodium Level 142 mmol/L Potassium Level 4.1 mmol/L Chloride Level 111 mmol/L Carbon Dioxide Level 24 mmol/L Anion Gap 7.0 mmol/L Blood Urea Nitrogen 32 mg/dl Creatinine 1.10 mg/dl Est Creatinine Clear Calc Drug Dose 53.9 ml/min Estimated GFR () 78.4 Estimated GFR (Non- 67.7 BUN/Creatinine Ratio 28.6 Random Glucose 83 mg/dl Calcium Level 8.3 mg/dl Magnesium Level 1.6 mg/dl Assessment & Plan HEPATIC ENCEPHALOPATHY, MUNGUIA - patient presented with worsening mental status x 4 days; had recent admission for hepatic encephalopathy 08/14 - 08/16, follows with [facility] in [place] , no medication changes made and had a recent EGD and per daughter's report varices were not banded - altered mental status likely due to metabolic encephalopathy ; due to uremia from FARRUKH ; Ammonia level > 200 -mental status improved awake and alert -Ammonia level improved to 49 - Lactulose dose reduced out pt regimen - on empiric Abx with Rocephin for possible SBP - cont Rifaximin, continue nadolol and lasix - no evidence of sepsis, Rocephin can be d/c - Abd US showed moderate ascites; Pt refused to have paracentesis done - [facility] on board - Pt has an upcoming appointment on 09/14 with hepatology with the [facility] [place] - back to baseline -- Resolved FARRUKH ON AKD STAGE III - likely prerenal - presenting with creat 7.5 (1.4 on 08/16) - improved to ~ 4 -> 1.9 -> 1.2 --> 1.1 today - appreciate input form Nephrology Oncu -IVF D/C -diuretics for chronic liver disease can be resumed on discharge ( Lasix / Aldactone ) -follow BMP -Resolved SVT -was bradycardic earlier -due o Uremia -likely due to inability to metabolize nadolol with FARRUKH -HR was in low 50-40;s -Beta gino was kept on hold , developed paroxysmal SVT during this admission -not responding to vagal stimulus -as per transportation director Physician -given X1 dose IV Digoxin -Nadolol resumed -HR remains stable in 80's -Remains asymptomatic LOW MAGNESIUM LEVEL Mg today 1.6 Mg replaced continue monitor mg level THROMBOCYTOPENIA -Due to underlying liver disease -No signs of bleeding, platelets at baseline -avoid antiplatelets -pt is asked to avoid NSAID"s CODE STATUS - Patient is a DNR DVT PROPHYLAXIS - SCDs due to thrombocytopenia DISPOSITION Discharge home today with home health nursing Check BMP and Mg next Mon, Monday and Monday Consultants: Gastro Current Inpatient Medications: Current Inpatient Medications Medications (Trade) Dose Ordered Sig/Elias Route Start Time Stop Time Status Last Admin Dose Admin Acetaminophen (Tylenol Tab) 650 mg Q4H PRN PO 09/01/16 11:30 10/01/16 11:29 Ondansetron HCl (Zofran Inj) 4 mg Q6H PRN IV 09/01/16 11:30 10/01/16 11:29 Ceftriaxone Sodium 2000 mg/ Dextrose 70 ml @ 100 mls/hr Q24H IV 09/01/16 13:00 09/11/16 12:59 09/04/16 13:27 100 MLS/HR Rifaximin (Xifaxan Tab) 550 mg BID PO 09/02/16 21:00 10/02/16 20:59 09/05/16 08:05 550 MG Nadolol (Corgard Tab) 20 mg QAM PO 09/05/16 09:00 10/05/16 08:59 09/05/16 08:05 20 MG Lactulose (Chronulac Syrup) 30 gm DAILY PO 09/05/16 09:00 10/05/16 08:59 09/05/16 08:04 30 GM Magnesium Oxide (Mag-Ox Tab) 400 mg BID PO 09/05/16 09:00 10/05/16 08:59 09/05/16 09:18 400 MG
--- NOTE | 2016-09-05 11:23 | Progress Note ---
Progress Note Date of Service Sep 05, 2016. Progress Note Patient is a 71 year old male with decompensated MUNGUIA cirrhosis who presented with AMS changes consistent w encephalopathy, found to be in acute renal failure. These have resolved w Lactulose enemas, Rifaximin, IVF, Albumin. CT head, CXR, blood, urine cx negative. Unclear source of hepatic encephalopathy ( SBP vs med non compliance). Pt would like to defer paracentesis. He is desiring to be discharged. He follows w [facility] at [place] for cirrhosis care, in fact just recently had EGD for varices check, and will see Hepatology soon. He was offered liver transplant eval and refused in the past. He appears AAOx3, in NAD. Lung exam w overall clear sounds, HR regular, no murmur or gallops. Abd distended but pt refused diagnostic/therapeutic paracentesis when offered today. No asterixis. No edema on legs. He ate breakfast well w/o n/v. Ok for DC from GI standpoint. No new med changes today. Per Nephrology, ok to restart diuretics on DC w repeat labs.
[2016-09-05] MEDS: CEFTRIAXONE SOD INJ 2,000 MG in DEXTROSE 5% 50ML 50 ML IV SCH (13:01)
[2016-09-05] MEDS ORDERED: MAGN1TAB19 PO (13:33)
--- NOTE | 2016-09-06 16:25 | Discharge Summary ---
Discharge Summary Date of Service Sep 06, 2016. Discharge Summary Admission Date: Sep 01, 2016 at 11:18 Discharge Date: Sep 05, 2016 Discharge Disposition: Home with services Principal Diagnosis: HEPATIC ENCEPHALOPATHY, MUNGUIA Secondary Diagnoses/Problems: FARRUKH ON AKD STAGE III SVT LOW MAGNESIUM LEVEL THROMBOCYTOPENIA Procedures: ULTRASOUND ASCITES CHECK CLINICAL HISTORY: Abdominal ascites. COMPARISON STUDY: Abdominal CT dated 10/02/2014. FINDINGS: Real-time grayscale sonography of all 4 quadrants of the abdomen was performed to assess for abdominal ascites. There is a moderate volume of abdominal ascites. The largest pocket is seen in the left lower quadrant. Cirrhotic liver morphology is incidentally noted. IMPRESSION: Moderate volume of abdominopelvic ascites. Electronically signed by: Justin German M.D. 09/01/2016 3:20 PM Dictated Date/Time: 09/01/2016 3:19 PM RENAL ULTRASOUND HISTORY: Renal insufficiency RAFA COMPARISON: None FINDINGS: Right kidney: Maximum dimension 11.7 cm. 2 cm exophytic cyst laterally. Mild hydronephrosis. Normal corticomedullary differentiation and cortical thickness. Left kidney: Maximum dimension 11.6 cm. 1.7 cm renal cortical cyst. No evidence for hydronephrosis. Normal corticomedullary differentiation and cortical thickness. Bladder: Poorly seen due to Amaro catheter position. Small amount of abdominal and pelvic ascites. IMPRESSION: Mild hydronephrosis right kidney. 2. Small bilateral renal cysts. 3. Otherwise negative study Electronically signed by: Matt Trejo M.D. 09/01/2016 3:21 PM Dictated Date/Time: 09/01/2016 3:[address] SCAN OF THE BRAIN WITHOUT IV CONTRAST CLINICAL HISTORY: Weakness. Change in mental status. COMPARISON STUDY: CT of the brain dated 09/28/2014. TECHNIQUE: Unenhanced axial CT scan of the brain is performed from the vertex to the skull base. CT DOSE: 537.48 mGy.cm FINDINGS: Brain parenchyma: There are age-related involutional changes noting mild subcortical and periventricular microangiopathic change. There is no hemorrhage, mass effect, or evidence of acute territorial ischemia by CT criteria. Vazquez-white matter is preserved. No extra-axial fluid collection is seen. Ventricles, sulci, cisterns: Prominent secondary to involutional change. Intracranial vasculature: There is atherosclerotic calcification of the cavernous carotid and vertebral arteries. Calvarium: Unremarkable. Sinuses and mastoids: The visualized paranasal sinuses are clear. The mastoid air cells are well pneumatized. Orbits: The bony orbits are grossly intact. IMPRESSION: There is no hemorrhage, mass effect, or evidence of acute territorial ischemia by CT criteria. Electronically signed by: Justin German M.D. 09/01/2016 10:49 AM Dictated Date/Time: 09/01/2016 10:45 AM CHEST ONE VIEW PORTABLE CLINICAL HISTORY: EVALUATE ALTERED MENTAL STATUS/WEAKNESS COMPARISON STUDY: 08/14/2016 FINDINGS: The bones soft tissues and hemidiaphragms are normal. The cardiomediastinal silhouette is normal. The lungs are clear. The pulmonary vasculature is normal. IMPRESSION: Negative chest. Consultations: Gastro Medication Reconciliation New Medications: Magnesium Oxide (Mg Supplement (Magnesium Oxide) 400 Mg Tab 400 MG PO BID for 7 Days, #14 TAB Continued Medications: Cholecalciferol (Vitamin D3) 1,000 Unit Tab 2000 UNITS PO DAILY Ferrous Sulfate (Ferrous Sulfate) 324 Mg Tab 324 MG PO QPM Furosemide (Lasix) 20 Mg Tab 20 MG PO QAM Lactulose (Lactulose) 20 Gm/30 Ml Syrp 20 GM PO DAILY for 30 Days Levothyroxine Sodium (Synthroid) 200 Mcg Tab 200 MCG PO QAM Nadolol (Corgard) 20 Mg Tab 20 MG PO QAM, TAB Rifaximin (Xifaxan) 550 Mg Tab 550 MG PO BID, TAB Simvastatin (Zocor) 40 Mg Tab 40 MG PO QPM, TAB Spironolactone (Aldactone) 25 Mg Tab 25 MG PO HS, TAB Admission Information HPI (per Admitting provider): Patient seen with Dr. Taylor 71 year old male who presents to the ER with altered mental status. Patient was recently admitted to [facility] 08/14 - 08/16 for hepatic encephalopathy. Patient has history of MUNGUIA and [facility] [place] Daughter is at the bedside who provides information. She reports that the patient had an appointment with hepatology immediately following his last hospital stay. She reports no medication changes were made. He was recently seen there again about 1 week ago fir an EGD. She reports no banding was required of his varices. She does reports that he was bradycardic and his Nadolol dose was decreased. She notes mild confusion that started a few days ago. Yesterday she reports patient had returned to his baseline and was actually cutting his grass. Today she called the patient and he did not answer the phone. When she went to check on him he was severely confused and lethargic. She is unsure if he has been taking his medications properly. In the ER, patient remains extremely lethargic, only minimally responsive to sternal rub. Creat is found to be 7.5 (was 1.4 on 08/16) . Ammonia level is 203. He is afebrile without leukocytosis. He is also bradycardic, other vitals are stable. He was ordered lactulose however he is took lethargic to take PO. Physical Exam (per Admitting): General Appearance: no apparent distress, + pertinent finding (lethargic) Head: normocephalic, atraumatic Eyes: normal inspection, sclerae normal ENT: + pertinent finding (dry oral mucosa) Neck: no adenopathy, thyroid normal, no JVD, trachea midline Respiratory/Chest: lungs clear, normal breath sounds, no respiratory distress, no accessory muscle use Cardiovascular: regular rate, rhythm, no edema, no JVD, no murmur Abdomen/GI: normal bowel sounds, non tender, soft, no organomegaly Back: normal inspection Extremities/Musculoskelatal: normal inspection, no calf tenderness, no pedal edema Neurologic/Psych: + pertinent finding (very lethargic, tries to move extremities) Skin: normal color, warm/dry, no rash Lymphatic: no adenopathy Physical Exam (per Admitting): please refer to Dr. Taylor's note for physical exam Hospital Course HEPATIC ENCEPHALOPATHY, MUNGUIA - patient presented with worsening mental status x 4 days; had recent admission for hepatic encephalopathy 08/14 - 08/16, [facility] [place] , no medication changes made and had a recent EGD and per daughter's report varices were not banded - altered mental status likely due to metabolic encephalopathy ; due to uremia from FARRUKH ; Ammonia level > 200 -mental status improved awake and alert -Ammonia level improved to 49 - Lactulose dose reduced out pt regimen - on empiric Abx with Rocephin for possible SBP - cont Rifaximin, continue nadolol and lasix - no evidence of sepsis, Rocephin can be d/c - Abd US showed moderate ascites; Pt refused to have paracentesis done - [facility] on board - Pt has an upcoming appointment on 09/14 with hepatology with the [facility] - back to baseline -- Resolved FARRUKH ON AKD STAGE III - likely prerenal - presenting with creat 7.5 (1.4 on 08/16) - improved to ~ 4 -> 1.9 -> 1.2 --> 1.1 today - appreciate input form Nephrology Oncu -IVF D/C -diuretics for chronic liver disease can be resumed on discharge ( Lasix / Aldactone ) -follow BMP -Resolved SVT -was bradycardic earlier -due o Uremia -likely due to inability to metabolize nadolol with FARRUKH -HR was in low 50-40;s -Beta gino was kept on hold , developed paroxysmal SVT during this admission -not responding to vagal stimulus -as per salon receptionist Physician -given X1 dose IV Digoxin -Nadolol resumed -HR remains stable in 80's -Remains asymptomatic LOW MAGNESIUM LEVEL Mg today 1.6 Mg replaced continue monitor mg level THROMBOCYTOPENIA -Due to underlying liver disease -No signs of bleeding, platelets at baseline -avoid antiplatelets -pt is asked to avoid NSAID"s CODE STATUS - Patient is a DNR DVT PROPHYLAXIS - SCDs due to thrombocytopenia DISPOSITION Discharge home today with home health nursing Check BMP and Mg next Mon, Monday and Monday Total time spent on discharge = 35 minutes This includes examination of the patient, discharge planning, medication reconciliation, and communication with other providers. Discharge Instructions Discharge Instructions Date of Service Sep 04, 2016. Admission Reason for Admission: Altered Mental Status Discharge Discharge Diagnosis / Problem: CONFUSION /HEPATIC ENCEPHALOPAHTY /ACUTE RENAL FAILURE Discharge Goals Goal(s): Decrease discomfort, Diagnostic testing, Therapeutic intervention Activity Recommendations Activity Limitations: as noted below ( TOLERATED ) . Instructions / Follow-Up Instructions / Follow-Up FOLLOW UP WITH PHYSICIAN IN [facility] IN A WEEK BASIC METABOLIC PANEL IN A WEEK WITH PHYSICIAN VISIT PLEASE DO NOT SKIP /STOP TAKING ANY MEDICATION WITH OUT DISCUSSING WITH YOUR PHYSICIAN DO NOT TAKE ASPIRIN , ADVIL , MOTRIN , ALEVE , IBUPROFEN -NO NSAID'S WILL CAUSE WORSENING OF YOUR KIDNEY FUNCTION LAB WORK : BASIC METABOLIC PANEL IN A WEEK Current Hospital Diet Patient's current hospital diet: Low Sodium Diet (2gm Na) Discharge Diet Recommended Diet: Low Sodium Diet (2gm Na) Pending Studies Studies pending at discharge: yes List of pending studies: LAB WORK : BASIC METABOLIC PANEL IN A WEEK Medical Emergencies . Who to Call and When: Medical Emergencies: If at any time you feel your situation is an emergency, please call 911 immediately. . Non-Emergent Contact Non-Emergency issues call your: Primary Care Provider . . "Provider Documentation" section prepared by Hilda Akhtar. . VTE Core Measure Inpt VTE Proph given/why not?: Contraindicated (thrombocytopenia) Addendum: Eufemia Lara M.D. on 09/05/16 @ 13:27 Discharge Inst - Addendum Addendum Provider: Addendum Notes were documented by provider Eufemia Lara. Check BMP and Magnesium this Mon, and coming Monday. Additional Copies To Gildardo Casiano D.O.
[2016-09-20] MEDS ORDERED: SPR25 PO (11:44)
[2016-09-20] MEDS ORDERED: LSX20 PO (11:44)
[2016-11-25] MEDS ORDERED: RIFA550T2 PO (10:37)
[2016-11-25] MEDS ORDERED: SIMV40TA2 PO (10:37)
[2016-11-25] MEDS ORDERED: FURO-85 PO (11:45)
== END 2016-09-05 14:17 | disposition home health service (06) | DRG 441 ==
LOC: EDBD 09:30 → C.EDB 09:31 → C.2T 11:18 → ENRESERV 11:34
PROVIDERS: ADMIT Internal Medicine; ATTEND Internal Medicine
DX: K72.90 Hepatic failure, unspecified without coma (principal); G93.41 Metabolic encephalopathy; K75.81 Nonalcoholic steatohepatitis (NASH); N17.9 Acute kidney failure, unspecified; I85.10 Secondary esophageal varices without bleeding; E87.2 Acidosis; I47.1 Supraventricular tachycardia; E87.0 Hyperosmolality and hypernatremia; K74.60 Unspecified cirrhosis of liver; K57.90 Diverticulosis of intestine, part unspecified, without perforation or abscess without bleeding; I12.9 Hypertensive chronic kidney disease with stage 1 through stage 4 chronic kidney disease, or unspecified chronic kidney disease; E03.9 Hypothyroidism, unspecified; F17.200 Nicotine dependence, unspecified, uncomplicated; N18.3 Chronic kidney disease, stage 3 (moderate); R00.1 Bradycardia, unspecified; D69.59 Other secondary thrombocytopenia; L40.9 Psoriasis, unspecified; E87.6 Hypokalemia; E83.42 Hypomagnesemia; Z53.20 Procedure and treatment not carried out because of patient's decision for unspecified reasons

== ENCOUNTER → 2016-09-07 | Outpatient (CLI) | payer OTHER ==
[~2016-09-07] MED LIST changes: +CHOL1000 PO; -CRG40 PEG; +DORZ2SOL OPB; +FERR324T4 PO; +FURO-85 PO; +LEVO-18 PO; +LSX20 PO; +MAGN1TAB19 PO; +NADO20TA PO; +PRLSR20 PO; +RIFA550T2 PO; +SIMV40TA2 PO; -SIMV40TA4 PO; +SPIR25TA PO; +SYN200 PO; -XFX550 PO
[2016-09-07 12:20] LABS: BLOOD UREA NITROGEN 31 mg/dl (7-18); BUN/CREATININE RATIO 22.1 (10-20); CALCIUM 9.1 mg/dl (8.5-10.1); CARBON DIOXIDE 22 mmol/L (21-32); CHLORIDE 109 mmol/L (98-107); GLUCOSE 80 mg/dl (70-99); MAGNESIUM 2.2 mg/dl (1.8-2.4); POTASSIUM 4.3 mmol/L (3.5-5.1); SODIUM 138 mmol/L (136-145)
== END | disposition home or self-care (01) ==
LOC: C.LABSPEC 10:20
PROVIDERS: ATTEND Family Medicine
DX: K74.60 Unspecified cirrhosis of liver (principal)

== ENCOUNTER → 2016-09-09 | Outpatient (CLI) | payer OTHER ==
[2016-09-09 12:09] LABS: BLOOD UREA NITROGEN 42 mg/dl (7-18); BUN/CREATININE RATIO 14.4 (10-20); CALCIUM 9.1 mg/dl (8.5-10.1); CARBON DIOXIDE 22 mmol/L (21-32); CHLORIDE 108 mmol/L (98-107); GLUCOSE 58 mg/dl (70-99); MAGNESIUM 2.4 mg/dl (1.8-2.4); POTASSIUM 4.5 mmol/L (3.5-5.1); SODIUM 138 mmol/L (136-145)
== END | disposition home or self-care (01) ==
LOC: C.LABSPEC 11:38
PROVIDERS: ATTEND Family Medicine
DX: K74.60 Unspecified cirrhosis of liver (principal)

== ENCOUNTER 2016-09-12 14:38 | Inpatient (IN) | payer OTHER ==
[~2016-09-12] VITALS: Ht 182.9 cm; Wt 75.2 kg
[~2016-09-12 14:38] MED LIST changes: -CHOL1000 PO; -DORZ2SOL OPB; -FERR324T4 PO; -FURO-85 PO; -LEVO-18 PO; -LSX20 PO; -PRLSR20 PO; -RIFA550T2 PO; -SIMV40TA2 PO; -SPR25 PO; -SYN200 PO
[2016-09-12] MEDS ORDERED: SODIUM CHLORIDE 0.9% 1000ML 1,000 ML IV STA (17:09)
--- NOTE | 2016-09-12 17:21 | EMERGENCY ROOM VISIT NOTE ---
History Report prepared by Adele: Lisseth Nam Under the Supervision of: Dr. Mick Pepper D.O. First contact with patient: 17:04 Chief Complaint: ABNORMAL LABS Stated Complaint: HIGH CREATINE, SWELLING IN CAFF History of Present Illness The patient is a 71 year old male who presents to the Emergency Room with complaints of constant calf swelling beginning today. The patient states that home health did blood work today and found that he had a high creatinine level. They reported that he had a 5cm in calf swelling since their previous visit earlier in the week. The patient notes that he was seen here recently and admitted to the hospital with hepatic encephalopathy. He reports that he responded to fluid at the time and did not have dialysis. His daughter notes that he was on Magnesium Oxide and his last dose was today. The patient denies any abdominal pain, headaches, fever, and chills. Source of History: patient, family Onset: today Position: leg (bilateral) Symptom Intensity: 5cm increase Quality: other (swelling) Timing: constant Associated Symptoms: No fevers, No chills, No headache, No abdominal pain Note: Pt notes high creatinine level. Review of Systems See HPI for pertinent positives & negatives. A total of 10 systems reviewed and were otherwise negative. Past Medical & Surgical Medical Problems: (1) Cirrhosis Of Liver Nos (2) Diverticulosis Colon (W/O Ment Of Hemorrhage) (3) Esophageal varices (4) HLD (hyperlipidemia) (5) Hypertension Nos (6) Hypothyroidism Nos Surgical Problems: (1) Cataract (2) History of hernia surgery Family History Unobtainable due to patient's condition Social History Smoking Status: Former Smoker Alcohol Use: none Drug Use: none Housing Status: lives alone Current/Historical Medications Scheduled Cholecalciferol (Vitamin D3), 2,000 UNITS PO DAILY Dorzolamide Hcl (Trusopt), 1 DROP OPB BID Ferrous Sulfate (Ferrous Sulfate), 324 MG PO QAM Furosemide (Lasix), 20 MG PO QAM Lactulose (Lactulose), 20 GM PO DAILY Levothyroxine Sodium (Synthroid), 200 MCG PO QAM Nadolol (Corgard), 20 MG PO QAM Omeprazole (Prilosec), 40 MG PO BID Rifaximin (Xifaxan), 550 MG PO BID Simvastatin (Zocor), 40 MG PO QPM Spironolactone (Aldactone), 25 MG PO HS Allergies Coded Allergies: No Known Allergies (Verified , 09/12/16) Physical Exam Vital Signs Date Time Temp Pulse Resp B/P (MAP) Pulse Ox O2 Delivery O2 Flow Rate FiO2 09/12/16 18:52 52 16 99/54 99 Room Air 09/12/16 17:40 49 09/12/16 17:18 49 16 111/74 99 Room Air 09/12/16 15:08 36.3 54 16 98/65 98 Room Air Physical Exam GENERAL: Patient is awake, alert, and in no acute distress. Patient is resting comfortably and showing no signs of anxiety EYES: The conjunctivae are clear. The pupils are round and reactive. EARS, NOSE, MOUTH AND THROAT: The nose is without any evidence of any deformity. Mucous membranes are dry tongue is midline NECK: The neck is nontender and supple. RESPIRATORY: Lung sounds diminished at both bases no tachypnea or conversational dyspnea appreciated CARDIOVASCULAR: Regular rate and rhythm noted there no murmurs rubs or gallops normal S1 normal S2 GASTROINTESTINAL: Bowel sounds are present in all quadrants. Moderately distended but soft, no tenderness appreciated, significant ascites was noted MUSCULOSKELETAL/EXTREMITIES: There is no evidence of gross deformity full range of motion is noted in the hips and shoulders SKIN: There is no obvious evidence of any rash. There are no petechiae, pallor or cyanosis noted. Significant lower extremity edema noted there was venostasis changes noted NEUROLOGIC: Patient is awake alert and oriented x3 Medical Decision & Procedures ER Provider Diagnostic Interpretation: X-ray results as stated below per interpretation by me and the radiologist. CHEST ONE VIEW PORTABLE FINDINGS: The cardiac and mediastinal contours are normal. There is no evidence of focal pulmonary consolidation. There is no evidence of failure. No pleural effusions are visualized.[ No free intraperitoneal air is visualized IMPRESSION: No active disease in the chest. Electronically signed by: Tommy Hernandez M.D. 09/12/2016 5:38 PM Dictated Date/Time: 09/12/2016 5:38 PM Laboratory Results 09/12/16 17:45 Red Blood Count 4.16, Mean Corpuscular Volume 91.3, Mean Corpuscular Hemoglobin 29.1, Mean Corpuscular Hemoglobin Concent 31.8, Mean Platelet Volume 11.6, Neutrophils (%) (Auto) 73.2, Lymphocytes (%) (Auto) 6.6, Monocytes (%) (Auto) 13.5, Eosinophils (%) (Auto) 5.2, Basophils (%) (Auto) 0.7, Neutrophils # (Auto ) 5.58, Lymphocytes # (Auto) 0.50, Monocytes # (Auto) 1.03, Eosinophils # (Auto ) 0.40, Basophils # (Auto) 0.05 09/12/16 17:45 Test 09/12/16 17:45 09/12/16 17:56 White Blood Count 7.62 K/uL (4.8-10.8) Red Blood Count 4.16 M/uL (4.7-6.1) Hemoglobin 12.1 g/dL (14.0-18.0) Hematocrit 38.0 % (42-52) Mean Corpuscular Volume 91.3 fL (80-100) Mean Corpuscular Hemoglobin 29.1 pg (25-34) Mean Corpuscular Hemoglobin Concent 31.8 g/dl (32-36) Platelet Count 106 K/uL (130-400) Mean Platelet Volume 11.6 fL (7.4-10.4) Neutrophils (%) (Auto) 73.2 % Lymphocytes (%) (Auto) 6.6 % Monocytes (%) (Auto) 13.5 % Eosinophils (%) (Auto) 5.2 % Basophils (%) (Auto) 0.7 % Neutrophils # (Auto) 5.58 K/uL (1.4-6.5) Lymphocytes # (Auto) 0.50 K/uL (1.2-3.4) Monocytes # (Auto) 1.03 K/uL (0.11-0.59) Eosinophils # (Auto) 0.40 K/uL (0-0.5) Basophils # (Auto) 0.05 K/uL (0-0.2) RDW Standard Deviation 56.7 fL (36.4-46.3) RDW Coefficient of Variation 17.0 % (11.5-14.5) Immature Granulocyte % (Auto) 0.8 % Immature Granulocyte # (Auto) 0.06 K/uL (0.00-0.02) Ovalocytes 1+ Echinocytes 2+ Prothrombin Time 14.2 SECONDS (9.0-12.0) Prothromb Time International Ratio 1.3 (0.9-1.1) Activated Partial Thromboplast Time 43.6 SECONDS (21.0-31.0) Partial Thromboplastin Ratio 1.7 Anion Gap 11.0 mmol/L (3-11) Est Creatinine Clear Calc Drug Dose 10.6 ml/min Estimated GFR () 11.7 Estimated GFR (Non- 10.1 BUN/Creatinine Ratio 11.4 (10-20) Calcium Level 9.1 mg/dl (8.5-10.1) Phosphorus Level 4.8 mg/dl (2.5-4.9) Magnesium Level 2.3 mg/dl (1.8-2.4) Total Bilirubin 1.0 mg/dl (0.2-1) Direct Bilirubin 0.4 mg/dl (0-0.2) Aspartate Amino Transf (AST/SGOT) 44 U/L (15-37) Alanine Aminotransferase (ALT/SGPT) 45 U/L (12-78) Alkaline Phosphatase 136 U/L (45-117) Ammonia 41.0 umol/L (11-32) Total Creatine Kinase 67 U/L (39-308) Creatine Kinase MB 4.2 ng/ml (0.5-3.6) Creatine Kinase MB Ratio 6.3 (0-3.0) Troponin I < 0.015 ng/ml (0-0.045) Total Protein 6.6 gm/dl (6.4-8.2) Albumin 3.9 gm/dl (3.4-5.0) Lipase 523 U/L (73-393) Venous Blood pH 7.28 (7.36-7.41) Venous Blood Partial Pressure CO2 42 mmHg (38.0-50.0) Venous Blood Partial Pressure O2 19 mmHg Venous Blood HCO3 19 mmol/L Venous Blood Oxygen Saturation < 60.0 % Venous Blood Base Excess -7.0 mmol/L Laboratory results per my review. ECG Indication: other (leg swelling) Rate (beats per minute): 49 Rhythm: sinus bradycardia Findings: no ectopy, other (no acute ST segment abnormalities) Comparison ECG Date: 09/08/2016 Change: Atrial fibrillation is resolved. ED Course 1704: The patient was evaluated in room B6. A complete history and physical examination were performed. 1719: I discussed the patient's case with Ryann Loepz PA-C of [facility]. The patient will be evaluated for further management. 1725: I spoke to Dr. Lyles. He feels that the patient is likely fluid overloaded and recommends managing that. 1803: Upon reevaluation, the patient is doing well. I discussed results and treatment plan with the patient. He verbalizes agreement and understanding. I spoke with [facility] Lopez [facility]. The patient will be evaluated for further management and care. Medical Decision Differential diagnosis: Etiologies such as metabolic, infection, hypo/hyperglycemia, electrolyte abnormalities, cardiac sources, intracerebral event, toxicologic, neurologic, as well as others were entertained. Medication Reconciliation: I attest that I have personally reviewed the patient' s current medications list. Blood pressure screening: Patient was found to have normal blood pressure on screening and does not require follow-up. The patient is a 71-year-old male who presented to the emergency department for an evaluation of abnormal laboratory studies. The patient has a history of cirrhosis and was recently admitted to our facility for an elevation in creatinine. At that time he was treated with IV fluids and his kidneys responded well but he returns today because of weight gain lower extremity swelling and an elevated creatinine. I discussed his case with the on-call [facility] hospitalist. They've agreed to evaluate the patient in the emergency department for further management and disposition. I discussed his case with the [facility] homemaker companion as well. At this time he is recommended treatment with albumin and Lasix as the patient is likely volume overloaded. Consults Time Called: 1715 Consulting Physician: Ryann Lopez PA-C Returned Call: 1719 I discussed the patient's case with Ryann Lopez PA-C of [facility]. The patient will be evaluated for further management. Additional Consults: Time Called: 1720 Consulted Physician: Dr. Lyles Returned Call: 1725 Additional Comments: I spoke to Dr. Lyles. He feels that the patient is likely fluid overloaded and recommends managing that. Impression Primary Impression: Acute renal failure Additional Impression: Cirrhosis Of Liver Nos Scribe Attestation The scribe's documentation has been prepared under my direction and personally reviewed by me in its entirety. I confirm that the note above accurately reflects all work, treatment, procedures, and medical decision making performed by me. Departure Information Dispostion Being Evaluated By Hospitalist Referrals Gildardo Casiano D.O. (PCP) Patient Instructions My [facility] Problem Qualifiers Primary Impression: Acute renal failure Acute renal failure type: unspecified Qualified Codes: N17.9 - Acute kidney failure, unspecified
--- NOTE | 2016-09-12 17:40 | DIAGNOSTIC IMAGING REPORT ---
CHEST ONE VIEW PORTABLE CLINICAL HISTORY: Pain, rating to the abdomen. COMPARISON STUDY: No previous studies for comparison. FINDINGS: The cardiac and mediastinal contours are normal. There is no evidence of focal pulmonary consolidation. There is no evidence of failure. No pleural effusions are visualized.[ No free intraperitoneal air is visualized IMPRESSION: No active disease in the chest. Electronically signed by: Tommy Hernandez M.D. 09/12/2016 5:38 PM Dictated Date/Time: 09/12/2016 5:38 PM
[2016-09-12 18:10] LABS: VEN BLD GAS O2 SATURATION < 60.0 %; VENOUS BLOOD GAS PCO2 42 mmHg (38.0-50.0); VENOUS BLOOD GAS PO2 19 mmHg
[2016-09-12 18:15] LABS: MEAN CELL VOLUME 91.3 fL (80-100); MEAN CORPUSCULAR HEMOGLOBIN 29.1 pg (25-34); MEAN CORPUSCULAR HGB CONC 31.8 g/dl (32-36); MEAN PLATELET VOLUME 11.6 fL (7.4-10.4); PLATELET COUNT 106 K/uL (130-400); RED BLOOD COUNT 4.16 M/uL (4.7-6.1); WHITE BLOOD COUNT 7.62 K/uL (4.8-10.8)
[2016-09-12 18:24] LABS: INR 1.3 (0.9-1.1); PARTIAL THROMBOPLASTIN RATIO 1.7; PROTHROMBIN TIME (PATIENT) 14.2 SECONDS (9.0-12.0)
[2016-09-12 18:34] LABS: BASO % 0.7 %; BASO ABS # 0.05 K/uL (0-0.2); COMPLETE YES; ECHINOCYTES 2+; EOS % 5.2 %; IG% 0.8 %; LYMPH % 6.6 %; MONO % 13.5 %; NEUT % 73.2 %; OVALOCYTES 1+
[2016-09-12 18:44] LABS: ALKALINE PHOSPHATASE 136 U/L (45-117); ALT/SGPT 45 U/L (12-78); AST/SGOT 44 U/L (15-37); BLOOD UREA NITROGEN 60 mg/dl (7-18); BUN/CREATININE RATIO 11.4 (10-20); CALCIUM 9.1 mg/dl (8.5-10.1); CARBON DIOXIDE 18 mmol/L (21-32); CHLORIDE 109 mmol/L (98-107); CKMB/CK RATIO 6.3 (0-3.0); GLUCOSE 85 mg/dl (70-99); MAGNESIUM 2.3 mg/dl (1.8-2.4); PHOSPHORUS 4.8 mg/dl (2.5-4.9); POTASSIUM 5.1 mmol/L (3.5-5.1); SODIUM 138 mmol/L (136-145)
--- NOTE | 2016-09-12 19:16 | History and Physical ---
History & Physical Date & Time of Service: Sep 12, 2016 at 19:16 Chief Complaint: High Creatine, Swelling In Calf Primary Care Physician: Gildardo Casiano D.O. History of Present Illness Source: patient, family, clinic records, hospital records 71 year old male with PMH of liver Cirrhosis, CKD stage 3, Thrombocytopenia, esophageal varices presents to the Emergency Room with complaints of B/L LE edema. Pt was recently admitted at [facility] and discharged on 09/06/16 for hepatic encephalopathy. Pt said that he was doing fine. He said he went to do grocery with his daughter over the weekend. He said that today he feels much better. He said that he woke up today and saw his leg swelling got worst. They reported that he had a 5cm in calf swelling since their previous visit earlier in the week. He had blood work done today and received a call that his creatine was very high and he needs to go to the ER. In the ER pt was lying in bed very comfortable with no distress. He said that he continues to have about 3 to 4 BM daily due to the lactulose. When I reviewed his med with him, he said that he has been taking the spironolactone BID, but in the last discharge instructions it was changed to HS. Denies any chest pain, palpitation, dizziness, fever, chills and SOB. Past Medical/Surgical History Medical Problems: (1) Cirrhosis Of Liver Nos Status: Chronic (2) Diverticulosis Colon (W/O Ment Of Hemorrhage) Status: Chronic (3) Esophageal varices Status: Chronic (4) HLD (hyperlipidemia) Status: Chronic (5) Hypertension Nos Status: Chronic (6) Hypothyroidism Nos Status: Chronic Surgical Problems: (1) Cataract Status: Resolved (2) History of hernia surgery Status: Resolved Family History Unobtainable due to patient's condition Social History Smoking Status: Former Smoker Alcohol Use: none Drug Use: none Housing status: lives alone Allergies Coded Allergies: No Known Allergies (Verified , 09/12/16) Home Medications Scheduled Cholecalciferol (Vitamin D3), 2,000 UNITS PO DAILY Dorzolamide Hcl (Trusopt), 1 DROP OPB BID Ferrous Sulfate (Ferrous Sulfate), 324 MG PO QAM Furosemide (Lasix), 20 MG PO QAM Lactulose (Lactulose), 20 GM PO DAILY Levothyroxine Sodium (Synthroid), 200 MCG PO QAM Nadolol (Corgard), 20 MG PO QAM Omeprazole (Prilosec), 40 MG PO BID Rifaximin (Xifaxan), 550 MG PO BID Simvastatin (Zocor), 40 MG PO QPM Spironolactone (Aldactone), 25 MG PO HS Review of Systems Constitutional: No fever, No chills Eyes: No diplopia ENT: No nasal symptoms, No sore throat Respiratory: No cough, No sputum, No shortness of breath Cardiovascular: + edema, No chest pain, No orthopnea, No palpitations Abdomen: + diarrhea, No pain, No nausea Musculoskeletal: No calf pain Genitourinary - Male: No hematuria, No dysuria Neurologic: No weakness, No numbness/tingling Psychiatric: No anxiety, No substance abuse Endocrine: No fatigue Hematologic / Lymphatic: No night sweats Integumentary: No rash, No itch Physical Exam Vital Signs Date Time Temp Pulse Resp B/P (MAP) Pulse Ox O2 Delivery O2 Flow Rate FiO2 09/12/16 18:52 52 16 99/54 99 Room Air 09/12/16 17:40 49 09/12/16 17:18 49 16 111/74 99 Room Air 09/12/16 15:08 36.3 54 16 98/65 98 Room Air General Appearance: WD/WN, no apparent distress Head: normocephalic, atraumatic Eyes: PERRL, EOMI ENT: hearing grossly normal Neck: supple, no JVD Respiratory/Chest: normal breath sounds, no respiratory distress, no accessory muscle use Cardiovascular: no JVD, + bradycardia Abdomen/GI: normal bowel sounds, non tender, + distended (ascites) Back: no CVA tenderness Extremities/Musculoskelatal: no calf tenderness, + pedal edema (b/l LE) Neurologic/Psych: alert, normal mood/affect, oriented x 3 Skin: warm/dry, no rash Diagnostics Laboratory Results Results Past 24 Hours Test 09/12/16 17:45 09/12/16 17:56 Range/Units White Blood Count 7.62 4.8-10.8 K/uL Red Blood Count 4.16 4.7-6.1 M/uL Hemoglobin 12.1 14.0-18.0 g/dL Hematocrit 38.0 42-52 % Mean Corpuscular Volume 91.3 80-100 fL Mean Corpuscular Hemoglobin 29.1 25-34 pg Mean Corpuscular Hemoglobin Concent 31.8 32-36 g/dl Platelet Count 106 130-400 K/uL Mean Platelet Volume 11.6 7.4-10.4 fL Neutrophils (%) (Auto) 73.2 % Lymphocytes (%) (Auto) 6.6 % Monocytes (%) (Auto) 13.5 % Eosinophils (%) (Auto) 5.2 % Basophils (%) (Auto) 0.7 % Neutrophils # (Auto) 5.58 1.4-6.5 K/uL Lymphocytes # (Auto) 0.50 1.2-3.4 K/uL Monocytes # (Auto) 1.03 0.11-0.59 K/uL Eosinophils # (Auto) 0.40 0-0.5 K/uL Basophils # (Auto) 0.05 0-0.2 K/uL RDW Standard Deviation 56.7 36.4-46.3 fL RDW Coefficient of Variation 17.0 11.5-14.5 % Immature Granulocyte % (Auto) 0.8 % Immature Granulocyte # (Auto) 0.06 0.00-0.02 K/uL Ovalocytes 1+ Echinocytes 2+ Prothrombin Time 14.2 9.0-12.0 SECONDS Prothromb Time International Ratio 1.3 0.9-1.1 Activated Partial Thromboplast Time 43.6 21.0-31.0 SECONDS Partial Thromboplastin Ratio 1.7 Sodium Level 138 136-145 mmol/L Potassium Level 5.1 3.5-5.1 mmol/L Chloride Level 109 98-107 mmol/L Carbon Dioxide Level 18 21-32 mmol/L Anion Gap 11.0 3-11 mmol/L Blood Urea Nitrogen 60 7-18 mg/dl Creatinine 5.30 0.60-1.40 mg/dl Est Creatinine Clear Calc Drug Dose 10.6 ml/min Estimated GFR () 11.7 Estimated GFR (Non- 10.1 BUN/Creatinine Ratio 11.4 10-20 Random Glucose 85 70-99 mg/dl Calcium Level 9.1 8.5-10.1 mg/dl Phosphorus Level 4.8 2.5-4.9 mg/dl Magnesium Level 2.3 1.8-2.4 mg/dl Total Bilirubin 1.0 0.2-1 mg/dl Direct Bilirubin 0.4 0-0.2 mg/dl Aspartate Amino Transf (AST/SGOT) 44 15-37 U/L Alanine Aminotransferase (ALT/SGPT) 45 12-78 U/L Alkaline Phosphatase 136 45-117 U/L Ammonia 41.0 11-32 umol/L Total Creatine Kinase 67 39-308 U/L Creatine Kinase MB 4.2 0.5-3.6 ng/ml Creatine Kinase MB Ratio 6.3 0-3.0 Troponin I < 0.015 0-0.045 ng/ml Total Protein 6.6 6.4-8.2 gm/dl Albumin 3.9 3.4-5.0 gm/dl Lipase 523 73-393 U/L Venous Blood pH 7.28 7.36-7.41 Venous Blood Partial Pressure CO2 42 38.0-50.0 mmHg Venous Blood Partial Pressure O2 19 mmHg Venous Blood HCO3 19 mmol/L Venous Blood Oxygen Saturation < 60.0 % Venous Blood Base Excess -7.0 mmol/L Diagnostic Radiology CHEST ONE VIEW PORTABLE CLINICAL HISTORY: Pain, rating to the abdomen. COMPARISON STUDY: No previous studies for comparison. FINDINGS: The cardiac and mediastinal contours are normal. There is no evidence of focal pulmonary consolidation. There is no evidence of failure. No pleural effusions are visualized.[ No free intraperitoneal air is visualized IMPRESSION: No active disease in the chest. Electronically signed by: Tommy Hernandez M.D. 09/12/2016 5:38 PM Dictated Date/Time: 09/12/2016 5:38 PM Impression Assessment and Plan FARRUKH ON AKD STAGE III - likely prerenal - presenting with creat 5.3 - Creatine was 1.1 on 09/05 - Cases discussed with Dr. Lyles that recommended to start albumin 25gm q6h --Continue monitor BMP - Will hold lasix and spironolactone - Avoid nephrotoxic agents B/L LE EDEMA Not in failure Saturated on RA at 100% Cxr negative monitor I/O consider LE doppler if worsening BRADYCARDIA - likely due to inability to metabolize Nadolol with FARRUKH - BP stable - will put a parameter for the beta gino to hold if HR less than 60 LIVER CIRRHOSIS Continue Lactulose, rifaximin and propranolol ammonia level 41 Stable THROMBOCYTOPENIA - due to underlying liver disease - no signs of bleeding, platelets at baseline CODE STATUS DNR as per patient and Daughter DVT PROPHYLAXIS - SCDs due to thrombocytopenia Level of Care Telemetry Resuscitation Status DO NOT RESUSCITATE VTE Prophylaxis VTE Risk Assessment Done? Y/N: Yes Risk Level: Moderate Given or contraindicated: SCD's (thrombocytopenia)
[2016-09-12 20:20] VITALS: BP 110/68; PULSE 48; TEMP 36.5; O2SAT 100; Ht 182.9 cm; Wt 75.2 kg
[2016-09-12] MEDS ORDERED: ALBUMIN HUMAN 25% 12.5 GM/50 ML VIAL IV SCH (20:30)
[2016-09-12] MEDS: PANTOprazole SOD 40 MG TAB PO SCH ×2 (21:00→21:08)
[2016-09-12] MEDS: RIFAXIMIN TAB 550 MG TAB PO SCH ×2 (21:00→21:08)
[2016-09-12] MEDS: SIMVASTATIN 40 MG TAB PO SCH (21:08)
[2016-09-12] MEDS: DORZOLAMIDE HCL 2% OPH SOLN 10 ML BTL OPB SCH (21:08)
[2016-09-12 21:44] VITALS: BP 114/70
[2016-09-12 23:41] VITALS: BP 105/67; PULSE 53; TEMP 36.6; O2SAT 97
[2016-09-13] VITALS (7 sets, daily range): BP systolic 85–111; BP diastolic 41–67; PULSE 45–55; TEMP 36.4–36.8; O2SAT 99–100
[2016-09-13] MEDS ORDERED: ALBUMIN HUMAN 25% 12.5 GM/50 ML VIAL IV SCH
[2016-09-13] MEDS: ALBUMIN HUMAN 25% 12.5 GM/50 ML VIAL IV SCH ×4 (03:34→21:42)
[2016-09-13 03:52] LABS: URINE APPEARANCE CLOUDY (CLEAR); URINE BILIRUBIN NEG (NEG); URINE COLOR DK YELLOW; URINE EPITHELIAL CELL AUTO 0-5 /lpf (0-5); URINE NITRITE NEG (NEG); UROBILINOGEN NEG (NEG)
[2016-09-13 03:59] LABS: MANUAL MICROSCOPIC REQUIRED? NO; REVIEW REQ? YES
[2016-09-13 04:08] LABS: URINE PATH CASTS 0-3 GRANULAR CASTS /lpf (0)
[2016-09-13] MEDS: LEVOTHYROXINE 200 MCG TAB PO SCH (06:12)
[2016-09-13 06:58] LABS: BUN/CREATININE RATIO 11.7 (10-20); CREATININE 5.2 mg/dl (0.60-1.40); POTASSIUM 5.5 mmol/L (3.5-5.1)
--- NOTE | 2016-09-13 07:55 | Nephrology Consultation ---
Nephrology Consultation Date of Consultation: Sep 13, 2016. Attending Physician: Jane Reason for Consultation: mary History of Present Illness Patient is a 71 year old male with underlying cirrhosis who was recently admitted with significant volume depletion and mental status changes from elevated ammonia levels. pt was discharged on 09/06 on lasix and spironolactone. pt was feeling well. appetite was good. pt though noticed to have increase in leg edema. was getting repeat labs done as outpt and creatinine was significantly worse. pt was started on albumin and he has noticed leg swelling improving already and testicular swelling also improving. Past Medical/Surgical History Medical Problems: (1) Acute kidney injury Status: Acute (2) Acute renal failure Status: Acute (3) Acute renal failure Status: Acute (4) Altered mental status Status: Acute (5) Hepatic encephalopathy Status: Acute (6) Hyperammonemia Status: Acute (7) Metabolic encephalopathy Status: Acute liver cirrhosis htn hypothyroidism esophageal varices cataract surgery hernia surgery Family History FH: leukemia (mother from leukemia) Social History Smoking Status: Former Smoker Alcohol Use: none Drug Use: none Housing Status: lives alone Allergies Coded Allergies: No Known Allergies (Verified , 09/12/16) Medications Current Inpatient Medications Medications (Trade) Dose Ordered Sig/Elias Route Start Time Stop Time Status Last Admin Dose Admin Cholecalciferol (Vitamin D Tab) 2,000 inter.unit DAILY PO 09/13/16 09:00 10/13/16 08:59 Dorzolamide HCl (Trusopt 2% Oph Soln) 1 drops BID OPB 09/12/16 21:00 10/12/16 20:59 09/12/16 21:08 1 DROPS Lactulose (Chronulac Syrup) 20 gm DAILY PO 09/13/16 09:00 10/13/16 08:59 Levothyroxine Sodium (Synthroid Tab) 200 mcg DAILYBB PO 09/13/16 06:00 10/13/16 05:59 09/13/16 06:12 200 MCG Nadolol (Corgard Tab) 20 mg QAM PO 09/13/16 09:00 10/13/16 08:59 Rifaximin (Xifaxan Tab) 550 mg BID PO 09/12/16 21:00 10/12/16 20:59 Simvastatin (Zocor Tab) 40 mg QPM PO 09/12/16 21:00 10/12/16 20:59 09/12/16 21:08 40 MG Ferrous Sulfate (Feosol Tab) 325 mg QAM PO 09/13/16 09:00 10/13/16 08:59 Pantoprazole Sodium (Protonix Tab) 40 mg BID PO 09/12/16 21:00 10/12/16 20:59 Albumin Human (Albumin 25%) 25 gm Q6H IV 09/13/16 04:00 09/16/16 03:59 09/13/16 03:34 25 GM Home Meds and Scripts Medications Dose Route/Sig Max Daily Dose Days Date Category Prilosec (Omeprazole) 20 Mg Capcr 40 Mg PO BID 09/12/16 Reported Trusopt (Dorzolamide Hcl) 2 % Shannon 1 Drop OPB BID 09/12/16 Reported Zocor (Simvastatin) 40 Mg Tab 40 Mg PO QPM 09/01/16 Reported Aldactone (Spironolactone) 25 Mg Tab 25 Mg PO HS 09/01/16 Reported Xifaxan (Rifaximin) 550 Mg Tab 550 Mg PO BID 09/01/16 Reported Corgard (Nadolol) 20 Mg Tab 20 Mg PO QAM 09/01/16 Reported Lactulose 20 Gm/30 Ml Syrp 20 Gm PO DAILY 30 08/14/16 Rx Vitamin D3 (Cholecalciferol) 1,000 Unit Tab 2,000 Units PO DAILY 08/14/16 Reported Ferrous Sulfate 324 Mg Tab 324 Mg PO QAM 08/14/16 Reported Synthroid (Levothyroxine Sodium) 200 Mcg Tab 200 Mcg PO QAM 08/14/16 Reported Lasix (Furosemide) 20 Mg Tab 20 Mg PO QAM 09/28/14 Reported Review of Systems Constitutional: No fever, No chills Eyes: No worsening of vision ENT: No trouble swallowing Respiratory: No shortness of breath Cardiac: + edema, No chest pain Abdomen: + diarrhea, No nausea, No vomiting Musculoskeletal: No joint pain Male : No dysuria Endo: + fatigue Skin: No rash, No itch all other review of systems otherwise negative Physical Exam Date Time Temp Pulse Resp B/P (MAP) Pulse Ox O2 Delivery O2 Flow Rate FiO2 09/13/16 07:18 36.4 45 18 85/41 (56) 100 88/52 (64) 09/13/16 04:00 Room Air 09/13/16 03:54 50 95/63 (74) 09/13/16 03:49 36.4 49 18 95/57 (70) 99 Room Air 09/12/16 23:59 Room Air 09/12/16 23:41 36.6 53 20 105/67 (80) 97 Room Air 09/12/16 21:44 114/70 (85) 09/12/16 20:20 36.5 48 18 110/68 100 Room Air 09/12/16 19:59 62 16 99 09/12/16 18:52 52 16 99/54 99 Room Air 09/12/16 17:40 49 09/12/16 17:18 49 16 111/74 99 Room Air 09/12/16 15:08 36.3 54 16 98/65 98 Room Air General Appearance: no apparent distress, + thin Eyes: normal inspection ENT: normal ENT inspection Neck: supple Respiratory/Chest: lungs clear, normal breath sounds Cardiovascular: + bradycardia Abdomen: normal bowel sounds, non tender, + distended Extremities: + swelling 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, alert, oriented x 3 Skin: normal color, warm/dry Diagnostics Last 24 Hours Test 09/12/16 17:45 09/12/16 17:56 09/13/16 03:30 09/13/16 05:49 White Blood Count 7.62 K/uL Red Blood Count 4.16 M/uL Hemoglobin 12.1 g/dL Hematocrit 38.0 % Mean Corpuscular Volume 91.3 fL Mean Corpuscular Hemoglobin 29.1 pg Mean Corpuscular Hemoglobin Concent 31.8 g/dl Platelet Count 106 K/uL Mean Platelet Volume 11.6 fL Neutrophils (%) (Auto) 73.2 % Lymphocytes (%) (Auto) 6.6 % Monocytes (%) (Auto) 13.5 % Eosinophils (%) (Auto) 5.2 % Basophils (%) (Auto) 0.7 % Neutrophils # (Auto) 5.58 K/uL Lymphocytes # (Auto) 0.50 K/uL Monocytes # (Auto) 1.03 K/uL Eosinophils # (Auto) 0.40 K/uL Basophils # (Auto) 0.05 K/uL RDW Standard Deviation 56.7 fL RDW Coefficient of Variation 17.0 % Immature Granulocyte % (Auto) 0.8 % Immature Granulocyte # (Auto) 0.06 K/uL Ovalocytes 1+ Echinocytes 2+ Prothrombin Time 14.2 SECONDS Prothromb Time International Ratio 1.3 Activated Partial Thromboplast Time 43.6 SECONDS Partial Thromboplastin Ratio 1.7 Sodium Level 138 mmol/L 137 mmol/L Potassium Level 5.1 mmol/L 5.5 mmol/L Chloride Level 109 mmol/L 109 mmol/L Carbon Dioxide Level 18 mmol/L 20 mmol/L Anion Gap 11.0 mmol/L 8.0 mmol/L Blood Urea Nitrogen 60 mg/dl 61 mg/dl Creatinine 5.30 mg/dl 5.20 mg/dl Est Creatinine Clear Calc Drug Dose 10.6 ml/min 13.3 ml/min Estimated GFR () 11.7 12.0 Estimated GFR (Non- 10.1 10.3 BUN/Creatinine Ratio 11.4 11.7 Random Glucose 85 mg/dl 80 mg/dl Calcium Level 9.1 mg/dl 9.0 mg/dl Phosphorus Level 4.8 mg/dl Magnesium Level 2.3 mg/dl Total Bilirubin 1.0 mg/dl Direct Bilirubin 0.4 mg/dl Aspartate Amino Transf (AST/SGOT) 44 U/L Alanine Aminotransferase (ALT/SGPT) 45 U/L Alkaline Phosphatase 136 U/L Ammonia 41.0 umol/L Total Creatine Kinase 67 U/L Creatine Kinase MB 4.2 ng/ml Creatine Kinase MB Ratio 6.3 Troponin I < 0.015 ng/ml Total Protein 6.6 gm/dl Albumin 3.9 gm/dl Lipase 523 U/L Venous Blood pH 7.28 Venous Blood Partial Pressure CO2 42 mmHg Venous Blood Partial Pressure O2 19 mmHg Venous Blood HCO3 19 mmol/L Venous Blood Oxygen Saturation < 60.0 % Venous Blood Base Excess -7.0 mmol/L Urine Color DK YELLOW Urine Appearance CLOUDY Urine pH 5.0 Urine Specific [place] 1.020 Urine Protein NEG Urine Glucose (UA) NEG Urine Ketones NEG Urine Occult Blood 2+ Urine Nitrite NEG Urine Bilirubin NEG Urine Urobilinogen NEG Urine Leukocyte Esterase MODERATE Urine WBC (Auto) >30 /hpf Urine RBC (Auto) >30 /hpf Urine Hyaline Casts (Auto) 5-10 /lpf Urine Epithelial Cells (Auto) 0-5 /lpf Urine Bacteria (Auto) NEG Urine Pathogenic Casts 0-3 GRANULAR CASTS /lpf Assessment & Plan [id number] in the setting of overdiuresis with a patient with underlying cirrhosis. was on lasix and spironolactone to help control the ascites and edema , however appears to be difficult balance. do not feel this is hepatorenal syndrome. for now, would continue the albumin and see if creatinine returns back to baseline. however creatinine only improved from 5.3 to 5.2 however pt feels swelling in legs is improving and he feels good. to check random urine sodium.
[2016-09-13] MEDS: NADOLOL 40 MG TAB PO SCH (08:25)
[2016-09-13] MEDS ORDERED: LACTULOSE SYRUP 20 GM/30 ML UDC PO SCH (09:00)
[2016-09-13] MEDS: PANTOprazole SOD 40 MG TAB PO SCH ×2 (09:12→19:51)
[2016-09-13] MEDS: FERROUS SULFATE 325 MG TAB PO SCH (09:12)
[2016-09-13] MEDS: RIFAXIMIN TAB 550 MG TAB PO SCH ×2 (09:12→19:52)
[2016-09-13] MEDS: CHOLECALCIFEROL 1000 INTER.UNIT TAB PO SCH (09:12)
[2016-09-13] MEDS: DORZOLAMIDE HCL 2% OPH SOLN 10 ML BTL OPB SCH ×2 (09:12→19:51)
--- NOTE | 2016-09-13 11:49 | Progress Note ---
Medicine Progress Note Date & Time of Visit: Sep 13, 2016 at 11:39. Subjective Pt was seen and examined Sitting in bed very comfortable with no distress Pt said that he feels good Pt said that he feels like his swelling in his LE slightly improved he said that he had some pain in his legs overnight that is gone now He denies any chest pain, palpitation, dizziness and SOB Objective Last 8 Hrs Date Time Temp Pulse Resp B/P (MAP) Pulse Ox O2 Delivery O2 Flow Rate FiO2 09/13/16 08:00 Room Air 09/13/16 07:18 36.4 45 18 85/41 (56) 100 88/52 (64) 09/13/16 04:00 Room Air 09/13/16 03:54 50 95/63 (74) 09/13/16 03:49 36.4 49 18 95/57 (70) 99 Room Air Physical Exam: General- No acute distress Head- atraumatic Eyes- PERRL, EOMI ENT- oropharynx clear Neck- supple, no JVD Lungs- clear to auscultation Heart- regular rhythm; no murmur Abdomen- normal bowel sounds, nontender, distended Extremities- +3edema, no calf tenderness Neuro- alert, oriented x 3; PERRL, EOMI Skin- warm & dry Laboratory Results: Last 24 Hours Test 09/12/16 17:45 09/12/16 17:56 09/13/16 03:30 09/13/16 05:49 White Blood Count 7.62 K/uL Red Blood Count 4.16 M/uL Hemoglobin 12.1 g/dL Hematocrit 38.0 % Mean Corpuscular Volume 91.3 fL Mean Corpuscular Hemoglobin 29.1 pg Mean Corpuscular Hemoglobin Concent 31.8 g/dl Platelet Count 106 K/uL Mean Platelet Volume 11.6 fL Neutrophils (%) (Auto) 73.2 % Lymphocytes (%) (Auto) 6.6 % Monocytes (%) (Auto) 13.5 % Eosinophils (%) (Auto) 5.2 % Basophils (%) (Auto) 0.7 % Neutrophils # (Auto) 5.58 K/uL Lymphocytes # (Auto) 0.50 K/uL Monocytes # (Auto) 1.03 K/uL Eosinophils # (Auto) 0.40 K/uL Basophils # (Auto) 0.05 K/uL RDW Standard Deviation 56.7 fL RDW Coefficient of Variation 17.0 % Immature Granulocyte % (Auto) 0.8 % Immature Granulocyte # (Auto) 0.06 K/uL Ovalocytes 1+ Echinocytes 2+ Prothrombin Time 14.2 SECONDS Prothromb Time International Ratio 1.3 Activated Partial Thromboplast Time 43.6 SECONDS Partial Thromboplastin Ratio 1.7 Sodium Level 138 mmol/L 137 mmol/L Potassium Level 5.1 mmol/L 5.5 mmol/L Chloride Level 109 mmol/L 109 mmol/L Carbon Dioxide Level 18 mmol/L 20 mmol/L Anion Gap 11.0 mmol/L 8.0 mmol/L Blood Urea Nitrogen 60 mg/dl 61 mg/dl Creatinine 5.30 mg/dl 5.20 mg/dl Est Creatinine Clear Calc Drug Dose 10.6 ml/min 13.3 ml/min Estimated GFR () 11.7 12.0 Estimated GFR (Non- 10.1 10.3 BUN/Creatinine Ratio 11.4 11.7 Random Glucose 85 mg/dl 80 mg/dl Calcium Level 9.1 mg/dl 9.0 mg/dl Phosphorus Level 4.8 mg/dl Magnesium Level 2.3 mg/dl Total Bilirubin 1.0 mg/dl Direct Bilirubin 0.4 mg/dl Aspartate Amino Transf (AST/SGOT) 44 U/L Alanine Aminotransferase (ALT/SGPT) 45 U/L Alkaline Phosphatase 136 U/L Ammonia 41.0 umol/L Total Creatine Kinase 67 U/L Creatine Kinase MB 4.2 ng/ml Creatine Kinase MB Ratio 6.3 Troponin I < 0.015 ng/ml Total Protein 6.6 gm/dl Albumin 3.9 gm/dl Lipase 523 U/L Venous Blood pH 7.28 Venous Blood Partial Pressure CO2 42 mmHg Venous Blood Partial Pressure O2 19 mmHg Venous Blood HCO3 19 mmol/L Venous Blood Oxygen Saturation < 60.0 % Venous Blood Base Excess -7.0 mmol/L Urine Color DK YELLOW Urine Appearance CLOUDY Urine pH 5.0 Urine Specific [place] 1.020 Urine Protein NEG Urine Glucose (UA) NEG Urine Ketones NEG Urine Occult Blood 2+ Urine Nitrite NEG Urine Bilirubin NEG Urine Urobilinogen NEG Urine Leukocyte Esterase MODERATE Urine WBC (Auto) >30 /hpf Urine RBC (Auto) >30 /hpf Urine Hyaline Casts (Auto) 5-10 /lpf Urine Epithelial Cells (Auto) 0-5 /lpf Urine Bacteria (Auto) NEG Urine Pathogenic Casts 0-3 GRANULAR CASTS /lpf Assessment & Plan FARRUKH ON AKD STAGE III - likely related to overdiuresis - presenting with creat 5.3 - Creatine was 1.1 on 09/05 (day of discharge) - Creatine today 5.2 - Cases discussed with Dr. Lyles that recommended to continue albumin 25gm q6h --Continue monitor BMP - Will hold lasix and spironolactone - Avoid nephrotoxic agents B/L LE EDEMA Not in failure Saturated on RA at 100% Cxr negative monitor I/O swelling slightly improved consider LE doppler if worsening BRADYCARDIA - likely due to inability to metabolize Nadolol with FARRUKH - Asymptomatic - will put a parameter for the beta gino to hold if HR less than 60 - Continue monitor in Telemetry LIVER CIRRHOSIS Continue Lactulose, rifaximin and propranolol ammonia level 41 Stable THROMBOCYTOPENIA - due to underlying liver disease - Platelet 106 today - no signs of bleeding, platelets at baseline CODE STATUS DNR as per patient and Daughter DVT PROPHYLAXIS - SCDs due to thrombocytopenia Current Inpatient Medications: Current Inpatient Medications Medications (Trade) Dose Ordered Sig/Elias Route Start Time Stop Time Status Last Admin Dose Admin Cholecalciferol (Vitamin D Tab) 2,000 inter.unit DAILY PO 09/13/16 09:00 10/13/16 08:59 09/13/16 09:12 2,000 INTER.UNIT Dorzolamide HCl (Trusopt 2% Oph Soln) 1 drops BID OPB 09/12/16 21:00 10/12/16 20:59 09/13/16 09:12 1 DROPS Lactulose (Chronulac Syrup) 20 gm DAILY PO 09/13/16 09:00 10/13/16 08:59 Levothyroxine Sodium (Synthroid Tab) 200 mcg DAILYBB PO 09/13/16 06:00 10/13/16 05:59 09/13/16 06:12 200 MCG Nadolol (Corgard Tab) 20 mg QAM PO 09/13/16 09:00 10/13/16 08:59 Rifaximin (Xifaxan Tab) 550 mg BID PO 09/12/16 21:00 10/12/16 20:59 09/13/16 09:12 550 MG Simvastatin (Zocor Tab) 40 mg QPM PO 09/12/16 21:00 10/12/16 20:59 09/12/16 21:08 40 MG Ferrous Sulfate (Feosol Tab) 325 mg QAM PO 09/13/16 09:00 10/13/16 08:59 09/13/16 09:12 325 MG Pantoprazole Sodium (Protonix Tab) 40 mg BID PO 09/12/16 21:00 10/12/16 20:59 09/13/16 09:12 40 MG Albumin Human (Albumin 25%) 25 gm Q6H IV 09/13/16 04:00 09/16/16 03:59 09/13/16 09:08 25 GM
[2016-09-13] MEDS ORDERED: NURSING VERBAL MED ORDER ONE (12:45)
[2016-09-13] MEDS: LACTULOSE SYRUP 20 GM/30 ML UDC PO SCH (13:55)
[2016-09-13] MEDS: SIMVASTATIN 40 MG TAB PO SCH (19:52)
[2016-09-14] MEDS: ALBUMIN HUMAN 25% 12.5 GM/50 ML VIAL IV SCH ×4 (03:35→22:05)
[2016-09-14 04:14] VITALS: BP 99/65; PULSE 54; TEMP 36.5; O2SAT 98
[2016-09-14] MEDS: LEVOTHYROXINE 200 MCG TAB PO SCH (06:02)
[2016-09-14] MEDS: DORZOLAMIDE HCL 2% OPH SOLN 10 ML BTL OPB SCH ×2 (07:40→21:01)
[2016-09-14] MEDS: NADOLOL 40 MG TAB PO SCH (07:40)
[2016-09-14] MEDS: CHOLECALCIFEROL 1000 INTER.UNIT TAB PO SCH (07:41)
[2016-09-14] MEDS: FERROUS SULFATE 325 MG TAB PO SCH (07:41)
[2016-09-14] MEDS: PANTOprazole SOD 40 MG TAB PO SCH ×2 (07:41→21:00)
[2016-09-14] MEDS: RIFAXIMIN TAB 550 MG TAB PO SCH ×2 (07:41→21:00)
[2016-09-14 07:55] VITALS: BP 102/59; PULSE 54; TEMP 36.8; O2SAT 98
[2016-09-14 09:33] LABS: BUN/CREATININE RATIO 10.8 (10-20); POTASSIUM 5.1 mmol/L (3.5-5.1)
--- NOTE | 2016-09-14 10:40 | Nephrology Progress Note ---
Nephrology Progress Note Date of Service: Sep 14, 2016. Subjective 71 yo male with mary in setting of liver disease and currently feels good. appetite is good. energy levels are good. no nausea or vomiting. Objective Date Time Temp Pulse Resp B/P (MAP) Pulse Ox O2 Delivery O2 Flow Rate FiO2 09/14/16 08:00 Room Air 09/14/16 07:55 36.8 54 20 102/59 (73) 98 Room Air 09/14/16 04:14 36.5 54 16 99/65 (76) 98 Room Air 09/14/16 04:00 Room Air 09/14/16 00:17 Room Air 09/13/16 23:16 36.7 53 18 107/67 (80) 99 Room Air 09/13/16 19:58 Room Air 09/13/16 19:52 36.4 48 22 104/60 (75) 99 Room Air 09/13/16 16:00 Room Air 09/13/16 15:32 36.4 49 22 111/63 (79) 100 Room Air 09/13/16 12:00 Room Air 09/13/16 11:40 36.8 55 18 110/65 (80) 100 Physical Exam: General-aaox3, cachectic Eyes-no scleral icterus ENT-mmm Neck-supple Lungs-cta Heart-bradycardia Abdomen-distended Extremities-+1 edema Neuro-nonfocal Current Inpatient Medications Medications (Trade) Dose Ordered Sig/Elias Route Start Time Stop Time Status Last Admin Dose Admin Cholecalciferol (Vitamin D Tab) 2,000 inter.unit DAILY PO 09/13/16 09:00 10/13/16 08:59 09/14/16 07:41 2,000 INTER.UNIT Dorzolamide HCl (Trusopt 2% Oph Soln) 1 drops BID OPB 09/12/16 21:00 10/12/16 20:59 09/14/16 07:40 1 DROPS Levothyroxine Sodium (Synthroid Tab) 200 mcg DAILYBB PO 09/13/16 06:00 10/13/16 05:59 09/14/16 06:02 200 MCG Nadolol (Corgard Tab) 20 mg QAM PO 09/13/16 09:00 10/13/16 08:59 Rifaximin (Xifaxan Tab) 550 mg BID PO 09/12/16 21:00 10/12/16 20:59 09/14/16 07:41 550 MG Simvastatin (Zocor Tab) 40 mg QPM PO 09/12/16 21:00 10/12/16 20:59 09/13/16 19:52 40 MG Ferrous Sulfate (Feosol Tab) 325 mg QAM PO 09/13/16 09:00 10/13/16 08:59 09/14/16 07:41 325 MG Pantoprazole Sodium (Protonix Tab) 40 mg BID PO 09/12/16 21:00 10/12/16 20:59 09/14/16 07:41 40 MG Albumin Human (Albumin 25%) 25 gm Q6H IV 09/13/16 04:00 09/16/16 03:59 09/14/16 09:30 25 GM Lactulose (Chronulac Syrup) 20 gm DAILY@1400 PO 09/13/16 14:00 10/13/16 13:59 09/13/16 13:55 20 GM Sodium Chloride 1,000 ml @ 125 mls/hr Q8H IV 09/14/16 10:15 10/14/16 10:14 UNV Last 24 Hours Test 09/13/16 13:35 09/14/16 08:32 Urine Random Sodium 61 mEq/L Sodium Level 138 mmol/L Potassium Level 5.1 mmol/L Chloride Level 109 mmol/L Carbon Dioxide Level 16 mmol/L Anion Gap 13.0 mmol/L Blood Urea Nitrogen 66 mg/dl Creatinine 6.00 mg/dl Est Creatinine Clear Calc Drug Dose 11.9 ml/min Estimated GFR () 10.1 Estimated GFR (Non- 8.7 BUN/Creatinine Ratio 10.8 Random Glucose 154 mg/dl Calcium Level 9.0 mg/dl Assessment & Plan [id number] in the setting of liver disease. urine sodium is good. feel this may be volume depletion/atn and creatinine may be worsening before it improves. to start iv fluids in addition to albumin. pt agreeable to short term dialysis if necessary but does not want buttermaker dialysis. daughter in room and answered her questions. no role for dialysis today. attempt iv fluids and albumin today. with high urine sodium, holding off on midodrine and octreotide.
[2016-09-14 11:03] VITALS: BP 93/57; PULSE 53; TEMP 36.5; O2SAT 100
[2016-09-14] MEDS: SODIUM CHLORIDE 0.9% 1000ML 1,000 ML IV SCH ×2 (11:52→18:12)
[2016-09-14] MEDS: LACTULOSE SYRUP 20 GM/30 ML UDC PO SCH (13:18)
[2016-09-14 15:53] VITALS: BP 105/47; PULSE 59; TEMP 36.6; O2SAT 98
--- NOTE | 2016-09-14 16:56 | Progress Note ---
Medicine Progress Note Date & Time of Visit: Sep 14, 2016 at 16:49. Subjective Pt was seen and examined Sitting in bed comfortable with no distress eating lunch His LE edema is improving Denied any chest pain, palpitation, dizziness and SOB Objective Last 8 Hrs Date Time Temp Pulse Resp B/P (MAP) Pulse Ox O2 Delivery O2 Flow Rate FiO2 09/14/16 16:00 Room Air 09/14/16 15:53 36.6 59 18 105/47 (66) 98 Room Air 09/14/16 12:00 Room Air 09/14/16 11:03 36.5 53 20 93/57 (69) 100 Room Air Physical Exam: General- No acute distress Head- atraumatic Eyes- PERRL, EOMI ENT- oropharynx clear Neck- supple, no JVD Lungs- clear to auscultation Heart- regular rhythm; no murmur Abdomen- normal bowel sounds, nontender, distended Extremities- +edema, no calf tenderness Neuro- alert, oriented x 3; PERRL, EOMI Skin- warm & dry Laboratory Results: Last 24 Hours Test 09/14/16 08:32 Sodium Level 138 mmol/L Potassium Level 5.1 mmol/L Chloride Level 109 mmol/L Carbon Dioxide Level 16 mmol/L Anion Gap 13.0 mmol/L Blood Urea Nitrogen 66 mg/dl Creatinine 6.00 mg/dl Est Creatinine Clear Calc Drug Dose 11.9 ml/min Estimated GFR () 10.1 Estimated GFR (Non- 8.7 BUN/Creatinine Ratio 10.8 Random Glucose 154 mg/dl Calcium Level 9.0 mg/dl Assessment & Plan FARRUKH ON AKD STAGE III - likely related to overdiuresis - presenting with creat 5.3 - Creatine was 1.1 on 09/05 (day of discharge) - Creatine increased to 6 today - Cases discussed with Dr. Lyles that recommended to continue albumin 25gm q6h with IVF NS - Will monitor closely for volume overload - Continue monitor BMP - Continue hold lasix and spironolactone - Avoid nephrotoxic agents B/L LE EDEMA Not in failure Saturated on RA at 100% Cxr negative monitor I/O swelling slightly improved Stable BRADYCARDIA - likely due to inability to metabolize Nadolol with FARRUKH - Asymptomatic - will put a parameter for the beta gino to hold if HR less than 60 - Continue monitor in Telemetry - Stable LIVER CIRRHOSIS Continue Lactulose, rifaximin and propranolol ammonia level 41 Stable THROMBOCYTOPENIA - due to underlying liver disease - Platelet 106 - no signs of bleeding, platelets at baseline CODE STATUS DNR as per patient and Daughter DVT PROPHYLAXIS - SCDs due to thrombocytopenia Consultants: Nephrology Current Inpatient Medications: Current Inpatient Medications Medications (Trade) Dose Ordered Sig/Elias Route Start Time Stop Time Status Last Admin Dose Admin Cholecalciferol (Vitamin D Tab) 2,000 inter.unit DAILY PO 09/13/16 09:00 10/13/16 08:59 09/14/16 07:41 2,000 INTER.UNIT Dorzolamide HCl (Trusopt 2% Oph Soln) 1 drops BID OPB 09/12/16 21:00 10/12/16 20:59 09/14/16 07:40 1 DROPS Levothyroxine Sodium (Synthroid Tab) 200 mcg DAILYBB PO 09/13/16 06:00 10/13/16 05:59 09/14/16 06:02 200 MCG Nadolol (Corgard Tab) 20 mg QAM PO 09/13/16 09:00 10/13/16 08:59 Rifaximin (Xifaxan Tab) 550 mg BID PO 09/12/16 21:00 10/12/16 20:59 09/14/16 07:41 550 MG Simvastatin (Zocor Tab) 40 mg QPM PO 09/12/16 21:00 10/12/16 20:59 09/13/16 19:52 40 MG Ferrous Sulfate (Feosol Tab) 325 mg QAM PO 09/13/16 09:00 10/13/16 08:59 09/14/16 07:41 325 MG Pantoprazole Sodium (Protonix Tab) 40 mg BID PO 09/12/16 21:00 10/12/16 20:59 09/14/16 07:41 40 MG Albumin Human (Albumin 25%) 25 gm Q6H IV 09/13/16 04:00 09/16/16 03:59 09/14/16 15:26 25 GM Lactulose (Chronulac Syrup) 20 gm DAILY@1400 PO 09/13/16 14:00 10/13/16 13:59 09/14/16 13:18 20 GM Sodium Chloride 1,000 ml @ 125 mls/hr Q8H IV 7/12/17 10:15 10/14/16 10:14 09/14/16 11:52 125 MLS/HR
[2016-09-14 19:34] VITALS: BP 105/52; PULSE 58; TEMP 36.6; O2SAT 98
[2016-09-14] MEDS: SIMVASTATIN 40 MG TAB PO SCH (21:00)
[2016-09-14 23:38] VITALS: BP 104/51; PULSE 61; TEMP 36.9; O2SAT 97
[2016-09-15] MEDS: SODIUM CHLORIDE 0.9% 1000ML 1,000 ML IV SCH ×3 (03:05→22:33)
[2016-09-15 03:26] VITALS: BP 100/64; PULSE 61; TEMP 36.8; O2SAT 96
[2016-09-15] MEDS: ALBUMIN HUMAN 25% 12.5 GM/50 ML VIAL IV SCH ×4 (04:17→21:35)
[2016-09-15 05:32] LABS: HEMATOCRIT 26.6 % (42-52); MEAN CELL VOLUME 89.3 fL (80-100); MEAN CORPUSCULAR HEMOGLOBIN 29.9 pg (25-34); MEAN CORPUSCULAR HGB CONC 33.5 g/dl (32-36); RED BLOOD COUNT 2.98 M/uL (4.7-6.1)
[2016-09-15 05:50] LABS: MEAN PLATELET VOLUME 11.5 fL (7.4-10.4); PLATELET COUNT 62 K/uL (130-400)
[2016-09-15 06:08] LABS: BUN/CREATININE RATIO 10.9 (10-20); CALCIUM 8.5 mg/dl (8.5-10.1); CREATININE 6.6 mg/dl (0.60-1.40); POTASSIUM 5.5 mmol/L (3.5-5.1)
[2016-09-15] MEDS: LEVOTHYROXINE 200 MCG TAB PO SCH (06:32)
--- NOTE | 2016-09-15 07:18 | Nephrology Progress Note ---
Nephrology Progress Note Date of Service: Sep 15, 2016. Subjective 71 yo male with mary in setting of liver disease and currently feels good however creatinine continues to worsen. no sob but does have significant abdominal distention and edema in legs. Objective Date Time Temp Pulse Resp B/P (MAP) Pulse Ox O2 Delivery O2 Flow Rate FiO2 09/15/16 04:00 Room Air 09/15/16 03:26 36.8 61 18 100/64 (76) 96 Room Air 09/14/16 23:59 Room Air 09/14/16 23:38 36.9 61 18 104/51 (68) 97 Room Air 09/14/16 20:14 Room Air 09/14/16 19:34 36.6 58 20 105/52 (69) 98 Room Air 09/14/16 16:00 Room Air 09/14/16 15:53 36.6 59 18 105/47 (66) 98 Room Air 09/14/16 12:00 Room Air 09/14/16 11:03 36.5 53 20 93/57 (69) 100 Room Air 09/14/16 08:00 Room Air 09/14/16 07:55 36.8 54 20 102/59 (73) 98 Room Air Physical Exam: General-aaox3, cachectic Eyes-no scleral icterus ENT-mmm Neck-supple Lungs-clear Heart-bradycardia Abdomen-distended with umbilical hernia Extremities-+1 to 2 edema Neuro-nonfocal Current Inpatient Medications Medications (Trade) Dose Ordered Sig/Elias Route Start Time Stop Time Status Last Admin Dose Admin Cholecalciferol (Vitamin D Tab) 2,000 inter.unit DAILY PO 09/13/16 09:00 10/13/16 08:59 09/14/16 07:41 2,000 INTER.UNIT Dorzolamide HCl (Trusopt 2% Oph Soln) 1 drops BID OPB 09/12/16 21:00 10/12/16 20:59 09/14/16 21:01 1 DROPS Levothyroxine Sodium (Synthroid Tab) 200 mcg DAILYBB PO 09/13/16 06:00 10/13/16 05:59 09/15/16 06:32 200 MCG Nadolol (Corgard Tab) 20 mg QAM PO 09/13/16 09:00 10/13/16 08:59 Rifaximin (Xifaxan Tab) 550 mg BID PO 09/12/16 21:00 10/12/16 20:59 09/14/16 21:00 550 MG Simvastatin (Zocor Tab) 40 mg QPM PO 09/12/16 21:00 10/12/16 20:59 09/14/16 21:00 40 MG Ferrous Sulfate (Feosol Tab) 325 mg QAM PO 09/13/16 09:00 10/13/16 08:59 09/14/16 07:41 325 MG Pantoprazole Sodium (Protonix Tab) 40 mg BID PO 09/12/16 21:00 10/12/16 20:59 09/14/16 21:00 40 MG Albumin Human (Albumin 25%) 25 gm Q6H IV 09/13/16 04:00 09/16/16 03:59 09/15/16 04:17 25 GM Lactulose (Chronulac Syrup) 20 gm DAILY@1400 PO 09/13/16 14:00 10/13/16 13:59 09/14/16 13:18 20 GM Sodium Chloride 1,000 ml @ 125 mls/hr Q8H IV 09/14/16 10:15 10/14/16 10:14 09/15/16 03:05 125 MLS/HR Last 24 Hours Test 09/14/16 08:32 09/15/16 05:11 Sodium Level 138 mmol/L 141 mmol/L Potassium Level 5.1 mmol/L 5.5 mmol/L Chloride Level 109 mmol/L 115 mmol/L Carbon Dioxide Level 16 mmol/L 18 mmol/L Anion Gap 13.0 mmol/L 8.0 mmol/L Blood Urea Nitrogen 66 mg/dl 72 mg/dl Creatinine 6.00 mg/dl 6.60 mg/dl Est Creatinine Clear Calc Drug Dose 11.9 ml/min 10.8 ml/min Estimated GFR () 10.1 9.0 Estimated GFR (Non- 8.7 7.8 BUN/Creatinine Ratio 10.8 10.9 Random Glucose 154 mg/dl 79 mg/dl Calcium Level 9.0 mg/dl 8.5 mg/dl White Blood Count 5.30 K/uL Red Blood Count 2.98 M/uL Hemoglobin 8.9 g/dL Hematocrit 26.6 % Mean Corpuscular Volume 89.3 fL Mean Corpuscular Hemoglobin 29.9 pg Mean Corpuscular Hemoglobin Concent 33.5 g/dl RDW Standard Deviation 55.5 fL RDW Coefficient of Variation 17.0 % Platelet Count 62 K/uL Mean Platelet Volume 11.5 fL Assessment & Plan [id number] in the setting of liver disease. on albumin and iv fluids. has significant distended abdomen-question any role for paracentesis to possibly help alleviate pressure. urine sodium was good so holding on octreotide and midodrine. to repeat the urine sodium again today. feel prudent course is to arrange for tunneled line. pt does not want chronic dialysis but ok with temporary dialysis. not uremic but likely to become uremic in the next 24 hours with creatinine trend worsening.
[2016-09-15 07:53] VITALS: BP 93/53; PULSE 58; TEMP 36.6; O2SAT 97
[2016-09-15 07:56] LABS: INR 1.5 (0.9-1.1); PROTHROMBIN TIME (PATIENT) 15.9 SECONDS (9.0-12.0)
[2016-09-15] MEDS: DORZOLAMIDE HCL 2% OPH SOLN 10 ML BTL OPB SCH ×2 (08:19→20:46)
[2016-09-15] MEDS: FERROUS SULFATE 325 MG TAB PO SCH (08:20)
[2016-09-15] MEDS: PANTOprazole SOD 40 MG TAB PO SCH ×2 (08:20→20:45)
[2016-09-15] MEDS: CHOLECALCIFEROL 1000 INTER.UNIT TAB PO SCH (08:21)
[2016-09-15] MEDS: RIFAXIMIN TAB 550 MG TAB PO SCH ×2 (08:21→20:45)
[2016-09-15] MEDS: NADOLOL 40 MG TAB PO SCH (08:21)
[2016-09-15 12:00] VITALS: BP 93/58; PULSE 98; TEMP 36.5; O2SAT 98
[2016-09-15] MEDS: LACTULOSE SYRUP 20 GM/30 ML UDC PO SCH (14:33)
[2016-09-15 15:26] VITALS: BP 110/66; PULSE 53; TEMP 36.6; O2SAT 97
--- NOTE | 2016-09-15 15:30 | Surgery Consultation ---
Consultation Date of Service Sep 15, 2016. Chief Complaint ARF, need permcath for HD History of Present Illness The patient is a 71 year old male with liver cirrhosis, CKD, HTN, hyperlipidemia , admitted with acute on chronic renal failure, seen in consultation today for permcath for HD. Pt Creatinine and edema and ascites continues to worsen, although pt states is feeling ok, just tired. Denies HERR, fever, chills, chest pain, SOB, abd pain, N/V, rest pain, claudication, other complaints. Vitals Vital Signs Past 12 Hours Date Time Temp Pulse Resp B/P (MAP) Pulse Ox O2 Delivery O2 Flow Rate FiO2 09/15/16 12:00 Room Air 09/15/16 12:00 36.5 98 19 93/58 (70) 98 Room Air 09/15/16 08:00 Room Air 09/15/16 07:53 36.6 58 16 93/53 (66) 97 Room Air 09/15/16 04:00 Room Air 09/15/16 03:26 36.8 61 18 100/64 (76) 96 Room Air Allergies Coded Allergies: No Known Allergies (Verified , 09/12/16) Home Medications Scheduled Cholecalciferol (Vitamin D3), 2,000 UNITS PO DAILY Dorzolamide Hcl (Trusopt), 1 DROP OPB BID Ferrous Sulfate (Ferrous Sulfate), 324 MG PO QAM Furosemide (Lasix), 20 MG PO QAM Lactulose (Lactulose), 20 GM PO DAILY Levothyroxine Sodium (Synthroid), 200 MCG PO QAM Nadolol (Corgard), 20 MG PO QAM Omeprazole (Prilosec), 40 MG PO BID Rifaximin (Xifaxan), 550 MG PO BID Simvastatin (Zocor), 40 MG PO QPM Spironolactone (Aldactone), 25 MG PO HS Problem List Medical Problems: (1) Cirrhosis Of Liver Nos (2) Diverticulosis Colon (W/O Ment Of Hemorrhage) (3) Esophageal varices (4) HLD (hyperlipidemia) (5) Hypertension Nos (6) Hypothyroidism Nos Surgical Problems: (1) Cataract (2) History of hernia surgery Surgical / Medical History Hx Cardiac Surgery: No Hx Abdominal Surgery: Yes (right inguinal hernia repair) Hx Cancer Surgery: No Hx Thoracic Surgery: No Hx Orthopedic: No Hx Urinary Tract Surgery: No Past Medical/Surgical History: Hypertension, Kidney Disease, Liver Disease Family History FH: leukemia (mother from leukemia) Social History Smoking Status: Former Smoker Hx Tobacco Use In Past Year?: No Hx Alcohol Use - Type & Amnt: No Hx Substance Use -Type & Amnt: No Review of Systems Constitutional: + malaise, No chills, No fever Skin: No change in color Eyes: No visual changes ENMT: No sore throat Respiratory: + PEÑA, No cough, No hemoptysis, No short of breath Cardiovascular: No chest pain, No palpitations, No syncope Gastrointestinal: No abdominal pain, No nausea, No vomiting Neurologic: No dizziness, No headache, No numbness, No tingling Physical Exam Constitutional: General Apperance: well-nourished, well-developed, too thin Level of Distress: NAD, acutely ill, chronically ill Psychiatric: Mental Status: active & alert, normal mood, normal affect Orientation: oriented except where noted, to time, to place, to person Memory: recent memory normal, remote memory normal Head: normocephalic, atraumatic Eyes: EOM: EOMI ENMT: normal ENT inspection, hearing grossly normal Neck: supple, trachea midline Lungs: Respiratory effort: no dyspnea Auscultation: no rales/crackles, no rhonchi, decreased breath sounds Cardiovascular: Apical Impulse: not displaced Heart Auscultation: RRR, no rubs, no gallops Peripheral Pulses: Pulses: full and equal, in all extremities except if noted Bruits: none appreciated Carotid Pulse: normal on the left, normal on the right Brachial Pulses: normal on the left, normal on the right Radial Pulse: normal on the left, normal on the right Femoral Pulse: normal on the left, normal on the right Posterior Tibialis Pulse: decreased on the left, decreased on the right Dorsalis Pedis Pulse: decreased on the left, decreased on the right Abdomen: Bowel Sounds: normal Inspection & Palpation: soft, no tenderness, guarding & rebound, distended ( ascites) Musculoskeletal: normal strength (5/5 throughout), normal tone Extremities: Upper Right: no cyanosis, no edema, no varicosities Upper Left: no cyanosis, no edema, no varicosities Lower Right: no cyanosis, no varicosities, no palpable cord, edema Lower Left: no cyanosis, no varicosities, no palpable cord, edema Neurologic: Cranial Nerves: grossly intact Sensation: grossly intact Assessment and Plan ASSESSMENT and PLAN: ARF Thrombocytopenia Pt for permcath insertion tomorrow morning. Will need plt count tomorrow morning before procedure, as it was significantly lower today(60) than previous (109). If lower, may require plt during permcath insertion. Pt aware. Procedure, risks, benefits, and alternatives discussed with pt, he expresses understanding and agreement.
--- NOTE | 2016-09-15 17:04 | Progress Note ---
Medicine Progress Note Date & Time of Visit: Sep 15, 2016 at 16:55. Subjective Pt was seen and examined Lying in bed comfortable with no distress Pt said that he feels fine he denies any chest pain, palpitation, dizziness and SOB Objective Last 8 Hrs Date Time Temp Pulse Resp B/P (MAP) Pulse Ox O2 Delivery O2 Flow Rate FiO2 09/15/16 15:26 36.6 53 20 110/66 (81) 97 Room Air 09/15/16 12:00 Room Air 09/15/16 12:00 36.5 98 19 93/58 (70) 98 Room Air Physical Exam: General- No acute distress Head- atraumatic Eyes- PERRL, EOMI ENT- oropharynx clear Neck- supple, no JVD Lungs- clear to auscultation Heart- regular rhythm; no murmur Abdomen- normal bowel sounds, nontender, +distended Extremities- +edema, no calf tenderness Neuro- alert, oriented x 3; PERRL, EOMI Skin- warm & dry Laboratory Results: Last 24 Hours Test 09/15/16 05:11 09/15/16 07:33 White Blood Count 5.30 K/uL Red Blood Count 2.98 M/uL Hemoglobin 8.9 g/dL Hematocrit 26.6 % Mean Corpuscular Volume 89.3 fL Mean Corpuscular Hemoglobin 29.9 pg Mean Corpuscular Hemoglobin Concent 33.5 g/dl RDW Standard Deviation 55.5 fL RDW Coefficient of Variation 17.0 % Platelet Count 62 K/uL Mean Platelet Volume 11.5 fL Sodium Level 141 mmol/L Potassium Level 5.5 mmol/L Chloride Level 115 mmol/L Carbon Dioxide Level 18 mmol/L Anion Gap 8.0 mmol/L Blood Urea Nitrogen 72 mg/dl Creatinine 6.60 mg/dl Est Creatinine Clear Calc Drug Dose 10.8 ml/min Estimated GFR () 9.0 Estimated GFR (Non- 7.8 BUN/Creatinine Ratio 10.9 Random Glucose 79 mg/dl Calcium Level 8.5 mg/dl Prothrombin Time 15.9 SECONDS Prothromb Time International Ratio 1.5 Assessment & Plan FARRUKH ON AKD STAGE III - likely related to overdiuresis - presenting with creat 5.3 - Creatine was 1.1 on 09/05 (day of discharge) - Creatine continue to increase from 6 to 6.6 today - Cases discussed with Dr. Lyles that recommended to continue albumin 25gm q6h with IVF NS - Continue IVF - Will monitor closely for volume overload - Continue monitor BMP - Continue hold lasix and spironolactone - Vascular was consulted for permcath for HD - Pt will go for perm cath tomorrow - Plan for temp HD. - Avoid nephrotoxic agents B/L LE EDEMA Not in failure Saturated on RA at 100% Cxr negative monitor I/O swelling slightly improved Stable BRADYCARDIA - likely due to inability to metabolize Nadolol with FARRUKH - Asymptomatic - will put a parameter for the beta gino to hold if HR less than 60 - Continue monitor in Telemetry - Stable LIVER CIRRHOSIS Continue Lactulose, rifaximin and propranolol ammonia level 41 Asymptomatic Abdominal is distended GI wanted him to get paracentesis done in the last exam but pt refused the last time will talk to him about paracentesis THROMBOCYTOPENIA - due to underlying liver disease - Platelet 62 - no signs of bleeding, platelets at baseline CODE STATUS DNR as per patient and Daughter DVT PROPHYLAXIS - SCDs due to thrombocytopenia Consultants: Nephrology Vascular Current Inpatient Medications: Current Inpatient Medications Medications (Trade) Dose Ordered Sig/Elias Route Start Time Stop Time Status Last Admin Dose Admin Cholecalciferol (Vitamin D Tab) 2,000 inter.unit DAILY PO 09/13/16 09:00 10/13/16 08:59 09/15/16 08:21 2,000 INTER.UNIT Dorzolamide HCl (Trusopt 2% Oph Soln) 1 drops BID OPB 09/12/16 21:00 10/12/16 20:59 09/15/16 08:19 1 DROPS Levothyroxine Sodium (Synthroid Tab) 200 mcg DAILYBB PO 09/13/16 06:00 10/13/16 05:59 09/15/16 06:32 200 MCG Nadolol (Corgard Tab) 20 mg QAM PO 09/13/16 09:00 10/13/16 08:59 09/15/16 08:21 20 MG Rifaximin (Xifaxan Tab) 550 mg BID PO 09/12/16 21:00 10/12/16 20:59 09/15/16 08:21 550 MG Simvastatin (Zocor Tab) 40 mg QPM PO 09/12/16 21:00 10/12/16 20:59 09/14/16 21:00 40 MG Ferrous Sulfate (Feosol Tab) 325 mg QAM PO 09/13/16 09:00 10/13/16 08:59 09/15/16 08:20 325 MG Pantoprazole Sodium (Protonix Tab) 40 mg BID PO 09/12/16 21:00 10/12/16 20:59 09/15/16 08:20 40 MG Albumin Human (Albumin 25%) 25 gm Q6H IV 09/13/16 04:00 09/16/16 03:59 09/15/16 10:14 25 GM Lactulose (Chronulac Syrup) 20 gm DAILY@1400 PO 09/13/16 14:00 10/13/16 13:59 09/15/16 14:33 20 GM Sodium Chloride 1,000 ml @ 125 mls/hr Q8H IV 09/14/16 10:15 10/14/16 10:14 09/15/16 11:52 125 MLS/HR Cefazolin Sodium 55 ml @ 100 mls/hr PREOP IV 09/16/16 06:00 09/16/16 18:00
[2016-09-15 19:37] VITALS: BP 105/69; PULSE 59; TEMP 36.4; O2SAT 96
[2016-09-15] MEDS: SIMVASTATIN 40 MG TAB PO SCH (20:45)
[2016-09-16] VITALS (7 sets, daily range): BP systolic 86–111; BP diastolic 48–70; PULSE 55–76; TEMP 36.4–36.9; O2SAT 95–98
[2016-09-16] MEDS: SODIUM CHLORIDE 0.9% 1000ML 1,000 ML IV SCH ×3 (05:32→17:54)
[2016-09-16] MEDS ORDERED: CEFAZOLIN SOD 1000MG/55 ML D5W IV ONE (06:00)
[2016-09-16] MEDS ORDERED: CEFAZOLIN 1000MG/55 ML D5W IV SCH (06:00)
[2016-09-16] MEDS: LEVOTHYROXINE 200 MCG TAB PO SCH ×2 (06:00→11:25)
[2016-09-16 06:30] LABS: MEAN CELL VOLUME 90.1 fL (80-100); MEAN CORPUSCULAR HEMOGLOBIN 29.8 pg (25-34); MEAN CORPUSCULAR HGB CONC 33.1 g/dl (32-36); RED BLOOD COUNT 3.22 M/uL (4.7-6.1); WHITE BLOOD COUNT 5.47 K/uL (4.8-10.8)
[2016-09-16 06:31] LABS: MEAN PLATELET VOLUME 10.7 fL (7.4-10.4); PLATELET COUNT 54 K/uL (130-400)
[2016-09-16 07:08] LABS: CALCIUM 8.9 mg/dl (8.5-10.1); CREATININE 4.2 mg/dl (0.60-1.40); POTASSIUM 4.9 mmol/L (3.5-5.1)
--- NOTE | 2016-09-16 07:21 | Nephrology Progress Note ---
Nephrology Progress Note Date of Service: Sep 16, 2016. Subjective 71 yo male with mary in setting of liver disease and was npo for a tunneled line this morning. last night, found to have urinary retention on bladder scan and placed ventura and had significan urine output. pt feels much more comfortable and slept very well. now with jes hematuria. Objective Date Time Temp Pulse Resp B/P (MAP) Pulse Ox O2 Delivery O2 Flow Rate FiO2 09/16/16 04:00 Room Air 09/16/16 03:57 36.5 62 18 107/58 (74) 95 Room Air 09/16/16 00:01 36.4 63 18 103/60 (74) 95 Room Air 09/16/16 00:00 Room Air 09/15/16 20:00 Room Air 09/15/16 19:37 36.4 59 20 105/69 (81) 96 Room Air 09/15/16 16:00 Room Air 09/15/16 15:26 36.6 53 20 110/66 (81) 97 Room Air 09/15/16 12:00 Room Air 09/15/16 12:00 36.5 98 19 93/58 (70) 98 Room Air 09/15/16 08:00 Room Air 09/15/16 07:53 36.6 58 16 93/53 (66) 97 Room Air Physical Exam: General-aaox3, cachectic Eyes-no scleral icterus ENT-mmm Neck-supple Lungs-cta Heart-regular Abdomen-less distended, +umbilical hernia Extremities-mild edema Neuro-nonfocal Current Inpatient Medications Medications (Trade) Dose Ordered Sig/Elias Route Start Time Stop Time Status Last Admin Dose Admin Cholecalciferol (Vitamin D Tab) 2,000 inter.unit DAILY PO 09/13/16 09:00 10/13/16 08:59 09/15/16 08:21 2,000 INTER.UNIT Dorzolamide HCl (Trusopt 2% Oph Soln) 1 drops BID OPB 09/12/16 21:00 10/12/16 20:59 09/15/16 20:46 1 DROPS Levothyroxine Sodium (Synthroid Tab) 200 mcg DAILYBB PO 09/13/16 06:00 10/13/16 05:59 09/15/16 06:32 200 MCG Nadolol (Corgard Tab) 20 mg QAM PO 09/13/16 09:00 10/13/16 08:59 09/15/16 08:21 20 MG Rifaximin (Xifaxan Tab) 550 mg BID PO 09/12/16 21:00 10/12/16 20:59 09/15/16 20:45 550 MG Simvastatin (Zocor Tab) 40 mg QPM PO 09/12/16 21:00 10/12/16 20:59 09/15/16 20:45 40 MG Ferrous Sulfate (Feosol Tab) 325 mg QAM PO 09/13/16 09:00 10/13/16 08:59 09/15/16 08:20 325 MG Pantoprazole Sodium (Protonix Tab) 40 mg BID PO 09/12/16 21:00 10/12/16 20:59 09/15/16 20:45 40 MG Lactulose (Chronulac Syrup) 20 gm DAILY@1400 PO 09/13/16 14:00 10/13/16 13:59 09/15/16 14:33 20 GM Sodium Chloride 1,000 ml @ 125 mls/hr Q8H IV 09/14/16 10:15 10/14/16 10:14 09/16/16 05:32 125 MLS/HR Cefazolin Sodium 55 ml @ 100 mls/hr PREOP IV 09/16/16 06:00 09/16/16 18:00 Last 24 Hours Test 09/15/16 07:33 09/15/16 17:50 09/16/16 05:44 Prothrombin Time 15.9 SECONDS Prothromb Time International Ratio 1.5 Urine Random Sodium 47 mEq/L White Blood Count 5.47 K/uL Red Blood Count 3.22 M/uL Hemoglobin 9.6 g/dL Hematocrit 29.0 % Mean Corpuscular Volume 90.1 fL Mean Corpuscular Hemoglobin 29.8 pg Mean Corpuscular Hemoglobin Concent 33.1 g/dl RDW Standard Deviation 57.0 fL RDW Coefficient of Variation 17.4 % Platelet Count 54 K/uL Mean Platelet Volume 10.7 fL Sodium Level 147 mmol/L Potassium Level 4.9 mmol/L Chloride Level 121 mmol/L Carbon Dioxide Level 17 mmol/L Anion Gap 9.0 mmol/L Blood Urea Nitrogen 59 mg/dl Creatinine 4.20 mg/dl Est Creatinine Clear Calc Drug Dose 17.0 ml/min Estimated GFR () 15.5 Estimated GFR (Non- 13.4 BUN/Creatinine Ratio 14.0 Random Glucose 79 mg/dl Calcium Level 8.9 mg/dl Assessment & Plan [id number] in the setting of liver disease. on albumin and iv fluids. tunneled line procedure cancelled. creatinine improving and leg edema much better. hopefully creatinine eventually improves back to baseline. urology-pt with jes hematuria, may have been traumatic ventura vs low platelets contributing to the hematuria. will consult urology for their opinion. may benefit from bladder irrigation.
[2016-09-16] MEDS: PANTOprazole SOD 40 MG TAB PO SCH ×2 (07:48→20:35)
[2016-09-16] MEDS: FERROUS SULFATE 325 MG TAB PO SCH ×2 (07:48→20:34)
[2016-09-16] MEDS: NADOLOL 40 MG TAB PO SCH (07:49)
[2016-09-16] MEDS: DORZOLAMIDE HCL 2% OPH SOLN 10 ML BTL OPB SCH ×2 (07:50→20:32)
[2016-09-16] MEDS: RIFAXIMIN TAB 550 MG TAB PO SCH ×2 (07:50→20:34)
[2016-09-16] MEDS: CHOLECALCIFEROL 1000 INTER.UNIT TAB PO SCH (07:50)
[2016-09-16 08:21] LABS: HEPATITIS B AB NEG
--- NOTE | 2016-09-16 08:58 | Progress Note ---
Internal Med Progress Note Date of Service: Sep 16, 2016. Provider Documentation: SUBJECTIVE: Seen and examined at bedside. States having hematuria. Denies any abdominal pain, Chest pain, SOB, nausea, vomiting. Family at bedside Refuses to get paracentesis OBJECTIVE: Vital Signs-as noted below Physical Exam: General Appearance:Chronically ill appearing. no apparent distress Head: normocephalic, Atraumatic Eyes: normal inspection, EOMI, PERRL Neck: supple, Trachea midline Respiratory/Chest: Normal breath sounds, CTA Cardiovascular: S1, S2, No murmur Abdomen/GI:Soft, Non tender, Bowel sounds present, +distended, Umbilical hernia Extremities/Musculoskelatal:normal inspection, B/L LE edema Neurologic/Psych:AAOX3, grossly no focal neurological deficits Skin: normal color, warm Lab data as noted below. ASSESSMENT & PLAN: FARRUKH ON AKD STAGE III presented with Cr: 5.3 Cr: 4.2 today On IVF, albumin Nephrology on board Monitor renal function Continue to hold Lasix and spironolactone Vascular consulted for perm cath for HD: held the procedure for today Avoid nephrotoxic agents URINARY RETENTION/HEMATURIA Urology consulted for possible bladder Irrigation Platelets: 54 Will transfuse platelets if less than 50,000 B/L LE EDEMA Likely secondary to hepatic/renal failure Saturating well on RA CXR: negative monitor I/O Monitor BRADYCARDIA likely due to inability to metabolize Nadolol with FARRUKH Asymptomatic Hold Nadolol if HR less than 60 Continue monitor in Telemetry Stable LIVER CIRRHOSIS Continue Lactulose, rifaximin and BB Last ammonia level 41 Asymptomatic Abdominal is distended GI wanted him to get paracentesis but pt refused (Discussed today) THROMBOCYTOPENIA due to underlying liver disease Platelet 54 Will transfuse PRN CODE STATUS DNR as per patient and Daughter DVT PX SCDs due to thrombocytopenia Consultants: Nephrology Vascular Urology Vital Signs: Date Time Temp Pulse Resp B/P (MAP) Pulse Ox O2 Delivery O2 Flow Rate FiO2 09/16/16 07:50 36.5 56 22 100/48 (65) 95 Room Air 09/16/16 04:00 Room Air 09/16/16 03:57 36.5 62 18 107/58 (74) 95 Room Air 09/16/16 00:01 36.4 63 18 103/60 (74) 95 Room Air 09/16/16 00:00 Room Air 09/15/16 20:00 Room Air 09/15/16 19:37 36.4 59 20 105/69 (81) 96 Room Air 09/15/16 16:00 Room Air 09/15/16 15:26 36.6 53 20 110/66 (81) 97 Room Air 09/15/16 12:00 Room Air 09/15/16 12:00 36.5 98 19 93/58 (70) 98 Room Air Lab Results: Results Past 24 Hours Test 09/15/16 17:50 09/16/16 05:44 Range/Units Urine Random Sodium 47 mEq/L White Blood Count 5.47 4.8-10.8 K/uL Red Blood Count 3.22 4.7-6.1 M/uL Hemoglobin 9.6 14.0-18.0 g/dL Hematocrit 29.0 42-52 % Mean Corpuscular Volume 90.1 80-100 fL Mean Corpuscular Hemoglobin 29.8 25-34 pg Mean Corpuscular Hemoglobin Concent 33.1 32-36 g/dl RDW Standard Deviation 57.0 36.4-46.3 fL RDW Coefficient of Variation 17.4 11.5-14.5 % Platelet Count 54 130-400 K/uL Mean Platelet Volume 10.7 7.4-10.4 fL Sodium Level 147 136-145 mmol/L Potassium Level 4.9 3.5-5.1 mmol/L Chloride Level 121 98-107 mmol/L Carbon Dioxide Level 17 21-32 mmol/L Anion Gap 9.0 3-11 mmol/L Blood Urea Nitrogen 59 7-18 mg/dl Creatinine 4.20 0.60-1.40 mg/dl Est Creatinine Clear Calc Drug Dose 17.0 ml/min Estimated GFR () 15.5 Estimated GFR (Non- 13.4 BUN/Creatinine Ratio 14.0 10-20 Random Glucose 79 70-99 mg/dl Calcium Level 8.9 8.5-10.1 mg/dl Hepatitis B Surface Antigen NEG NEG Hepatitis B Surface Antibody NEG
[2016-09-16] MEDS ORDERED: LORAZEPAM 0.5 MG TAB PO ONE (09:15)
[2016-09-16] MEDS: LACTULOSE SYRUP 20 GM/30 ML UDC PO SCH (13:47)
--- NOTE | 2016-09-16 16:46 | Urology Consultation ---
History General Date of Service: Sep 16, 2016. Chief Complaint: urinary retention Primary Care Physician: Gildardo Casiano D.O. Pt seen a urologist before?: No History of Present Illness I am asked by Dr Lyles to evaluate and treat patient for urinary retention. He was admitted with renal failure and was initially responding to fluids for a pre -renal type picture. Then today was discovered to have urinary retention and a ventura was placed and he has drained large amounts since. he had a few hours of grossly bloody urine which has since cleared. The patient is quite surprised to learn he was in urinary retention because he has noted no decline in his urinary function. His physical exam and bladder scans are very complicated due to advanced liver disease and chronic ascites Laboratory Results Past 24 Hours Test 09/15/16 17:50 09/16/16 05:44 Range/Units Urine Random Sodium 47 mEq/L White Blood Count 5.47 4.8-10.8 K/uL Red Blood Count 3.22 4.7-6.1 M/uL Hemoglobin 9.6 14.0-18.0 g/dL Hematocrit 29.0 42-52 % Mean Corpuscular Volume 90.1 80-100 fL Mean Corpuscular Hemoglobin 29.8 25-34 pg Mean Corpuscular Hemoglobin Concent 33.1 32-36 g/dl RDW Standard Deviation 57.0 36.4-46.3 fL RDW Coefficient of Variation 17.4 11.5-14.5 % Platelet Count 54 130-400 K/uL Mean Platelet Volume 10.7 7.4-10.4 fL Sodium Level 147 136-145 mmol/L Potassium Level 4.9 3.5-5.1 mmol/L Chloride Level 121 98-107 mmol/L Carbon Dioxide Level 17 21-32 mmol/L Anion Gap 9.0 3-11 mmol/L Blood Urea Nitrogen 59 7-18 mg/dl Creatinine 4.20 0.60-1.40 mg/dl Est Creatinine Clear Calc Drug Dose 17.0 ml/min Estimated GFR () 15.5 Estimated GFR (Non- 13.4 BUN/Creatinine Ratio 14.0 10-20 Random Glucose 79 70-99 mg/dl Calcium Level 8.9 8.5-10.1 mg/dl Hepatitis B Surface Antigen NEG NEG Hepatitis B Surface Antibody NEG Labs were reviewed and are within normal limits unless listed below. 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 ) Allergies Coded Allergies: No Known Allergies (Verified , 09/12/16) Medications Home Medications: Home Meds and Scripts Medications Dose Route/Sig Max Daily Dose Days Date Category Prilosec (Omeprazole) 20 Mg Capcr 40 Mg PO BID 09/12/16 Reported Trusopt (Dorzolamide Hcl) 2 % Shannon 1 Drop OPB BID 09/12/16 Reported Zocor (Simvastatin) 40 Mg Tab 40 Mg PO QPM 09/01/16 Reported Aldactone (Spironolactone) 25 Mg Tab 25 Mg PO HS 09/01/16 Reported Xifaxan (Rifaximin) 550 Mg Tab 550 Mg PO BID 09/01/16 Reported Corgard (Nadolol) 20 Mg Tab 20 Mg PO QAM 09/01/16 Reported Lactulose 20 Gm/30 Ml Syrp 20 Gm PO DAILY 30 08/14/16 Rx Vitamin D3 (Cholecalciferol) 1,000 Unit Tab 2,000 Units PO DAILY 08/14/16 Reported Ferrous Sulfate 324 Mg Tab 324 Mg PO QAM 08/14/16 Reported Synthroid (Levothyroxine Sodium) 200 Mcg Tab 200 Mcg PO QAM 08/14/16 Reported Lasix (Furosemide) 20 Mg Tab 20 Mg PO QAM 09/28/14 Reported Inpatient Medications: Current Inpatient Medications Medications (Trade) Dose Ordered Sig/Elias Route Start Time Stop Time Status Last Admin Dose Admin Cholecalciferol (Vitamin D Tab) 2,000 inter.unit DAILY PO 09/13/16 09:00 10/13/16 08:59 09/16/16 07:50 2,000 INTER.UNIT Dorzolamide HCl (Trusopt 2% Oph Soln) 1 drops BID OPB 09/12/16 21:00 10/12/16 20:59 09/16/16 07:50 1 DROPS Levothyroxine Sodium (Synthroid Tab) 200 mcg DAILYBB PO 09/13/16 06:00 10/13/16 05:59 09/16/16 11:25 200 MCG Nadolol (Corgard Tab) 20 mg QAM PO 09/13/16 09:00 10/13/16 08:59 09/16/16 07:49 20 MG Rifaximin (Xifaxan Tab) 550 mg BID PO 09/12/16 21:00 10/12/16 20:59 09/16/16 07:50 550 MG Simvastatin (Zocor Tab) 40 mg QPM PO 09/12/16 21:00 10/12/16 20:59 09/15/16 20:45 40 MG Ferrous Sulfate (Feosol Tab) 325 mg QAM PO 09/13/16 09:00 10/13/16 08:59 09/16/16 07:48 325 MG Pantoprazole Sodium (Protonix Tab) 40 mg BID PO 09/12/16 21:00 10/12/16 20:59 09/16/16 07:48 40 MG Lactulose (Chronulac Syrup) 20 gm DAILY@1400 PO 09/13/16 14:00 10/13/16 13:59 09/16/16 13:47 20 GM Sodium Chloride 1,000 ml @ 125 mls/hr Q8H IV 09/14/16 10:15 10/14/16 10:14 09/16/16 11:26 125 MLS/HR Cefazolin Sodium 55 ml @ 100 mls/hr PREOP IV 09/16/16 06:00 09/16/16 18:00 Review of Systems Review of Systems Constitutional: + weight loss, No fever, No chills Neurological: + dizzy Endocrine: No excessive thirst Gastrointestinal: + abdominal pain, + nausea, + problem reported (chronic distention from ascites) Cardiovascular: + swelling ankles/feet Respiratory: + shortness of breath, + chronic cough Blood / Lymphatic: + bleed easily, + bruise easily Male : + blood in urine, + nocturia more than once/night, No frequent urination, No weak stream Physical Exam Vital Signs: Vital Signs Past 12 Hours Date Time Temp Pulse Resp B/P (MAP) Pulse Ox O2 Delivery O2 Flow Rate FiO2 09/16/16 16:00 Room Air 09/16/16 15:10 36.4 55 18 110/67 (81) 98 Room Air 09/16/16 12:13 36.6 55 20 86/51 (63) 97 Room Air 09/16/16 12:05 Room Air 09/16/16 08:00 Room Air 09/16/16 07:50 36.5 56 22 100/48 (65) 95 Room Air Physical Exam: General Appearance: WD/WN, no apparent distress, + thin Eyes: bilateral eyes normal inspection ENT: hearing grossly normal Neck: supple, trachea midline Respiratory/Chest: no accessory muscle use Gastrointestinal: Abdomen: rigidity, pertinent finding (very distended with a large umbilical hernia under pressure from ascites) Bladder: normal bladder (cant palpate any abdominal contents due to tense ascites) Genitourinary - Male: Penis: normal penis Anus / Perineum: normal anus/perineum Sphincter Tone: normal sphincter tone Prostate: size (40 grams) Extremities: non-tender, no calf tenderness, + pedal edema Neurologic/Psychiatric: alert, normal mood/affect, oriented x 3 Skin: normal color, warm/dry, no rash Lymphatic: no adenopathy Assessment & Plan Assessment & Plan acute urinary retention with renal failure keep ventura next several weeks will need to see him at [facility] urology clinic for management of catheter I am optimistic renal function will improve with catheter. perhaps port can be delayed a few days gross hematuria resolved. I suspect it was just a decompression hemorrhage
[2016-09-16 17:56] LABS: HEMATOCRIT 33.2 % (42-52)
[2016-09-16 18:19] LABS: PLATELET COUNT 78 K/uL (130-400)
[2016-09-16] MEDS: SIMVASTATIN 40 MG TAB PO SCH (20:35)
[2016-09-17] VITALS (11 sets, daily range): BP systolic 93–117; BP diastolic 45–72; PULSE 56–63; TEMP 36.5–36.8; O2SAT 97–99
[2016-09-17] MEDS: SODIUM CHLORIDE 0.9% 1000ML 1,000 ML IV SCH ×2 (02:03→12:05)
[2016-09-17] MEDS: LEVOTHYROXINE 200 MCG TAB PO SCH (05:43)
[2016-09-17 06:54] LABS: HEMATOCRIT 31.8 % (42-52); MEAN CELL VOLUME 90.1 fL (80-100); MEAN CORPUSCULAR HGB CONC 33.3 g/dl (32-36); RED BLOOD COUNT 3.53 M/uL (4.7-6.1); WHITE BLOOD COUNT 6.37 K/uL (4.8-10.8)
[2016-09-17 06:55] LABS: MEAN PLATELET VOLUME 11.8 fL (7.4-10.4); PLATELET COUNT 68 K/uL (130-400)
[2016-09-17 07:21] LABS: BASO % 1.4 %; BASO ABS # 0.09 K/uL (0-0.2); COMPLETE YES; ECHINOCYTES 1+; EOS % 6.1 %; IG% 0.3 %; LYMPH % 11.8 %; LYMPH ABS # 0.75 K/uL (1.2-3.4); MONO % 9.4 %; OVALOCYTES 1+
[2016-09-17 07:24] LABS: BUN/CREATININE RATIO 20.6 (10-20); CALCIUM 8.6 mg/dl (8.5-10.1); CREATININE 2.1 mg/dl (0.60-1.40); POTASSIUM 4.3 mmol/L (3.5-5.1)
[2016-09-17] MEDS: RIFAXIMIN TAB 550 MG TAB PO SCH ×2 (09:48→20:59)
[2016-09-17] MEDS: DORZOLAMIDE HCL 2% OPH SOLN 10 ML BTL OPB SCH ×2 (09:48→20:58)
[2016-09-17] MEDS: PANTOprazole SOD 40 MG TAB PO SCH ×2 (09:48→20:58)
[2016-09-17] MEDS: NADOLOL 40 MG TAB PO SCH (09:48)
[2016-09-17] MEDS: CHOLECALCIFEROL 1000 INTER.UNIT TAB PO SCH (09:49)
--- NOTE | 2016-09-17 11:43 | Progress Note ---
Internal Med Progress Note Date of Service: Sep 17, 2016. Provider Documentation: SUBJECTIVE: Seen and examined at bedside. States hematuria resolved. Denies any abdominal pain, Chest pain, SOB, nausea, vomiting. Family at bedside No new complaints. OBJECTIVE: Vital Signs-as noted below Physical Exam: General Appearance:Chronically ill appearing. no apparent distress Head: normocephalic, Atraumatic Eyes: normal inspection, EOMI, PERRL Neck: supple, Trachea midline Respiratory/Chest: Normal breath sounds, CTA Cardiovascular: S1, S2, No murmur Abdomen/GI:Soft, Non tender, Bowel sounds present, +distended, Umbilical hernia Extremities/Musculoskelatal:normal inspection, B/L LE edema Neurologic/Psych:AAOX3, grossly no focal neurological deficits Skin: normal color, warm Lab data as noted below. ASSESSMENT & PLAN: FARRUKH ON AKD STAGE III presented with Cr: 5.3 Cr: 2.1 today On IVF decrease to 75/Hr today S/P albumin Nephrology on board Monitor renal function Continue to hold Lasix and spironolactone for now Vascular consulted for perm cath for HD: procedure can be delayed since has continued improvement of renal function Avoid nephrotoxic agents URINARY RETENTION/HEMATURIA Appreciate Urology Input Plan to continue catheter for few days Need follow up with Urology as outpatient Hematuria resolved Monitor platelets Will transfuse platelets if less than 50,000 and Hematuria reoccurs B/L LE EDEMA Likely secondary to hepatic/renal failure Saturating well on RA CXR: negative monitor I/O Monitor BRADYCARDIA likely due to inability to metabolize Nadolol with FARRUKH Asymptomatic Hold Nadolol if HR less than 60 Continue monitor in Telemetry Stable LIVER CIRRHOSIS Continue Lactulose, rifaximin and BB Last ammonia level 41 Asymptomatic Abdominal is distended GI wanted him to get paracentesis but pt refused on multiple occasions THROMBOCYTOPENIA due to underlying liver disease Platelet 68 today Will transfuse PRN CODE STATUS DNR as per patient and Daughter DVT PX SCDs due to thrombocytopenia Consultants: Nephrology Vascular Urology Vital Signs: Date Time Temp Pulse Resp B/P (MAP) Pulse Ox O2 Delivery O2 Flow Rate FiO2 09/17/16 11:20 36.6 56 20 101/65 (77) 98 Room Air 09/17/16 07:20 36.5 57 20 107/65 (79) 97 Room Air 09/17/16 04:00 Room Air 09/17/16 03:55 36.6 62 18 104/53 (70) 97 Room Air 09/17/16 00:02 36.7 63 18 97/45 (62) 97 Room Air 09/17/16 00:01 Room Air 09/16/16 20:29 36.9 59 18 111/70 (84) 97 Room Air 09/16/16 20:00 Room Air 09/16/16 16:00 Room Air 09/16/16 15:10 36.4 55 18 110/67 (81) 98 Room Air 09/16/16 12:13 36.6 55 20 86/51 (63) 97 Room Air 09/16/16 12:05 Room Air Lab Results: Results Past 24 Hours Test 09/16/16 17:33 09/17/16 06:31 Range/Units Hemoglobin 11.0 10.6 14.0-18.0 g/dL Hematocrit 33.2 31.8 42-52 % Platelet Count 78 68 130-400 K/uL White Blood Count 6.37 4.8-10.8 K/uL Red Blood Count 3.53 4.7-6.1 M/uL Mean Corpuscular Volume 90.1 80-100 fL Mean Corpuscular Hemoglobin 30.0 25-34 pg Mean Corpuscular Hemoglobin Concent 33.3 32-36 g/dl Mean Platelet Volume 11.8 7.4-10.4 fL Neutrophils (%) (Auto) 71.0 % Lymphocytes (%) (Auto) 11.8 % Monocytes (%) (Auto) 9.4 % Eosinophils (%) (Auto) 6.1 % Basophils (%) (Auto) 1.4 % Neutrophils # (Auto) 4.52 1.4-6.5 K/uL Lymphocytes # (Auto) 0.75 1.2-3.4 K/uL Monocytes # (Auto) 0.60 0.11-0.59 K/uL Eosinophils # (Auto) 0.39 0-0.5 K/uL Basophils # (Auto) 0.09 0-0.2 K/uL RDW Standard Deviation 57.7 36.4-46.3 fL RDW Coefficient of Variation 17.6 11.5-14.5 % Immature Granulocyte % (Auto) 0.3 % Immature Granulocyte # (Auto) 0.02 0.00-0.02 K/uL Ovalocytes 1+ Echinocytes 1+ Sodium Level 147 136-145 mmol/L Potassium Level 4.3 3.5-5.1 mmol/L Chloride Level 124 98-107 mmol/L Carbon Dioxide Level 17 21-32 mmol/L Anion Gap 6.0 3-11 mmol/L Blood Urea Nitrogen 43 7-18 mg/dl Creatinine 2.10 0.60-1.40 mg/dl Est Creatinine Clear Calc Drug Dose 34.3 ml/min Estimated GFR () 35.9 Estimated GFR (Non- 31.0 BUN/Creatinine Ratio 20.6 10-20 Random Glucose 81 70-99 mg/dl Calcium Level 8.6 8.5-10.1 mg/dl
[2016-09-17] MEDS: LACTULOSE SYRUP 20 GM/30 ML UDC PO SCH (12:07)
[2016-09-17] MEDS: SIMVASTATIN 40 MG TAB PO SCH (20:58)
[2016-09-18] VITALS (8 sets, daily range): BP systolic 88–113; BP diastolic 57–72; PULSE 61–69; TEMP 36.4–36.9; O2SAT 96–100
[2016-09-18] MEDS: LEVOTHYROXINE 200 MCG TAB PO SCH (05:40)
[2016-09-18] MEDS: SODIUM CHLORIDE 0.9% 1000ML 1,000 ML IV SCH (05:40)
[2016-09-18 07:50] LABS: HEMATOCRIT 32.8 % (42-52); MEAN CELL VOLUME 89.9 fL (80-100); MEAN CORPUSCULAR HGB CONC 32.3 g/dl (32-36); RED BLOOD COUNT 3.65 M/uL (4.7-6.1); WHITE BLOOD COUNT 7.19 K/uL (4.8-10.8)
[2016-09-18] MEDS: DORZOLAMIDE HCL 2% OPH SOLN 10 ML BTL OPB SCH ×2 (07:52→20:51)
[2016-09-18] MEDS: PANTOprazole SOD 40 MG TAB PO SCH ×2 (07:53→20:51)
[2016-09-18] MEDS: FERROUS SULFATE 325 MG TAB PO SCH (07:53)
[2016-09-18] MEDS: NADOLOL 40 MG TAB PO SCH (07:54)
[2016-09-18] MEDS: RIFAXIMIN TAB 550 MG TAB PO SCH ×2 (07:54→20:52)
[2016-09-18] MEDS: CHOLECALCIFEROL 1000 INTER.UNIT TAB PO SCH (07:54)
[2016-09-18 07:59] LABS: MEAN PLATELET VOLUME 11.5 fL (7.4-10.4); PLATELET COUNT 74 K/uL (130-400)
[2016-09-18 08:25] LABS: BASO % 0.7 %; BASO ABS # 0.05 K/uL (0-0.2); COMPLETE YES; ECHINOCYTES 2+; IG% 0.4 %; LYMPH % 11.4 %; LYMPH ABS # 0.82 K/uL (1.2-3.4); MONO % 9.9 %; NEUT % 70.6 %; OVALOCYTES 1+
[2016-09-18 08:27] LABS: BUN/CREATININE RATIO 24.7 (10-20); CALCIUM 8.8 mg/dl (8.5-10.1); CREATININE 1.6 mg/dl (0.60-1.40); POTASSIUM 4.4 mmol/L (3.5-5.1)
--- NOTE | 2016-09-18 09:03 | Progress Note ---
Internal Med Progress Note Date of Service: Sep 18, 2016. Provider Documentation: SUBJECTIVE: Seen and examined at bedside. Reports more abdominal distention. Hematuria resolved. Denies any abdominal pain, Chest pain, SOB, nausea, vomiting. Family at bedside Agrees for possible abdominal paracentesis after long discussion with patient and family. OBJECTIVE: Vital Signs-as noted below Physical Exam: General Appearance:Chronically ill appearing. no apparent distress Head: normocephalic, Atraumatic Eyes: normal inspection, EOMI, PERRL Neck: supple, Trachea midline Respiratory/Chest: Normal breath sounds, CTA Cardiovascular: S1, S2, No murmur Abdomen/GI:Soft, Non tender, Bowel sounds present, +distended, Umbilical hernia Extremities/Musculoskelatal:normal inspection, B/L LE edema Neurologic/Psych:AAOX3, grossly no focal neurological deficits Skin: normal color, warm Lab data as noted below. ASSESSMENT & PLAN: FARRUKH ON AKD STAGE III presented with Cr: 5.3 Cr:1.6 today Will DC IVF S/P albumin Nephrology on board Monitor renal function Continue to hold Lasix and spironolactone for now Vascular consulted for perm cath for HD: procedure can be delayed since has continued improvement of renal function Avoid nephrotoxic agents URINARY RETENTION/HEMATURIA Appreciate Urology Input Plan to continue catheter for few days Need follow up with Urology as outpatient Hematuria resolved Monitor platelets: stable Will transfuse platelets if less than 50,000 and Hematuria reoccurs B/L LE EDEMA Likely secondary to hepatic/renal failure Saturating well on RA CXR: negative monitor I/O Monitor BRADYCARDIA likely due to inability to metabolize Nadolol with FARRUKH Improved Hold Nadolol if HR less than 60 Continue monitor in Telemetry Stable LIVER CIRRHOSIS ASCITES Continue Lactulose, rifaximin and BB Last ammonia level 41 Asymptomatic Abdominal is distended Patient refused paracentesis on multiple occasions previously and today agrees for possible paracentesis Will consult GI Get abdominal USD THROMBOCYTOPENIA due to underlying liver disease Platelet 74 today Will transfuse PRN CODE STATUS DNR as per patient and Daughter DVT PX SCDs due to thrombocytopenia Consultants: Nephrology Vascular Urology Vital Signs: Date Time Temp Pulse Resp B/P (MAP) Pulse Ox O2 Delivery O2 Flow Rate FiO2 09/18/16 11:00 36.4 61 16 112/72 (85) 100 Room Air 09/18/16 07:48 36.8 64 18 103/66 (78) 97 Room Air 09/18/16 04:00 96 Room Air 09/18/16 03:47 36.9 67 20 103/63 (76) 96 Room Air 09/18/16 00:01 97 Room Air 09/17/16 23:00 36.8 16 93/53 (66) 97 Room Air 09/17/16 20:00 99 Room Air 09/17/16 19:11 36.7 63 18 101/65 (77) 99 Room Air 09/17/16 16:00 98 Room Air 09/17/16 15:32 36.6 61 18 117/72 (87) 98 Room Air Lab Results: Results Past 24 Hours Test 09/18/16 07:21 Range/Units White Blood Count 7.19 4.8-10.8 K/uL Red Blood Count 3.65 4.7-6.1 M/uL Hemoglobin 10.6 14.0-18.0 g/dL Hematocrit 32.8 42-52 % Mean Corpuscular Volume 89.9 80-100 fL Mean Corpuscular Hemoglobin 29.0 25-34 pg Mean Corpuscular Hemoglobin Concent 32.3 32-36 g/dl Platelet Count 74 130-400 K/uL Mean Platelet Volume 11.5 7.4-10.4 fL Neutrophils (%) (Auto) 70.6 % Lymphocytes (%) (Auto) 11.4 % Monocytes (%) (Auto) 9.9 % Eosinophils (%) (Auto) 7.0 % Basophils (%) (Auto) 0.7 % Neutrophils # (Auto) 5.08 1.4-6.5 K/uL Lymphocytes # (Auto) 0.82 1.2-3.4 K/uL Monocytes # (Auto) 0.71 0.11-0.59 K/uL Eosinophils # (Auto) 0.50 0-0.5 K/uL Basophils # (Auto) 0.05 0-0.2 K/uL RDW Standard Deviation 58.0 36.4-46.3 fL RDW Coefficient of Variation 17.7 11.5-14.5 % Immature Granulocyte % (Auto) 0.4 % Immature Granulocyte # (Auto) 0.03 0.00-0.02 K/uL Ovalocytes 1+ Echinocytes 2+ Sodium Level 147 136-145 mmol/L Potassium Level 4.4 3.5-5.1 mmol/L Chloride Level 123 98-107 mmol/L Carbon Dioxide Level 18 21-32 mmol/L Anion Gap 6.0 3-11 mmol/L Blood Urea Nitrogen 40 7-18 mg/dl Creatinine 1.60 0.60-1.40 mg/dl Est Creatinine Clear Calc Drug Dose 47.2 ml/min Estimated GFR () 49.9 Estimated GFR (Non- 43.0 BUN/Creatinine Ratio 24.7 10-20 Random Glucose 78 70-99 mg/dl Calcium Level 8.8 8.5-10.1 mg/dl
[2016-09-18] MEDS ORDERED: SODIUM CHLORIDE 0.45% 1000ML 1,000 ML IV SCH (11:00)
--- NOTE | 2016-09-18 11:35 | DIAGNOSTIC IMAGING REPORT ---
ASCITES-ABDOMEN LIMITED CLINICAL HISTORY: Ascites renal failure TECHNIQUE: Survey abdominal ultrasound COMPARISON STUDY: None FINDINGS: Mild abdominal and pelvic ascites. IMPRESSION: Mild abdominal and pelvic ascites The above report was generated using voice recognition software. It may contain grammatical, syntax or spelling errors. Electronically signed by: Matt Trejo M.D. 09/18/2016 11:33 AM Dictated Date/Time: 09/18/2016 11:32 AM
--- NOTE | 2016-09-18 11:40 | Nephrology Progress Note ---
Nephrology Progress Note Date of Service: Sep 18, 2016. Subjective Abd discomfort from ascites Objective Date Time Temp Pulse Resp B/P (MAP) Pulse Ox O2 Delivery O2 Flow Rate FiO2 09/18/16 11:00 36.4 61 16 112/72 (85) 100 Room Air 09/18/16 07:48 36.8 64 18 103/66 (78) 97 Room Air 09/18/16 04:00 96 Room Air 09/18/16 03:47 36.9 67 20 103/63 (76) 96 Room Air 09/18/16 00:01 97 Room Air 09/17/16 23:00 36.8 16 93/53 (66) 97 Room Air 09/17/16 20:00 99 Room Air 09/17/16 19:11 36.7 63 18 101/65 (77) 99 Room Air 09/17/16 16:00 98 Room Air 09/17/16 15:32 36.6 61 18 117/72 (87) 98 Room Air 09/17/16 12:00 98 Room Air Physical Exam: General-[Cachectic] Eyes-[] ENT-[] Neck-[No JVD] Lungs-[Clear] Heart-RRR] Abdomen-[massive ascites] Extremities-[2+ edema.] Neuro-[AAOx3] Current Inpatient Medications Medications (Trade) Dose Ordered Sig/Elias Route Start Time Stop Time Status Last Admin Dose Admin Cholecalciferol (Vitamin D Tab) 2,000 inter.unit DAILY PO 09/13/16 09:00 10/13/16 08:59 09/18/16 07:54 2,000 INTER.UNIT Dorzolamide HCl (Trusopt 2% Oph Soln) 1 drops BID OPB 09/12/16 21:00 10/12/16 20:59 09/18/16 07:52 1 DROPS Levothyroxine Sodium (Synthroid Tab) 200 mcg DAILYBB PO 09/13/16 06:00 10/13/16 05:59 09/18/16 05:40 200 MCG Nadolol (Corgard Tab) 20 mg QAM PO 09/13/16 09:00 10/13/16 08:59 09/18/16 07:54 20 MG Rifaximin (Xifaxan Tab) 550 mg BID PO 09/12/16 21:00 10/12/16 20:59 09/18/16 07:54 550 MG Simvastatin (Zocor Tab) 40 mg QPM PO 09/12/16 21:00 10/12/16 20:59 09/17/16 20:58 40 MG Ferrous Sulfate (Feosol Tab) 325 mg QAM PO 09/13/16 09:00 10/13/16 08:59 09/18/16 07:53 325 MG Pantoprazole Sodium (Protonix Tab) 40 mg BID PO 09/12/16 21:00 10/12/16 20:59 09/18/16 07:53 40 MG Lactulose (Chronulac Syrup) 20 gm DAILY@1400 PO 09/13/16 14:00 10/13/16 13:59 09/17/16 12:07 20 GM Sodium Chloride 1,000 ml @ 50 mls/hr Q20H IV 09/18/16 11:00 10/18/16 10:59 UNV Last 24 Hours Test 09/18/16 07:21 White Blood Count 7.19 K/uL Red Blood Count 3.65 M/uL Hemoglobin 10.6 g/dL Hematocrit 32.8 % Mean Corpuscular Volume 89.9 fL Mean Corpuscular Hemoglobin 29.0 pg Mean Corpuscular Hemoglobin Concent 32.3 g/dl Platelet Count 74 K/uL Mean Platelet Volume 11.5 fL Neutrophils (%) (Auto) 70.6 % Lymphocytes (%) (Auto) 11.4 % Monocytes (%) (Auto) 9.9 % Eosinophils (%) (Auto) 7.0 % Basophils (%) (Auto) 0.7 % Neutrophils # (Auto) 5.08 K/uL Lymphocytes # (Auto) 0.82 K/uL Monocytes # (Auto) 0.71 K/uL Eosinophils # (Auto) 0.50 K/uL Basophils # (Auto) 0.05 K/uL RDW Standard Deviation 58.0 fL RDW Coefficient of Variation 17.7 % Immature Granulocyte % (Auto) 0.4 % Immature Granulocyte # (Auto) 0.03 K/uL Ovalocytes 1+ Echinocytes 2+ Sodium Level 147 mmol/L Potassium Level 4.4 mmol/L Chloride Level 123 mmol/L Carbon Dioxide Level 18 mmol/L Anion Gap 6.0 mmol/L Blood Urea Nitrogen 40 mg/dl Creatinine 1.60 mg/dl Est Creatinine Clear Calc Drug Dose 47.2 ml/min Estimated GFR () 49.9 Estimated GFR (Non- 43.0 BUN/Creatinine Ratio 24.7 Random Glucose 78 mg/dl Calcium Level 8.8 mg/dl Assessment & Plan mary-secondary to urine obstruction and in the setting of liver disease. creatinine improving well and leg edema much better. from 6.6 now down to 1.6 within 3 days. hasf oley with good urine. has some edema and massive abd distension from Ascites. So will d/c iv fluids. for possible ascites tap tomorrow. urology-much less hematuria now. may need Chronic ventura though
--- NOTE | 2016-09-18 13:10 | Medical Consult ---
Consultation Note Date of Service Sep 18, 2016. Consultation Note Reason for consult: Cirrhosis, ascites HPI: 71 yo m with h/o NAFLD cirrhosis. His cirrhosis is complicated by recent admission for HE; he also has a h/o varices for which he receives prophylaxis with beta blockade. he was admitted on 09/12 with complaint of pedal edema, and was found to have renal failure. He was dx'd with pre-renal failure, although his diuretic regimen consisted of lasix 20 daily and aldactone 25 mg daily and his urine NA was high. He was treated with albumin and fluids. He continued to have a rising creat, and was subsequently discovered to have urinary obstruction after he reported hematuria. He had a Amaro placed with fairly prompt improvement in his creatinine. We are now consulted for ascites. He is 10 liters fluid positive since admission, and his weight has increased by 10 Kg since admission. He has remained off diuretics since admission. His creat is near his baseline; he is hypernatremic. Past Medical/Surgical History Medical Problems: (1) Cirrhosis Of Liver Nos Status: Chronic (2) Diverticulosis Colon (W/O Ment Of Hemorrhage) Status: Chronic (3) Esophageal varices Status: Chronic (4) HLD (hyperlipidemia) Status: Chronic (5) Hypertension Nos Status: Chronic (6) Hypothyroidism Nos Status: Chronic Surgical Problems: (1) Cataract Status: Resolved (2) History of hernia surgery Status: Resolved Family History Unobtainable due to patient's condition Social History Smoking Status: Former Smoker Alcohol Use: none Drug Use: none Housing status: lives alone Allergies Coded Allergies: No Known Allergies (Verified , 09/12/16) Inpt meds Cholecalciferol (Vitamin D Tab) 2,000 inter.unit DAILY PO Last administered on 07:54; Admin Dose 2,000 INTER.UNIT; Start 09/13/16 at 09:00; Stop 10/13 at 08:59 Dorzolamide HCl (Trusopt 2% Oph Soln) 1 drops BID OPB Last administered on 07:52; Admin Dose 1 DROPS; Start 09/12/16 at 21:00; Stop 10/12/16 at 20:59 Ferrous Sulfate (Feosol Tab) 325 mg QAM PO Last administered on 09/18/16 07:53 ; Admin Dose 325 MG; Start 09/13/16 at 09:00; Stop 10/13/16 at 08:59 Lactulose (Chronulac Syrup) 20 gm DAILY@1400 PO Last administered on 09/17/16 12:07; Admin Dose 20 GM; Start 09/13/16 at 14:00; Stop 10/13/16 at 13:59 Levothyroxine Sodium (Synthroid Tab) 200 mcg DAILYBB PO Last administered on 05:40; Admin Dose 200 MCG; Start 09/13/16 at 06:00; Stop 10/13/16 at 05: 59 Nadolol (Corgard Tab) 20 mg QAM PO Last administered on 09/18/16 07:54; Admin Dose 20 MG; Start 09/13/16 at 09:00; Stop 10/13/16 at 08:59 Pantoprazole Sodium (Protonix Tab) 40 mg BID PO Last administered on 09/18/16 07:53; Admin Dose 40 MG; Start 09/12/16 at 21:00; Stop 10/12/16 at 20:59 Rifaximin (Xifaxan Tab) 550 mg BID PO Last administered on 09/18/16 07:54; Admin Dose 550 MG; Start 09/12/16 at 21:00; Stop 10/12/16 at 20:59 Simvastatin (Zocor Tab) 40 mg QPM PO Last administered on 09/17/16 20:58; Admin Dose 40 MG; Start 09/12/16 at 21:00; Stop 10/12/16 at 20:59 Home Medications Scheduled Cholecalciferol (Vitamin D3), 2,000 UNITS PO DAILY Dorzolamide Hcl (Trusopt), 1 DROP OPB BID Ferrous Sulfate (Ferrous Sulfate), 324 MG PO QAM Furosemide (Lasix), 20 MG PO QAM Lactulose (Lactulose), 20 GM PO DAILY Levothyroxine Sodium (Synthroid), 200 MCG PO QAM Nadolol (Corgard), 20 MG PO QAM Omeprazole (Prilosec), 40 MG PO BID Rifaximin (Xifaxan), 550 MG PO BID Simvastatin (Zocor), 40 MG PO QPM Spironolactone (Aldactone), 25 MG PO HS Physical Exam Vital Signs Date Time Temp Pulse Resp B/P (MAP) Pulse Ox O2 Delivery O2 Flow Rate FiO2 09/18/16 11:00 36.4 61 16 112/72 (85) 100 Room Air 09/18/16 07:48 36.8 64 18 103/66 (78) 97 Room Air 09/18/16 04:00 96 Room Air 09/18/16 03:47 36.9 67 20 103/63 (76) 96 Room Air 09/18/16 00:01 97 Room Air 09/17/16 23:00 36.8 16 93/53 (66) 97 Room Air 09/17/16 20:00 99 Room Air 09/17/16 19:11 36.7 63 18 101/65 (77) 99 Room Air 09/17/16 16:00 98 Room Air 09/17/16 15:32 36.6 61 18 117/72 (87) 98 Room Air General Appearance: WD/WN, no apparent distress Head: normocephalic, atraumatic Eyes: PERRL, EOMI ENT: hearing grossly normal Neck: supple, no JVD Respiratory/Chest: normal breath sounds, no respiratory distress, no accessory muscle use Cardiovascular: no JVD, + bradycardia Abdomen/GI: normal bowel sounds, non tender, + distended (ascites) Back: no CVA tenderness Extremities/Musculoskelatal: no calf tenderness, + pedal edema (b/l LE) Neurologic/Psych: alert, normal mood/affect, oriented x 3 Skin: warm/dry, no rash Diagnostics Laboratory Results Last 24 Hours Test 09/18/16 07:21 White Blood Count 7.19 K/uL Red Blood Count 3.65 M/uL Hemoglobin 10.6 g/dL Hematocrit 32.8 % Mean Corpuscular Volume 89.9 fL Mean Corpuscular Hemoglobin 29.0 pg Mean Corpuscular Hemoglobin Concent 32.3 g/dl Platelet Count 74 K/uL Mean Platelet Volume 11.5 fL Neutrophils (%) (Auto) 70.6 % Lymphocytes (%) (Auto) 11.4 % Monocytes (%) (Auto) 9.9 % Eosinophils (%) (Auto) 7.0 % Basophils (%) (Auto) 0.7 % Neutrophils # (Auto) 5.08 K/uL Lymphocytes # (Auto) 0.82 K/uL Monocytes # (Auto) 0.71 K/uL Eosinophils # (Auto) 0.50 K/uL Basophils # (Auto) 0.05 K/uL RDW Standard Deviation 58.0 fL RDW Coefficient of Variation 17.7 % Immature Granulocyte % (Auto) 0.4 % Immature Granulocyte # (Auto) 0.03 K/uL Ovalocytes 1+ Echinocytes 2+ Sodium Level 147 mmol/L Potassium Level 4.4 mmol/L Chloride Level 123 mmol/L Carbon Dioxide Level 18 mmol/L Anion Gap 6.0 mmol/L Blood Urea Nitrogen 40 mg/dl Creatinine 1.60 mg/dl Est Creatinine Clear Calc Drug Dose 47.2 ml/min Estimated GFR () 49.9 Estimated GFR (Non- 43.0 BUN/Creatinine Ratio 24.7 Random Glucose 78 mg/dl Calcium Level 8.8 mg/dl A/p: Cirrhosis Admit with post-renal renal failure Now with volume overload secondary to over hydration. - Ok for large volume tap; he must receive albumin evans-procedure to decrease the risk of post-paracentesis circulatory dysfxn. D/C IVF's. Low Na diet. It is not clear to me why he is on such a low dosee of outpt diuretics - would resume lasix 40 / aldactone 100 if ok with renal service, unless there is a contra-indication to this. Would temporarily hold beta blockade until volume status is improved - although hypervolemia may be a risk factor for variceal bleeding, beta blockade may make it difficult to control volume status; this can be resumed once his hypervolemia is better controlled. - He does not have overt HE - cont current dose of lactulose and xifaxan. - Regarding his hypernatremia - I presume that this is due to normal saline infusion and free water deficit; will defer to renal service, but would recommend following without intervention for now.
[2016-09-18] MEDS: LACTULOSE SYRUP 20 GM/30 ML UDC PO SCH (14:00)
[2016-09-18] MEDS: SIMVASTATIN 40 MG TAB PO SCH (20:51)
[2016-09-19 04:30] VITALS: BP 95/59; PULSE 64; TEMP 36.7; O2SAT 96
[2016-09-19] MEDS: ALBUMIN HUMAN 25% 12.5 GM/50 ML VIAL IV SCH ×3 (05:52→11:59)
[2016-09-19] MEDS: LEVOTHYROXINE 200 MCG TAB PO SCH (05:52)
[2016-09-19 06:36] LABS: HEMATOCRIT 31.8 % (42-52); MEAN CELL VOLUME 91.1 fL (80-100); MEAN CORPUSCULAR HEMOGLOBIN 29.8 pg (25-34); MEAN CORPUSCULAR HGB CONC 32.7 g/dl (32-36); RED BLOOD COUNT 3.49 M/uL (4.7-6.1); WHITE BLOOD COUNT 6.59 K/uL (4.8-10.8)
[2016-09-19 06:38] LABS: MEAN PLATELET VOLUME 9.8 fL (7.4-10.4); PLATELET COUNT 59 K/uL (130-400)
[2016-09-19 06:47] LABS: INR 1.5 (0.9-1.1); PROTHROMBIN TIME (PATIENT) 16.4 SECONDS (9.0-12.0)
[2016-09-19 07:15] LABS: BUN/CREATININE RATIO 27.9 (10-20); CALCIUM 8.8 mg/dl (8.5-10.1); CREATININE 1.3 mg/dl (0.60-1.40); POTASSIUM 4.1 mmol/L (3.5-5.1)
[2016-09-19 07:18] VITALS: BP 111/70; PULSE 63; TEMP 36.6; O2SAT 98
[2016-09-19] MEDS: RIFAXIMIN TAB 550 MG TAB PO SCH ×2 (07:18→20:38)
[2016-09-19] MEDS: DORZOLAMIDE HCL 2% OPH SOLN 10 ML BTL OPB SCH ×2 (07:18→20:38)
[2016-09-19] MEDS: CHOLECALCIFEROL 1000 INTER.UNIT TAB PO SCH (07:18)
[2016-09-19] MEDS: PANTOprazole SOD 40 MG TAB PO SCH ×2 (07:18→20:38)
[2016-09-19] MEDS: FERROUS SULFATE 325 MG TAB PO SCH (07:18)
[2016-09-19 07:19] LABS: BASO % 1.4 %; BASO ABS # 0.09 K/uL (0-0.2); COMPLETE YES; ECHINOCYTES 3+; EOS % 7.6 %; IG% 0.6 %; LYMPH % 12.3 %; LYMPH ABS # 0.81 K/uL (1.2-3.4); MONO % 10.2 %; NEUT % 67.9 %
--- NOTE | 2016-09-19 09:11 | Progress Note ---
Internal Med Progress Note Date of Service: Sep 19, 2016. Provider Documentation: SUBJECTIVE: Seen and examined at bedside. Planned for abdominal paracentesis today No new complaints Family at bedside Currently getting albumin prior to paracentesis OBJECTIVE: Vital Signs-as noted below Physical Exam: General Appearance:Chronically ill appearing. no apparent distress Head: normocephalic, Atraumatic Eyes: normal inspection, EOMI, PERRL Neck: supple, Trachea midline Respiratory/Chest: Normal breath sounds, CTA Cardiovascular: S1, S2, No murmur Abdomen/GI:Soft, Non tender, Bowel sounds present, +distended, Umbilical hernia Extremities/Musculoskelatal:normal inspection, B/L LE edema Neurologic/Psych:AAOX3, grossly no focal neurological deficits Skin: normal color, warm Lab data as noted below. ASSESSMENT & PLAN: FARRUKH ON AKD STAGE III: Postrenal presented with Cr: 5.3 Cr:1.3 today S/P IVF S/P albumin Nephrology following Monitor renal function Avoid nephrotoxic agents LIVER CIRRHOSIS ASCITES Continue Lactulose, rifaximin BB on hold. Plan to resume when volume status better No signs of Encephalopathy Planned for paracentesis today Appreciate GI input Abdominal USD:Mild abdominal and pelvic ascites Plan to resume Lasix 40mg and spironolactone 100mg if ok with Nephrology URINARY RETENTION/HEMATURIA Appreciate Urology Input Plan to continue catheter for few days Need follow up with Urology as outpatient Hematuria resolved Monitor platelets: stable Will transfuse platelets if less than 50,000 and Hematuria reoccurs THROMBOCYTOPENIA due to underlying liver disease Platelet 59 today Will transfuse PRN CODE STATUS DNR as per patient and Daughter DVT PX SCDs due to thrombocytopenia Consultants: Nephrology Vascular Urology GI Vital Signs: Date Time Temp Pulse Resp B/P (MAP) Pulse Ox O2 Delivery O2 Flow Rate FiO2 09/19/16 08:00 Room Air 09/19/16 07:18 36.6 63 20 111/70 (84) 98 Room Air 09/19/16 04:30 36.7 64 18 95/59 (71) 96 Room Air 09/19/16 04:00 Room Air 09/19/16 00:01 Room Air 09/18/16 23:41 36.8 69 18 88/57 (67) 98 Room Air 09/18/16 20:00 Room Air 09/18/16 19:30 36.5 62 16 106/66 (79) 99 Room Air 09/18/16 16:00 Room Air 09/18/16 15:31 36.5 65 16 113/71 (85) 98 Room Air 09/18/16 12:00 Room Air 09/18/16 11:00 36.4 61 16 112/72 (85) 100 Room Air Lab Results: Results Past 24 Hours Test 09/19/16 06:23 Range/Units White Blood Count 6.59 4.8-10.8 K/uL Red Blood Count 3.49 4.7-6.1 M/uL Hemoglobin 10.4 14.0-18.0 g/dL Hematocrit 31.8 42-52 % Mean Corpuscular Volume 91.1 80-100 fL Mean Corpuscular Hemoglobin 29.8 25-34 pg Mean Corpuscular Hemoglobin Concent 32.7 32-36 g/dl Platelet Count 59 130-400 K/uL Mean Platelet Volume 9.8 7.4-10.4 fL Neutrophils (%) (Auto) 67.9 % Lymphocytes (%) (Auto) 12.3 % Monocytes (%) (Auto) 10.2 % Eosinophils (%) (Auto) 7.6 % Basophils (%) (Auto) 1.4 % Neutrophils # (Auto) 4.48 1.4-6.5 K/uL Lymphocytes # (Auto) 0.81 1.2-3.4 K/uL Monocytes # (Auto) 0.67 0.11-0.59 K/uL Eosinophils # (Auto) 0.50 0-0.5 K/uL Basophils # (Auto) 0.09 0-0.2 K/uL RDW Standard Deviation 60.0 36.4-46.3 fL RDW Coefficient of Variation 18.2 11.5-14.5 % Immature Granulocyte % (Auto) 0.6 % Immature Granulocyte # (Auto) 0.04 0.00-0.02 K/uL Echinocytes 3+ Prothrombin Time 16.4 9.0-12.0 SECONDS Prothromb Time International Ratio 1.5 0.9-1.1 Sodium Level 148 136-145 mmol/L Potassium Level 4.1 3.5-5.1 mmol/L Chloride Level 122 98-107 mmol/L Carbon Dioxide Level 18 21-32 mmol/L Anion Gap 8.0 3-11 mmol/L Blood Urea Nitrogen 36 7-18 mg/dl Creatinine 1.30 0.60-1.40 mg/dl Est Creatinine Clear Calc Drug Dose 58.0 ml/min Estimated GFR () 64.1 Estimated GFR (Non- 55.3 BUN/Creatinine Ratio 27.9 10-20 Random Glucose 83 70-99 mg/dl Calcium Level 8.8 8.5-10.1 mg/dl
--- NOTE | 2016-09-19 11:27 | Gastroenterology Progress Note ---
Progress Note Date of Service: Sep 19, 2016 Subjective Pt evaluation today including: conversation w/ patient, conversation w/ family , physical exam, chart review, lab review, review of inpatient medication list Pt couldn't lay on his back, said too uncomfortable due to pressure from abdomen. Denies any n/v, otherwise. Able to tolerate breakfast. He is waiting to get paracentesis this morning. Review of Systems Constitutional: No fever, No chills Respiratory: No cough Abdomen: + pain, No nausea, No vomiting Endo: + fatigue Medications Current Inpatient Medications Medications (Trade) Dose Ordered Sig/Elias Route Start Time Stop Time Status Last Admin Dose Admin Cholecalciferol (Vitamin D Tab) 2,000 inter.unit DAILY PO 09/13/16 09:00 10/13/16 08:59 09/19/16 07:18 2,000 INTER.UNIT Dorzolamide HCl (Trusopt 2% Oph Soln) 1 drops BID OPB 09/12/16 21:00 10/12/16 20:59 09/19/16 07:18 1 DROPS Levothyroxine Sodium (Synthroid Tab) 200 mcg DAILYBB PO 09/13/16 06:00 10/13/16 05:59 09/19/16 05:52 200 MCG Nadolol (Corgard Tab) 20 mg QAM PO 09/13/16 09:00 10/13/16 08:59 Future Hold 09/18/16 07:54 20 MG Rifaximin (Xifaxan Tab) 550 mg BID PO 09/12/16 21:00 10/12/16 20:59 09/19/16 07:18 550 MG Simvastatin (Zocor Tab) 40 mg QPM PO 09/12/16 21:00 10/12/16 20:59 09/18/16 20:51 40 MG Ferrous Sulfate (Feosol Tab) 325 mg QAM PO 09/13/16 09:00 10/13/16 08:59 09/19/16 07:18 325 MG Pantoprazole Sodium (Protonix Tab) 40 mg BID PO 09/12/16 21:00 10/12/16 20:59 09/19/16 07:18 40 MG Lactulose (Chronulac Syrup) 20 gm DAILY@1400 PO 09/13/16 14:00 10/13/16 13:59 09/18/16 14:00 20 GM Albumin Human (Albumin 25%) 12.5 gm 0600,0700,0800,0900 IV 09/19/16 06:00 09/19/16 20:00 09/19/16 09:26 12.5 GM Objective Vital Signs Date Time Temp Pulse Resp B/P (MAP) Pulse Ox O2 Delivery O2 Flow Rate FiO2 09/19/16 08:00 Room Air 09/19/16 07:18 36.6 63 20 111/70 (84) 98 Room Air 09/19/16 04:30 36.7 64 18 95/59 (71) 96 Room Air 09/19/16 04:00 Room Air 09/19/16 00:01 Room Air 09/18/16 23:41 36.8 69 18 88/57 (67) 98 Room Air 09/18/16 20:00 Room Air 09/18/16 19:30 36.5 62 16 106/66 (79) 99 Room Air 09/18/16 16:00 Room Air 09/18/16 15:31 36.5 65 16 113/71 (85) 98 Room Air 09/18/16 12:00 Room Air Physical Exam General Appearance: WD/WN, no apparent distress Eyes: normal inspection, PERRL, EOMI Neck: supple, no JVD, trachea midline Respiratory/Chest: no respiratory distress, no accessory muscle use, + decreased breath sounds Cardiovascular: regular rate, rhythm, no gallop, no murmur Abdomen: non tender, + distended, + hernia (umbilical) Extremities: + swelling (trace pedal edema) Neurologic/Psych: alert, normal mood/affect, oriented x 3 Skin: no jaundice, warm/dry, no rash Laboratory Results Last 24 Hours Test 09/19/16 06:23 White Blood Count 6.59 K/uL Red Blood Count 3.49 M/uL Hemoglobin 10.4 g/dL Hematocrit 31.8 % Mean Corpuscular Volume 91.1 fL Mean Corpuscular Hemoglobin 29.8 pg Mean Corpuscular Hemoglobin Concent 32.7 g/dl Platelet Count 59 K/uL Mean Platelet Volume 9.8 fL Neutrophils (%) (Auto) 67.9 % Lymphocytes (%) (Auto) 12.3 % Monocytes (%) (Auto) 10.2 % Eosinophils (%) (Auto) 7.6 % Basophils (%) (Auto) 1.4 % Neutrophils # (Auto) 4.48 K/uL Lymphocytes # (Auto) 0.81 K/uL Monocytes # (Auto) 0.67 K/uL Eosinophils # (Auto) 0.50 K/uL Basophils # (Auto) 0.09 K/uL RDW Standard Deviation 60.0 fL RDW Coefficient of Variation 18.2 % Immature Granulocyte % (Auto) 0.6 % Immature Granulocyte # (Auto) 0.04 K/uL Echinocytes 3+ Prothrombin Time 16.4 SECONDS Prothromb Time International Ratio 1.5 Sodium Level 148 mmol/L Potassium Level 4.1 mmol/L Chloride Level 122 mmol/L Carbon Dioxide Level 18 mmol/L Anion Gap 8.0 mmol/L Blood Urea Nitrogen 36 mg/dl Creatinine 1.30 mg/dl Est Creatinine Clear Calc Drug Dose 58.0 ml/min Estimated GFR () 64.1 Estimated GFR (Non- 55.3 BUN/Creatinine Ratio 27.9 Random Glucose 83 mg/dl Calcium Level 8.8 mg/dl Assessment and Plan Pt is a 71y/o male w 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 Having ascites due to over hydration. Cr now down to 1.3. Still hypernatremic 148. He is awaiting to get paracentesis this morning. - Will resume home dose diuretic tomorrow: Lasix 20mg AM, Spironolactone 25mg AM. Low salt diet. Monitor electrolytes and renal function - U/S guided paracentesis today w fluid analysis to r/o SBP. Albumin 25% 25g before and after paracentesis. - Continue current doses of Protonix, Lactulose and Rifaximin. I have personally seen the patient with LEILA Elder on 09/19/2016. Her note reflects my exam and findings. I agree with her impression and plan. Much better s/p paracentesis. Restart out patient diuretics. Mitesh Norris M.D.
[2016-09-19 12:03] VITALS: BP 116/64; PULSE 64; TEMP 36.5; O2SAT 100
--- NOTE | 2016-09-19 12:03 | DIAGNOSTIC IMAGING REPORT ---
ULTRASOUND-GUIDED DIAGNOSTIC AND THERAPEUTIC PARACENTESIS: CLINICAL HISTORY: 71-year-old male with ascites. COMPARISON: Ultrasound from 09/18/2016. PROCEDURE: The procedure and its risks, benefits and alternatives were discussed with the patient and written informed consent was obtained. Preliminary ultrasound of the abdomen was performed to determine a safe needle entry site. The left lower quadrant was prepped and draped in the usual aseptic fashion. 1% Lidocaine was used for local anesthesia. A paracentesis needle-sheath was inserted into the peritoneal space using ultrasound guidance. The needle was removed and the sheath was connected to tubing and a vacuum suction device. A total of 5.3 liters of clear yellow-brown ascites was aspirated. The sheath was removed and a sterile dressing applied. The patient tolerated the procedure well and there were no immediate complications. No bleeding. IMPRESSION: Ultrasound-guided diagnostic and therapeutic paracentesis with aspiration of 5.3 liters of ascites. Electronically signed by: Julio Stanley M.D. 09/19/2016 12:02 PM Dictated Date/Time: 09/19/2016 12:01 PM
[2016-09-19] MEDS: LACTULOSE SYRUP 20 GM/30 ML UDC PO SCH (13:31)
[2016-09-19 14:24] LABS: PERIT FL WBC 97 /uL (0-300); PERITONEAL FLUID RBC 4000 /uL
--- NOTE | 2016-09-19 15:31 | Progress Note ---
Subjective Date of Service: Sep 19, 2016. Subjective Pt evaluation today including: conversation w/ patient, physical exam, chart review Voiding: ventura catheter in place Patient had a paracentesis of large volumes of fluid and feels worlds better. He is learning to ambulate with the ventura. He is very active at home and so will need leg bag. He would [facility]. His renal failure has nearly normalized. He also was able to give me additional history that over the last 2 weeks he had a sense he was not producgin as much urine as usual, AND he developed new urinary incontinence for which he had to purchase diapers. I explained this was very likely overflow incontinence. Problem List Medical Problems: (1) Acute kidney injury Status: Acute (2) Acute renal failure Status: Acute (3) Acute renal failure Status: Acute (4) Altered mental status Status: Acute (5) Hepatic encephalopathy Status: Acute (6) Hyperammonemia Status: Acute (7) Metabolic encephalopathy Status: Acute Review of Systems Constitutional: + fatigue, No fever, No chills, No sweats Respiratory: No cough, No shortness of breath Abdomen: No pain, No nausea Male : + problem reported (retention ) Objective Vital Signs Date Time Temp Pulse Resp B/P (MAP) Pulse Ox O2 Delivery O2 Flow Rate FiO2 09/19/16 12:03 36.5 64 20 116/64 (81) 100 Room Air 09/19/16 12:00 Room Air 09/19/16 08:00 Room Air 09/19/16 07:18 36.6 63 20 111/70 (84) 98 Room Air 09/19/16 04:30 36.7 64 18 95/59 (71) 96 Room Air 09/19/16 04:00 Room Air 09/19/16 00:01 Room Air 09/18/16 23:41 36.8 69 18 88/57 (67) 98 Room Air 09/18/16 20:00 Room Air 09/18/16 19:30 36.5 62 16 106/66 (79) 99 Room Air 09/18/16 16:00 Room Air 09/18/16 15:31 36.5 65 16 113/71 (85) 98 Room Air Physical Exam General Appearance: WD/WN, no apparent distress, + thin Comments: - ventura in place with yellow urine Laboratory Results Last 24 Hours Test 09/19/16 00:00 09/19/16 06:23 Peritoneal Fluid Color YELLOW Peritoneal Fluid Appearance HAZY Peritoneal Fluid WBC 97 /uL Peritoneal Fluid RBC 4000 /uL Peritoneal Fld Mononuclear WBCs (%) 82.5 % Peritoneal Fld Polynuclear WBCs (%) 17.5 % Peritoneal Fluid Total Protein 2.0 g/dl Peritoneal Fluid Albumin 1.3 g/dl White Blood Count 6.59 K/uL Red Blood Count 3.49 M/uL Hemoglobin 10.4 g/dL Hematocrit 31.8 % Mean Corpuscular Volume 91.1 fL Mean Corpuscular Hemoglobin 29.8 pg Mean Corpuscular Hemoglobin Concent 32.7 g/dl Platelet Count 59 K/uL Mean Platelet Volume 9.8 fL Neutrophils (%) (Auto) 67.9 % Lymphocytes (%) (Auto) 12.3 % Monocytes (%) (Auto) 10.2 % Eosinophils (%) (Auto) 7.6 % Basophils (%) (Auto) 1.4 % Neutrophils # (Auto) 4.48 K/uL Lymphocytes # (Auto) 0.81 K/uL Monocytes # (Auto) 0.67 K/uL Eosinophils # (Auto) 0.50 K/uL Basophils # (Auto) 0.09 K/uL RDW Standard Deviation 60.0 fL RDW Coefficient of Variation 18.2 % Immature Granulocyte % (Auto) 0.6 % Immature Granulocyte # (Auto) 0.04 K/uL Echinocytes 3+ Prothrombin Time 16.4 SECONDS Prothromb Time International Ratio 1.5 Sodium Level 148 mmol/L Potassium Level 4.1 mmol/L Chloride Level 122 mmol/L Carbon Dioxide Level 18 mmol/L Anion Gap 8.0 mmol/L Blood Urea Nitrogen 36 mg/dl Creatinine 1.30 mg/dl Est Creatinine Clear Calc Drug Dose 58.0 ml/min Estimated GFR () 64.1 Estimated GFR (Non- 55.3 BUN/Creatinine Ratio 27.9 Random Glucose 83 mg/dl Calcium Level 8.8 mg/dl Assessment and Plan Urinary retention caused severe renal failure Will need to go home with ventura nurse will teach him how to use leg bag and night bag. I will see him next week to consider void trial. I explained we need to be very careful with our void trials b/c if retention returns he will go back into renal failure. His chronic ascites also makes bladder scanners inaccurate.
[2016-09-19 15:53] VITALS: BP 104/56; PULSE 65; TEMP 36.9; O2SAT 100
--- NOTE | 2016-09-19 16:46 | Nephrology Progress Note ---
Nephrology Progress Note Date of Service: Sep 19, 2016. Subjective 71 yo male with mary in setting of liver disease and was close to starting dialysis last monday and found to be obstructed and had ventura placed. pt now urinating well and creatinine has vastly improved. pt underwent therapeutic paracentesis today and feels much better. Objective Date Time Temp Pulse Resp B/P (MAP) Pulse Ox O2 Delivery O2 Flow Rate FiO2 09/19/16 16:00 Room Air 09/19/16 15:53 36.9 65 16 104/56 (72) 100 Room Air 09/19/16 12:03 36.5 64 20 116/64 (81) 100 Room Air 09/19/16 12:00 Room Air 09/19/16 08:00 Room Air 09/19/16 07:18 36.6 63 20 111/70 (84) 98 Room Air 09/19/16 04:30 36.7 64 18 95/59 (71) 96 Room Air 09/19/16 04:00 Room Air 09/19/16 00:01 Room Air 09/18/16 23:41 36.8 69 18 88/57 (67) 98 Room Air 09/18/16 20:00 Room Air 09/18/16 19:30 36.5 62 16 106/66 (79) 99 Room Air Physical Exam: General-aaox3, cachectic Eyes-no scleral icterus ENT-mmm Neck-supple Lungs-clear Heart-rrr Abdomen-+distention, +umbilical hernia Extremities-no edema Neuro-nonfocal Current Inpatient Medications Medications (Trade) Dose Ordered Sig/Elias Route Start Time Stop Time Status Last Admin Dose Admin Cholecalciferol (Vitamin D Tab) 2,000 inter.unit DAILY PO 09/13/16 09:00 10/13/16 08:59 09/19/16 07:18 2,000 INTER.UNIT Dorzolamide HCl (Trusopt 2% Oph Soln) 1 drops BID OPB 09/12/16 21:00 10/12/16 20:59 09/19/16 07:18 1 DROPS Levothyroxine Sodium (Synthroid Tab) 200 mcg DAILYBB PO 09/13/16 06:00 10/13/16 05:59 09/19/16 05:52 200 MCG Nadolol (Corgard Tab) 20 mg QAM PO 09/13/16 09:00 10/13/16 08:59 Future Hold 09/18/16 07:54 20 MG Rifaximin (Xifaxan Tab) 550 mg BID PO 09/12/16 21:00 10/12/16 20:59 09/19/16 07:18 550 MG Simvastatin (Zocor Tab) 40 mg QPM PO 09/12/16 21:00 10/12/16 20:59 09/18/16 20:51 40 MG Ferrous Sulfate (Feosol Tab) 325 mg QAM PO 09/13/16 09:00 10/13/16 08:59 09/19/16 07:18 325 MG Pantoprazole Sodium (Protonix Tab) 40 mg BID PO 09/12/16 21:00 10/12/16 20:59 09/19/16 07:18 40 MG Lactulose (Chronulac Syrup) 20 gm DAILY@1400 PO 09/13/16 14:00 10/13/16 13:59 09/19/16 13:31 20 GM Albumin Human (Albumin 25%) 12.5 gm 0600,0700,0800,0900 IV 09/19/16 06:00 09/19/16 20:00 09/19/16 11:59 12.5 GM Furosemide (Lasix Tab) 20 mg QAM PO 09/20/16 09:00 10/20/16 08:59 Spironolactone (Aldactone Tab) 25 mg QAM PO 09/20/16 09:00 10/20/16 08:59 Last 24 Hours Test 09/19/16 00:00 09/19/16 06:23 Peritoneal Fluid Color YELLOW Peritoneal Fluid Appearance HAZY Peritoneal Fluid WBC 97 /uL Peritoneal Fluid RBC 4000 /uL Peritoneal Fld Mononuclear WBCs (%) 82.5 % Peritoneal Fld Polynuclear WBCs (%) 17.5 % Peritoneal Fluid Total Protein 2.0 g/dl Peritoneal Fluid Albumin 1.3 g/dl White Blood Count 6.59 K/uL Red Blood Count 3.49 M/uL Hemoglobin 10.4 g/dL Hematocrit 31.8 % Mean Corpuscular Volume 91.1 fL Mean Corpuscular Hemoglobin 29.8 pg Mean Corpuscular Hemoglobin Concent 32.7 g/dl Platelet Count 59 K/uL Mean Platelet Volume 9.8 fL Neutrophils (%) (Auto) 67.9 % Lymphocytes (%) (Auto) 12.3 % Monocytes (%) (Auto) 10.2 % Eosinophils (%) (Auto) 7.6 % Basophils (%) (Auto) 1.4 % Neutrophils # (Auto) 4.48 K/uL Lymphocytes # (Auto) 0.81 K/uL Monocytes # (Auto) 0.67 K/uL Eosinophils # (Auto) 0.50 K/uL Basophils # (Auto) 0.09 K/uL RDW Standard Deviation 60.0 fL RDW Coefficient of Variation 18.2 % Immature Granulocyte % (Auto) 0.6 % Immature Granulocyte # (Auto) 0.04 K/uL Echinocytes 3+ Prothrombin Time 16.4 SECONDS Prothromb Time International Ratio 1.5 Sodium Level 148 mmol/L Potassium Level 4.1 mmol/L Chloride Level 122 mmol/L Carbon Dioxide Level 18 mmol/L Anion Gap 8.0 mmol/L Blood Urea Nitrogen 36 mg/dl Creatinine 1.30 mg/dl Est Creatinine Clear Calc Drug Dose 58.0 ml/min Estimated GFR () 64.1 Estimated GFR (Non- 55.3 BUN/Creatinine Ratio 27.9 Random Glucose 83 mg/dl Calcium Level 8.8 mg/dl Assessment & Plan [id number] in the setting of liver disease. had obstruction and has ventura for now. managed by urology. no more clots. creatinine much improved. pt though has had two hospitilizations with volume depletion and mary. hesitant about diuretics although retains fluids and required a large volume paracentesis today. would like to lower dose of diuretics upon discharge and follow labs closely.
[2016-09-19 19:26] VITALS: BP 85/43; PULSE 75; TEMP 36.6; O2SAT 99
[2016-09-19] MEDS: SIMVASTATIN 40 MG TAB PO SCH (20:38)
[2016-09-20 00:15] VITALS: BP 110/64; PULSE 82; TEMP 36.8; O2SAT 96
[2016-09-20 03:52] VITALS: BP 101/58; PULSE 79; TEMP 36.8; O2SAT 98
[2016-09-20] MEDS: LEVOTHYROXINE 200 MCG TAB PO SCH (05:59)
[2016-09-20 07:20] LABS: PLATELET COUNT 60 K/uL (130-400)
[2016-09-20 07:41] LABS: BUN/CREATININE RATIO 26.2 (10-20); CALCIUM 8.6 mg/dl (8.5-10.1); CREATININE 1.3 mg/dl (0.60-1.40); POTASSIUM 4.1 mmol/L (3.5-5.1)
[2016-09-20] MEDS: PANTOprazole SOD 40 MG TAB PO SCH (07:42)
[2016-09-20] MEDS: FERROUS SULFATE 325 MG TAB PO SCH (07:42)
[2016-09-20] MEDS: CHOLECALCIFEROL 1000 INTER.UNIT TAB PO SCH (07:43)
[2016-09-20] MEDS: RIFAXIMIN TAB 550 MG TAB PO SCH (07:43)
[2016-09-20] MEDS: LACTULOSE SYRUP 20 GM/30 ML UDC PO SCH (07:47)
[2016-09-20] MEDS: DORZOLAMIDE HCL 2% OPH SOLN 10 ML BTL OPB SCH (07:48)
[2016-09-20 07:59] VITALS: BP 102/62; PULSE 71; TEMP 36.7; O2SAT 97
[2016-09-20] MEDS ORDERED: SPIRONOLACTONE 25 MG TAB PO SCH ×2 (09:00)
[2016-09-20] MEDS ORDERED: FUROSEMIDE 20 MG TAB PO SCH ×2 (09:00)
--- NOTE | 2016-09-20 11:23 | Gastroenterology Progress Note ---
Progress Note Date of Service: Sep 20, 2016 Subjective Pt evaluation today including: conversation w/ patient, conversation w/ family (daughter at bedside. ), physical exam, chart review, lab review, review of studies, review of inpatient medication list Mr. Perdue is a 71 yr old male who had recent post renal renal failure and was DC' ed off diuretics then returned to [facility] in fluid overload. Underwent 5 L paracentesis yesterday, diuretics restarted at Lasix 20, Spironolactone 25mg daily then decreased to Lasix 10/Spironolactone 12.5 daily today. Review of Systems Constitutional: No fever, No chills, No weakness Respiratory: No cough, No wheezing, No shortness of breath Cardiac: No chest pain, No orthopnea Abdomen: No pain, No nausea, No vomiting, No diarrhea, No constipation, No GI bleeding, No dysphagia Male : No dysuria Neuro: No memory loss Psych: No depression symptoms Heme: No abnormal bleeding/bruising Endo: No fatigue Skin: No rash, No jaundice Medications Current Inpatient Medications Medications (Trade) Dose Ordered Sig/Elias Route Start Time Stop Time Status Last Admin Dose Admin Cholecalciferol (Vitamin D Tab) 2,000 inter.unit DAILY PO 09/13/16 09:00 10/13/16 08:59 09/20/16 07:43 2,000 INTER.UNIT Dorzolamide HCl (Trusopt 2% Oph Soln) 1 drops BID OPB 09/12/16 21:00 10/12/16 20:59 09/20/16 07:48 1 DROPS Levothyroxine Sodium (Synthroid Tab) 200 mcg DAILYBB PO 09/13/16 06:00 10/13/16 05:59 09/20/16 05:59 200 MCG Nadolol (Corgard Tab) 20 mg QAM PO 09/13/16 09:00 10/13/16 08:59 Future Hold 09/18/16 07:54 20 MG Rifaximin (Xifaxan Tab) 550 mg BID PO 09/12/16 21:00 10/12/16 20:59 09/20/16 07:43 550 MG Simvastatin (Zocor Tab) 40 mg QPM PO 09/12/16 21:00 10/12/16 20:59 09/19/16 20:38 40 MG Ferrous Sulfate (Feosol Tab) 325 mg QAM PO 09/13/16 09:00 10/13/16 08:59 09/20/16 07:42 325 MG Pantoprazole Sodium (Protonix Tab) 40 mg BID PO 09/12/16 21:00 10/12/16 20:59 09/20/16 07:42 40 MG Lactulose (Chronulac Syrup) 20 gm DAILY@1400 PO 09/13/16 14:00 10/13/16 13:59 09/20/16 07:47 20 GM Furosemide (Lasix Tab) 10 mg QAM PO 09/20/16 09:00 10/20/16 08:59 09/20/16 07:45 10 MG Spironolactone (Aldactone Tab) 12.5 mg QAM PO 09/20/16 09:00 10/20/16 08:59 09/20/16 07:44 12.5 MG Objective Vital Signs Date Time Temp Pulse Resp B/P (MAP) Pulse Ox O2 Delivery O2 Flow Rate FiO2 09/20/16 08:00 Room Air 09/20/16 07:59 36.7 71 18 102/62 (75) 97 Room Air 09/20/16 04:00 Room Air 09/20/16 03:52 36.8 79 20 101/58 (72) 98 Room Air 09/20/16 00:15 36.8 82 17 110/64 (79) 96 Room Air 09/20/16 00:00 Room Air 09/19/16 20:00 Room Air 09/19/16 19:26 36.6 75 18 85/43 (57) 99 Room Air 09/19/16 16:00 Room Air 09/19/16 15:53 36.9 65 16 104/56 (72) 100 Room Air 09/19/16 12:03 36.5 64 20 116/64 (81) 100 Room Air 09/19/16 12:00 Room Air Physical Exam General Appearance: no apparent distress Eyes: PERRL ENT: pharynx normal Neck: no adenopathy, no JVD Respiratory/Chest: lungs clear Cardiovascular: regular rate, rhythm, no JVD, no murmur Abdomen: soft, + pertinent finding (moderate ascites, non-taunt, non tender) Extremities: + pedal edema (bilat lower leg 1+) Neurologic/Psych: alert, normal mood/affect, oriented x 3 Skin: no jaundice Laboratory Results Last 24 Hours Test 09/20/16 06:48 Platelet Count 60 K/uL Sodium Level 145 mmol/L Potassium Level 4.1 mmol/L Chloride Level 120 mmol/L Carbon Dioxide Level 19 mmol/L Anion Gap 6.0 mmol/L Blood Urea Nitrogen 34 mg/dl Creatinine 1.30 mg/dl Est Creatinine Clear Calc Drug Dose 56.2 ml/min Estimated GFR () 64.1 Estimated GFR (Non- 55.3 BUN/Creatinine Ratio 26.2 Random Glucose 82 mg/dl Calcium Level 8.6 mg/dl Assessment and Plan Ms. Perdue is a 71 yr old male with MUNGUIA cirrhosis, ascites. Admitted for hypernatremia and fluid overload. Underwent paracentesis yesterday, feels much better. Plan: 1. OK forto DC on Lasix 10/Spironolactone 12.5 daily today. 2. Reviewed low sodium diet. 3. Continue OP GI f/u. 4. GI will sign off. I have personally seen and examined the patient with LEILA Blackwell. Her note reflects my exam and findings. I agree with her impression and plan. Doing well. Out patient follow up with his regular providers. Mitesh Norris M.D.
[2016-09-20 11:31] VITALS: BP 92/52; PULSE 78; TEMP 36.6; O2SAT 98
--- NOTE | 2016-09-20 11:41 | Progress Note ---
Internal Med Progress Note Date of Service: Sep 20, 2016. Provider Documentation: SUBJECTIVE: Seen and examined at bedside. Got paracentesis yesterday No new complaints Family at bedside Feels well. OBJECTIVE: Vital Signs-as noted below Physical Exam: General Appearance:Chronically ill appearing. no apparent distress Head: normocephalic, Atraumatic Eyes: normal inspection, EOMI, PERRL Neck: supple, Trachea midline Respiratory/Chest: Normal breath sounds, CTA Cardiovascular: S1, S2, No murmur Abdomen/GI:Soft, Non tender, Bowel sounds present, +distended, Umbilical hernia Extremities/Musculoskelatal:normal inspection, B/L LE edema Neurologic/Psych:AAOX3, grossly no focal neurological deficits Skin: normal color, warm Lab data as noted below. 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 Plan to resume when volume status better No signs of Encephalopathy S/P paracentesis on 09/19/16 Appreciate GI input Abdominal USD:Mild abdominal and pelvic ascites Continue diuretics per Nephrology and GI recommendations URINARY RETENTION/HEMATURIA Appreciate Urology Input Plan to continue catheter for few days Voiding trial as outpatient Follow up with Urology, as outpatient Hematuria resolved Monitor platelets: stable Will transfuse platelets if less than 50,000 and Hematuria reoccurs THROMBOCYTOPENIA due to underlying liver disease Platelet 60 today Will transfuse PRN CODE STATUS DNR as per patient and Daughter DVT PX SCDs due to thrombocytopenia Consultants: Nephrology Vascular Urology GI Disposition: Plan to discharge home today Follow up with your Primary care physician in 1 week as advised Follow up with your Urologist in 1 week for voiding trial as advised Follow up with your table attendant in 2-3 weeks as advised Seek immediate medical attention if your symptoms reoccur or worsen Vital Signs: Date Time Temp Pulse Resp B/P (MAP) Pulse Ox O2 Delivery O2 Flow Rate FiO2 09/20/16 11:31 36.6 78 18 92/52 (65) 98 09/20/16 08:00 Room Air 09/20/16 07:59 36.7 71 18 102/62 (75) 97 Room Air 09/20/16 04:00 Room Air 09/20/16 03:52 36.8 79 20 101/58 (72) 98 Room Air 09/20/16 00:15 36.8 82 17 110/64 (79) 96 Room Air 09/20/16 00:00 Room Air 09/19/16 20:00 Room Air 09/19/16 19:26 36.6 75 18 85/43 (57) 99 Room Air 09/19/16 16:00 Room Air 09/19/16 15:53 36.9 65 16 104/56 (72) 100 Room Air 09/19/16 12:03 36.5 64 20 116/64 (81) 100 Room Air 09/19/16 12:00 Room Air Lab Results: Results Past 24 Hours Test 09/20/16 06:48 Range/Units Platelet Count 60 130-400 K/uL Sodium Level 145 136-145 mmol/L Potassium Level 4.1 3.5-5.1 mmol/L Chloride Level 120 98-107 mmol/L Carbon Dioxide Level 19 21-32 mmol/L Anion Gap 6.0 3-11 mmol/L Blood Urea Nitrogen 34 7-18 mg/dl Creatinine 1.30 0.60-1.40 mg/dl Est Creatinine Clear Calc Drug Dose 56.2 ml/min Estimated GFR () 64.1 Estimated GFR (Non- 55.3 BUN/Creatinine Ratio 26.2 10-20 Random Glucose 82 70-99 mg/dl Calcium Level 8.6 8.5-10.1 mg/dl
[2016-09-20] MEDS ORDERED: SPR25 PO (11:44)
[2016-09-20] MEDS ORDERED: LSX20 PO (11:44)
--- NOTE | 2016-09-20 11:46 | Discharge Summary ---
Discharge Summary Date of Service Sep 20, 2016. Discharge Summary Admission Date: Sep 12, 2016 at 19:05 Discharge Date: Sep 20, 2016 Discharge Disposition: Home with services Principal Diagnosis: Acute renal failure, Cirrhosis with ascites Procedures: Abdominal Paracentesis: Ultrasound-guided diagnostic and therapeutic paracentesis with aspiration of 5.3 liters of ascites. ABD USD; Mild abdominal and pelvic ascites CXR: No active disease in the chest. Consultations: Nephrology, Vascular, GI Pending Studies/Follow-Up: Follow up with your Primary care physician in 1 week as advised Follow up with your Urologist in 1 week for voiding trial as advised Follow up with your senior network security engineer in 2-3 weeks as advised Seek immediate medical attention if your symptoms reoccur or worsen Medication Reconciliation New Medications: Furosemide (Furosemide) 20 Mg Tab 10 MG PO QAM for 30 Days, #15 TAB 1 Refill Spironolactone (Spironolactone) 25 Mg Tab 12.5 MG PO QAM for 30 Days, #15 TAB 1 Refill Continued Medications: Cholecalciferol (Vitamin D3) 1,000 Unit Tab 2000 UNITS PO DAILY Dorzolamide Hcl (Trusopt) 2 % Shannon 1 DROP OPB BID Ferrous Sulfate (Ferrous Sulfate) 324 Mg Tab 324 MG PO QAM Lactulose (Lactulose) 20 Gm/30 Ml Syrp 20 GM PO DAILY for 30 Days Levothyroxine Sodium (Synthroid) 200 Mcg Tab 200 MCG PO QAM Nadolol (Corgard) 20 Mg Tab 20 MG PO QAM, TAB Omeprazole (Prilosec) 20 Mg Capcr 40 MG PO BID, CAP Rifaximin (Xifaxan) 550 Mg Tab 550 MG PO BID, TAB Simvastatin (Zocor) 40 Mg Tab 40 MG PO QPM, TAB Discontinued Medications: Furosemide (Lasix) 20 Mg Tab 20 MG PO QAM Spironolactone (Aldactone) 25 Mg Tab 25 MG PO HS, TAB Admission Information HPI (per Admitting provider): 71 year old male with PMH of liver Cirrhosis, CKD stage 3, Thrombocytopenia, esophageal varices presents to the Emergency Room with complaints of B/L LE edema. Pt was recently admitted at [facility] and discharged on 09/06/16 for hepatic encephalopathy. Pt said that he was doing fine. He said he went to do grocery with his daughter over the weekend. He said that today he feels much better. He said that he woke up today and saw his leg swelling got worst. They reported that he had a 5cm in calf swelling since their previous visit earlier in the week. He had blood work done today and received a call that his creatine was very high and he needs to go to the ER. In the ER pt was lying in bed very comfortable with no distress. He said that he continues to have about 3 to 4 BM daily due to the lactulose. When I reviewed his med with him, he said that he has been taking the spironolactone BID, but in the last discharge instructions it was changed to HS. Denies any chest pain, palpitation, dizziness, fever, chills and SOB. Physical Exam (per Admitting): General Appearance: WD/WN, no apparent distress Head: normocephalic, atraumatic Eyes: PERRL, EOMI ENT: hearing grossly normal Neck: supple, no JVD Respiratory/Chest: normal breath sounds, no respiratory distress, no accessory muscle use Cardiovascular: no JVD, + bradycardia Abdomen/GI: normal bowel sounds, non tender, + distended (ascites) Back: no CVA tenderness Extremities/Musculoskelatal: no calf tenderness, + pedal edema (b/l LE) Neurologic/Psych: alert, normal mood/affect, oriented x 3 Skin: warm/dry, no rash Hospital Course FARRUKH ON AKD STAGE III: Postrenal presented with Cr: 5.3 Cr:1.3 today S/P IVF S/P albumin Appreciate Nephrology Input Monitor renal function Avoid nephrotoxic agents LIVER CIRRHOSIS ASCITES Continue Lactulose, rifaximin BB on hold. Plan to resume when volume status better No signs of Encephalopathy S/P paracentesis on 09/19/16 Appreciate GI input Abdominal USD:Mild abdominal and pelvic ascites Continue diuretics per Nephrology and GI recommendations URINARY RETENTION/HEMATURIA Appreciate Urology Input Plan to continue catheter for few days Voiding trial as outpatient Follow up with Urology, as outpatient Hematuria resolved Monitor platelets: stable Will transfuse platelets if less than 50,000 and Hematuria reoccurs THROMBOCYTOPENIA due to underlying liver disease Platelet 60 today Will transfuse PRN CODE STATUS DNR as per patient and Daughter DVT PX SCDs due to thrombocytopenia Consultants: Nephrology Vascular Urology GI Disposition: Plan to discharge home today Follow up with your Primary care physician in 1 week as advised Follow up with your Urologist in 1 week for voiding trial as advised Follow up with your senior network security engineer in 2-3 weeks as advised Seek immediate medical attention if your symptoms reoccur or worsen Total time spent on discharge = 36 minutes This includes examination of the patient, discharge planning, medication reconciliation, and communication with other providers. Discharge Instructions Discharge Instructions Date of Service Sep 20, 2016. Admission Reason for Admission: Acute Renal Failure Discharge Discharge Diagnosis / Problem: Acute renal failure, Cirrhosis Discharge Goals Goal(s): Decrease discomfort, Improve function Activity Recommendations Activity Limitations: resume your previous activity Exercise/Sports Limitations: as tolerated . Instructions / Follow-Up Instructions / Follow-Up Follow up with your Primary care physician in 1 week as advised Follow up with your Urologist in 1 week for voiding trial as advised Follow up with your senior network security engineer in 2-3 weeks as advised Seek immediate medical attention if your symptoms reoccur or worsen Current Hospital Diet Patient's current hospital diet: Low Sodium Diet (2gm Na), Renal Diet Discharge Diet Recommended Diet: Low Sodium Diet (2gm Na), Renal Diet Pending Studies Studies pending at discharge: no Medical Emergencies . Who to Call and When: Medical Emergencies: If at any time you feel your situation is an emergency, please call 911 immediately. . Non-Emergent Contact Non-Emergency issues call your: Primary Care Provider, Supervisor Solder Making, Urologist Call Non-Emergent contact if: you have a fever, your pain is not controlled, your pain is worsening, your pain is unusual for you, you have any medication questions If your symptoms reoccur or worsen . . "Provider Documentation" section prepared by Devante Mcguire. . VTE Core Measure Inpt VTE Proph given/why not?: SCD's (thrombocytopenia)
[2016-09-20 12:05] VITALS: BP 102/52; PULSE 78; TEMP 36.6; O2SAT 98
[2016-11-25] MEDS ORDERED: SIMV40TA2 PO (10:37)
[2016-11-25] MEDS ORDERED: RIFA550T2 PO (10:37)
[2016-11-25] MEDS ORDERED: FURO-85 PO (11:45)
[2016-11-29] MEDS ORDERED: LEVO-18 PO (15:33)
== END 2016-09-20 12:54 | disposition home health service (06) | DRG 683 ==
LOC: C.EDB 14:42 → C.2T 19:05 → ENRESERV 19:20 → C.2T 09-16 17:41
PROVIDERS: ADMIT Internal Medicine; ATTEND Internal Medicine
PROC: 0W9G3ZZ Drainage of Peritoneal Cavity, Percutaneous Approach (ICD-10-PCS; principal; 2016-09-19)
DX: N17.9 Acute kidney failure, unspecified (principal); I85.10 Secondary esophageal varices without bleeding; R18.8 Other ascites; K76.0 Fatty (change of) liver, not elsewhere classified; K57.30 Diverticulosis of large intestine without perforation or abscess without bleeding; E78.5 Hyperlipidemia, unspecified; E03.9 Hypothyroidism, unspecified; I12.9 Hypertensive chronic kidney disease with stage 1 through stage 4 chronic kidney disease, or unspecified chronic kidney disease; N18.3 Chronic kidney disease, stage 3 (moderate); D69.59 Other secondary thrombocytopenia; R00.1 Bradycardia, unspecified; R33.9 Retention of urine, unspecified; R31.9 Hematuria, unspecified; Z87.891 Personal history of nicotine dependence; K74.60 Unspecified cirrhosis of liver

== ENCOUNTER → 2016-09-12 | Outpatient (CLI) | payer OTHER ==
[2016-09-12 13:01] LABS: BLOOD UREA NITROGEN 60 mg/dl (7-18); CARBON DIOXIDE 17 mmol/L (21-32); CHLORIDE 108 mmol/L (98-107); GLUCOSE 147 mg/dl (70-99); MAGNESIUM 2.3 mg/dl (1.8-2.4); POTASSIUM 4.8 mmol/L (3.5-5.1); SODIUM 137 mmol/L (136-145)
== END | disposition home or self-care (01) ==
LOC: C.LABSPEC 12:12
PROVIDERS: ATTEND Family Medicine
DX: K74.60 Unspecified cirrhosis of liver (principal)

== ENCOUNTER → 2016-10-07 | Outpatient (CLI) | payer OTHER ==
[~2016-10-07] MED LIST changes: +CHOL1000 PO; +DORZ2SOL OPB; +FERR324T4 PO; +FURO-85 PO; -FURO20TA PO; +LEVO-18 PO; +LSX20 PO; -MAGN1TAB19 PO; +PRLSR20 PO; +RIFA550T2 PO; +SIMV40TA2 PO; -SPIR25TA PO; +SPR25 PO; +SYN200 PO
[2016-10-07 17:53] LABS: HEMATOCRIT 30.6 % (42-52); MEAN CELL VOLUME 94.7 fL (80-100); MEAN CORPUSCULAR HEMOGLOBIN 30.3 pg (25-34); MEAN PLATELET VOLUME 12.1 fL (7.4-10.4); PLATELET COUNT 109 K/uL (130-400); RED BLOOD COUNT 3.23 M/uL (4.7-6.1)
[2016-10-07 17:56] LABS: ALT/SGPT 45 U/L (12-78); AST/SGOT 40 U/L (15-37); BLOOD UREA NITROGEN 40 mg/dl (7-18); BUN/CREATININE RATIO 28.5 (10-20); CALCIUM 8.5 mg/dl (8.5-10.1); CARBON DIOXIDE 21 mmol/L (21-32); CHLORIDE 115 mmol/L (98-107); GLUCOSE 93 mg/dl (70-99); POTASSIUM 4.3 mmol/L (3.5-5.1); SODIUM 141 mmol/L (136-145)
[2016-10-07 17:59] LABS: ALKALINE PHOSPHATASE 138 U/L (45-117)
== END | disposition home or self-care (01) ==
LOC: C.LABSPEC 15:17
PROVIDERS: ATTEND Family Medicine
DX: Z01.89 Encounter for other specified special examinations (principal)

== ENCOUNTER 2016-10-24 11:03 | Emergency (ER) | payer OTHER ==
[~2016-10-24] VITALS: Ht 182.9 cm; Wt 89.0 kg
[~2016-10-24 11:03] MED LIST changes: -CHOL1000 PO; -DORZ2SOL OPB; -FERR324T4 PO; -FURO-85 PO; -LEVO-18 PO; -PRLSR20 PO; -RIFA550T2 PO; -SIMV40TA2 PO; -SYN200 PO
[2016-10-24 11:11] VITALS: Ht 182.9 cm; Wt 89.0 kg
[2016-10-24] MEDS ORDERED: FURO-85 PO (11:45)
--- NOTE | 2016-10-24 12:58 | EMERGENCY ROOM VISIT NOTE ---
History Report prepared by Adele: Obed Domingo Under the Supervision of: Dr. Kaitlynn Simpson D.O. First contact with patient: 12:39 Chief Complaint: EDEMA TO EXTREMITY Stated Complaint: ABDOMINAL ASCITES History of Present Illness The patient is a 71 year old male who presents to the Emergency Room with complaints of worsening abdominal edema for the past 6 weeks. The patient states that he has gained 40 pounds in about 6 weeks. The patient was here in September for the same issue, and they drained 7L of fluid from his abdomen. The patient additionally states that he has had a change in fluid pills, though he has had kidney failure too, so they are being careful. Additionally, the patient has a catheter in place. The patient states that he has had leg swelling. He states that he has no history of heart issues, though his liver and kidney are not good, and he has varices and bleeding. The patient states that he does not drink alcohol. Pt denies headache, change in vision, fevers, chest pain, shortness of breath, nausea, vomiting, diarrhea, pain with urination , and melena. A review of the EMR shows that the patient was admitted in September for renal failure, hepatic encephalopathy, and worsening ascites. He had a paracentesis with aspiration of 5.3L. Source of History: patient Onset: 6 weeks ago Position: abdomen Quality: other (edema) Timing: worsening Note: Associated symptoms: leg swelling Review of Systems See HPI for pertinent positives & negatives. A total of 10 systems reviewed and were otherwise negative. Past Medical & Surgical Medical Problems: (1) Cirrhosis Of Liver Nos (2) Diverticulosis Colon (W/O Ment Of Hemorrhage) (3) Esophageal varices (4) HLD (hyperlipidemia) (5) Hypertension Nos (6) Hypothyroidism Nos Surgical Problems: (1) Cataract (2) History of hernia surgery Family History FH: leukemia (mother from leukemia) Social History Smoking Status: Former Smoker Alcohol Use: none Drug Use: none Marital Status: Housing Status: lives alone Occupation Status: retired Current/Historical Medications Scheduled Cholecalciferol (Vitamin D3), 2,000 UNITS PO DAILY Dorzolamide Hcl (Trusopt), 1 DROP OPB BID Ferrous Sulfate (Ferrous Sulfate), 324 MG PO QAM Furosemide (Lasix), 20 MG PO Q2D Furosemide (Lasix), 10 MG PO Q2D Lactulose (Lactulose), 20 GM PO DAILY Levothyroxine Sodium (Synthroid), 200 MCG PO QAM Nadolol (Corgard), 20 MG PO QAM Omeprazole (Prilosec), 40 MG PO BID Rifaximin (Xifaxan), 550 MG PO BID Simvastatin (Zocor), 40 MG PO QPM Spironolactone (Spironolactone), 12.5 MG PO QAM Allergies Coded Allergies: No Known Allergies (Verified , 10/24/16) Physical Exam Vital Signs Date Time Temp Pulse Resp B/P (MAP) Pulse Ox O2 Delivery O2 Flow Rate FiO2 10/24/16 21:01 36.6 64 27 115/71 96 10/24/16 20:40 64 27 10/24/16 20:35 64 11 10/24/16 20:30 64 31 115/71 10/24/16 20:25 65 20 10/24/16 20:20 62 18 10/24/16 20:15 62 20 10/24/16 20:10 63 17 10/24/16 20:05 62 17 10/24/16 20:00 62 20 84/49 10/24/16 19:55 63 23 10/24/16 19:50 62 14 10/24/16 19:45 62 19 10/24/16 19:30 103/64 10/24/16 19:15 67 17 10/24/16 19:09 58 21 10/24/16 19:08 134 22 96 Room Air 10/24/16 19:00 107/68 10/24/16 18:45 59 21 10/24/16 18:40 58 21 10/24/16 18:39 99/63 10/24/16 17:50 56 18 98 10/24/16 17:45 59 20 99 10/24/16 17:40 58 17 99 10/24/16 17:35 56 16 99 10/24/16 17:30 109/74 10/24/16 17:27 59 17 99 10/24/16 17:10 59 10/24/16 17:00 113/74 10/24/16 16:57 59 30 100 10/24/16 16:30 104/64 10/24/16 16:27 57 18 99 10/24/16 16:00 100/65 10/24/16 15:57 58 15 98 10/24/16 15:52 56 15 98 10/24/16 15:30 112/72 10/24/16 15:22 59 23 98 10/24/16 15:00 110/71 10/24/16 14:52 57 17 99 10/24/16 14:47 57 16 98 10/24/16 14:30 89/56 10/24/16 14:17 58 14 98 10/24/16 14:00 109/74 10/24/16 13:47 57 22 99 10/24/16 13:30 109/69 10/24/16 13:21 57 10/24/16 13:17 58 14 100 10/24/16 13:00 96/69 10/24/16 12:47 58 18 100 10/24/16 12:42 101 18 102/70 98 Room Air 10/24/16 12:33 58 19 98 10/24/16 12:03 57 12 97 10/24/16 11:33 58 18 100 10/24/16 11:11 36.6 60 22 99/62 99 Room Air 10/24/16 11:09 59 Physical Exam GENERAL: alert, well appearing, well nourished, no distress, non-toxic EYE EXAM: normal conjunctiva, PERRL and EOM's grossly intact OROPHARYNX: Edentulous no exudate, no erythema, lips, buccal mucosa, and tongue normal and mucous membranes are dry NECK: supple, no nuchal rigidity, no adenopathy, non-tender LUNGS: Clear to auscultation. Normal chest wall mechanics HEART: no murmurs, S1 normal and S2 normal ABDOMEN: Large protuberant abdomen. Periumbilical hernia which is soft and easily reducible. No rebound or guarding. Positive fluid wave. General discomfort. BACK: Back is symmetrical on inspection and there is no deformity, no midline tenderness, no CVA tenderness. SKIN: no rashes and no bruising UPPER EXTREMITIES: upper extremities are grossly normal. Amaro Catheter in place with a leg bag on the right leg. LOWER EXTREMITIES: 3+ edema NEURO EXAM: Normal sensorium, cranial nerves II-XII grossly intact, normal speech, no gross weakness of arms, no gross weakness of legs. Gross sensation intact. Medical Decision & Procedures Laboratory Results 10/24/16 13:25 Red Blood Count 3.22, Mean Corpuscular Volume 93.2, Mean Corpuscular Hemoglobin 30.7, Mean Corpuscular Hemoglobin Concent 33.0, Mean Platelet Volume 11.8, Neutrophils (%) (Auto) 70.0, Lymphocytes (%) (Auto) 9.7, Monocytes (%) (Auto) 13.0, Eosinophils (%) (Auto) 6.0, Basophils (%) (Auto) 0.9, Neutrophils # (Auto ) 4.70, Lymphocytes # (Auto) 0.65, Monocytes # (Auto) 0.87, Eosinophils # (Auto ) 0.40, Basophils # (Auto) 0.06 10/24/16 13:25 Test 10/24/16 13:25 White Blood Count 6.71 K/uL (4.8-10.8) Red Blood Count 3.22 M/uL (4.7-6.1) Hemoglobin 9.9 g/dL (14.0-18.0) Hematocrit 30.0 % (42-52) Mean Corpuscular Volume 93.2 fL (80-100) Mean Corpuscular Hemoglobin 30.7 pg (25-34) Mean Corpuscular Hemoglobin Concent 33.0 g/dl (32-36) Platelet Count 79 K/uL (130-400) Mean Platelet Volume 11.8 fL (7.4-10.4) Neutrophils (%) (Auto) 70.0 % Lymphocytes (%) (Auto) 9.7 % Monocytes (%) (Auto) 13.0 % Eosinophils (%) (Auto) 6.0 % Basophils (%) (Auto) 0.9 % Neutrophils # (Auto) 4.70 K/uL (1.4-6.5) Lymphocytes # (Auto) 0.65 K/uL (1.2-3.4) Monocytes # (Auto) 0.87 K/uL (0.11-0.59) Eosinophils # (Auto) 0.40 K/uL (0-0.5) Basophils # (Auto) 0.06 K/uL (0-0.2) RDW Standard Deviation 60.9 fL (36.4-46.3) RDW Coefficient of Variation 17.6 % (11.5-14.5) Immature Granulocyte % (Auto) 0.4 % Immature Granulocyte # (Auto) 0.03 K/uL (0.00-0.02) Platelet Estimate DECREASED Poikilocytosis PRESENT Prothrombin Time 13.6 SECONDS (9.0-12.0) Prothromb Time International Ratio 1.3 (0.9-1.1) Anion Gap 6.0 mmol/L (3-11) Est Creatinine Clear Calc Drug Dose 58.0 ml/min Estimated GFR () 64.1 Estimated GFR (Non- 55.3 BUN/Creatinine Ratio 28.3 (10-20) Lactic Acid Level 1.1 mmol/L (0.4-2.0) Calcium Level 8.4 mg/dl (8.5-10.1) Phosphorus Level 3.2 mg/dl (2.5-4.9) Magnesium Level 2.3 mg/dl (1.8-2.4) Total Bilirubin 1.0 mg/dl (0.2-1) Direct Bilirubin 0.4 mg/dl (0-0.2) Aspartate Amino Transf (AST/SGOT) 49 U/L (15-37) Alanine Aminotransferase (ALT/SGPT) 40 U/L (12-78) Alkaline Phosphatase 123 U/L (45-117) Total Protein 5.9 gm/dl (6.4-8.2) Albumin 2.6 gm/dl (3.4-5.0) Lipase 407 U/L (73-393) Laboratory results per my review. Medications Administered Medications (Trade) Dose Ordered Sig/Elias Route Start Time Stop Time Status Last Admin Dose Admin Sodium Chloride 1,000 ml @ 250 mls/hr Q4H STAT IV 10/24/16 15:38 10/24/16 19:37 DC 10/24/16 15:53 250 MLS/HR Albumin Human (Albumin 25%) 25 gm NOW STAT IV 10/24/16 18:44 10/24/16 18:46 DC 10/24/16 19:12 25 GM Albumin Human (Albumin 25%) 12.5 gm NOW STAT IV 10/24/16 19:29 10/24/16 19:31 DC 10/24/16 19:41 12.5 GM ED Course 1239: The patient was evaluated in room C6. A complete history and physical exam was performed. 1504: I discussed the patient's case with Dr. German, and he is going to perform the paracentesis on the patient 1516: I updated the patient on the plan, and he states that he is anxious for the tap. 1538: Sodium Chloride 1000 ml @ 250 mls/hr IV. 1855: Pt states feeling much better since his paracentesis. Abdomen softer. Pt asking to eat. VS stable. Pt getting albumin after another review of the EMR found pt did require albumin for the last paracentesis. Pt albumin level in serum low, slightly lower than prior, but chronically low. Discussed level, albumin, need for close recheck with pt and family. 1904: Discussed albumin with pharmacist, Jay, discussed prior albumin levels, pt with stable VS currently, BP normal for pt per family. Additional albumin ordered. 1954: Pt tolerated po here. VS remain stable. Pt reports feeling well. Extensive bedside discussion regarding f/u with PCP, sx to watch/return for, he verbalized understanding as did family and they were agreeable with plan. Medical Decision Pt here for therapeutic paracentesis. Worsening abdominal distention and fluid accumulation over the last 5-6 weeks. Denies fevers/chills, n/v, or abd pain, doubt SBP. Pt with know cirrhosis, chronic lab abnormalities associated with this appear stable. Mildly worse hypoalbuminemia compared to discharge last month. LE edema chronic, not worse according to pt and family. No confusion or symptoms to suggest encephalopathy. No other evidence of infection. H/H stable, thrombocytopenia stable, creatinine stable. Pt felt improved following procedure. Pt monitored and albumin given post procedure. Pt with chronic borderline low BP per family and pt, they state normal throughout while here. No hypotensive episodes post procedure. tolerated po. Discussed with pt and family at length close f/u with PCP, recheck of labs, sx to watch/return for, they verbalized understanding and were agreeable with plan. Medication Reconcilliation Current Medication List: was personally reviewed by me Blood Pressure Screening Patient's blood pressure: Normal blood pressure Impression Primary Impression: Cirrhosis Of Liver Nos Additional Impressions: Ascites Thrombocytopenia Anemia Hypoalbuminemia Scribe Attestation The scribe's documentation has been prepared under my direction and personally reviewed by me in its entirety. I confirm that the note above accurately reflects all work, treatment, procedures, and medical decision making performed by me. Departure Information Dispostion Home / Self-Care Referrals Gildardo Casiano D.O. (PCP) Patient Instructions [facility] Additional Instructions Please call your family doctor tomorrow and discuss with them how you are feeling and have them recheck your blood work this week. Your creatinine was 1.3. Your albumin was low. You were given some albumin after your procedure but this level needs to be rechecked this week. Please continue your regular medicines as prescribed and discuss your water pill with your family doctor. If you have any abdominal pain, fevers, trouble breathing, nausea/vomiting, dizziness, feel as though you may pass out, develop worsening swelling, or you have any other new or concerning symptoms, please return to the emergency room. Problem Qualifiers Additional Impressions: Ascites Ascites type: other type Qualified Codes: R18.8 - Other ascites Anemia Anemia type: unspecified type Qualified Codes: D64.9 - Anemia, unspecified
[2016-10-24 13:39] LABS: MEAN CELL VOLUME 93.2 fL (80-100); MEAN CORPUSCULAR HEMOGLOBIN 30.7 pg (25-34); RED BLOOD COUNT 3.22 M/uL (4.7-6.1); WHITE BLOOD COUNT 6.71 K/uL (4.8-10.8)
[2016-10-24 13:48] LABS: INR 1.3 (0.9-1.1); PROTHROMBIN TIME (PATIENT) 13.6 SECONDS (9.0-12.0)
[2016-10-24 13:57] LABS: BUN/CREATININE RATIO 28.3 (10-20); CALCIUM 8.4 mg/dl (8.5-10.1); CREATININE 1.3 mg/dl (0.60-1.40); MAGNESIUM 2.3 mg/dl (1.8-2.4); POTASSIUM 4.4 mmol/L (3.5-5.1)
[2016-10-24 14:00] LABS: PHOSPHORUS 3.2 mg/dl (2.5-4.9)
[2016-10-24 14:28] LABS: MEAN PLATELET VOLUME 11.8 fL (7.4-10.4); PLATELET COUNT 79 K/uL (130-400)
[2016-10-24 14:29] LABS: BASO % 0.9 %; BASO ABS # 0.06 K/uL (0-0.2); COMPLETE YES; IG% 0.4 %; LYMPH % 9.7 %; LYMPH ABS # 0.65 K/uL (1.2-3.4); PLT ESTIMATE DECREASED; POIKILOCYTOSIS PRESENT
[2016-10-24] MEDS ORDERED: SODIUM CHLORIDE 0.9% 1000ML 1,000 ML IV STA (15:38)
[2016-10-24] MEDS ORDERED: ALBUMIN HUMAN 25% 12.5 GM/50 ML VIAL IV STA ×2 (18:44→19:29)
--- NOTE | 2016-10-24 19:28 | DIAGNOSTIC IMAGING REPORT ---
PARACENTESIS UNDER ULTRASOUND GUIDANCE CLINICAL HISTORY: Abdominal ascites. PROCEDURE: The risks, benefits, and alternatives to the procedure were discussed with the patient who voiced understanding. Written informed consent was obtained. Following real-time ultrasound localization of a suitable pocket of fluid in the left lower quadrant, the abdomen was prepped and draped in the usual sterile fashion. The skin and soft tissues were anesthetized with 1% lidocaine. The sheathed paracentesis was inserted and approximately 5 liters of straw- colored ascitic fluid was removed by vacuum suction. The procedure was well tolerated and without immediate complication. The patient left the department in satisfactory condition. IMPRESSION: Successful ultrasound-guided paracentesis with removal of approximately 5 liters of ascitic fluid. Electronically signed by: Justin German M.D. 10/24/2016 7:00 PM Dictated Date/Time: 10/24/2016 7:00 PM
[2016-10-24 21:01] VITALS: BP 115/71; PULSE 64; TEMP 36.6; O2SAT 96
[2016-11-25] MEDS ORDERED: RIFA550T2 PO (10:37)
[2016-11-25] MEDS ORDERED: SIMV40TA2 PO (10:37)
[2016-11-25] MEDS ORDERED: FURO-85 PO (11:45)
[2016-11-29] MEDS ORDERED: LEVO-18 PO (15:33)
== END 2016-10-24 21:03 | disposition home or self-care (01) ==
LOC: EDBD 11:03 → C.EDC 11:04
DX: K74.60 Unspecified cirrhosis of liver (principal); R18.8 Other ascites; D69.6 Thrombocytopenia, unspecified; D64.9 Anemia, unspecified; E88.09 Other disorders of plasma-protein metabolism, not elsewhere classified; K57.90 Diverticulosis of intestine, part unspecified, without perforation or abscess without bleeding; E78.5 Hyperlipidemia, unspecified; I10 Essential (primary) hypertension; E03.9 Hypothyroidism, unspecified; Z87.891 Personal history of nicotine dependence

== ENCOUNTER → 2016-10-31 | Outpatient (CLI) | payer OTHER ==
[~2016-10-31] MED LIST changes: +CHOL1000 PO; +DORZ2SOL OPB; +FERR324T4 PO; +FURO-85 PO; +LEVO-18 PO; -LSX20 PO; +PRLSR20 PO; +RIFA550T2 PO; +SIMV40TA2 PO; +SYN200 PO
[2016-10-31 12:18] LABS: BLOOD UREA NITROGEN 31 mg/dl (7-18); BUN/CREATININE RATIO 21.9 (10-20); CALCIUM 8.1 mg/dl (8.5-10.1); CARBON DIOXIDE 22 mmol/L (21-32); CHLORIDE 113 mmol/L (98-107); GLUCOSE 58 mg/dl (70-99); POTASSIUM 4.1 mmol/L (3.5-5.1); SODIUM 141 mmol/L (136-145)
== END | disposition home or self-care (01) ==
LOC: C.LABSPEC 11:47
PROVIDERS: ATTEND Family Medicine
DX: K74.69 Other cirrhosis of liver (principal)

== ENCOUNTER 2016-11-25 17:11 | Inpatient (IN) | payer OTHER ==
[~2016-11-25] VITALS: Ht 182.9 cm; Wt 81.0 kg
[~2016-11-25 17:11] MED LIST changes: -CHOL1000 PO; -DORZ2SOL OPB; -FERR324T4 PO; -LEVO-18 PO; -PRLSR20 PO; -SYN200 PO
[2016-11-25] MEDS ORDERED: LACTULOSE SYRUP 20 GM/30 ML UDC PO STA (17:26)
--- NOTE | 2016-11-25 17:30 | EMERGENCY ROOM VISIT NOTE ---
History Report prepared by Adele: Frankie Corley Under the Supervision of: Dr. Mick Pepper D.O. First contact with patient: 17:13 Chief Complaint: ALTERED MENTAL STATUS Stated Complaint: ALTERED MENTAL STATUS History of Present Illness The patient is a 71 year old male with a history of hepatic encephalopathy who presents to the Emergency Room via EMS with persistent altered mental status that started earlier today. Per EMS, the patient was noted to be weak today. Per the patient's daughter, the patient just got out of the [facility] 5 days ago. The patient was seeing a esol teacher before being hospitalized there. The patient had 8 liters taken off of his abdomen, and then 2 days later had another 8 liters taken off. The patient was noted to be fine when he was discharged. He was also noted to be fine this morning around 0700. However, the patient's daughter called the patient at lunch time, and the patient did not answer. He was sleeping on his chair, and said that he did not hear his phone. The patient's daughter states that she then called him around 1600, and there was no answer again, and the patient was on the chair in the same condition. The patient says that he is feeling okay without any pain. He says that he has been eating and drinking fine. The patient adds that his urine has been dark and cloudy recently. He denies any headaches, abdominal pain, hematochezia, melena, or any recent falls. Source of History: patient, family, EMS Onset: Earlier today Position: other (global - altered mental status) Timing: other (persistent) Associated Symptoms: + urinary symptoms, + weakness, No headache, No abdominal pain, No melena, No hematochezia Note: Associated symptoms: Not responding well. Not answering phone. Was okay this morning at 0700. Review of Systems See HPI for pertinent positives & negatives. A total of 10 systems reviewed and were otherwise negative. Past Medical & Surgical Medical Problems: (1) Cirrhosis Of Liver Nos (2) Diverticulosis Colon (W/O Ment Of Hemorrhage) (3) Esophageal varices (4) HLD (hyperlipidemia) (5) Hypertension Nos (6) Hypothyroidism Nos Surgical Problems: (1) Cataract (2) History of hernia surgery Family History FH: leukemia (mother from leukemia) Social History Smoking Status: Former Smoker Alcohol Use: none Drug Use: none Marital Status: Housing Status: lives alone Occupation Status: retired Current/Historical Medications Scheduled Cholecalciferol (Vitamin D3), 2,000 UNITS PO DAILY Dorzolamide Hcl (Trusopt), 1 DROP OPB BID Ferrous Sulfate (Ferrous Sulfate), 324 MG PO QAM Furosemide (Lasix), 20 MG PO DAILY Lactulose (Lactulose), 20 GM PO DAILY Levothyroxine Sodium (Synthroid), 200 MCG PO QAM Nadolol (Corgard), 20 MG PO HOLD Omeprazole (Prilosec), 40 MG PO BID Rifaximin (Xifaxan), 550 MG PO BID Simvastatin (Zocor), 40 MG PO QPM Spironolactone (Spironolactone), 12.5 MG PO QAM Allergies Coded Allergies: No Known Allergies (Verified , 10/24/16) Physical Exam Vital Signs Date Time Temp Pulse Resp B/P (MAP) Pulse Ox O2 Delivery O2 Flow Rate FiO2 11/25/16 18:01 77 11/25/16 17:19 36.5 82 13 94/55 99 Room Air Physical Exam GENERAL: Patient is listless, falls asleep easily but responds to loud verbal stimuli. EYES: Left pupil was surgically corrected. Right pupil was normal size and reactive to light. EARS, NOSE, MOUTH AND THROAT: The nose is without any evidence of any deformity. Mucous membranes are dry tongue is midline NECK: The neck is nontender and supple. RESPIRATORY: Lung sounds were diminished throughout with rales in all lung webb. CARDIOVASCULAR: Regular rate and rhythm noted to auscultation. Systolic murmur suggested to auscultation. GASTROINTESTINAL: The abdomen was moderately distended but soft. No specific guarding or rigidity appreciated. MUSCULOSKELETAL/EXTREMITIES: There is no evidence of gross deformity full range of motion is noted in the hips and shoulders SKIN: Pedal edema bilaterally. NEUROLOGIC: Patient answers questions and appears to be oriented to person and situation. Strength was symmetric but diminished. Medical Decision & Procedures ER Provider Diagnostic Interpretation: X-ray results as stated below per interpretation by me and the radiologist. CHEST ONE VIEW PORTABLE CLINICAL HISTORY: ABDOMINAL PAIN/GI pain COMPARISON STUDY: 09/12/2016 FINDINGS: Poorly defined parenchymal infiltrate left base. Slight bilateral hilar fullness considered chronic. Upper lungs are clear. IMPRESSION: Infiltrate left base. The above report was generated using voice recognition software. It may contain grammatical, syntax or spelling errors. Electronically signed by: Matt Trejo M.D. 11/25/2016 5:56 PM Dictated Date/Time: 11/25/2016 5:55 PM Laboratory Results 11/25/16 17:51 Red Blood Count 2.50, Mean Corpuscular Volume 91.2, Mean Corpuscular Hemoglobin 30.8, Mean Corpuscular Hemoglobin Concent 33.8, Mean Platelet Volume 11.3, Neutrophils (%) (Auto) 61.5, Lymphocytes (%) (Auto) 21.9, Monocytes (%) (Auto) 9.1, Eosinophils (%) (Auto) 5.5, Basophils (%) (Auto) 1.1, Neutrophils # (Auto) 3.45, Lymphocytes # (Auto) 1.23, Monocytes # (Auto) 0.51, Eosinophils # (Auto) 0.31, Basophils # (Auto) 0.06 11/25/16 17:51 Test 11/25/16 17:51 11/25/16 18:37 11/25/16 18:43 White Blood Count 5.61 K/uL (4.8-10.8) Red Blood Count 2.50 M/uL (4.7-6.1) Hemoglobin 7.7 g/dL (14.0-18.0) Hematocrit 22.8 % (42-52) Mean Corpuscular Volume 91.2 fL (80-100) Mean Corpuscular Hemoglobin 30.8 pg (25-34) Mean Corpuscular Hemoglobin Concent 33.8 g/dl (32-36) Platelet Count 90 K/uL (130-400) Mean Platelet Volume 11.3 fL (7.4-10.4) Neutrophils (%) (Auto) 61.5 % Lymphocytes (%) (Auto) 21.9 % Monocytes (%) (Auto) 9.1 % Eosinophils (%) (Auto) 5.5 % Basophils (%) (Auto) 1.1 % Neutrophils # (Auto) 3.45 K/uL (1.4-6.5) Lymphocytes # (Auto) 1.23 K/uL (1.2-3.4) Monocytes # (Auto) 0.51 K/uL (0.11-0.59) Eosinophils # (Auto) 0.31 K/uL (0-0.5) Basophils # (Auto) 0.06 K/uL (0-0.2) RDW Standard Deviation 53.1 fL (36.4-46.3) RDW Coefficient of Variation 16.1 % (11.5-14.5) Immature Granulocyte % (Auto) 0.9 % Immature Granulocyte # (Auto) 0.05 K/uL (0.00-0.02) Schistocytes 1+ Prothrombin Time 13.8 SECONDS (9.0-12.0) Prothromb Time International Ratio 1.3 (0.9-1.1) Activated Partial Thromboplast Time 37.1 SECONDS (21.0-31.0) Partial Thromboplastin Ratio 1.4 Venous Blood pH 7.48 (7.36-7.41) Venous Blood Partial Pressure CO2 28 mmHg (38.0-50.0) Venous Blood Partial Pressure O2 35 mmHg Venous Blood HCO3 20 mmol/L Venous Blood Oxygen Saturation < 60.0 % Venous Blood Base Excess -2.8 mEq/L Est Creatinine Clear Calc Drug Dose 47.2 ml/min Estimated GFR () 49.9 Estimated GFR (Non- 43.0 BUN/Creatinine Ratio 29.3 (10-20) Calcium Level 8.8 mg/dl (8.5-10.1) Total Bilirubin 1.2 mg/dl (0.2-1) Direct Bilirubin 0.4 mg/dl (0-0.2) Aspartate Amino Transf (AST/SGOT) 34 U/L (15-37) Alanine Aminotransferase (ALT/SGPT) 27 U/L (12-78) Alkaline Phosphatase 89 U/L (45-117) Ammonia 125.0 umol/L (11-32) Troponin I < 0.015 ng/ml (0-0.045) Total Protein 5.8 gm/dl (6.4-8.2) Albumin 2.9 gm/dl (3.4-5.0) Lipase 354 U/L (73-393) Bedside Hemoglobin 7.5 g/dl (14.0-18.0) Bedside Hematocrit 22 % (42-52) Bedside Sodium 138 mEq/L (135-144) Bedside Potassium 4.2 mEq/L (3.3-5.0) Bedside Chloride 108 mEq/L (101-112) Bedside Total CO2 18 mEq/l (24-31) Anion Gap 17.0 mmol/L (16-25) Bedside Blood Urea Nitrogen 41 mg/dl (7-18) Bedside Creatinine 1.6 mg/dl (0.6-1.3) Bedside Glucose (other) 83 mg/dl (70-99) Bedside Ionized Calcium (Claire) 1.19 mmol/l (1.12-1.32) Bedside Lactic Acid Venous 1.38 mmol/L (0.90-1.70) Laboratory results per my review. ECG Indication: weakness Rate (beats per minute): 81 Rhythm: normal sinus Findings: no ectopy, other (no acute ST segment abnormalities) Change: no significant change (from September 12 this year) ED Course 1718: The patient was evaluated in room B9. A complete history and physical examination were performed. 1725: Ordered Chronulac Syrup 30 gm PO. 1831: Ordered Levaquin / D5W 750 mg IV, NSS 1000 ml @ 999 mls/hr IV. 1851: I reevaluated the patient and he is resting. The patient's daughter verbally expressed understanding and agreement with the treatment plan. The patient will be evaluated for further treatment. 1853: I discussed the patient with Dr. Pio Brooke vehicle assembler. She will evaluate the patient for further treatment. Medical Decision Differential diagnosis: Etiologies such as metabolic, infection, hypoglycemia, electrolyte abnormalities , cardiac sources, intracerebral event, toxicologic, neurologic, as well as others were entertained. Nursing notes reviewed. Additional history is obtained from the patient's daughter. The patient is a 71-year-old male who presented to the emergency department for altered mental status. The patient has a history of end-stage liver disease. He was recently admitted at the [facility] in [place] and had paracentesis 2 days in a row. He was discharged to home and was feeling much better. The patient's daughter states that she talked to him this morning and he was fine but when she went to check on him this evening he was altered. The patient reports that he was compliant with his medication but his ammonia level was very high. The patient was treated with lactulose in the emergency department. He was also given a fluid bolus and IV antibiotics to treat a presumed pneumonia noted on chest x-ray. I discussed the patient's laboratory and radiographic studies with him and his daughter. I also discussed his case [facility] They've agreed to evaluate the patient in the emergency department for further management and disposition. Head Trauma GCS Score: 14 Medication Reconcilliation Current Medication List: was personally reviewed by me Blood Pressure Screening Patient's blood pressure: Normal blood pressure Consults Time Called: 1849 Consulting Physician: Dr. Pio Brooke vehicle assembler Returned Call: 1853 I discussed the patient with Dr. Pio Brooke vehicle assembler. She will evaluate the patient for further treatment. Impression Primary Impression: PNA (pneumonia) Additional Impressions: Altered mental status Hepatic encephalopathy Hypotension Anemia Scribe Attestation The scribe's documentation has been prepared under my direction and personally reviewed by me in its entirety. I confirm that the note above accurately reflects all work, treatment, procedures, and medical decision making performed by me. Departure Information Dispostion Being Evaluated By Hospitalist Referrals Gildardo Casiano D.O. (PCP) Patient Instructions [facility] Problem Qualifiers Primary Impression: PNA (pneumonia) Pneumonia type: due to unspecified organism Laterality: unspecified laterality Lung location: unspecified part of lung Qualified Codes: J18.9 - Pneumonia, unspecified organism Additional Impressions: Altered mental status Altered mental status type: unspecified Qualified Codes: R41.82 - Altered mental status, unspecified Hypotension Hypotension type: unspecified hypotension type Qualified Codes: I95.9 - Hypotension, unspecified Anemia Anemia type: unspecified type Qualified Codes: D64.9 - Anemia, unspecified
--- NOTE | 2016-11-25 17:57 | DIAGNOSTIC IMAGING REPORT ---
CHEST ONE VIEW PORTABLE CLINICAL HISTORY: ABDOMINAL PAIN/GI pain COMPARISON STUDY: 09/12/2016 FINDINGS: Poorly defined parenchymal infiltrate left base. Slight bilateral hilar fullness considered chronic. Upper lungs are clear. IMPRESSION: Infiltrate left base. The above report was generated using voice recognition software. It may contain grammatical, syntax or spelling errors. Electronically signed by: Matt Trejo M.D. 11/25/2016 5:56 PM Dictated Date/Time: 11/25/2016 5:55 PM
[2016-11-25 18:06] LABS: HEMATOCRIT 22.8 % (42-52); MEAN CELL VOLUME 91.2 fL (80-100); MEAN CORPUSCULAR HEMOGLOBIN 30.8 pg (25-34); MEAN CORPUSCULAR HGB CONC 33.8 g/dl (32-36); WHITE BLOOD COUNT 5.61 K/uL (4.8-10.8)
[2016-11-25] MEDS ORDERED: DORZ2SOL OPB (18:07)
[2016-11-25] MEDS ORDERED: PRLSR20 PO (18:07)
[2016-11-25 18:08] LABS: VENOUS BLOOD GAS PCO2 28 mmHg (38.0-50.0)
[2016-11-25 18:09] LABS: MEAN PLATELET VOLUME 11.3 fL (7.4-10.4); PLATELET COUNT 90 K/uL (130-400); VEN BLD GAS O2 SATURATION < 60.0 %; VEN BLOOD GAS BASE EXCESS -2.8 mEq/L; VENOUS BLOOD GAS PO2 35 mmHg
[2016-11-25 18:20] LABS: INR 1.3 (0.9-1.1); PARTIAL THROMBOPLASTIN RATIO 1.4; PROTHROMBIN TIME (PATIENT) 13.8 SECONDS (9.0-12.0)
[2016-11-25 18:22] LABS: ALT/SGPT 27 U/L (12-78); BLOOD UREA NITROGEN 47 mg/dl (7-18); BUN/CREATININE RATIO 29.3 (10-20); CALCIUM 8.8 mg/dl (8.5-10.1); CARBON DIOXIDE 19 mmol/L (21-32); CHLORIDE 110 mmol/L (98-107); GLUCOSE 81 mg/dl (70-99); POTASSIUM 4.1 mmol/L (3.5-5.1); SODIUM 140 mmol/L (136-145)
[2016-11-25 18:27] LABS: ALKALINE PHOSPHATASE 89 U/L (45-117); AST/SGOT 34 U/L (15-37)
[2016-11-25 18:30] LABS: BASO % 1.1 %; BASO ABS # 0.06 K/uL (0-0.2); COMPLETE YES; EOS % 5.5 %; IG% 0.9 %; LYMPH % 21.9 %; LYMPH ABS # 1.23 K/uL (1.2-3.4); MONO % 9.1 %; NEUT % 61.5 %; SCHISTOCYTES 1+
[2016-11-25] MEDS ORDERED: SODIUM CHLORIDE 0.9% 1000ML 1,000 ML IV STA (18:32)
[2016-11-25] MEDS ORDERED: LEVAQUIN 750MG / 150ML D5W IV STA (18:32)
[2016-11-25 18:50] LABS: ISTAT CREATININE 1.6 mg/dl (0.6-1.3); ISTAT HEMOGLOBIN 7.5 g/dl (14.0-18.0); ISTAT IONIZED CALCIUM 1.19 mmol/l (1.12-1.32)
[2016-11-25] MEDS ORDERED: SYN200 PO (20:49)
[2016-11-25] MEDS ORDERED: FERR324T4 PO (20:49)
[2016-11-25] MEDS ORDERED: CHOL1000 PO (20:49)
--- NOTE | 2016-11-25 21:15 | History and Physical ---
History & Physical Date & Time of Service: Nov 25, 2016 at 21:15 . Chief Complaint: confusion . Primary Care Physician: Gildardo Casiano D.O. . History of Present Illness Source: patient, family, hospital records 71 YO male followed by Dr. Casiano at the [facility]. [facility] in [place]. History of cirrhosis attributed to fatty liver disease, complicated by portal hypertension, esophageal varices, ascites, encephalopathy. Hospitalized at [facility] twice in August with hepatic encephalopathy and again in September with acute kidney injury. Hospitalized at [facility] in [place] last week. Large volume paracentesis performed. Discharged to home 5 days prior to admission. Daughter does not live with him, but checks on him by phone or by visiting several times a day. This afternoon, she found him to be lethargic, confused, weak. He was brought to the ED for evaluation. Patient unable to provide much history due to his mental status. He denies fever, chest pain, cough, SOB, abdominal pain, nausea, vomiting, melena, hematochezia, urinary symptoms. His daughter has noted an occasional cough. . Past Medical/Surgical History Medical Problems: (1) Cirrhosis Of Liver Nos Status: Chronic (2) Diverticulosis Colon (W/O Ment Of Hemorrhage) Status: Chronic (3) Esophageal varices Status: Chronic (4) HLD (hyperlipidemia) Status: Chronic (5) Hypertension Nos Status: Chronic (6) Hypothyroidism Nos Status: Chronic Surgical Problems: (1) Cataract Status: Resolved (2) History of hernia surgery Status: Resolved . Family History FH: leukemia (mother from leukemia) Social History Smoking Status: Former Smoker Drug Use: none Marital Status: Housing status: lives alone Occupational Status: retired Allergies Coded Allergies: No Known Allergies (Verified , 10/24/16) Home Medications Scheduled Cholecalciferol (Vitamin D3), 2,000 UNITS PO DAILY Dorzolamide Hcl (Trusopt), 1 DROP OPB BID Ferrous Sulfate (Ferrous Sulfate), 324 MG PO QAM Furosemide (Lasix), 20 MG PO DAILY Lactulose (Lactulose), 20 GM PO DAILY Levothyroxine Sodium (Synthroid), 200 MCG PO QAM Nadolol (Corgard), 20 MG PO HOLD Omeprazole (Prilosec), 40 MG PO BID Rifaximin (Xifaxan), 550 MG PO BID Simvastatin (Zocor), 40 MG PO QPM Spironolactone (Spironolactone), 12.5 MG PO QAM Review of Systems Very limited ROS as noted in HPI. Unable to perform complete ROS due to lethargy. . Physical Exam Vital Signs Date Time Temp Pulse Resp B/P (MAP) Pulse Ox O2 Delivery O2 Flow Rate FiO2 11/25/16 19:33 78 20 100/60 98 Room Air 11/25/16 18:01 77 11/25/16 17:19 36.5 82 13 94/55 99 Room Air General Appearance: no apparent distress, + pertinent finding (appears to be chronically ill) Eyes: normal inspection, PERRL, EOMI, sclerae normal (conjunctivae pink) ENT: hearing grossly normal, + pertinent finding (edentulous, upper dentures) Neck: supple, no adenopathy, thyroid normal, no JVD, trachea midline Respiratory/Chest: lungs clear, no respiratory distress, no accessory muscle use Cardiovascular: regular rate, rhythm, no gallop, no JVD, no murmur, + abnormal peripheral pulses (diminished pedal pulses), + pertinent finding (1+ pretibial edema) Abdomen/GI: + pertinent finding (quiet bowel sounds, distended, nontender; umbilical hernia; liver and spleen not palpable, but exam limited) Extremities/Musculoskelatal: no calf tenderness, normal capillary refill, + pedal edema (1+), + pertinent finding (generalized motor weakness) Neurologic/Psych: roofer vinyl coating II-XII nml as tested (PERRL, EOMI, no facial palsy), normal reflexes (plantar reflexes downgoing), + disoriented, + pertinent finding (+ asterixis) Skin: normal color, warm/dry, no rash Lymphatic: no adenopathy (cervical) Diagnostics Laboratory Results Results Past 24 Hours Test 11/25/16 17:51 11/25/16 18:37 11/25/16 18:43 Range/Units White Blood Count 5.61 4.8-10.8 K/uL Red Blood Count 2.50 4.7-6.1 M/uL Hemoglobin 7.7 14.0-18.0 g/dL Hematocrit 22.8 42-52 % Mean Corpuscular Volume 91.2 80-100 fL Mean Corpuscular Hemoglobin 30.8 25-34 pg Mean Corpuscular Hemoglobin Concent 33.8 32-36 g/dl Platelet Count 90 130-400 K/uL Mean Platelet Volume 11.3 7.4-10.4 fL Neutrophils (%) (Auto) 61.5 % Lymphocytes (%) (Auto) 21.9 % Monocytes (%) (Auto) 9.1 % Eosinophils (%) (Auto) 5.5 % Basophils (%) (Auto) 1.1 % Neutrophils # (Auto) 3.45 1.4-6.5 K/uL Lymphocytes # (Auto) 1.23 1.2-3.4 K/uL Monocytes # (Auto) 0.51 0.11-0.59 K/uL Eosinophils # (Auto) 0.31 0-0.5 K/uL Basophils # (Auto) 0.06 0-0.2 K/uL RDW Standard Deviation 53.1 36.4-46.3 fL RDW Coefficient of Variation 16.1 11.5-14.5 % Immature Granulocyte % (Auto) 0.9 % Immature Granulocyte # (Auto) 0.05 0.00-0.02 K/uL Schistocytes 1+ Prothrombin Time 13.8 9.0-12.0 SECONDS Prothromb Time International Ratio 1.3 0.9-1.1 Activated Partial Thromboplast Time 37.1 21.0-31.0 SECONDS Partial Thromboplastin Ratio 1.4 Venous Blood pH 7.48 7.36-7.41 Venous Blood Partial Pressure CO2 28 38.0-50.0 mmHg Venous Blood Partial Pressure O2 35 mmHg Venous Blood HCO3 20 mmol/L Venous Blood Oxygen Saturation < 60.0 % Venous Blood Base Excess -2.8 mEq/L Sodium Level 140 136-145 mmol/L Potassium Level 4.1 3.5-5.1 mmol/L Chloride Level 110 98-107 mmol/L Carbon Dioxide Level 19 21-32 mmol/L Anion Gap 11.0 17.0 16-25 mmol/L Blood Urea Nitrogen 47 7-18 mg/dl Creatinine 1.60 0.60-1.40 mg/dl Est Creatinine Clear Calc Drug Dose 47.2 ml/min Estimated GFR () 49.9 Estimated GFR (Non- 43.0 BUN/Creatinine Ratio 29.3 10-20 Random Glucose 81 70-99 mg/dl Calcium Level 8.8 8.5-10.1 mg/dl Total Bilirubin 1.2 0.2-1 mg/dl Direct Bilirubin 0.4 0-0.2 mg/dl Aspartate Amino Transf (AST/SGOT) 34 15-37 U/L Alanine Aminotransferase (ALT/SGPT) 27 12-78 U/L Alkaline Phosphatase 89 45-117 U/L Ammonia 125.0 11-32 umol/L Troponin I < 0.015 0-0.045 ng/ml Total Protein 5.8 6.4-8.2 gm/dl Albumin 2.9 3.4-5.0 gm/dl Lipase 354 73-393 U/L Bedside Hemoglobin 7.5 14.0-18.0 g/dl Bedside Hematocrit 22 42-52 % Bedside Sodium 138 135-144 mEq/L Bedside Potassium 4.2 3.3-5.0 mEq/L Bedside Chloride 108 101-112 mEq/L Bedside Total CO2 18 24-31 mEq/l Bedside Blood Urea Nitrogen 41 7-18 mg/dl Bedside Creatinine 1.6 0.6-1.3 mg/dl Bedside Glucose (other) 83 70-99 mg/dl Bedside Ionized Calcium (Claire) 1.19 1.12-1.32 mmol/l Bedside Lactic Acid Venous 1.38 0.90-1.70 mmol/L Microbiology Results 11/25/16 Blood Culture, Received Pending 11/25/16 Blood Culture, Received Pending Diagnostic Radiology CHEST ONE VIEW PORTABLE FINDINGS: Poorly defined parenchymal infiltrate left base. Slight bilateral hilar fullness considered chronic. Upper lungs are clear. IMPRESSION: Infiltrate left base. The above report was generated using voice recognition software. It may contain grammatical, syntax or spelling errors. Electronically signed by: Matt Trejo M.D. 11/25/2016 5:56 PM Dictated Date/Time: 11/25/2016 5:55 PM . EKG EKG performed at 17:36 reviewed and demonstrated NSR at 80 / minute, poor R- wave progression. . Impression Assessment and Plan HEPATIC ENCEPHALOPATHY Underlying cirrhosis. Increasing confusion. Serum ammonia elevated. Possible pneumonia per chest films- could be precipitating factor. Consider SBP. No reported GI bleeding, but H/H low. Unable to take lactulose orally in ED. Lactulose enema q 8 hrs ordered. Consult GI. ANEMIA Hgb 7.7 compared to recent baseline of ~ 10. Patient denies melena or hematochezia and daughter is not aware of any. Transfuse to maintain Hgb > 8. Monitor H/H. CIRRHOSIS History of cirrhosis attributed to MUNGUIA, complicated by portal hypertension, esophageal varices, ascites, encephalopathy. Hold diuretics and nadolol due to relatively low blood pressures in ED, resume when able. Had large volume paracentesis performed a week ago at [facility] with rapid reaccumulation. Lactulose management as discussed above. Consult GI. POSSIBLE PNEUMONIA Daughter notes occasional cough. Chest x-ray shows possible LLL infiltrate. Blood cultures obtained in ED. Received IV levofloxacin. Continue levofloxacin. HYPERTENSION BP's relatively low in ED. Hold diuretics and nadolol. Follow and titrate Rx. VTE PROPHYLAXIS No anticoagulants due to thrombocytopenia and possible GI bleeding. SCD's. Ambulate as able. RESUSCITATION STATUS Discussed with daughter who is POA. Code status is DNR per patient's wishes. DISPOSITION Admit to Med-Surg Unit. Patient's health has been declining due to his advanced liver disease and he has required at least 5 hospitalizations over the last 4 months. Daughter has been talking to home health agency about possible hospice care. She is unable to be his creative producer at home, so may need to consider SNF (maybe [facility] in [place]). Consult Case Management. Medical follow-up with Dr. Casiano at [facility]. . VTE Prophylaxis VTE Risk Assessment Done? Y/N: Yes Risk Level: Moderate Given or contraindicated: SCD's
[2016-11-25] MEDS ORDERED: LACTULOSE 200GM/700ML WTR ENEMA PR SCH (22:00)
[2016-11-25] MEDS: UNIT DOSE COMPOUND PO SCH (22:29)
[2016-11-25] MEDS: LACTULOSE SYRUP 200 GM, WATER, STERILE IRRIG 700 ML, BARCODE IDENTIFIER 1 EA PR SCH ×2 (22:29)
[2016-11-25] MEDS ORDERED: PANTOprazole INJ 40 MG in SYRINGE 0 ML IV STA (23:32)
[2016-11-26] VITALS (13 sets, daily range): BP systolic 81–103; BP diastolic 35–67; PULSE 64–81; TEMP 34.7–36.8; O2SAT 99–100; Ht 182.9 cm; Wt 81.0 kg
[2016-11-26] MEDS ORDERED: INFLUENZA ADMINISTRATION CHARGE ONE (01:00)
[2016-11-26] MEDS ORDERED: INFLUENZA VACCINE HIGH DOSE 65+ 0.5 ML SYR IM. ONE (01:00)
[2016-11-26] MEDS: LACTULOSE SYRUP 200 GM, WATER, STERILE IRRIG 700 ML, BARCODE IDENTIFIER 1 EA PR SCH ×2 (05:59)
[2016-11-26] MEDS: UNIT DOSE COMPOUND PO SCH ×2 (05:59→14:30)
[2016-11-26 08:55] LABS: HEMATOCRIT 24.7 % (42-52); MEAN CELL VOLUME 91.8 fL (80-100); MEAN CORPUSCULAR HEMOGLOBIN 30.1 pg (25-34); MEAN CORPUSCULAR HGB CONC 32.8 g/dl (32-36); MEAN PLATELET VOLUME 10.8 fL (7.4-10.4); PLATELET COUNT 82 K/uL (130-400); RED BLOOD COUNT 2.69 M/uL (4.7-6.1); WHITE BLOOD COUNT 5.89 K/uL (4.8-10.8)
[2016-11-26] MEDS: DORZOLAMIDE HCL 2% OPH SOLN 10 ML BTL OPB SCH ×2 (09:09→20:30)
[2016-11-26] MEDS: PANTOprazole INJ 40 MG in SYRINGE 0 ML IV SCH ×2 (09:09→20:30)
[2016-11-26 09:25] LABS: BUN/CREATININE RATIO 33.3 (10-20); CALCIUM 8.8 mg/dl (8.5-10.1); CREATININE 1.4 mg/dl (0.60-1.40); POTASSIUM 3.8 mmol/L (3.5-5.1)
[2016-11-26 09:35] LABS: ALB/GLOB RATIO 1.1 (0.9-2)
[2016-11-26] MEDS ORDERED: LEVOFLOXACIN CONSULT ACTIVE PRN (09:45)
[2016-11-26] MEDS ORDERED: LACTULOSE SYRUP 30 GM/45 ML UDP PO SCH (15:00)
[2016-11-26] MEDS ORDERED: LEVOFLOXACIN / D5W 750 MG in PREMIXED IN D5W 100 ML IV SCH (20:00)
[2016-11-26] MEDS ORDERED: RIFAXIMIN TAB 550 MG TAB PO ONE (20:20)
[2016-11-26] MEDS: SIMVASTATIN 40 MG TAB PO SCH (21:27)
[2016-11-27] MEDS: LEVOTHYROXINE 200 MCG TAB PO SCH (05:52)
[2016-11-27 07:15] VITALS: BP 106/66; PULSE 86; TEMP 36.3; O2SAT 98
--- NOTE | 2016-11-27 07:20 | Progress Note ---
Medicine Progress Note Date & Time of Visit: Nov 27, 2016 at 07:20. delayed entry date of service 11/26/16 Subjective seen awake, alert, oriented x 3 has had 1 BM denies abdominal pain, nausea/vomiting no shortness of breath no cough denies other symptoms Objective Last 8 Hrs Date Time Temp Pulse Resp B/P (MAP) Pulse Ox O2 Delivery O2 Flow Rate FiO2 11/27/16 07:15 36.3 86 16 106/66 (79) 98 Room Air 11/27/16 00:00 Room Air Physical Exam: General- oriented x 3, not in distress, speaks in sentences with no effort Head- atraumatic Eyes- PERRL, EOMI, mild icterus ENT- oropharynx clear Neck- supple, no JVD, no adenopathy, no thyromegaly Lungs- clear to auscultation bl Heart- regular rhythm; no murmur, no gallop, no rub appreciated Abdomen- normal bowel sounds, (+) moderate distention, soft, nontender Extremities- no pretibial edema, no calf tenderness; peripheral pulses intact Neuro- alert, oriented x 3; no gross deficits Skin- warm & dry Laboratory Results: Last 24 Hours Test 11/26/16 08:30 11/27/16 04:44 11/27/16 06:00 White Blood Count 5.89 K/uL Red Blood Count 2.69 M/uL Hemoglobin 8.1 g/dL Hematocrit 24.7 % Mean Corpuscular Volume 91.8 fL Mean Corpuscular Hemoglobin 30.1 pg Mean Corpuscular Hemoglobin Concent 32.8 g/dl RDW Standard Deviation 54.4 fL RDW Coefficient of Variation 16.3 % Platelet Count 82 K/uL Mean Platelet Volume 10.8 fL Sodium Level 142 mmol/L Potassium Level 3.8 mmol/L Chloride Level 113 mmol/L Carbon Dioxide Level 18 mmol/L Anion Gap 11.0 mmol/L Blood Urea Nitrogen 47 mg/dl Creatinine 1.40 mg/dl Est Creatinine Clear Calc Drug Dose 53.9 ml/min Estimated GFR () 58.6 Estimated GFR (Non- 50.5 BUN/Creatinine Ratio 33.3 Random Glucose 90 mg/dl Calcium Level 8.8 mg/dl Total Bilirubin 1.8 mg/dl Aspartate Amino Transf (AST/SGOT) 26 U/L Alanine Aminotransferase (ALT/SGPT) 25 U/L Alkaline Phosphatase 79 U/L Total Protein 5.5 gm/dl Albumin 2.8 gm/dl Globulin 2.7 gm/dl Albumin/Globulin Ratio 1.1 Date/Time Source Procedure Growth Status 11/27/16 06:00 Blood Blood Culture Pending Ordered 11/27/16 06:00 Blood Blood Culture Pending Ordered Assessment & Plan HEPATIC ENCEPHALOPATHY Underlying cirrhosis. Serum ammonia elevated. Possible pneumonia per chest films- could be precipitating factor. 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 Had large volume paracentesis performed a week ago at [facility] with rapid reaccumulation. -- resume diuretics, Nadolol, Lactulose, Rifaximin -- may need additional paracentesis -- discussed goals of care with daughter would like palliative care consult, transition to [place] SN[facility] POSSIBLE PNEUMONIA Daughter notes occasional cough. Chest x-ray shows possible LLL infiltrate. Blood cultures obtained in ED. -- on Levaquin HYPERTENSION -- resume Nadolol with parameters VTE PROPHYLAXIS No anticoagulants due to thrombocytopenia and possible GI bleeding. SCD's. Ambulate as able. RESUSCITATION STATUS Discussed with daughter who is POA. Code status is DNR per patient's wishes. DISPOSITION case management on board- palliative care consult and transition to [place] SN[facility] Medical follow-up with Dr. Casiano at [facility]. . Current Inpatient Medications: Current Inpatient Medications Medications (Trade) Dose Ordered Sig/Elias Route Start Time Stop Time Status Last Admin Dose Admin Dorzolamide HCl (Trusopt 2% Oph Soln) 1 drops BID OPB 11/26/16 08:00 12/26/16 07:59 11/26/16 20:30 1 DROPS Pantoprazole Sodium 40 mg/ Syringe 10 ml @ 5 mls/min DAILY@ IV 11/26/16 09:00 12/26/16 08:59 11/26/16 20:30 5 MLS/MIN Levofloxacin (Consult) 1 ea UD PRN N/A 11/26/16 09:45 12/26/16 09:44 Furosemide (Lasix Tab) 20 mg DAILY PO 11/27/16 08:00 12/27/16 07:59 Lactulose (Chronulac Syrup) 20 gm DAILY PO 11/27/16 08:00 12/27/16 07:59 Levothyroxine Sodium (Synthroid Tab) 200 mcg DAILYBB PO 11/27/16 06:30 12/27/16 06:29 11/27/16 05:52 200 MCG Rifaximin (Xifaxan Tab) 550 mg BID PO 11/27/16 08:00 12/27/16 07:59 Simvastatin (Zocor Tab) 40 mg QPM PO 11/26/16 21:00 12/26/16 20:59 11/26/16 21:27 40 MG Spironolactone (Aldactone Tab) 12.5 mg QAM PO 11/27/16 08:00 12/27/16 07:59 Levofloxacin 750 mg/Prmx 150 ml @ 100 mls/hr Q24H IV 11/27/16 20:00 12/02/16 19:59
[2016-11-27 07:55] LABS: HEMATOCRIT 24.7 % (42-52); MEAN CELL VOLUME 91.1 fL (80-100); MEAN CORPUSCULAR HEMOGLOBIN 29.9 pg (25-34); MEAN CORPUSCULAR HGB CONC 32.8 g/dl (32-36); PLATELET COUNT 105 K/uL (130-400); RED BLOOD COUNT 2.71 M/uL (4.7-6.1); WHITE BLOOD COUNT 6.27 K/uL (4.8-10.8)
[2016-11-27] MEDS: LACTULOSE SYRUP 20 GM/30 ML UDC PO SCH (08:10)
[2016-11-27] MEDS: FUROSEMIDE 20 MG TAB PO SCH (08:11)
[2016-11-27] MEDS: DORZOLAMIDE HCL 2% OPH SOLN 10 ML BTL OPB SCH ×2 (08:11→19:59)
[2016-11-27] MEDS: SPIRONOLACTONE 25 MG TAB PO SCH (08:11)
[2016-11-27] MEDS: RIFAXIMIN TAB 550 MG TAB PO SCH ×2 (08:11→19:59)
[2016-11-27] MEDS: PANTOprazole INJ 40 MG in SYRINGE 0 ML IV SCH ×2 (08:12→19:59)
[2016-11-27 08:24] LABS: BUN/CREATININE RATIO 27.7 (10-20); CALCIUM 8.7 mg/dl (8.5-10.1); CREATININE 1.4 mg/dl (0.60-1.40)
[2016-11-27 08:30] VITALS: O2SAT 98
[2016-11-27 08:56] LABS: POTASSIUM 3.6 mmol/L (3.5-5.1)
[2016-11-27 15:33] VITALS: BP 110/68; PULSE 79; TEMP 36.5; O2SAT 100
[2016-11-27] MEDS ORDERED: NADOLOL 40 MG TAB PO ONE (15:46)
[2016-11-27] MEDS ORDERED: LACTULOSE SYRUP 20 GM/30 ML UDC PO ONE (16:45)
--- NOTE | 2016-11-27 18:46 | Progress Note ---
Medicine Progress Note Date & Time of Visit: Nov 27, 2016 at 18:41. Subjective patient seen resting in bed, awake, alert , oriented x 3 states he feels tired today had 1 BM this AM denies abdominal pain, nausea, dyspnea, cough had a long discussion with patient he said he is aware and accepting that "the end is coming" would like palliative care consult and transition to [place] [facility] agreeable for additional lactulose now, no further doses today states he does not want to have lactulose enema, even if it means he is unresponsive "just let nature take its course then" agreeable with paracentesis Objective Last 8 Hrs Date Time Temp Pulse Resp B/P (MAP) Pulse Ox O2 Delivery O2 Flow Rate FiO2 11/27/16 15:33 36.5 79 16 110/68 (82) 100 Physical Exam: General- oriented x 3, not in distress, speaks in sentences with no effort Head- atraumatic Eyes- EOMI, mild icterus Neck- no JVD Lungs- clear to auscultation bilaterally Heart- regular rhythm; no murmur, no gallop, no rub appreciated Abdomen- normal bowel sounds, (+) moderate distention, soft, nontender Extremities- no pretibial edema, no calf tenderness; peripheral pulses intact Neuro- alert, oriented x 3; no gross deficits Skin- warm & dry Laboratory Results: Last 24 Hours Test 11/27/16 07:30 White Blood Count 6.27 K/uL Red Blood Count 2.71 M/uL Hemoglobin 8.1 g/dL Hematocrit 24.7 % Mean Corpuscular Volume 91.1 fL Mean Corpuscular Hemoglobin 29.9 pg Mean Corpuscular Hemoglobin Concent 32.8 g/dl RDW Standard Deviation 53.3 fL RDW Coefficient of Variation 16.2 % Platelet Count 105 K/uL Mean Platelet Volume 11.0 fL Sodium Level 140 mmol/L Potassium Level 3.6 mmol/L Chloride Level 112 mmol/L Carbon Dioxide Level 17 mmol/L Anion Gap 11.0 mmol/L Blood Urea Nitrogen 39 mg/dl Creatinine 1.40 mg/dl Est Creatinine Clear Calc Drug Dose 53.9 ml/min Estimated GFR () 58.6 Estimated GFR (Non- 50.5 BUN/Creatinine Ratio 27.7 Random Glucose 85 mg/dl Calcium Level 8.7 mg/dl Date/Time Source Procedure Growth Status 11/27/16 07:30 Blood Blood Culture Pending Received 11/27/16 07:18 Blood Blood Culture Pending Received Assessment & Plan HEPATIC ENCEPHALOPATHY Underlying cirrhosis. Serum ammonia elevated. Possible pneumonia per chest films- could be precipitating factor. 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 Had large volume paracentesis performed a week ago at [facility] with rapid reaccumulation. -- resumed diuretics, Nadolol, Lactulose, Rifaximin -- agreeable with paracentesis with albumin in AM had a long discussion with patient he said he is aware and accepting that "the end is coming" would like palliative care consult and transition to [facility] POSSIBLE PNEUMONIA Daughter notes occasional cough. Chest x-ray shows possible LLL infiltrate. Blood cultures obtained in ED. -- on Levaquin HYPERTENSION -- resume Nadolol with parameters VTE PROPHYLAXIS No anticoagulants due to thrombocytopenia and possible GI bleeding. SCD's. Ambulate as able. RESUSCITATION STATUS Discussed with daughter who is POA. Code status is DNR per patient's wishes. DISPOSITION case management on board- palliative care consult and transition to [place] [facility] Medical follow-up with Dr. Casiano at [facility]. . Current Inpatient Medications: Current Inpatient Medications Medications (Trade) Dose Ordered Sig/Elias Route Start Time Stop Time Status Last Admin Dose Admin Dorzolamide HCl (Trusopt 2% Oph Soln) 1 drops BID OPB 11/26/16 08:00 12/26/16 07:59 11/27/16 08:11 1 DROPS Pantoprazole Sodium 40 mg/ Syringe 10 ml @ 5 mls/min DAILY@ IV 11/26/16 09:00 12/26/16 08:59 11/27/16 08:12 5 MLS/MIN Levofloxacin (Consult) 1 ea UD PRN N/A 11/26/16 09:45 12/26/16 09:44 Furosemide (Lasix Tab) 20 mg DAILY PO 11/27/16 08:00 12/27/16 07:59 11/27/16 08:11 20 MG Lactulose (Chronulac Syrup) 20 gm DAILY PO 11/27/16 08:00 12/27/16 07:59 11/27/16 08:10 20 GM Levothyroxine Sodium (Synthroid Tab) 200 mcg DAILYBB PO 11/27/16 06:30 12/27/16 06:29 11/27/16 05:52 200 MCG Rifaximin (Xifaxan Tab) 550 mg BID PO 11/27/16 08:00 12/27/16 07:59 11/27/16 08:11 550 MG Simvastatin (Zocor Tab) 40 mg QPM PO 11/26/16 21:00 12/26/16 20:59 11/26/16 21:27 40 MG Spironolactone (Aldactone Tab) 12.5 mg QAM PO 11/27/16 08:00 12/27/16 07:59 11/27/16 08:11 12.5 MG Levofloxacin 750 mg/Prmx 150 ml @ 100 mls/hr Q24H IV 11/27/16 20:00 12/02/16 19:59 Nadolol (Corgard Tab) 20 mg DAILY PO 11/28/16 08:00 12/28/16 07:59
[2016-11-27] MEDS: LEVOFLOXACIN 750MG / D5W IV SCH (19:58)
[2016-11-27] MEDS: SIMVASTATIN 40 MG TAB PO SCH (19:59)
[2016-11-27 22:36] VITALS: BP 93/57; PULSE 64; TEMP 36.4; O2SAT 99
[2016-11-28] VITALS (9 sets, daily range): BP systolic 93–101; BP diastolic 55–65; PULSE 61–68; TEMP 36.3–36.5; O2SAT 95–98
[2016-11-28] MEDS: LEVOTHYROXINE 200 MCG TAB PO SCH (05:56)
[2016-11-28] MEDS: DORZOLAMIDE HCL 2% OPH SOLN 10 ML BTL OPB SCH ×2 (06:23→22:01)
--- NOTE | 2016-11-28 07:11 | GASTROINTESTINAL CONSULTATION ---
DATE OF CONSULTATION: 11/26/2016 REFERRED BY: Dr. Wood. I was asked by Dr. Wood to consult on this gentleman for evaluation of encephalopathy and liver disease. 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 His disease is complicated by portal hypertension, history of varices, ascites and encephalopathy. About a week ago, he states he had about 16 liters removed from his abdomen. What brought him into the hospital was his sister found him sitting in his chair a little bit disoriented. He was not complaining of any abdominal pain or excessive abdominal distention. When he presented to our institution, he was lethargic, confused and weak. There was no history of fevers. There was some concern about some small amount of red rectal bleeding as well. Since his admission, he was given lactulose enemas, antibiotics for possible pneumonia and hydration and he is doing extremely well. In fact, at bedside with his sister present, he is alert and oriented and communicating appropriately. He has had no fevers. Denies any vomiting. In fact, he has been n.p.o. and he states that he would love to eat or even just have some fluids. He would really enjoy a soda and he wanted to know if he could chew a piece of gum. PAST MEDICAL HISTORY: I reviewed his medical records and past medical history and his past medical history is significant for liver disease as stated above, hyperlipidemia, hypertension, hypothyroidism. FAMILY HISTORY: He denies any family history of gastrointestinal disease. SOCIAL HISTORY: Significant for being a former smoker. ALLERGIES: He denies any drug allergies. OUTPATIENT MEDICATIONS: Include iron, Lasix, lactulose, Synthroid, Corgard, Prilosec, Xifaxan, Zocor and spironolactone. REVIEW OF SYSTEMS: As above, otherwise he denies any joint swelling. He has had some bruising but this is chronic. He denies any seizures. Denies any depression. He denies any change in vision or hearing. He has had no productive cough or palpitations. He does have some excessive thirst, but he has had this since being on diuretics. He denies any heat or cold intolerance. PHYSICAL EXAMINATION: GENERAL: Reveals a pleasant gentleman in no distress. VITAL SIGNS: Most recent temperature is 36.8, blood pressure is 97/64, pulse is 75. SKIN: Mildly icteric. He has peripheral wasting, typically seen in cirrhosis. Mouth is clear of lesions but dry. NECK: Thin but supple, with no adenopathy. CHEST: Has diffuse rhonchi, but is otherwise clear. HEART: Regular. ABDOMEN: Distended but not tense. He has obviously fluid wave present but no masses or rebound tenderness. EXTREMITIES: Warm and thin. He does not have excessive lower extremity edema and he has fair distal pulses. NEUROLOGIC: He is alert and oriented x3. LABORATORY DATA: Show a white blood cell count of 5.8, hemoglobin 8.1 and a platelet count of 82,000 and ammonia on admission was 125. Chest x-ray revealed infiltrate in the left base. IMPRESSION: A 71-year-old gentleman found to be encephalopathic. I do not think this is spontaneous bacterial peritonitis. In fact, I do not think he needs a tap at this point. I am concerned about having 17 liters removed a week ago and his kidney function. This very well may have been exacerbated either from pneumonia which is being treated for or could just be related to further decline of his hepatic status. It is not unusual for patients with end-stage liver disease to be very tenuous and anything can push him over the edge to get encephalopathy. At this point, I think since he is much improved, I would start giving him his lactulose orally instead of enemas and I think it is reasonable to start him on clears and see how he tolerates this. JAELD
[2016-11-28 08:10] LABS: CREATININE 1.5 mg/dl (0.60-1.40)
[2016-11-28] MEDS: RIFAXIMIN TAB 550 MG TAB PO SCH ×2 (08:13→22:02)
[2016-11-28] MEDS: SPIRONOLACTONE 25 MG TAB PO SCH (08:14)
[2016-11-28] MEDS: PANTOprazole INJ 40 MG in SYRINGE 0 ML IV SCH (08:14)
[2016-11-28] MEDS: LACTULOSE SYRUP 20 GM/30 ML UDC PO SCH (08:14)
[2016-11-28] MEDS: FUROSEMIDE 20 MG TAB PO SCH (08:14)
[2016-11-28] MEDS: ALBUMIN HUMAN 25% 12.5 GM/50 ML VIAL IV SCH ×4 (08:25→11:48)
[2016-11-28] MEDS: NADOLOL 40 MG TAB PO SCH (10:30)
--- NOTE | 2016-11-28 10:30 | DIAGNOSTIC IMAGING REPORT ---
PARACENTESIS ABDOMEN W/IMAGING CLINICAL HISTORY: 71 years-old Male with therapeutic paracentesis. Liver failure with ascites. COMPARISON: GUIDED PARACENTESIS 10/24/2016 PROCEDURE: The procedure was explained to the patient in the care including the benefits and possible risks/complications. The patient gave verbal understanding and written consent was obtained. A time-out was performed prior to the start of the procedure. The patient was placed on the ultrasound table in the supine position. Using ultrasound guidance, an appropriate procedure site in the left lower abdomen was marked. This area was then prepped and draped in the usual sterile fashion. Local anesthesia was achieved within 1% lidocaine. An 8-Mohawk centesis catheter was then inserted. Approximately 5 liters of clear, yellowish fluid was removed. The catheter was removed and external pressure was held to achieve hemostasis. A sterile dressing was applied to the procedure site. The patient tolerated the procedure well without immediate complications. IMPRESSION: Successful ultrasound-guided paracentesis with removal of 5 L of ascites. The above report was generated using voice recognition software. It may contain grammatical, syntax or spelling errors. Electronically signed by: Carroll Aguero M.D. 11/28/2016 10:29 AM Dictated Date/Time: 11/28/2016 10:28 AM
--- NOTE | 2016-11-28 11:30 | Palliative Care Consultation ---
Consultation Date of Consultation: Nov 28, 2016. Requesting Physician: Dr. Taylor Attending Physician: Dr. Taylor Reason for Consultation: Goals of care History of Present Illness This 71 year old male patient with PMH fatty liver disease, liver cirrhosis, portal hypertension, esophageal varices, ascites, encephalopathy, and others listed below, presented to the ED with c/o weakness and confusion. Patient lives home alone with the help and supervision of his daughter/POA, Ashlyn Dobson. Apparently, patient has had a significant and rapid decline in functional status, as the daughter reports that he used to be completely independent with ADL. Patient was recently admitted in the [facility] in [place] where he had a large volume paracentesis done, reported 17 liters removed. Now, during this admission, patient states that he no longer wants to pursue any aggressive medical treatment and really just wants to be made comfortable. He is also requesting admission permanently into the [place] home (SNF) . Palliative care consulted. I met first with patient's daughter/POA, Ashlyn (Socorro), and her Nasim, as patient was out of room having paracentesis. Socorro stated that her father is now accepting of his condition and "is done." He wants to be made comfortable and allow nature to take its course. Patient has also expressed this wish to Dr. Taylor, per documentation. Family meeting is set up for this afternoon at 1430 to further discuss when patient is in room. 1515: Met with patient, Socorro, and Dr. Hurst in room 422. Patient is awake, alert and oriented; very pleasant and talkative. Patient has no c/o pain or SOB at this time. He does get SOB when his abdomen is full, but he states not severely. Also said that it is very uncomfortable when abdomen is full, but no pain associated. His goal is strictly for comfort and for the best quality of life he can have given the situation. He does not want to be coming back and forth to hospital, also states that he knows he can't live at home any more. Plan at this time is for [facility] POLST form completed by patient with daughter at bedside: DNR, comfort measures only, use of abx with comfort as the goal, NO artificial hydration/ nutrition. Past Medical/Surgical History Medical History: Cirrhosis Of Liver Diverticulosis Colon Esophageal varices HLD Hypertension Hypothyroidism Surgical History: Cataract Hernia surgery Social History Smoking Status: Former Smoker History of Alcohol Use: No Drug Use: none Marital Status: Housing Status: lives alone Occupation Status: retired Review of Systems Constitutional: + weakness ENT: No trouble swallowing Respiratory: No cough, No wheezing, No shortness of breath Cardiac: No chest pain, No edema Abdomen: No pain, No nausea, No vomiting Male : No problem reported Psychiatric: No depression symptoms, No anxiety Allergies Coded Allergies: No Known Allergies (Verified , 10/24/16) Medications Current Inpatient Medications Medications (Trade) Dose Ordered Sig/Elias Route Start Time Stop Time Status Last Admin Dose Admin Dorzolamide HCl (Trusopt 2% Oph Soln) 1 drops BID OPB 11/26/16 08:00 12/26/16 07:59 11/28/16 06:23 1 DROPS Pantoprazole Sodium 40 mg/ Syringe 10 ml @ 5 mls/min DAILY@ IV 11/26/16 09:00 12/26/16 08:59 11/28/16 08:14 5 MLS/MIN Levofloxacin (Consult) 1 ea UD PRN N/A 11/26/16 09:45 12/26/16 09:44 Furosemide (Lasix Tab) 20 mg DAILY PO 11/27/16 08:00 12/27/16 07:59 11/28/16 08:14 20 MG Lactulose (Chronulac Syrup) 20 gm DAILY PO 11/27/16 08:00 12/27/16 07:59 11/28/16 08:14 20 GM Levothyroxine Sodium (Synthroid Tab) 200 mcg DAILYBB PO 11/27/16 06:30 12/27/16 06:29 11/28/16 05:56 200 MCG Rifaximin (Xifaxan Tab) 550 mg BID PO 11/27/16 08:00 12/27/16 07:59 11/28/16 08:13 550 MG Simvastatin (Zocor Tab) 40 mg QPM PO 11/26/16 21:00 12/26/16 20:59 11/27/16 19:59 40 MG Spironolactone (Aldactone Tab) 12.5 mg QAM PO 11/27/16 08:00 12/27/16 07:59 11/28/16 08:14 12.5 MG Levofloxacin 750 mg/Prmx 150 ml @ 100 mls/hr Q24H IV 11/27/16 20:00 12/02/16 19:59 11/27/16 19:58 100 MLS/HR Nadolol (Corgard Tab) 20 mg DAILY PO 11/28/16 08:00 12/28/16 07:59 Albumin Human (Albumin 25%) 12.5 gm TODAY@0800,0900,1100,1200 IV 11/28/16 08:00 11/28/16 18:00 11/28/16 10:47 12.5 GM Physical Exam Date Time Temp Pulse Resp B/P (MAP) Pulse Ox O2 Delivery O2 Flow Rate FiO2 11/28/16 09:20 36.3 62 22 93/55 (68) 96 Room Air 11/28/16 08:50 36.3 66 22 98/60 (73) 96 Room Air 11/28/16 08:30 98 Room Air 11/28/16 08:25 36.5 65 20 100/65 (77) 95 Room Air 11/28/16 07:40 36.3 67 16 101/61 (74) 98 Room Air 11/28/16 00:00 98 Room Air 11/27/16 22:36 36.4 64 22 93/57 (69) 99 Room Air 11/27/16 16:00 Room Air 11/27/16 15:33 36.5 79 16 110/68 (82) 100 General Appearance: no apparent distress, + cachetic (upper body/arm) ENT: hearing grossly normal Neck: supple, no JVD Respiratory: no respiratory distress, no accessory muscle use, + rhonchi ( coarse in right lung) Cardiovascular: regular rate, rhythm, + normal peripheral pulses Abdomen: normal bowel sounds, non tender, + distended Neurologic/Psychiatric: alert, normal mood/affect, oriented x 3 Laboratory Results Last 24 Hours Test 11/28/16 07:18 Creatinine 1.50 mg/dl Est Creatinine Clear Calc Drug Dose 50.3 ml/min Estimated GFR () 53.9 Estimated GFR (Non- 46.5 Assessment & Plan Palliative Performance Scale: 30 % Problem list: Weakness Confusion/encephalopathy Cirrhosis/fatty liver disease, end-stage Ascites- 5L drained today via paracentesis Hx esophageal varices and abdominal ascites Anemia Possible pneumonia Goals of care (Z51.5) Palliative care recs: -Patient would like to be comfort measures only. -Is okay with continuing lactulose PO, but no more enemas. -Paracentesis is fine as long as it is for comfort reasons. -Patient is agreeable to hospice services, however he will go to [facility]. [facility]al [facility] with [facility] to hosp[facility]. -POLST form completed as follows: DNR, comfort measures only, use of abx with comfort as the goal, no artificial hydration/nutrition. Signed by patient, discussed with daughter at bedside. -Place ostomy bag over paracentesis site- it is draining a large amount of serous fluid at this time. -Allow patient to eat as tolerated. -No pain at this time, has not had pain throughout this process. Thank you kindly for this consult. Please contact me with any further palliative care needs.
--- NOTE | 2016-11-28 11:38 | Gastroenterology Progress Note ---
Progress Note Date of Service: Nov 28, 2016 Subjective Pt evaluation today including: conversation w/ patient, conversation w/ family , physical exam, chart review, lab review, review of studies, review of inpatient medication list Pt just returned from u/s guided paracentesis, had 5L ascites removal, no fluids sent to labs. He appears tired, weak, though answering my questions appropriately. Pt and family decided to have Palliative Care for pt as he had declined any further treatment or testings. Review of Systems Constitutional: + weakness Respiratory: No shortness of breath Cardiac: No chest pain Abdomen: No pain, No nausea, No vomiting Medications Current Inpatient Medications Medications (Trade) Dose Ordered Sig/Elias Route Start Time Stop Time Status Last Admin Dose Admin Dorzolamide HCl (Trusopt 2% Oph Soln) 1 drops BID OPB 11/26/16 08:00 12/26/16 07:59 11/28/16 06:23 1 DROPS Pantoprazole Sodium 40 mg/ Syringe 10 ml @ 5 mls/min DAILY@ IV 11/26/16 09:00 12/26/16 08:59 11/28/16 08:14 5 MLS/MIN Levofloxacin (Consult) 1 ea UD PRN N/A 11/26/16 09:45 12/26/16 09:44 Furosemide (Lasix Tab) 20 mg DAILY PO 11/27/16 08:00 12/27/16 07:59 11/28/16 08:14 20 MG Lactulose (Chronulac Syrup) 20 gm DAILY PO 11/27/16 08:00 12/27/16 07:59 11/28/16 08:14 20 GM Levothyroxine Sodium (Synthroid Tab) 200 mcg DAILYBB PO 11/27/16 06:30 12/27/16 06:29 11/28/16 05:56 200 MCG Rifaximin (Xifaxan Tab) 550 mg BID PO 11/27/16 08:00 12/27/16 07:59 11/28/16 08:13 550 MG Simvastatin (Zocor Tab) 40 mg QPM PO 11/26/16 21:00 12/26/16 20:59 11/27/16 19:59 40 MG Spironolactone (Aldactone Tab) 12.5 mg QAM PO 11/27/16 08:00 12/27/16 07:59 11/28/16 08:14 12.5 MG Levofloxacin 750 mg/Prmx 150 ml @ 100 mls/hr Q24H IV 11/27/16 20:00 12/02/16 19:59 11/27/16 19:58 100 MLS/HR Nadolol (Corgard Tab) 20 mg DAILY PO 11/28/16 08:00 12/28/16 07:59 Albumin Human (Albumin 25%) 12.5 gm TODAY@0800,0900,1100,1200 IV 11/28/16 08:00 11/28/16 18:00 11/28/16 10:47 12.5 GM Objective Vital Signs Date Time Temp Pulse Resp B/P (MAP) Pulse Ox O2 Delivery O2 Flow Rate FiO2 11/28/16 09:20 36.3 62 22 93/55 (68) 96 Room Air 11/28/16 08:50 36.3 66 22 98/60 (73) 96 Room Air 11/28/16 08:30 98 Room Air 11/28/16 08:25 36.5 65 20 100/65 (77) 95 Room Air 11/28/16 07:40 36.3 67 16 101/61 (74) 98 Room Air 11/28/16 00:00 98 Room Air 11/27/16 22:36 36.4 64 22 93/57 (69) 99 Room Air 11/27/16 16:00 Room Air 11/27/16 15:33 36.5 79 16 110/68 (82) 100 Physical Exam General Appearance: + mild distress, + thin Neck: supple, no JVD, trachea midline Respiratory/Chest: no respiratory distress, no accessory muscle use, + decreased breath sounds Cardiovascular: regular rate, rhythm, no gallop, no murmur Abdomen: normal bowel sounds, non tender, soft Extremities: normal inspection, no pedal edema, no calf tenderness Neurologic/Psych: oriented x 3, + depressed affect Laboratory Results Last 24 Hours Test 11/28/16 07:18 Creatinine 1.50 mg/dl Est Creatinine Clear Calc Drug Dose 50.3 ml/min Estimated GFR () 53.9 Estimated GFR (Non- 46.5 Assessment and Plan Pt is a 71 y/o male w NAFLD cirrhosis usually managed by [place], admitted w confusion. He had 17L ascites removal last week, was brought in to ED due to confusion, lethargy. Blood cx grew staph (1 out of 2), he is in Levofloxacin, blood cx pending. He had repeat u/s paracentesis (5L) today, no fluids sent. His LFTs are stable, Cr 1.3-1.5. MELD 15. Pt had chose to seek palliative care. - Low salt diet. - Continue current Lactulose and Xifaxan. - No new GI plans at this time. Attg addendum: I reviewed chart and labs. Plan is for palliative rx. Will sign off, please reconsult as needed.
--- NOTE | 2016-11-28 21:50 | Progress Note ---
Medicine Progress Note Date & Time of Visit: Nov 28, 2016 at 21:46. Subjective patient seen with daughter at bedside appears weak but alert, oriented x 3 denies abdominal pain, nausea had 1 BM this morning denies dyspnea no other symptoms Objective Last 8 Hrs Date Time Temp Pulse Resp B/P (MAP) Pulse Ox O2 Delivery O2 Flow Rate FiO2 11/28/16 16:00 96 Room Air Physical Exam: General- oriented x 3, not in distress, speaks in sentences with no effort Head- atraumatic Eyes- EOMI, mild icterus Neck- no JVD Lungs- clear to auscultation bilaterally, no rales/wheezes Heart- regular rhythm; no murmur, no gallop, no rub appreciated Abdomen- normal bowel sounds, (+) moderate distention, soft, nontender Extremities- no pretibial edema, no calf tenderness; peripheral pulses intact Neuro- alert, oriented x 3; no gross deficits Skin- warm & dry Laboratory Results: Last 24 Hours Test 11/28/16 07:18 Creatinine 1.50 mg/dl Est Creatinine Clear Calc Drug Dose 50.3 ml/min Estimated GFR () 53.9 Estimated GFR (Non- 46.5 Assessment & Plan HEPATIC ENCEPHALOPATHY Underlying cirrhosis. Serum ammonia elevated. Possible pneumonia per chest films- could be precipitating factor. -- resumed Lactulose daily , Rifaximin -- had 1 BM today declined further lactulose today, resume tomorrow states he does not want to have lactulose enema, even if it means he is unresponsive "just let nature take its course then" -- back to baseline mental status but weak palliative care consult placed plan for discharge to [facility] under Palliative Care SVCs ANEMIA Hg 8.1 monitor CIRRHOSIS History of cirrhosis attributed to MUNGUIA, complicated by portal hypertension, esophageal varices, ascites, encephalopathy. Had large volume paracentesis performed a week ago at [facility] with rapid reaccumulation. -- resumed diuretics, Nadolol, Lactulose, Rifaximin -- agreeable with paracentesis with albumin had a long discussion with patient he said he is aware and accepting that "the end is coming" POSSIBLE PNEUMONIA Daughter notes occasional cough. Chest x-ray shows possible LLL infiltrate. Blood cultures obtained in ED. -- on Levaquin HYPERTENSION -- resumed Nadolol with parameters VTE PROPHYLAXIS No anticoagulants due to thrombocytopenia and possible GI bleeding. SCD's. Ambulate as able. RESUSCITATION STATUS Discussed with daughter who is POA. Code status is DNR per patient's wishes. DISPOSITION plan for transfer to [facility] in AM with palliative care services Medical follow-up with Dr. Casiano at [facility]. . Current Inpatient Medications: Current Inpatient Medications Medications (Trade) Dose Ordered Sig/Elias Route Start Time Stop Time Status Last Admin Dose Admin Dorzolamide HCl (Trusopt 2% Oph Soln) 1 drops BID OPB 11/26/16 08:00 12/26/16 07:59 11/28/16 06:23 1 DROPS Levofloxacin (Consult) 1 ea UD PRN N/A 11/26/16 09:45 12/26/16 09:44 Furosemide (Lasix Tab) 20 mg DAILY PO 11/27/16 08:00 12/27/16 07:59 11/28/16 08:14 20 MG Lactulose (Chronulac Syrup) 20 gm DAILY PO 11/27/16 08:00 12/27/16 07:59 11/28/16 08:14 20 GM Levothyroxine Sodium (Synthroid Tab) 200 mcg DAILYBB PO 11/27/16 06:30 12/27/16 06:29 11/28/16 05:56 200 MCG Rifaximin (Xifaxan Tab) 550 mg BID PO 11/27/16 08:00 12/27/16 07:59 11/28/16 08:13 550 MG Simvastatin (Zocor Tab) 40 mg QPM PO 11/26/16 21:00 12/26/16 20:59 11/27/16 19:59 40 MG Spironolactone (Aldactone Tab) 12.5 mg QAM PO 11/27/16 08:00 12/27/16 07:59 11/28/16 08:14 12.5 MG Levofloxacin 750 mg/Prmx 150 ml @ 100 mls/hr Q24H IV 11/27/16 20:00 12/02/16 19:59 11/27/16 19:58 100 MLS/HR Nadolol (Corgard Tab) 20 mg DAILY PO 11/28/16 08:00 12/28/16 07:59 Pantoprazole Sodium (Protonix Tab) 40 mg BID PO 11/28/16 20:00 12/28/16 19:59
[2016-11-28] MEDS: LEVOFLOXACIN 750MG / D5W IV SCH (22:01)
[2016-11-28] MEDS: PANTOprazole SOD 40 MG TAB PO SCH (22:01)
[2016-11-28] MEDS: SIMVASTATIN 40 MG TAB PO SCH (22:02)
[2016-11-29] VITALS: BP 92/49; PULSE 76; TEMP 36.5; O2SAT 100
[2016-11-29] MEDS: LEVOTHYROXINE 200 MCG TAB PO SCH (06:08)
[2016-11-29] MEDS: RIFAXIMIN TAB 550 MG TAB PO SCH (07:55)
[2016-11-29] MEDS: DORZOLAMIDE HCL 2% OPH SOLN 10 ML BTL OPB SCH (07:55)
[2016-11-29] MEDS: FUROSEMIDE 20 MG TAB PO SCH (07:56)
[2016-11-29] MEDS: LACTULOSE SYRUP 20 GM/30 ML UDC PO SCH (07:57)
[2016-11-29] MEDS: SPIRONOLACTONE 25 MG TAB PO SCH (07:57)
[2016-11-29] MEDS: PANTOprazole SOD 40 MG TAB PO SCH (07:57)
[2016-11-29 08:00] VITALS: O2SAT 100
[2016-11-29] MEDS: NADOLOL 40 MG TAB PO SCH (08:00)
[2016-11-29 08:01] VITALS: BP 94/59; PULSE 83; TEMP 36.7; O2SAT 100
[2016-11-29] MEDS: ALBUMIN HUMAN 25% 12.5 GM/50 ML VIAL IV SCH ×2 (09:00→12:00)
[2016-11-29 09:13] LABS: BUN/CREATININE RATIO 25.6 (10-20); CALCIUM 8.1 mg/dl (8.5-10.1); CREATININE 1.7 mg/dl (0.60-1.40); POTASSIUM 4.5 mmol/L (3.5-5.1)
[2016-11-29 14:10] LABS: HEMATOCRIT 22.4 % (42-52); MEAN CELL VOLUME 93.3 fL (80-100); MEAN CORPUSCULAR HEMOGLOBIN 30.4 pg (25-34); MEAN CORPUSCULAR HGB CONC 32.6 g/dl (32-36); MEAN PLATELET VOLUME 12.5 fL (7.4-10.4); PLATELET COUNT 107 K/uL (130-400); WHITE BLOOD COUNT 7.31 K/uL (4.8-10.8)
[2016-11-29 14:14] LABS: ANISOCYTOSIS PRESENT; BASO % 0.5 %; BASO ABS # 0.04 K/uL (0-0.2); COMPLETE YES; EOS % 3.4 %; LYMPH % 8.8 %; LYMPH ABS # 0.64 K/uL (1.2-3.4); MONO % 16.1 %; NEUT % 70.2 %; POIKILOCYTOSIS PRESENT; SCHISTOCYTES 1+
--- NOTE | 2016-11-29 15:22 | Progress Note ---
Medicine Progress Note Date & Time of Visit: Nov 29, 2016 at 15:17. Subjective patient seen resting in bed, appears somewhat weak but awake, alert, oriented x 3 states he feels comfortable denies pain, dyspnea, nausea no other symptoms states he is ready and would like to be discharged today Objective Last 8 Hrs Date Time Temp Pulse Resp B/P (MAP) Pulse Ox O2 Delivery O2 Flow Rate FiO2 11/29/16 08:01 36.7 83 18 94/59 (71) 100 Room Air 11/29/16 08:00 100 Room Air Physical Exam: General- oriented x 3, not in distress, speaks in sentences with no effort Eyes- mild icterus Lungs- clear breath sounds BL Heart- regular rhythm; no murmur, normal rate Abdomen- normal bowel sounds, (+) moderate distention, soft, nontender Extremities- no pretibial edema, no calf tenderness; peripheral pulses intact Neuro- alert, oriented x 3; no gross deficits Skin- warm & dry Laboratory Results: Last 24 Hours Test 11/29/16 07:56 White Blood Count 7.31 K/uL Red Blood Count 2.40 M/uL Hemoglobin 7.3 g/dL Hematocrit 22.4 % Mean Corpuscular Volume 93.3 fL Mean Corpuscular Hemoglobin 30.4 pg Mean Corpuscular Hemoglobin Concent 32.6 g/dl Platelet Count 107 K/uL Mean Platelet Volume 12.5 fL Neutrophils (%) (Auto) 70.2 % Lymphocytes (%) (Auto) 8.8 % Monocytes (%) (Auto) 16.1 % Eosinophils (%) (Auto) 3.4 % Basophils (%) (Auto) 0.5 % Neutrophils # (Auto) 5.13 K/uL Lymphocytes # (Auto) 0.64 K/uL Monocytes # (Auto) 1.18 K/uL Eosinophils # (Auto) 0.25 K/uL Basophils # (Auto) 0.04 K/uL RDW Standard Deviation 55.0 fL RDW Coefficient of Variation 16.1 % Immature Granulocyte % (Auto) 1.0 % Immature Granulocyte # (Auto) 0.07 K/uL Poikilocytosis PRESENT Anisocytosis PRESENT Schistocytes 1+ Sodium Level 140 mmol/L Potassium Level 4.5 mmol/L Chloride Level 111 mmol/L Carbon Dioxide Level 18 mmol/L Anion Gap 11.0 mmol/L Blood Urea Nitrogen 44 mg/dl Creatinine 1.70 mg/dl Est Creatinine Clear Calc Drug Dose 44.4 ml/min Estimated GFR () 46.3 Estimated GFR (Non- 40.0 BUN/Creatinine Ratio 25.6 Random Glucose 85 mg/dl Calcium Level 8.1 mg/dl Assessment & Plan HEPATIC ENCEPHALOPATHY Underlying cirrhosis. Serum ammonia elevated. Possible pneumonia per chest films- could be precipitating factor. -- resumed Lactulose daily , Rifaximin (+) BMs remained alert, oriented x 3 while admitted -- palliative care consult placed, patient would like to transition to SNF with Palliative Care Services will continue medications for now -- transfer to [facility] under Palliative Care ANEMIA Hg 7 -- denies dyspnea, dizziness CIRRHOSIS History of cirrhosis attributed to MUNGUIA, complicated by portal hypertension, esophageal varices, ascites, encephalopathy. Had large volume paracentesis performed a week ago at [facility] with rapid reaccumulation. -- resumed diuretics, Nadolol, Lactulose, Rifaximin -- s/p paracentesis with albumin , drained 5 L -- continue medications for now POSSIBLE PNEUMONIA Daughter notes occasional cough. Chest x-ray shows possible LLL infiltrate. Blood cultures obtained in ED. -- on Levaquin x Day 07/08 HYPERTENSION -- resumed Nadolol with parameters VTE PROPHYLAXIS No anticoagulants due to thrombocytopenia and possible GI bleeding. SCD's. Ambulate as able. RESUSCITATION STATUS Discussed with daughter who is POA. Code status is DNR per patient's wishes. DISPOSITION transfer to [facility] with palliative care services Medical follow-up with Dr. Casiano at [facility]. . Current Inpatient Medications: Current Inpatient Medications Medications (Trade) Dose Ordered Sig/Elias Route Start Time Stop Time Status Last Admin Dose Admin Dorzolamide HCl (Trusopt 2% Oph Soln) 1 drops BID OPB 11/26/16 08:00 12/26/16 07:59 11/29/16 07:55 1 DROPS Levofloxacin (Consult) 1 ea UD PRN N/A 11/26/16 09:45 12/26/16 09:44 Furosemide (Lasix Tab) 20 mg DAILY PO 11/27/16 08:00 12/27/16 07:59 11/29/16 07:56 20 MG Lactulose (Chronulac Syrup) 20 gm DAILY PO 11/27/16 08:00 12/27/16 07:59 11/29/16 07:57 20 GM Levothyroxine Sodium (Synthroid Tab) 200 mcg DAILYBB PO 11/27/16 06:30 12/27/16 06:29 11/29/16 06:08 200 MCG Rifaximin (Xifaxan Tab) 550 mg BID PO 11/27/16 08:00 12/27/16 07:59 11/29/16 07:55 550 MG Simvastatin (Zocor Tab) 40 mg QPM PO 11/26/16 21:00 12/26/16 20:59 11/28/16 22:02 40 MG Spironolactone (Aldactone Tab) 12.5 mg QAM PO 11/27/16 08:00 12/27/16 07:59 11/29/16 07:57 12.5 MG Levofloxacin 750 mg/Prmx 150 ml @ 100 mls/hr Q24H IV 11/27/16 20:00 12/02/16 19:59 11/28/16 22:01 100 MLS/HR Nadolol (Corgard Tab) 20 mg DAILY PO 11/28/16 08:00 12/28/16 07:59 Pantoprazole Sodium (Protonix Tab) 40 mg BID PO 11/28/16 20:00 12/28/16 19:59 11/29/16 07:57 40 MG Albumin Human (Albumin 25%) 25 gm TODAY@0900,1200 IV 11/29/16 09:00 11/29/16 16:00
[2016-11-29] MEDS ORDERED: LEVO-18 PO (15:33)
--- NOTE | 2016-11-29 15:37 | Discharge Instructions ---
Discharge Instructions Date of Service Nov 29, 2016. Admission Reason for Admission: Hepatic Encephalopathy Discharge Discharge Diagnosis / Problem: HEPATIC ENCEPHALOPATHY Discharge Goals Goal(s): Diagnostic testing, Therapeutic intervention Activity Recommendations Activity Level: Assistance Required . Additional Information Patient informed of condition: Yes Advance Directives: No (UNKNOWN) DNR: Yes Level of Care: Skilled Communicable Disease: No Prognosis: Deteriorating Instructions / Follow-Up Instructions / Follow-Up PATIENT PREFERS PALLIATIVE CARE SERVICES. PLEASE REFER TO ACCOMPANYING HOSPITAL DISCHARGE SUMMARY. Current Hospital Diet Patient's current hospital diet: Low Sodium Diet (2gm Na) Discharge Diet Recommended Diet: Low Sodium Diet (2gm Na) Procedures Procedures Performed: PARACENTESIS Pending Studies Studies pending at discharge: no Physician Orders On Transfer Special Precautions: PATIENT PREFERS PALLIATIVE CARE SERVICES. PLEASE REFER TO ACCOMPANYING HOSPITAL DISCHARGE SUMMARY. Medical Emergencies . Who to Call and When: Medical Emergencies: If at any time you feel your situation is an emergency, please call 911 immediately. . Non-Emergent Contact Non-Emergency issues call your: Primary Care Provider Call Non-Emergent contact if: you have a fever . Past History Medical & Surgical History: (1) Cirrhosis Of Liver Nos (2) Diverticulosis Colon (W/O Ment Of Hemorrhage) (3) Hypertension Nos (4) Hypothyroidism Nos (5) Esophageal varices (6) HLD (hyperlipidemia) (7) PNA (pneumonia) (8) Anemia (9) Altered mental status (10) Hypotension (11) Hepatic encephalopathy (12) Status post cataract extraction (13) Status post hernia repair . "Provider Documentation" section prepared by Juan Taylor. . Core Measure Problem Core Measures: None
[2016-11-29 15:41] VITALS: BP 94/59; PULSE 83; TEMP 36.7; O2SAT 100
--- NOTE | 2016-11-29 15:42 | Discharge Summary ---
Discharge Summary Date of Service Nov 29, 2016. Discharge Summary Admission Date: Nov 25, 2016 at 20:32 Discharge Date: Nov 29, 2016 Discharge Disposition: [facility] facility Principal Diagnosis: HEPATIC ENCEPHALOPATHY Secondary Diagnoses/Problems: PLEASE REFER TO HOSPITAL COURSE BELOW. Procedures: PARACENTESIS Consultations: GASTROENTEROLOGY, PALLIATIVE CARE Pending Studies/Follow-Up: PLEASE REFER TO HOSPITAL COURSE BELOW. Medication Reconciliation New Medications: Levofloxacin (Levaquin) 750 Mg Tab 750 MG PO DAILY for 1 Day, #1 TAB 0 Refills Continued Medications: Dorzolamide Hcl (Trusopt) 2 % Shannon 1 DROP OPB BID Furosemide (Lasix) 20 Mg Tab 20 MG PO DAILY Lactulose (Lactulose) 20 Gm/30 Ml Syrp 20 GM PO DAILY for 30 Days Levothyroxine Sodium (Synthroid) 200 Mcg Tab 200 MCG PO QAM Nadolol (Corgard) 20 Mg Tab 20 MG PO HOLD, TAB Omeprazole (Prilosec) 20 Mg Capcr 40 MG PO BID, CAP Rifaximin (Xifaxan) 550 Mg Tab 550 MG PO BID, TAB Spironolactone (Spironolactone) 25 Mg Tab 12.5 MG PO QAM for 30 Days, #15 TAB 1 Refill Discontinued Medications: Cholecalciferol (Vitamin D3) 1,000 Unit Tab 2000 UNITS PO DAILY Ferrous Sulfate (Ferrous Sulfate) 324 Mg Tab 324 MG PO QAM Simvastatin (Zocor) 40 Mg Tab 40 MG PO QPM, TAB Admission Information HPI (per Admitting provider): 71 YO male followed by Dr. Casiano at [facility]. [facility] in [place]. History of cirrhosis attributed to fatty liver disease, complicated by portal hypertension, esophageal varices, ascites, encephalopathy. Hospitalized at [facility] twice in August with hepatic encephalopathy and again in September with acute kidney injury. Hospitalized at [facility] in [place] last week. Large volume paracentesis performed. Discharged to home 5 days prior to admission. Daughter does not live with him, but checks on him by phone or by visiting several times a day. This afternoon, she found him to be lethargic, confused, weak. He was brought to the ED for evaluation. Patient unable to provide much history due to his mental status. He denies fever, chest pain, cough, SOB, abdominal pain, nausea, vomiting, melena, hematochezia, urinary symptoms. His daughter has noted an occasional cough. . Physical Exam (per Admitting): General Appearance: no apparent distress, + pertinent finding (appears to be chronically ill) Eyes: normal inspection, PERRL, EOMI, sclerae normal (conjunctivae pink) ENT: hearing grossly normal, + pertinent finding (edentulous, upper dentures ) Neck: supple, no adenopathy, thyroid normal, no JVD, trachea midline Respiratory/Chest: lungs clear, no respiratory distress, no accessory muscle use Cardiovascular: regular rate, rhythm, no gallop, no JVD, no murmur, + abnormal peripheral pulses (diminished pedal pulses), + pertinent finding (1+ pretibial edema) Abdomen/GI: + pertinent finding (quiet bowel sounds, distended, nontender; umbilical hernia; liver and spleen not palpable, but exam limited) Extremities/Musculoskelatal: no calf tenderness, normal capillary refill, + pedal edema (1+), + pertinent finding (generalized motor weakness) Neurologic/Psych: 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 Serum ammonia elevated. Possible pneumonia per chest films- could be precipitating factor. -- resumed Lactulose daily , Rifaximin (+) BMs remained alert, oriented x 3 while admitted -- palliative care consult placed, patient would like to transition to SNF with Palliative Care Services will continue medications for now -- transfer to [facility] under Palliative Care ANEMIA Hg 7 -- denies dyspnea, dizziness CIRRHOSIS History of cirrhosis attributed to MUNGUIA, complicated by portal hypertension, esophageal varices, ascites, encephalopathy. Had large volume paracentesis performed a week ago at [facility] with rapid reaccumulation. -- resumed diuretics, Nadolol, Lactulose, Rifaximin -- s/p paracentesis with albumin , drained 5 L monitor site for leakage -- continue medications for now POSSIBLE PNEUMONIA Daughter notes occasional cough. Chest x-ray shows possible LLL infiltrate. Blood cultures obtained in ED. -- on Levaquin x Day 07/08 HYPERTENSION -- resumed Nadolol with parameters VTE PROPHYLAXIS No anticoagulants due to thrombocytopenia and possible GI bleeding. SCD's. Ambulate as able. RESUSCITATION STATUS Discussed with daughter who is POA. Code status is DNR per patient's wishes. DISPOSITION transfer to [facility] with palliative care services Medical follow-up with Dr. Casiano at [facility]. . Total time spent on discharge = 35 minutes This includes examination of the patient, discharge planning, medication reconciliation, and communication with other providers. Discharge Instructions Discharge Instructions Date of Service Nov 29, 2016. Admission Reason for Admission: Hepatic Encephalopathy Discharge Discharge Diagnosis / Problem: HEPATIC ENCEPHALOPATHY Discharge Goals Goal(s): Diagnostic testing, Therapeutic intervention Activity Recommendations Activity Level: Assistance Required . Additional Information Patient informed of condition: Yes Advance Directives: No (UNKNOWN) DNR: Yes Level of Care: Skilled Communicable Disease: No Prognosis: Deteriorating Instructions / Follow-Up Instructions / Follow-Up PATIENT PREFERS PALLIATIVE CARE SERVICES. PLEASE REFER TO ACCOMPANYING HOSPITAL DISCHARGE SUMMARY. Current Hospital Diet Patient's current hospital diet: Low Sodium Diet (2gm Na) Discharge Diet Recommended Diet: Low Sodium Diet (2gm Na) Procedures Procedures Performed: PARACENTESIS Pending Studies Studies pending at discharge: no Physician Orders On Transfer Special Precautions: PATIENT PREFERS PALLIATIVE CARE SERVICES. PLEASE REFER TO ACCOMPANYING HOSPITAL DISCHARGE SUMMARY.
[2016-11-29 16:00] VITALS: O2SAT 100
[2016-11-30] MEDS ORDERED: LEVOFLOXACIN 750MG / D5W IV SCH (20:00)
== END 2016-11-29 16:20 | DRG 441 ==
LOC: EDBD 17:11 → C.EDB 17:12 → C.4E 20:32 → ENRESERV 20:58
PROVIDERS: ADMIT Hospitalist; ATTEND Internal Medicine
PROC: 0W9G3ZZ Drainage of Peritoneal Cavity, Percutaneous Approach (ICD-10-PCS; principal; 2016-11-28)
DX: K72.90 Hepatic failure, unspecified without coma (principal); J18.9 Pneumonia, unspecified organism; I85.10 Secondary esophageal varices without bleeding; Z66 Do not resuscitate; Z51.5 Encounter for palliative care; K71.51 Toxic liver disease with chronic active hepatitis with ascites; E78.5 Hyperlipidemia, unspecified; I10 Essential (primary) hypertension; E03.9 Hypothyroidism, unspecified; D64.9 Anemia, unspecified; I95.9 Hypotension, unspecified; Z87.891 Personal history of nicotine dependence; Z80.6 Family history of leukemia